=== PATIENT | female | born 1970 | race Caucasian/White ===

== ENCOUNTER → 2016-07-14 | Outpatient (CLI) | payer OTHER ==
--- NOTE | 2016-07-14 17:45 | REP ---
Lumbar spine three views: Comparison is the lumbar spine CT dated 01/28. Vertebral body heights and alignment are normal. There is moderate disc space narrowing and L4-5 and L5 S1 compatible with degenerative disc disease at these levels. The remainder of the disc spaces are unremarkable. The pedicles, facets and sacroiliac articulations are unremarkable. There is no spondylolysis or spondylolisthesis. Impression: Degenerative disc disease as described. Signed by Dominic Cagle MD 07/14/2016 05:37 P
== END ==
LOC: M ADAMS 08:59
PROVIDERS: ATTEND Physician Assistant
DX: M51.36 Other intervertebral disc degeneration, lumbar region (principal); M51.37 Other intervertebral disc degeneration, lumbosacral region

== ENCOUNTER 2017-07-14 16:55 | Emergency (ER) | payer OTHER ==
[2017-07-14] MEDS: ONDANSETRON 4 MG ORAL DISINTEGRATING TAB (S0181) PO ×2 (17:37→18:15)
[2017-07-14] MEDS: NORCO, ANEXSIA 5/325MG TABLET (HYDROcodone/ACETAMINOPHEN) PO (17:38)
[2017-07-14] MEDS: NORCO 5/325MG TABLET (BULK FOR ED) PO (18:15)
== END 2017-07-14 18:59 | disposition home or self-care (01) ==
LOC: M ED 16:55
DX: S06.0X0A Concussion without loss of consciousness, initial encounter (principal); S16.1XXA Strain of muscle, fascia and tendon at neck level, initial encounter; S00.93XA Contusion of unspecified part of head, initial encounter; W00.0XXA Fall on same level due to ice and snow, initial encounter; Y92.89 Other specified places as the place of occurrence of the external cause; Y93.01 Activity, walking, marching and hiking
CPT/HCPCS: 70450

== ENCOUNTER 2017-07-18 09:55 | Emergency (ER) | payer OTHER ==
[2017-07-18] MEDS: NORCO, ANEXSIA 5/325MG TABLET (HYDROcodone/ACETAMINOPHEN) PO (11:25)
== END 2017-07-18 11:30 | disposition home or self-care (01) ==
LOC: M ED 09:55
DX: F07.81 Postconcussional syndrome (principal); S20.229A Contusion of unspecified back wall of thorax, initial encounter; S70.01XA Contusion of right hip, initial encounter; W19.XXXA Unspecified fall, initial encounter; Y92.59 Other trade areas as the place of occurrence of the external cause; Y99.0 Civilian activity done for income or pay; F33.9 Major depressive disorder, recurrent, unspecified; Z79.899 Other long term (current) drug therapy; Z98.890 Other specified postprocedural states
CPT/HCPCS: 72110

== ENCOUNTER → 2017-09-10 | Outpatient (REF) | payer OTHER ==
[2017-09-10 12:48] LABS: PTH INTACT 48.9 PG/ML (18.5-88.0)
[2017-09-10 12:59] LABS: HEPATITIS B SURFACE ANTIGEN NEGATIVE (NEGATIVE)
[2017-09-10 13:26] LABS: HEPATITIS B CORE ANTIBODY IGM NEGATIVE (NEGATIVE)
[2017-09-10 13:26] LABS: HEPATITIS C VIRUS ABY INDEX 0.1 INDEX (<0.8)
[2017-09-10 13:29] LABS: HEPATITIS A ANTIBODY IGM NEGATIVE (NEGATIVE)
== END ==
LOC: M LAB REF 11:55
DX: E83.52 Hypercalcemia (principal); R94.5 Abnormal results of liver function studies

== ENCOUNTER → 2017-10-02 | Outpatient (REF) | payer OTHER ==
[2017-10-02 18:35] LABS: RHEUMATOID FACTOR QUANT < 10.0 IU/ML (<15.0)
[2017-10-03 09:29] LABS: HEPATITIS B SURFACE ANTIGEN NEGATIVE (NEGATIVE)
[2017-10-03 09:55] LABS: HEPATITIS C VIRUS ABY INDEX 0.1 INDEX (<0.8)
[2017-10-03 09:56] LABS: HEPATITIS B CORE ANTIBODY IGM NEGATIVE (NEGATIVE)
[2017-10-03 09:58] LABS: HEPATITIS A ANTIBODY IGM NEGATIVE (NEGATIVE)
[2017-10-07 00:07] LABS: ANTINUCLEAR ANTIBODIES DIRECT Negative (Negative); Lyme Disease IgG/IgM Antibodie <0.91 ISR (0.00-0.90); Lyme Disease IgM Ab Quantitati <0.80 index (0.00-0.79)
[2017-10-07 00:07] LABS: CYCLIC CITRULLINATED PEPTIDE 3 units (0-19)
== END ==
LOC: M LAB REF 17:23
DX: M25.50 Pain in unspecified joint (principal)

== ENCOUNTER → 2018-02-01 | Outpatient (REF) | payer OTHER | LOC: M LAB REF 16:51 | DX: M54.5 Low back pain (principal) ==

== ENCOUNTER → 2018-02-22 | Outpatient (CLI) | payer OTHER | LOC: M ADAMS 08:33 | DX: M54.5 Low back pain (principal) | CPT/HCPCS: 72110 ==

== ENCOUNTER 2018-06-09 20:28 | Emergency (ER) | payer OTHER ==
[2018-06-09] MEDS: PERCOCET 5MG/325MG TAB PO (22:17)
[2018-06-09] MEDS: NORCO 5/325MG TABLET (BULK FOR ED) PO (22:40)
== END 2018-06-09 22:48 | disposition home or self-care (01) ==
LOC: M ED 20:28
DX: S43.102A Unspecified dislocation of left acromioclavicular joint, initial encounter (principal); W19.XXXA Unspecified fall, initial encounter; Y92.093 Driveway of other non-institutional residence as the place of occurrence of the external cause; Y93.9 Activity, unspecified; Y99.9 Unspecified external cause status; R51 Headache; F32.9 Major depressive disorder, single episode, unspecified; Z79.899 Other long term (current) drug therapy
CPT/HCPCS: 73030

== ENCOUNTER → 2018-08-19 | Outpatient (CLI) | payer OTHER ==
[~2018-08-19] MED LIST: ARIP1TAB6; BUPR300T34; FLUOXETINE; NORCOTAB PO; OZEM2INJ; ROSU20TA4; ZOFR4TAB14 PO
[2018-08-19 09:26] LABS: CALCIUM LEVEL 8.8 MG/DL (8.5-10.1); CREATININE FOR GFR 1.17 MG/DL (0.55-1.30); GLOMERULAR FILTRATION RATE 52.6 (>58); POTASSIUM SERUM 4.6 MEQ/L (3.5-5.1)
--- NOTE | 2018-08-19 21:53 | ECGEPIP ---
Stationary ECG Study [facility] Test Date: 2018-08-19 Pat Name: FERNANDO BLACK Department: Room: - Gender: F Management Tech: : 1970 Requested By: Jalil Horn @ [facility] Order Number: [id number] Reading MD: Igor Love Measurements Intervals [place] Rate: 68 P: 58 VA: 147 QRS: 43 QRSD: 93 T: 27 QT: 439 QTc: 469 Interpretive Statements SINUS RHYTHM Prominent R waves V1 through V4; Lead placement. R/O Right ventricular hypertrophy versus prior PWMI No prior tracing for comparison Electronically Signed On 08-19-2018 21:53:07 EST by Igor Love
== END ==
LOC: M LAB 08:05
PROVIDERS: ATTEND Orthopaedic Surgery
DX: Z01.812 Encounter for preprocedural laboratory examination (principal)

== ENCOUNTER 2018-09-02 16:13 | Emergency (ER) | payer OTHER ==
[~2018-09-02] VITALS: Ht 177.8 cm; Wt 92.8 kg
[2018-09-02] MEDS ORDERED: MORP-38 (16:37)
[2018-09-02] MEDS ORDERED: OXYC-517 (16:37)
[2018-09-02] MEDS ORDERED: IBUP-1022 (16:37)
[2018-09-02] MEDS ORDERED: FLUO10TA2 (16:37)
[2018-09-02] MEDS ORDERED: MORPHINE 10 MG/ML 1ML VIAL (J2270) IM ONE (18:15)
[2018-09-02] MEDS ORDERED: ANEXSIA, NORCO 7.5MG/325MG TABLET(HYDROCODONE/APAP) PO ONE (19:15)
[2018-09-02 20:08] VITALS: BP 130/72
== END 2018-09-02 20:15 | disposition home or self-care (01) ==
LOC: M ED 16:13
DX: G89.18 Other acute postprocedural pain (principal); E10.9 Type 1 diabetes mellitus without complications; Z87.891 Personal history of nicotine dependence; Z79.899 Other long term (current) drug therapy
CPT/HCPCS: 94760; 96372; 99284; J2270

== ENCOUNTER → 2018-09-28 | Outpatient (REF) | payer OTHER ==
[~2018-09-28] MED LIST changes: +FLUO10TA2; +HYDR-3715 PO; +IBUP-1022; +MORP-38; -NORCOTAB PO; +OXYC-517
[2018-09-28 20:07] LABS: BASO % 0.5 % (0.0-1.0); EOS # 0.3 10^3/uL (0.0-0.50); EOS % 3.5 % (0.0-3.0); HEMATOCRIT 38.7 % (36.0-47.0); HEMOGLOBIN 12.6 g/dl (12.0-15.5); LYMPH # 2.4 10^3/uL (1.5-4.5); LYMPH % 32.1 % (24.0-44.0); MEAN CORPUSCULAR HEMOGLOBIN 29.5 pg (27.0-33.0); MEAN CORPUSCULAR HGB CONC 32.6 g/dl (32.0-36.5); MEAN CORPUSCULAR VOLUME 90.6 fl (80.0-96.0); MONO # 0.4 10^3/uL (0.0-0.8); MONO % 5.8 % (0.0-5.0); NEUTROPHILS # 4.3 10^3/uL (1.8-7.7); NEUTROPHILS % 57.8 % (36.0-66.0); PLATELET COUNT, AUTOMATED 295 10^3/uL (150-450); RED BLOOD COUNT 4.27 10^6/uL (4.00-5.40); WHITE BLOOD COUNT 7.5 10^3/uL (4.0-10.0)
[2018-09-28 20:45] LABS: ERYTHROCYTE SEDIMENTATION RATE 14 mm/hr (0-20)
== END ==
LOC: M LAB REF 09:18
PROVIDERS: ATTEND Orthopaedic Surgery
DX: S46.011D Strain of muscle(s) and tendon(s) of the rotator cuff of right shoulder, subsequent encounter (principal); W18.30XD Fall on same level, unspecified, subsequent encounter; Y92.009 Unspecified place in unspecified non-institutional (private) residence as the place of occurrence of the external cause

== ENCOUNTER 2018-12-01 10:52 | Day surgery (SDC) | payer OTHER ==
[~2018-12-01] VITALS: Ht 172.7 cm; Wt 85.7 kg
[~2018-12-01 10:52] MED LIST changes: -ARIP1TAB6; +ARIP1TAB6 PO; -BUPR300T34; +BUPR300T34 PO; -FLUO10TA2; +FLUO10TA2 PO; +GABA-843 PO; -IBUP-1022; +IBUP-1022 PO; +LIDOCAINE 1% MDV 20ML VIAL SQ PRN; +LIDOCAINE 2% INJ 100 MG/5 ML SDV (FOR ANES.) As Ordered ONE; +LR 1,000 ML IV ONE; +MIDAZOLAM INJ 2 MG/2 ML VIAL (J2250) As Ordered ONE; -OXYC-517; +OXYC-517 PO; -OZEM2INJ; +OZEM2INJ SC; +PROPOFOL 200 MG/20 ML VIAL As Ordered ONE; +ROCURONIUM BROMIDE 50 MG/5 ML VIAL As Ordered ONE; -ROSU20TA4; +ROSU20TA4 PO; +TIZA4TAB4 PO; +fentaNYL 100 MCG/2 ML INJECTION (J3010) As Ordered ONE
[2018-12-01] MEDS ORDERED: ROPIvacaine 0.5% 30 ML INJECTION (J2795 PER 1MG) ONE (10:53)
[2018-12-01] MEDS ORDERED: EPINEPHrine INJ 1 MG/ML 1ML AMP ONE (10:53)
[2018-12-01] MEDS ORDERED: dexameTHASONE 10 MG/1 ML VIAL PRES.FREE (J1100) ONE (10:53)
[2018-12-01] MEDS ORDERED: LIDOCAINE 1% MDV 20ML VIAL As Ordered ONE (11:46)
[2018-12-01] MEDS ORDERED: EPINEPHrine INJ 1 MG/ML 1ML AMP As Ordered ONE (11:47)
[2018-12-01] MEDS ORDERED: MIDAZOLAM INJ 2 MG/2 ML VIAL (J2250) As Ordered ONE (11:52)
[2018-12-01] MEDS ORDERED: fentaNYL 100 MCG/2 ML INJECTION (J3010) As Ordered ONE (11:52)
[2018-12-01] MEDS ORDERED: dexameTHASONE 4 MG/ML 1ML VIAL (J1100) As Ordered ONE (12:45)
[2018-12-01] MEDS ORDERED: MIDAZOLAM INJ 2 MG/2 ML VIAL (J2250) IV ONE (12:45)
[2018-12-01] MEDS ORDERED: fentaNYL 100 MCG/2 ML INJECTION (J3010) IV ONE (12:45)
[2018-12-01] MEDS ORDERED: NEOSTIGMINE 10 MG/10 ML VIAL (J2710) As Ordered ONE (14:02)
[2018-12-01] MEDS ORDERED: METOCLOPRAMIDE INJ 10MG/2ML VIAL (J2765) As Ordered ONE (14:02)
[2018-12-01] MEDS ORDERED: GLYCOPYRROLATE INJ 0.2 MG/ML 2 ML VIAL As Ordered ONE (14:02)
[2018-12-01] MEDS ORDERED: ONDANSETRON 4MG/2ML VIAL (J2405) As Ordered ONE (14:02)
[2018-12-01] MEDS ORDERED: NORCO, ANEXSIA 5/325MG TABLET (HYDROcodone/ACETAMINOPHEN) PO PRN (16:00)
[2018-12-01] MEDS ORDERED: ONDANSETRON 4MG/2ML VIAL (J2405) IV PRN (16:00)
[2018-12-01] MEDS ORDERED: fentaNYL 100 MCG/2 ML INJECTION (J3010) IV PRN (16:00)
[2018-12-01] MEDS ORDERED: LR 1,000 ML IV SCH (16:00)
[2018-12-01 16:16] VITALS: BP 143/72
--- NOTE | 2018-12-01 18:16 | RO ---
DATE OF PROCEDURE: 12/01/2018 PREOPERATIVE DIAGNOSIS: 1. Right shoulder traumatic re-tear of rotator cuff. POSTOPERATIVE DIAGNOSIS: 1. Right shoulder traumatic re-tear of rotator cuff. 2. Right shoulder arthrofibrosis. PROCEDURE: 1. Right shoulder arthroscopic revision rotator cuff repair. 2. Right shoulder arthroscopic lysis of adhesions. SURGEON: Dr. Papito Aparicio CASH REGISTER OPERATOR: ORAL Matos ANESTHESIA: General with preoperative nerve block. IV FLUIDS: Lactated Ringer's. ESTIMATED BLOOD LOSS: 5 mL. IMPLANTS: Arthrex 4.75 mm PEEK SwiveLock anchor times two and Arthrex 5.5 mm PEEK SwiveLock anchor times two. CLOSURE: Nylon. DESCRIPTION OF PROCEDURE: Patient identified in preoperative holding area. The right shoulder was marked by myself. She had an interscalene nerve block by anesthesia. She was brought to the operating room, placed supine on a well-padded operating room (OR) table. General anesthesia was induced. She received appropriate intravenous (IV) antibiotics within 1 hour of incision. Exam under anesthesia revealed 160 degrees of forward flexion, 60 of external rotation with the arm at her side. She had no increased anterior-posterior translation. She was then placed in the left side down lateral decubitus position with an axillary roll. She had bilateral Venodyne boots for deep vein thrombosis (DVT) prophylaxis. All bony prominences were well padded. The beanbag was deflated, and she was secured to the OR table. The right arm was then placed into the Arthrex STaR Sleeve lateral decubitus traction [place], 10 pounds of traction. The right shoulder was then prepped and draped in the normal sterile fashion with ChloraPrep. Prior to incision, a time-out was performed per hospital protocol. Enrique was present for the entire procedure and participated in all essential portions of the procedure. It was essential to have a skilled diver assistant given this was a revision rotator cuff repair. He assisted with patient positioning and draping, holding the arthroscope, retrieving suture, using a mallet and awl to create sockets for anchors, arthroscopic scissors and suture removal. He also performed the wound closure and applied the sling. The right shoulder was insufflated with lactated Ringer's. A standard posterior viewing portal made with an 11-blade. 30-degree arthroscope introduced into the joint. Diagnostic arthroscopy revealed grade 1 chondromalacia of the glenoid. The rotator interval and subscapularis were obscured with thick scar tissue. There was an area of the supraspinatus where there was an obvious high-grade partial thickness re-tear. One of the FiberTape sutures was under poor tension. An anterior working portal was established through the rotator interval. The radiofrequency cautery was used to perform an arthroscopic lysis of adhesions and a rotator interval release. After the release, the subscapularis was then visible, the shaver was also used to clear out scar tissue, and the subscapularis was noted to be intact. Shaver was used to debride some residual frayed superior labrum. Arthroscopic scissors were used to release the FiberTape suture. The arthroscope was placed into the subacromial space and a lateral working portal established. There was an area with obvious full-thickness re-tear basically in the central aspect of the prior tear with exposed greater tuberosity. Several strands of previous suture were under poor tension. The cautery was used to clear out some scar tissue, clear out any residual bursal formation, also perform releases between the acromion and rotator cuff further medial. The arthroscopic scissors were used to release additional suture material. Once the anterior medial anchor was visualized, I cleared off some of the healed portion of the prior repair just anterior to that and used the ring curette to clear out all soft tissue to create a bleeding surface. An awl was used to create a socket in the tuberosity, basically just anterior to the original anterior medial anchor. That was a 4.75 mm PEEK SwiveLock anchor, had a great fixation. I attempted to then use that SwiveLock food service driver to remove that adjacent anchor, and it was quite secure so it was left alone. All suture coming from that anchor was removed, though. Further posterior adjacent to articular surface, the prior repair site was cleared out of scar tissue, and the food service driver was used to remove the posterior medial anchor. Then I removed the two lateral anchors and all of the suture. Ring curette was used again. I placed a second 4.75 mm PEEK SwiveLock anchor, this one just anterior to the original posteromedial anchor. The tape sutures were then passed in a horizontal mattress fashion with the Scorpion. FiberWire was passed in a horizontal mattress fashion through the far posterior portion of the tear to avoid a dog ear. The corresponding anterior sutures from each medial anchor were brought out through the lateral portal, and I placed an additional TigerWire through the far anterior portion of the tear as a dog ear reduction stitch. Those sutures were loaded through a 5.5 mm PEEK SwiveLock anchor, the anchor was docked and then malleted and inserted by hand. It actually had a great fixation. I used the original anterolateral socket. Sutures were trimmed and discarded. These steps were repeated with the posterior sutures, again through the original posterolateral anchor and again that 5.5 SwiveLock had great fixation. This completed the double row revision rotator cuff repair with no dog ears. The shoulder was rotated. There was no lift off or buckling. Portals were then closed with nylon suture. Bulky sterile dressing applied. She was placed into the ARC 2 sling. She was extubated, transferred to the post-anesthesia care unit (PACU) in stable condition. Complications: None.
== END 2018-12-01 16:43 | disposition home or self-care (01) ==
LOC: M SDC 10:52
PROVIDERS: ATTEND Orthopaedic Surgery
DX: S46.011A Strain of muscle(s) and tendon(s) of the rotator cuff of right shoulder, initial encounter (principal); S46.111A Strain of muscle, fascia and tendon of long head of biceps, right arm, initial encounter; E78.5 Hyperlipidemia, unspecified; E11.9 Type 2 diabetes mellitus without complications; F41.9 Anxiety disorder, unspecified; F32.9 Major depressive disorder, single episode, unspecified; Z91.040 Latex allergy status; Z79.899 Other long term (current) drug therapy; Y92.008 Other place in unspecified non-institutional (private) residence as the place of occurrence of the external cause; Y93.89 Activity, other specified
CPT/HCPCS: 29825; 29827; 64415; C1713; J0690; J1100; J2250; J2405; J2710; J2765; J2795; J3010

== ENCOUNTER → 2019-02-11 | Outpatient (REF) | payer OTHER ==
[~2019-02-11] MED LIST changes: +AUGM875T28 PO; -BUPR300T34 PO; +BUPR300T92 PO; +KEFL500C17 PO; -LIDOCAINE 1% MDV 20ML VIAL SQ PRN; -LIDOCAINE 2% INJ 100 MG/5 ML SDV (FOR ANES.) As Ordered ONE; -LR 1,000 ML IV ONE; -MIDAZOLAM INJ 2 MG/2 ML VIAL (J2250) As Ordered ONE; -MORP-38; +MORP-69; +PERC5TAB12 PO; +PRED20TA PO; -PROPOFOL 200 MG/20 ML VIAL As Ordered ONE; +RIZA10TA2; -ROCURONIUM BROMIDE 50 MG/5 ML VIAL As Ordered ONE; -ROSU20TA4 PO; +ROSU20TA5 PO; -fentaNYL 100 MCG/2 ML INJECTION (J3010) As Ordered ONE
== END ==
LOC: M LAB REF 12:13
PROVIDERS: ATTEND Physician Assistant
DX: N39.0 Urinary tract infection, site not specified (principal)

== ENCOUNTER 2019-06-07 17:08 | Emergency (ER) | payer OTHER ==
[~2019-06-07] VITALS: Ht 177.8 cm; Wt 75.6 kg
[~2019-06-07 17:08] MED LIST changes: -AUGM875T28 PO; -PERC5TAB12 PO
[2019-06-07 18:00] LABS: BASO # 0.1 10^3/uL (0.0-0.2); BASO % 0.9 % (0.0-1.0); EOS # 0.2 10^3/uL (0.0-0.5); EOS % 4.5 % (0.0-3.0); HEMATOCRIT 39.2 % (36.0-47.0); HEMOGLOBIN 12.8 g/dl (12.0-15.5); LYMPH % 37.6 % (24.0-44.0); MEAN CORPUSCULAR HEMOGLOBIN 30.2 pg (27.0-33.0); MEAN CORPUSCULAR HGB CONC 32.7 g/dl (32.0-36.5); MEAN CORPUSCULAR VOLUME 92.5 fl (80.0-96.0); MONO # 0.4 10^3/uL (0.0-0.8); MONO % 6.9 % (0.0-5.0); NEUTROPHILS # 2.7 10^3/uL (1.5-8.5); NEUTROPHILS % 49.9 % (36.0-66.0); PLATELET COUNT, AUTOMATED 259 10^3/uL (150-450); RED BLOOD COUNT 4.24 10^6/uL (4.00-5.40); WHITE BLOOD COUNT 5.4 10^3/uL (4.0-10.0)
[2019-06-07] MEDS ORDERED: PERCOCET 5MG/325MG TAB PO ONE (18:15)
[2019-06-07] MEDS ORDERED: ONDANSETRON 4 MG ORAL DISINTEGRATING TAB (Q0162 PER 1MG) PO ONE (18:15)
[2019-06-07 18:25] LABS: ALBUMIN 4.5 GM/DL (3.2-5.2); BILIRUBIN,DIRECT 0.2 MG/DL (0.0-0.2); BILIRUBIN,TOTAL 0.5 MG/DL (0.2-1.0); CALCIUM LEVEL 9.4 MG/DL (8.5-10.1); CREATININE FOR GFR 1.13 MG/DL (0.55-1.30); GLOMERULAR FILTRATION RATE 54.5 (>58); POTASSIUM SERUM 3.9 MEQ/L (3.5-5.1); TOTAL PROTEIN 7.7 GM/DL (6.4-8.2)
--- NOTE | 2019-06-07 19:27 | REPVR ---
PROCEDURE INFORMATION: Exam: CT Abdomen And Pelvis Without Contrast Exam date and time: 06/07/2019 6:11 PM Age: 48 years old Clinical history: Pain; Other: Left flank; Additional info: Left flank pain suspect stone TECHNIQUE: Imaging protocol: Computed tomography of the abdomen and pelvis without contrast. Radiation optimization: All CT scans at this facility use at least one of these dose optimization techniques: automated exposure control; mA and/or kV adjustment per patient size (includes targeted exams where dose is matched to clinical indication); or iterative reconstruction. COMPARISON: CR Hip,AP,LAT to include Pelvis 07/18/2017 10:29 AM FINDINGS: Liver: There are no focal liver lesions present. Gallbladder and bile ducts: The gallbladder is normal. Pancreas: The pancreas is normal. Spleen: The spleen is normal. Adrenals: The adrenal glands are normal. Kidneys and ureters: The kidneys are grossly normal without calculi or hydronephrosis apparent. Stomach and bowel: There is no evidence of intestinal obstruction although the duodenum appears dilated to 2.7 cm in width, air and stool are seen throughout the remainder of the bowel. Diverticulosis without evidence of diverticulitis. Appendix: No evidence of appendicitis. Intraperitoneal space: Unremarkable. No free air. No significant fluid collection. Vasculature: The aorta is normal. Lymph nodes: Unremarkable. No enlarged lymph nodes. Bladder: The bladder is decompressed and therefore not well assessed. Reproductive: Unremarkable as visualized. Bones/joints: Skeletal degeneration. Soft tissues: There is a fat-containing umbilical hernia. IMPRESSION: 1. No renal calculi or hydronephrosis. 2. There is dilatation of the duodenum which may be due to duodenitis among other etiologies. The wall of the duodenum is not well assessed on this noncontrast study but does not appear to be thickened. Electronically signed by: Love Mahajan On 06/07/2019 19:27:39 PM
[2019-06-07] MEDS ORDERED: AUGM875T28 PO ×2 (19:57→20:03)
[2019-06-07] MEDS ORDERED: PERC5TAB12 PO ×2 (19:57→20:03)
[2019-06-07 20:07] VITALS: BP 123/60
--- NOTE | 2019-06-08 10:39 | ED PDOC ---
Post-Departure Follow-Up delmy nathan faxed formal report of ct abd/p for fu Gaetano Rolle MD Jun 08, 2019 10:39
== END 2019-06-07 20:13 | disposition home or self-care (01) ==
LOC: M ED 17:08
DX: K29.80 Duodenitis without bleeding (principal); E11.9 Type 2 diabetes mellitus without complications; F33.9 Major depressive disorder, recurrent, unspecified; F41.9 Anxiety disorder, unspecified; Z79.899 Other long term (current) drug therapy; Z91.040 Latex allergy status
CPT/HCPCS: 36415; 74176; 80048; 80076; 81001; 82150; 83690; 85025; 99283; Q0162

== ENCOUNTER → 2019-06-07 | Outpatient (REF) | payer OTHER ==
[~2019-06-07] MED LIST changes: +BUPR300T34 PO; -BUPR300T92 PO; -KEFL500C17 PO; -PRED20TA PO; -RIZA10TA2
== END ==
LOC: M LAB REF 19:09
PROVIDERS: ATTEND Physician Assistant
DX: R10.814 Left lower quadrant abdominal tenderness (principal)

== ENCOUNTER 2019-06-12 11:22 | Emergency (ER) | payer OTHER ==
[~2019-06-12] VITALS: Ht 177.8 cm; Wt 73.2 kg
[~2019-06-12 11:22] MED LIST changes: +AUGM875T28 PO; +PERC5TAB12 PO
[2019-06-12] MEDS ORDERED: RIZA10TA2 (11:32)
[2019-06-12] MEDS ORDERED: KETOROLAC 60 MG/2 ML VIAL (J1885) IM ONE (12:15)
[2019-06-12] MEDS ORDERED: KETOROLAC TROMETHAMINE 10 MG TAB PO ONE (12:45)
[2019-06-12] MEDS ORDERED: KEFL500C17 PO (13:17)
[2019-06-12] MEDS ORDERED: PRED20TA PO (13:17)
[2019-06-12 13:26] VITALS: BP 134/66
[2019-06-12] MEDS ORDERED: CEPHALEXIN 500 MG CAP PO ONE (13:30)
--- NOTE | 2019-06-12 13:46 | REP ---
REASON: Shoulder pain. No priors. No history of trauma. 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 There is evidence of chronic humeral head changes. The glenohumeral relationship is within normal limits. There is no acute fracture, dislocation, or subluxation. IMPRESSION:Chronic changes. Electronically Signed by Adria Welsh DO 06/12/2019 01:56 P
== END 2019-06-12 13:32 | disposition home or self-care (01) ==
LOC: M ED 11:22
DX: M19.011 Primary osteoarthritis, right shoulder (principal); E11.9 Type 2 diabetes mellitus without complications; F33.9 Major depressive disorder, recurrent, unspecified; F41.9 Anxiety disorder, unspecified; Z79.899 Other long term (current) drug therapy; Z91.040 Latex allergy status; Z87.891 Personal history of nicotine dependence
CPT/HCPCS: 73030; 96372; 99284; J1885

== ENCOUNTER → 2019-06-24 | Outpatient (REF) | payer OTHER ==
[~2019-06-24] MED LIST changes: +KEFL500C17 PO; +PRED20TA PO; +RIZA10TA2
[2019-06-24 14:24] LABS: AMYLASE 42 U/L (25-115); C REACTIVE PROTEIN QUANTITATIV < 0.30 MG/DL (0.00-0.30); LIPASE 160 U/L (73-393)
== END ==
LOC: M LAB REF 13:31
PROVIDERS: ATTEND Registered Nurse
DX: R10.32 Left lower quadrant pain (principal)

== ENCOUNTER → 2019-08-27 | Outpatient (CLI) | payer OTHER ==
[~2019-08-27] MED LIST changes: -BUPR300T34 PO; +BUPR300T92 PO; -RIZA10TA2; +RIZA10TA2 PO
[2019-08-27 07:52] LABS: BLOOD UREA NITROGEN 19 MG/DL (7-18); CALCIUM LEVEL 9.1 MG/DL (8.5-10.1); CARBON DIOXIDE LEVEL 24 MEQ/L (21-32); CHLORIDE LEVEL 110 MEQ/L (98-107); CREATININE FOR GFR 0.98 MG/DL (0.55-1.30); GLOMERULAR FILTRATION RATE > 60.0 (>58); GLUCOSE, FASTING 88 MG/DL (70-100); SODIUM LEVEL 142 MEQ/L (136-145)
--- NOTE | 2019-08-27 15:07 | ECGEPIP ---
[facility] Test Date: 2019-08-27 Pat Name: FERNANDO BLACK Department: Room: - Gender: Female Wre[employer]land Maker: KAREN : 1970 Requested By: Miguel Boogie Order Number: [id number] Reading MD: Wang Eaton Measurements Intervals [place] Rate: 61 P: 72 UT: 129 QRS: 67 QRSD: 95 T: 66 QT: 445 QTc: 448 Interpretive Statements SINUS RHYTHM Prominent anterior R waves previously noted on tracing done 08-19-18 Electronically Signed on 08-27-2019 15:07:36 EST by Wang Eaton
== END ==
LOC: M LAB 06:37
PROVIDERS: ATTEND Anesthesiology
DX: Z01.818 Encounter for other preprocedural examination (principal); E11.9 Type 2 diabetes mellitus without complications

== ENCOUNTER 2019-09-03 05:35 | Day surgery (SDC) | payer OTHER ==
[~2019-09-03] VITALS: Ht 177.8 cm; Wt 68.0 kg
[2019-09-03] MEDS ORDERED: LR 1,000 ML IV ONE (06:00)
[2019-09-03] MEDS ORDERED: MIDAZOLAM INJ 2 MG/2 ML VIAL (J2250) As Ordered ONE (06:46)
[2019-09-03] MEDS ORDERED: fentaNYL 100 MCG/2 ML INJECTION (J3010) As Ordered ONE ×2 (06:46→07:05)
[2019-09-03] MEDS ORDERED: ceFAZolin SOD 2 GM in IV 1 EA IV ONE (07:00)
[2019-09-03] MEDS ORDERED: dexameTHASONE 4 MG/ML 1ML VIAL (J1100) As Ordered ONE (07:01)
[2019-09-03] MEDS ORDERED: ROCURONIUM BROMIDE 50 MG/5 ML VIAL As Ordered ONE (07:01)
[2019-09-03] MEDS ORDERED: LIDOCAINE 2% INJ 100 MG/5 ML SDV (FOR ANES.) As Ordered ONE (07:01)
[2019-09-03] MEDS ORDERED: ONDANSETRON 4MG/2ML VIAL (J2405) As Ordered ONE (07:01)
[2019-09-03] MEDS ORDERED: propofoL 200 MG/20 ML VIAL As Ordered ONE (07:01)
[2019-09-03] MEDS ORDERED: ceFAZolin 2 GM/D5W 50 ML IV BAG (J0690 PER 500MG) As Ordered ONE (07:09)
[2019-09-03] MEDS ORDERED: EPINEPHrine 1MG/ML INJ 30ML MD-VIAL As Ordered ONE (07:13)
[2019-09-03] MEDS ORDERED: LIDOCAINE 1% MDV 20ML VIAL As Ordered ONE (07:13)
[2019-09-03] MEDS ORDERED: MIDAZOLAM INJ 2 MG/2 ML VIAL (J2250) IV ONE (07:30)
[2019-09-03] MEDS ORDERED: fentaNYL 100 MCG/2 ML INJECTION (J3010) IV ONE (07:45)
[2019-09-03] MEDS ORDERED: ACETAMINOPHEN 1000MG 100ML IV BTL (OFIRMEV) (J0131 PER 10MG) As Ordered ONE (07:52)
[2019-09-03] MEDS ORDERED: ePHEDrine SULFATE 25 MG/5 ML(5MG/ML) SYRINGE As Ordered ONE (08:06)
[2019-09-03] MEDS ORDERED: oxyCODONE 5MG TAB PO PRN (10:45)
[2019-09-03] MEDS ORDERED: ONDANSETRON 4MG/2ML VIAL (J2405) IV PRN (10:45)
[2019-09-03] MEDS ORDERED: fentaNYL 100 MCG/2 ML INJECTION (J3010) IV PRN (10:45)
[2019-09-03] MEDS ORDERED: HYDROMORPHONE HCL 0.5 MG/ 0.5 ML SYRINGE (J1170 PER 1) IV PRN (10:45)
[2019-09-03] MEDS ORDERED: LR 1,000 ML IV SCH ×2 (10:45→11:45)
[2019-09-03 12:10] VITALS: BP 114/60
--- NOTE | 2019-09-05 10:43 | RO ---
DATE OF PROCEDURE: 09/03/2019 PREOPERATIVE DIAGNOSIS: Traumatic re-tear of a revision rotator cuff repair. POSTOPERATIVE DIAGNOSES: 1. Traumatic re-tear of a revision rotator cuff repair. 2. Chondromalacia of the glenoid. 3. Loose hardware. PROCEDURE: 1. Right shoulder arthroscopic revision rotator cuff repair. 2. Right shoulder arthroscopic extensive debridement including anterior labral debridement, chondroplasty, synovectomy, hardware removal and subacromial decompression. SURGEON: Dr. Papito Aparicio K 9 POLICE OFFICER: ORAL Haynes ANESTHESIA: General with preoperative nerve block. IV FLUIDS: Lactated Ringers. ESTIMATED BLOOD LOSS: 10 mL. IMPLANTS: Arthrex 5.5 mm Peak SwiveLock anchor times three and an Arthrex 5.5 mm corkscrew times one. CLOSURE: Nylon. INDICATIONS: The patient underwent initial rotator cuff repair and then traumatically retore it in the early postoperative period. She underwent a revision rotator cuff repair and had been counseled about the importance of avoiding reinjury. Unfortunately, she slipped in some mud, fell on her shoulder and suffered a re-tear. We have attempted to treat this conservatively with cortisone shots and physical therapy (PT), yet she continued to have significant pain and limitations with a postoperative MRI showing a retear. So we had another discussion of the risks, benefits of a revision rotator cuff repair, the importance of following all postoperative restrictions mostly the points of avoiding falls and other reinjuries. Written informed consent was obtained. She expressed explicit understanding that this was probably the last rotator cuff repair surgery I can perform. DESCRIPTION OF PROCEDURE: Patient identified in the preoperative holding area. The right shoulder marked by myself. She had interscalene nerve block. She was brought to the operating room and placed supine on a well-padded operating room (OR) table with the beanbag. General anesthesia induced. Exam under anesthesia revealed 180 forward flexion, 90 of external rotation, no increased anterior-posterior translation. She was placed in the left side down lateral decubitus position with an axillary roll and all bony prominences well padded. Bilateral Venodyne boots for deep vein thrombosis (DVT) prophylaxis. The right arm was placed into the Arthrex STaR Sleeve lateral decubitus traction [place] at 10 pounds of traction. The right shoulder was then prepped and draped in the normal sterile fashion with Chloraprep. She received appropriate IV antibiotics within 1 hour of incision. A time out was then performed per hospital protocol. Young Hutchison was present for the entire procedure and participated in all essential portions of the procedure. This included patient positioning and draping, holding the arthroscope, retrieving sutures, passing instruments, rotating the arm, and providing traction to assist with removal of prior screws. He also was crucial for suture retrieval and placing anchors during the revision rotator cuff repair. The right shoulder was insufflated with lactated Ringers. Posterior viewing portal was opened with the 11-blade and 30 degrees arthroscope was introduced into the joint. Subscapularis was intact. There was grade 1-2 chondromalacia in the glenoid and grade 1 the humeral head. There was a full thickness re-tear of the entire supraspinatus extending into the infraspinatus. An anterior working portal was established through the rotator interval and a chondroplasty to the glenoid was performed and a debridement of some leading edge tearing of the anterior labrum. The arthroscope was then placed in the subacromial space, lateral working portal established and the open gem stone cutter was then used to cut prior sutures. This was a full thickness re-tear. The ring curette was used to clear soft tissue off the posterior greater tuberosity and percutaneously placed the 5.5 mm SwiveLock anchor. I was then able to use a regional refrigerated cdl truck driver screwdriver to remove the majority of the prior anchors so I was able to successfully remove all prior sutures. A bur was used to remove a small spur. Ring curette was used to scrape soft tissue off of the tuberosity to create a bleeding surface. This was a challenging case due to two prior rotator cuff repairs with multiple previous anchors. With the greater tuberosity now prepared, I then worked on mobilizing the tendon. Tissue quality was moderate. A traction stitch placed in the supraspinatus with the scorpion. I then used the radiofrequency cautery to release adhesions between the cuff and the acromion. The cuff grasper was used to manipulate the tendon. I was able to get good lateral excursion. This was a V-shaped tear. I used the Scorpion to place #2 FiberWire at the apex of the tear and then tied knots by hand in a margin convergence fashion. Two of those were placed to close down the apex of the tear. Next, I percutaneously placed a 5.5 corkscrew in the anterior greater tuberosity. All four limbs of suture were passed in a horizontal mattress fashion with the Scorpion. Knots were tied by hand using alternating half hitch technique. Those sutures were saved for later incorporation into the lateral row. Next, the fiber tape sutures from the posterior anchor were passed just posterior to the apex of the tear. The eyelet stitches were passed through the far posterior portion of the tear into the infraspinatus and then tied down using alternating half hitch technique. Next, due to this V-shaped configuration, I brought all of the posterior sutures to the anterolateral anchor and all of the anterior sutures to a posterolateral anchor. This completely closed down the tear. The entire tuberosity was covered. So, I placed those sutures into 5.5 mm Peak SwiveLock anchors, avoiding prior anchors. This completed the double row repair. The shoulder was gently internally and externally rotated and the cuff moved nicely as a unit. Due to the number of anchors used and the worst quality of tissue at this case compared to the last one, I do not think it would be worth trying a revision rotator cuff repair in the future if she falls again. The incision was closed with nylon suture. Bulky sterile dressing was applied. She was placed into the ARC 2.0 sling, extubated and transferred to the postanesthesia care unit (PACU) in stable condition.
== END 2019-09-03 12:25 | disposition home or self-care (01) ==
LOC: M SDC 05:35
PROVIDERS: ATTEND Orthopaedic Surgery
DX: S46.011A Strain of muscle(s) and tendon(s) of the rotator cuff of right shoulder, initial encounter (principal); M75.111 Incomplete rotator cuff tear or rupture of right shoulder, not specified as traumatic; M94.211 Chondromalacia, right shoulder; E11.9 Type 2 diabetes mellitus without complications; E78.5 Hyperlipidemia, unspecified; F41.9 Anxiety disorder, unspecified; F32.9 Major depressive disorder, single episode, unspecified; Z79.899 Other long term (current) drug therapy; Z87.891 Personal history of nicotine dependence; W01.0XXA Fall on same level from slipping, tripping and stumbling without subsequent striking against object, initial encounter; Y92.89 Other specified places as the place of occurrence of the external cause; Y93.9 Activity, unspecified; Y99.9 Unspecified external cause status
CPT/HCPCS: 20670; 29823; 29826; 29827; 64415; C1713; J0131; J0690; J1100; J2250; J2405; J3010

== ENCOUNTER → 2019-10-21 | Outpatient (REF) | payer OTHER ==
[2019-10-21 19:20] LABS: C REACTIVE PROTEIN QUANTITATIV < 0.30 MG/DL (0.00-0.30); LIPASE 100 U/L (73-393)
== END ==
LOC: M LAB REF 17:29
PROVIDERS: ATTEND Nurse Practitioner Adult Health
DX: R11.0 Nausea (principal); R63.4 Abnormal weight loss; S46.011D Strain of muscle(s) and tendon(s) of the rotator cuff of right shoulder, subsequent encounter

== ENCOUNTER → 2019-12-14 | Outpatient (REF) | payer OTHER ==
[2019-12-14 15:10] LABS: BASO % 0.5 % (0.0-1.0); EOS # 0.1 10^3/uL (0.0-0.5); EOS % 3.3 % (0.0-3.0); HEMATOCRIT 36.1 % (36.0-47.0); HEMOGLOBIN 12.1 g/dl (12.0-15.5); LYMPH # 1.9 10^3/uL (1.5-5.0); LYMPH % 43.7 % (24.0-44.0); MEAN CORPUSCULAR HEMOGLOBIN 29.5 pg (27.0-33.0); MEAN CORPUSCULAR HGB CONC 33.5 g/dl (32.0-36.5); MONO # 0.4 10^3/uL (0.0-0.8); MONO % 9.2 % (0.0-5.0); NEUTROPHILS # 1.9 10^3/uL (1.5-8.5); NEUTROPHILS % 43.3 % (36.0-66.0); PLATELET COUNT, AUTOMATED 257 10^3/uL (150-450); WHITE BLOOD COUNT 4.3 10^3/uL (4.0-10.0)
[2019-12-14 15:36] LABS: ERYTHROCYTE SEDIMENTATION RATE 6 mm/hr (0-20)
== END ==
LOC: M LABDRWAD 12:54
PROVIDERS: ATTEND Orthopaedic Surgery
DX: S46.011D Strain of muscle(s) and tendon(s) of the rotator cuff of right shoulder, subsequent encounter (principal); W18.30XD Fall on same level, unspecified, subsequent encounter; Y92.9 Unspecified place or not applicable

== ENCOUNTER → 2020-03-02 | Outpatient (CLI) | payer OTHER ==
[~2020-03-02] MED LIST changes: +ISOVUE-300 61% 50ML VIAL As Ordered ONE; +LIDOCAINE 1% MDV 20ML VIAL As Ordered ONE; +TRIAMCINOLONE ACETONIDE SUSP 40 MG/ML VIAL (J3301) As Ordered ONE
--- NOTE | 2020-03-24 11:25 | REP ---
RIGHT SHOULDER INJECTION The procedure was performed under the direct supervision of Dr. Lovell. The benefits and risks including, but not limited to pain, infection, bleeding, and anaphylaxis were explained to the patient and informed consent was obtained. The right glenohumeral joint space was localized using fluoroscopic guidance. The skin was prepped and draped in a sterile fashion. 1% Lidocaine was used as a local anesthetic. Using fluoroscopic guidance, a 22-gauge needle was inserted and advanced into the joint. 0.5 mL of Isovue-300 was injected to verify placement. 6 mL of a solution containing 5 mL of 1% Lidocaine and 1 mL of Kenalog 40 mg was injected. The needle was then removed. The patient tolerated the procedure well and there were no immediate complications. After the appropriate amount of monitored convalescence, the patient was discharged from the department. Less than 6 seconds of fluoroscopy time was utilized for this procedure. CHITO
== END ==
LOC: M RADPRO 13:40
PROVIDERS: ATTEND Orthopaedic Surgery Sports Medicine
DX: S46.011D Strain of muscle(s) and tendon(s) of the rotator cuff of right shoulder, subsequent encounter (principal)
CPT/HCPCS: 20610; 77002; J3301; Q9967

== ENCOUNTER → 2020-03-02 | Outpatient (REF) | payer OTHER ==
[~2020-03-02] MED LIST changes: -ISOVUE-300 61% 50ML VIAL As Ordered ONE; -LIDOCAINE 1% MDV 20ML VIAL As Ordered ONE; -TRIAMCINOLONE ACETONIDE SUSP 40 MG/ML VIAL (J3301) As Ordered ONE
[2020-03-02 19:21] LABS: AMYLASE 50 U/L (25-115); LIPASE 163 U/L (73-393)
[2020-03-02 19:39] LABS: HEPATITIS B SURFACE ANTIGEN NEGATIVE (NEGATIVE)
[2020-03-02 20:06] LABS: HEPATITIS C VIRUS ABY INDEX 0.1 INDEX (<0.8)
[2020-03-02 20:07] LABS: HEPATITIS B CORE ANTIBODY IGM NEGATIVE (NEGATIVE)
[2020-03-02 20:08] LABS: HEPATITIS A ANTIBODY IGM NEGATIVE (NEGATIVE)
[2020-03-03 11:59] LABS: HIV 1&2 SCREEN CENTAUR NEGATIVE (NEGATIVE)
== END ==
LOC: M LAB REF 17:40
PROVIDERS: ATTEND Nurse Practitioner Adult Health
DX: R63.4 Abnormal weight loss (principal); R11.0 Nausea; R68.81 Early satiety

== ENCOUNTER → 2020-07-07 | Outpatient (CLI) | payer OTHER ==
[~2020-07-07] MED LIST changes: +GABA-282 PO; -GABA-843 PO
--- NOTE | 2020-07-07 09:11 | REP ---
INDICATION: PAIN IN LEFT SHOULDER COMPARISON: None. TECHNIQUE: Internal rotation, external rotation, and Y view. FINDINGS: Minimal age-related changes include subtle cortical irregularity at the acromioclavicular joint. The glenohumeral joint appears intact and normal. Subacromial space is normal. No periarticular calcifications or loose bodies are identified. Surrounding soft tissues are unremarkable. IMPRESSION: Essentially age-appropriate examination. <Electronically signed by Artemio Oro > 07/07/20 0913
== END ==
LOC: M ADAMS 08:47
PROVIDERS: ATTEND Physician Assistant
DX: M25.512 Pain in left shoulder (principal)

== ENCOUNTER → 2020-10-23 | Outpatient (CLI) | payer OTHER ==
--- NOTE | 2020-10-25 01:01 | ECWPNPC ---
PATIENT NAME: FERNANDO BLACK : 1970 GENDER: FEMALE VISIT DATE: 10/23/2020 DISCHARGE DATE: 10/23/20924 VISIT LOCKED DATE TIME: PHYSICIAN: NETO MIKE RESOURCE: NETO MIKE REASON FOR APPOINTMENT 1. SHOULDER HISTORY OF PRESENT ILLNESS DEPRESSION SCREENIN-YEAR-OLD FEMALE IN FOR INITIAL PAIN CONSULT REGARDING RIGHT SHOULDER PAIN. PATIENT HAS HAD A HISTORY OF MULTIPLE SHOULDER REPAIRS TO INCLUDE 2 IN 2019 ONE IN 2019 AND THEN A TOTAL REPLACEMENT IN JULY 2020. SINCE THAT TIME PATIENT HAS EXPERIENCED SIGNIFICANT SHOULDER PAIN WITH NO RELIEF. PHQ-2 (2015 EDITION) LITTLE INTEREST OR PLEASURE IN DOING THINGS?NOT AT ALL FEELING DOWN, DEPRESSED, OR HOPELESS?NOT AT ALL TOTAL SCORE0 GENERAL: -. FALL RISK SCREENING: SCREENING : NO FALLS REPORTED IN THE LAST YEAR. PAIN SCREENING: PATIENT HAS A COMPLAINT OF ACUTE OR CHRONIC PAIN :YES LOCATION OF PAIN:RIGHT SHOULDER RIGHT SHOULDER INTENSITY OF PAIN (SCALE OF 1 TO 10):4 DAY: 4. NIGHT: 7-01/30 WHAT DOES YOUR PAIN FEEL LIKE:ACHING, SHOOTING "OVER PULLING A MUSCLE, LIKE ELECTRICITY GOING THROUGH IT," DURATION:CONTINOUS PROGRESSIVELY WORSE DURING DAY PAIN IS INCREASED BY:ACTIVITIES PAIN IS DECREASED BY:USE OF PAIN MEDICATIONS, OTHERS ICE PLAN/GOALS/TREATMENT/INTERVENTION/FOLLOW UP:SEE PLAN NURSING NOTE: -. PAIN CENTER INTAKE QUESTIONS: DO YOU HAVE A HISTORY OF MRSA? :NO DO YOU TAKE A BLOOD THINNERS? :NO DO YOU HAVE ANY BLEEDING DISORDERS? :NO ANY NEW NUMBNESS OR WEAKNESS IN YOUR LEGS OR ARMS? :NO ANY PACEMAKER,DEFIBRILLATOR, OR DORSAL COLUMN STIMULATOR? :NO DO YOU HAVE ANY RASHES OR OPEN SORES? :NO ARE YOU ALLERGIC TO IV DYE? :NO ARE YOU DIABETIC? :NO ANY NEW PROBLEMS WITH YOUR MEDICATIONS? :NO HAVE YOU RECEIVED A VACCINE IN THE PAST 30 DAYS? :NO DO YOU PLAN TO RECEIVE A VACCINE IN THE NEXT 21 DAYS? :NO DO YOU NEED ANY PRESCRIPTION? :NO DO YOU TAKE ANY IMMUNOSUPPRESSIVE MEDICATIONS? :NO DO YOU HAVE ANY KIDNEY OR LIVER DISEASE? :NO IS THERE A CHANCE YOU COULD BE ? :NO ARE YOU BREAST FEEDING? :NO CURRENT MEDICATIONS TAKING OZEMPIC (0.25 OR 0.5 MG/DOSE) 2 MG/1.5ML SOLUTION PEN-INJECTOR INJECT 0.25MG UNDER THE SKIN ONCE WEEKLY SUBCUTANEOUS TAKING ONETOUCH ULTRA - STRIP TEST TWO TIMES A DAY IN VITRO TAKING ONETOUCH DELICA PLUS [id number] - MISCELLANEOUS TEST TWO TIMES A DAY TAKING PROPRANOLOL HCL ER 60 MG CAPSULE EXTENDED RELEASE 24 HOUR TAKE ONE CAPSULE BY MOUTH EVERY DAY ORAL TAKING RIZATRIPTAN BENZOATE 10 MG TABLET TAKE ONE TABLET BY MOUTH IMMEDIATELY MAY REPEAT AFTER 2 HOURS ORAL TAKING ROSUVASTATIN CALCIUM 20 MG TABLET TAKE ONE TABLET BY MOUTH EVERY DAY ORAL TAKING IBUPROFEN 800 MG TABLET TAKE ONE TABLET BY MOUTH THREE TIMES A DAY FOR 5 DAYS ORAL TAKING BUPROPION HCL ER (XL) 300 MG TABLET EXTENDED RELEASE 24 HOUR TAKE ONE TABLET BY MOUTH EVERY DAY ORAL TAKING CYCLOBENZAPRINE HCL 10 MG TABLET TAKE 1 TABLET BY MOUTH AT BEDTIME ORAL TAKING GABAPENTIN 100 MG CAPSULE 2 CAPSULES ORAL TID TAKING PROZAC 20 MG CAPSULE 1 CAPSULE ORALLY ONCE A DAY TAKING BUSPIRONE HCL 10 MG TABLET 1 TABLET ORALLY THREE A DAY UNKNOWN VALACYCLOVIR HCL 1 GM TABLET TAKE ONE TABLET BY MOUTH TWICE A DAY FOR 7 DAYS ORAL UNKNOWN TRAMADOL HCL 50 MG TABLET (SCHEDULE IV DRUG) TAKE ONE TABLET BY MOUTH THREE TIMES A DAY NEEDED MAXIMUM DAILY DOSE 3 ORAL MEDICATION LIST REVIEWED AND RECONCILED WITH THE PATIENT PAST MEDICAL HISTORY DIABETES TYPE II MIGRAINE HEADACHES HYPERLIPIDEMIA MISCARRIAGES ALLERGIES PROPRANOLOL HCL: CONFUSION LATEX: RASH - ALLERGY SURGICAL HISTORY RIGHT ROTATOR CUFF SURGERY 09/09/2018 RIGHT ROTATOR CUFF SURGERY 11/2018 RIGHT ROTATOR CUFF SURGERY 08/2019 RIGHT ROTATOR CUFF SURGERY (DR. ORTIZ) 08/11/2020 1990 TUBAL LIGATION 2006 TOTAL HYSTERECTOMY 2007 FAMILY HISTORY FATHER: , DIAGNOSED WITH UNSPECIFIED CEREBRAL ARTERY OCCLUSION WITH CEREBRAL INFARCTION 2 SON(S) , 2 DAUGHTER(S) - HEALTHY. GM (MATERNAL): STOMACH CANCERMOTHER: LYMPHOMA FATHER: BRAIN ANEURYSM (1982). SOCIAL HISTORY GENERAL: TOBACCO USE ARE YOU A:NONSMOKER FORMER SMOKER STOPPED IN 2000. VAPORNO E-CIGARETTENO LATEX QUESTIONNAIRE LATEX ALLERGY : HAVE YOU EVER DEVELOPED ANY TYPE OF REACTION AFTER HANDLING LATEX PRODUCTS SUCH RUBBER GLOVES, CONDOMS, DIAPHRAGMS, BALLOONS, SOCKS, OR UNDERWEAR?YES - PLEASE INDICATE :RUBBER GLOVES, CONDOMS KNOWN ALLERGY LATEX ALLERGY : HAVE YOU EVER DEVELOPED ANY TYPE OF REACTION DURING OR AFTER DENTAL APPOINTMENT, VAGINAL/RECTAL EXAMINATION, SURGICAL PROCEDURE, OR ANY OTHER EXPOSURE?NO LATEX RISK : HAVE YOU EVER HAD ANY DIFFICULTY BREATHING OR HIVES AFTER EATING OR HANDLING ANY FRUITS, OR VEGETABLES; SUCH KIWI, BANANAS, STONE FRUITS, OR CHESTNUTSNO LATEX RISK : DO YOU HAVE A PREVIOUS PERSONAL HISTORY OF MORE THAN NINE SURGERIES, SPINA BIFIDA, OR REPEATED CATHERIZATIONS? NO LATEX RISK : ARE YOU FREQUENTLY EXPOSED TO LATEX PRODUCTS IN YOUR OCCUPATION?NO DATE ASKED : 10/23/2020 ALCOHOL USE: ANGELINA BOWMAN 10/19/2020 3:18:18 PM > ,YES, OCCASIONALLY. RECREATIONAL DRUG USE DRUG USE?NO PENTECOSTALISM PENTECOSTALISM NO JEHOVAH'S WITNESS BELIEFS THAT WOULD IMPACT HEALTH CARE. LANGUAGE LANGUAGES SPOKEN:OTHER TOGOLESE, GABONESE LEARNING BARRIERS / SPECIAL NEEDS BARRIERS TO LEARNING?NO HEARING IMPAIRED?NO VISION IMPAIRED?YES :CORRECTIVE LENSES CONTACTS COGNITIVELY IMPAIRED?NO READINESS TO LEARN?YES LEARNING PREFERENCES?NO LEARNING CAPABILITIES PRESENT?YES EMOTIONAL BARRIERS?NO SPECIAL DEVICES?NO MEAT BLENDER NEEDED?NO MARITAL STATUS: . HOSPITALIZATION/MAJOR DIAGNOSTIC PROCEDURE SURGERIES ABOVE CHILDBIRTH REVIEW OF SYSTEMS CONSTITUTIONAL: ANY RECENT FEVER NO . CHILLS NO . WEIGHT CHANGE OF UNKNOWN REASONS NO . MUSCULOSKELETAL: ANY UNUSUAL JOINT PAIN OR SWELLING NOT MENTIONED NO . SYSTEMIC LUPUS NO . ANY NEUROMUSCULAR DISORDER NOT MENTIONED NO . LYME DISEASE NO . GASTROENTEROLOGY: ANY NEW CHANGE IN BOWEL CONTROL? NO . HISTORY OF LIVER DISORDER NOT MENTIONED NO . HISTORY OF UNUSUAL ABDOMINAL PAIN OR CRAMPING NOT MENTIONED NO . NO CONSTIPATION. GENITOURINARY: ANY NEW CHANGE IN BLADDER CONTROL? NO . ANY RENAL/KIDNEY CONDITON NOT MENTIONED NO . NEUROLOGY: HISTORY OF TBI NOT MENTIONED NO . OTHER NEW NUMBNESS OR PAIN PATTERNS NOT MENTIONED NO . NEW ONSET DIZZINESS OR NEUROLOGICAL CHANGES NOT MENTIONED NO . HISTORY OF SEVERE HEADACHES NOT MENTIONED NO . HISTORY OF STROKE OR NEUROLOGICAL DISORDER NOT MENTIONED NO . CARDIOLOGY: HEART SURGERY NO . CONGESTIVE HEART FAILURE/FLUID OVERLOAD NOT MENTIONED NO . HISTORY OF CHEST PAIN,IRREGULAR HEART BEAT NOT MENTIONED NO . RESPIRATORY: SHORTNESS OF BREATH ON EXERTION, WHEEZES, UNUSUAL COUGH NOT MENTIONED NO . ENDOCRINOLOGY: ADRENAL GLAND OR THYROID DISORDERS NOT MENTIONED NO . UNUSUAL URINATION, DIZZINESS OR LETHARGY NOT MENTIONED NO . VITAL SIGNS WT 155.6 LBS, HT 68 IN, BMI 23.66 INDEX, BP 131/67 MM HG, HR 69 /MIN, RR 18 /MIN, TEMP 97.4 F, OXYGEN SAT % 100%, SAFE IN ENV? (Y/N) YES, NA INITIALS AW 0827, REVIEWED BY: FERDINAND TSAI MA. EXAMINATION GENERAL EXAMINATION: GENERALNO ACUTE DISTRESS, WELL NOURISHED AND HYDRATED. PSYCHAPPROPRIATE MOOD AND AFFECT . LUNGS:CLEAR TO AUSCULTATION BILATERALLY, NO WHEEZES, RHONCHI, RALES. HEART:NO MURMURS, REGULAR RATE AND RHYTHM. ASSESSMENTS RIGHT SHOULDER PAIN - M25.511 (PRIMARY) USE OF OPIATES FOR THERAPEUTIC PURPOSES - Z79.891 TREATMENT RIGHT SHOULDER PAIN START LYRICA CAPSULE, 75 MG, 1 CAPSULE, ORALLY, TWICE DAILY, 30 DAYS, 60 START HYDROCODONE-ACETAMINOPHEN TABLET, 5-325 MG, 1 TABLET NEEDED, ORALLY, EVERY 12 HRS PRN PAIN, 30 DAYS, 60 NOTES: 49-YEAR-OLD FEMALE IN FOR INITIAL PAIN CONSULT REGARDING RIGHT SHOULDER PAIN. GIVEN PRESENTING SYMPTOMS RECOMMEND TAPERING OFF GABAPENTIN TAPERING DOSE FOLLOWS 200 MG TWICE A DAY X1 WEEK THEN 200 MG DAILY X1 WEEK THEN 200 MG EVERY OTHER DAY THEN STOP. FURTHER RECOMMENDED STARTING LYRICA 75 MG TWICE A DAY AND HYDROCODONE 5/325 MG TWICE A DAY WITH FOLLOW-UP IN ONE MONTH TO DETERMINE EFFICACY OF TREATMENT. PATIENT HAS EXPRESSED UNDERSTANDING OF AND WAS IN AGREEMENT WITH TREATMENT PLAN. GIVEN TIME TO ASK QUESTIONS AND EXPRESS CONCERNS. ISTOP REGISTRY REVIEWED AND DEMONSTRATES COMPLLIANCE. (REF # [id number] ) BRINGS IN MEDICATIONS WHICH IS APPROPRIATE FOR WHAT WAS DISPENSED. RECENT URINE TOXICOLOGY REVIEWED. NO UNAUTHORIZED MEDICATIONS. NO ILLICIT SUBSTANCES AND PRESCRIBED MEDICATIONS WERE PRESENT. CLINICAL NOTES: MEDICATION INFORMATION PRINTED AND PROVIDED TO PATIENT. NOVA TSAI MA. USE OF OPIATES FOR THERAPEUTIC PURPOSES LAB: URINE TEST GROUP NOVA TSAI 10/23/2020 9:19:36 AM > LAST DOSE: GABAPENTIN 10/23/2020 AT 0600; OXYCODONE 08/21/2020 PROCEDURE CODES FA211 ESTABILISHED PATIENT [facility] CHARGE DISPOSITION & COMMUNICATION FOLLOW UP 4 WEEKS (REASON: NEW MED ) ELECTRONICALLY SIGNED BY CHRIS ROBLERO ON 10/24/2020 AT 08:40 AM EDT DISCLAIMER : THIS IS A VISIT SUMMARY EXTRACTED FROM THE [employer] CHART. IT IS NOT A COPY OF THE [employer] PROGRESS NOTE. MTDD
== END ==
LOC: M PAIN 08:30
PROVIDERS: ATTEND Family Medicine
DX: M25.511 Pain in right shoulder (principal); Z79.891 Long term (current) use of opiate analgesic; E11.9 Type 2 diabetes mellitus without complications; G43.909 Migraine, unspecified, not intractable, without status migrainosus; E78.5 Hyperlipidemia, unspecified; Z79.899 Other long term (current) drug therapy; Z87.891 Personal history of nicotine dependence; Z88.8 Allergy status to other drugs, medicaments and biological substances; Z91.040 Latex allergy status

== ENCOUNTER → 2020-11-21 | Outpatient (CLI) | payer OTHER ==
--- NOTE | 2020-11-23 01:58 | ECWPNPC ---
PATIENT NAME: FERNANDO BLACK : 1970 GENDER: FEMALE VISIT DATE: 11/21/2020 DISCHARGE DATE: 11/21/20 0938 VISIT LOCKED DATE TIME: PHYSICIAN: NETO MIKE RESOURCE: NETO MIKE REASON FOR APPOINTMENT 1. NEW MED HISTORY OF PRESENT ILLNESS GENERAL: HPI 49-YEAR-OLD FEMALE IN FOR CHRONIC PAIN FOLLOW-UP. AT LAST CLINIC VISIT PATIENT WAS STARTED ON HYDROCODONE AND LYRICA. PATIENT ADMITS THAT THIS HAS BEEN BENEFICIAL HOWEVER SHE STATES THE MEDICATION SEEMS TO WEAR OFF THROUGHOUT THE DAY. SHE RATES HER PAIN CURRENTLY AT A 6 OUT OF 10 AND DESCRIBES IT ACHING, AND THROBBING.. -. FALL RISK SCREENING: SCREENING : NO FALLS REPORTED IN THE LAST YEAR. PAIN SCREENING: PATIENT HAS A COMPLAINT OF ACUTE OR CHRONIC PAIN :YES LOCATION OF PAIN:RIGHT SHOULDER INTENSITY OF PAIN (SCALE OF 1 TO 10):6 WHAT DOES YOUR PAIN FEEL LIKE:ACHING, THROBBING DULL DURATION:CONTINOUS, CONSTANT, AWAKENS FROM SLEEP PAIN IS INCREASED BY:ACTIVITIES PAIN IS DECREASED BY:USE OF PAIN MEDICATIONS PAIN MEDS DULL THE PAIN NURSING NOTE: -. PAIN CENTER INTAKE QUESTIONS: DO YOU HAVE A HISTORY OF MRSA? :NO DO YOU TAKE A BLOOD THINNERS? :NO DO YOU HAVE ANY BLEEDING DISORDERS? :NO ANY NEW NUMBNESS OR WEAKNESS IN YOUR LEGS OR ARMS? :NO ANY PACEMAKER,DEFIBRILLATOR, OR DORSAL COLUMN STIMULATOR? :NO DO YOU HAVE ANY RASHES OR OPEN SORES? :NO ARE YOU ALLERGIC TO IV DYE? :NO ARE YOU DIABETIC? :NO ANY NEW PROBLEMS WITH YOUR MEDICATIONS? :YES DRY MOUTH HAVE YOU RECEIVED A VACCINE IN THE PAST 30 DAYS? :NO SECOND COVID VACCINATION 07/14/2020 DO YOU PLAN TO RECEIVE A VACCINE IN THE NEXT 21 DAYS? :NO DO YOU NEED ANY PRESCRIPTION? :YES LYRICA DO YOU TAKE ANY IMMUNOSUPPRESSIVE MEDICATIONS? :NO DO YOU HAVE ANY KIDNEY OR LIVER DISEASE? :NO IS THERE A CHANCE YOU COULD BE ? :NO ARE YOU BREAST FEEDING? :NO CURRENT MEDICATIONS TAKING OZEMPIC (0.25 OR 0.5 MG/DOSE) 2 MG/1.5ML SOLUTION PEN-INJECTOR INJECT 0.25MG UNDER THE SKIN ONCE WEEKLY SUBCUTANEOUS TAKING ONETOUCH ULTRA - STRIP TEST TWO TIMES A DAY IN VITRO TAKING ONETOUCH DELICA PLUS [id number] - MISCELLANEOUS TEST TWO TIMES A DAY TAKING RIZATRIPTAN BENZOATE 10 MG TABLET TAKE ONE TABLET BY MOUTH IMMEDIATELY MAY REPEAT AFTER 2 HOURS ORAL TAKING ROSUVASTATIN CALCIUM 20 MG TABLET TAKE ONE TABLET BY MOUTH EVERY DAY ORAL TAKING IBUPROFEN 800 MG TABLET TAKE ONE TABLET BY MOUTH THREE TIMES A DAY FOR 5 DAYS ORAL TAKING BUPROPION HCL ER (XL) 300 MG TABLET EXTENDED RELEASE 24 HOUR TAKE ONE TABLET BY MOUTH EVERY DAY ORAL TAKING PROZAC 20 MG CAPSULE 1 CAPSULE ORALLY ONCE A DAY TAKING LYRICA 75 MG CAPSULE 1 CAPSULE ORALLY TWICE DAILY TAKING HYDROCODONE-ACETAMINOPHEN 5-325 MG TABLET 1 TABLET NEEDED ORALLY EVERY 8 HRS PRN PAIN NOT-TAKING PROPRANOLOL HCL ER 60 MG CAPSULE EXTENDED RELEASE 24 HOUR TAKE ONE CAPSULE BY MOUTH EVERY DAY ORAL NOT-TAKING CYCLOBENZAPRINE HCL 10 MG TABLET TAKE 1 TABLET BY MOUTH AT BEDTIME ORAL NOT-TAKING GABAPENTIN 100 MG CAPSULE 2 CAPSULES ORAL TID NOT-TAKING BUSPIRONE HCL 10 MG TABLET 1 TABLET ORALLY THREE A DAY UNKNOWN VALACYCLOVIR HCL 1 GM TABLET TAKE ONE TABLET BY MOUTH TWICE A DAY FOR 7 DAYS ORAL UNKNOWN TRAMADOL HCL 50 MG TABLET (SCHEDULE IV DRUG) TAKE ONE TABLET BY MOUTH THREE TIMES A DAY NEEDED MAXIMUM DAILY DOSE 3 ORAL MEDICATION LIST REVIEWED AND RECONCILED WITH THE PATIENT PAST MEDICAL HISTORY DIABETES TYPE II MIGRAINE HEADACHES HYPERLIPIDEMIA MISCARRIAGES ALLERGIES PROPRANOLOL HCL: CONFUSION LATEX: RASH - ALLERGY SOCIAL HISTORY GENERAL: TOBACCO USE ARE YOU A:NONSMOKER FORMER SMOKER STOPPED IN 2000. VAPORNO E-CIGARETTENO LATEX QUESTIONNAIRE LATEX ALLERGY : HAVE YOU EVER DEVELOPED ANY TYPE OF REACTION AFTER HANDLING LATEX PRODUCTS SUCH RUBBER GLOVES, CONDOMS, DIAPHRAGMS, BALLOONS, SOCKS, OR UNDERWEAR?YES - PLEASE INDICATE :RUBBER GLOVES, CONDOMS KNOWN ALLERGY LATEX ALLERGY : HAVE YOU EVER DEVELOPED ANY TYPE OF REACTION DURING OR AFTER DENTAL APPOINTMENT, VAGINAL/RECTAL EXAMINATION, SURGICAL PROCEDURE, OR ANY OTHER EXPOSURE?NO LATEX RISK : HAVE YOU EVER HAD ANY DIFFICULTY BREATHING OR HIVES AFTER EATING OR HANDLING ANY FRUITS, OR VEGETABLES; SUCH KIWI, BANANAS, STONE FRUITS, OR CHESTNUTSNO LATEX RISK : DO YOU HAVE A PREVIOUS PERSONAL HISTORY OF MORE THAN NINE SURGERIES, SPINA BIFIDA, OR REPEATED CATHERIZATIONS? NO LATEX RISK : ARE YOU FREQUENTLY EXPOSED TO LATEX PRODUCTS IN YOUR OCCUPATION?NO DATE ASKED : 11/21/2020 ALCOHOL USE: YES, OCCASIONALLY. RECREATIONAL DRUG USE DRUG USE?NO ZOROASTRIAN ZOROASTRIAN NO JEHOVAH'S WITNESS BELIEFS THAT WOULD IMPACT HEALTH CARE. 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 MARITAL STATUS: . REVIEW OF SYSTEMS CONSTITUTIONAL: ANY RECENT FEVER NO . CHILLS NO . WEIGHT CHANGE OF UNKNOWN REASONS NO . GASTROENTEROLOGY: NEW UNEXPLAINABLE CHANGES IN BOWEL CONTROL NO . CONSTIPATION NO . GENITOURINARY: ANY NEW CHANGE IN BLADDER CONTROL? NO . NEUROLOGY: NEW ONSET DIZZINESS OR NEUROLOGICAL CHANGES NOT MENTIONED NO . NEW NUMBNESS OR PAIN PATTERNS NOT MENTIONED AND PERTINENT TO TODAY'S VISIT NO . CARDIOLOGY: NEW CHEST PRESSURE NO . PATIENT DENIES NO . RESPIRATORY: UNEXPLAINABLE COUGH NO . NEW SHORTNESS OF BREATH NO . VITAL SIGNS WT 158.6 LBS, HT 68 IN, BMI 24.11 INDEX, BP 111/61 MM HG, HR 67 /MIN, RR 18 /MIN, TEMP 97.6 F, OXYGEN SAT % 100%, SAFE IN ENV? (Y/N) YES, NA INITIALS RI 09:14, REVIEWED BY: FERDINAND TSAI MA. EXAMINATION GENERAL EXAMINATION: GENERALNO ACUTE DISTRESS, WELL NOURISHED AND HYDRATED. PSYCHAPPROPRIATE MOOD AND AFFECT . LUNGS:CLEAR TO AUSCULTATION BILATERALLY, NO WHEEZES, RHONCHI, RALES. HEART:NO MURMURS, REGULAR RATE AND RHYTHM. ASSESSMENTS RIGHT SHOULDER PAIN - M25.511 (PRIMARY) TREATMENT RIGHT SHOULDER PAIN REFILL LYRICA CAPSULE, 75 MG, 1 CAPSULE, ORALLY, THREE TIMES DAILY, 30 DAYS, 90 NOTES: 49-YEAR-OLD FEMALE IN FOR CHRONIC PAIN FOLLOW-UP. GIVEN PRESENTING SYMPTOMS RECOMMENDED INCREASING LYRICA TO 3 TIMES A DAY DOSING WITH FOLLOW-UP IN ONE MONTH TO DETERMINE EFFICACY OF TREATMENT. PATIENT HAS EXPRESSED UNDERSTANDING OF AND WAS IN AGREEMENT WITH TREATMENT PLAN. GIVEN TIME TO ASK QUESTIONS AND EXPRESS CONCERNS. ISTOP REGISTRY REVIEWED AND DEMONSTRATES COMPLLIANCE. (REF # [id number] ) BRINGS IN MEDICATIONS WHICH IS APPROPRIATE FOR WHAT WAS DISPENSED. RECENT URINE TOXICOLOGY REVIEWED. NO UNAUTHORIZED MEDICATIONS. NO ILLICIT SUBSTANCES AND PRESCRIBED MEDICATIONS WERE PRESENT. PROCEDURE CODES FA211 ESTABILISHED [facility]IENT [facility] CHAR[facility] DISPOSITION & COMMUNICATION FOLLOW UP 4 WEEKS (REASON: MED INCREASE ) ELECTRONICALLY SIGNED BY CHRIS ROBLERO ON 11/22/2020 AT 09:01 AM EDT DISCLAIMER : THIS IS A VISIT SUMMARY EXTRACTED FROM THE [employer] CHART. IT IS NOT A COPY OF THE [employer] PROGRESS NOTE. CHITO
== END ==
LOC: M PAIN 09:15
PROVIDERS: ATTEND Family Medicine
DX: M25.511 Pain in right shoulder (principal); E11.9 Type 2 diabetes mellitus without complications; G43.909 Migraine, unspecified, not intractable, without status migrainosus; E78.5 Hyperlipidemia, unspecified; Z79.891 Long term (current) use of opiate analgesic; Z79.899 Other long term (current) drug therapy; Z79.1 Long term (current) use of non-steroidal anti-inflammatories (NSAID); Z87.891 Personal history of nicotine dependence; Z88.8 Allergy status to other drugs, medicaments and biological substances; Z91.040 Latex allergy status

== ENCOUNTER → 2021-01-01 | Outpatient (CLI) | payer OTHER ==
[~2021-01-01] MED LIST changes: +LIDO5DIS41 TOP; +METH-1164 PO; +TIZA10TA PO; -TIZA4TAB4 PO; +TRAM50TA2 PO
== END ==
LOC: M PAIN 13:45
PROVIDERS: ATTEND Family Medicine
DX: M25.511 Pain in right shoulder (principal); G89.29 Other chronic pain; G43.909 Migraine, unspecified, not intractable, without status migrainosus; Z87.891 Personal history of nicotine dependence; Z88.8 Allergy status to other drugs, medicaments and biological substances; Z91.040 Latex allergy status; Z79.899 Other long term (current) drug therapy

== ENCOUNTER → 2021-02-14 | Outpatient (CLI) | payer OTHER ==
[~2021-02-14] MED LIST changes: -LIDO5DIS41 TOP; -METH-1164 PO; -TIZA10TA PO; +TIZA4TAB4 PO; -TRAM50TA2 PO
== END ==
LOC: M PAIN 15:00
PROVIDERS: ATTEND Anesthesiology
DX: M25.511 Pain in right shoulder (principal); E11.9 Type 2 diabetes mellitus without complications; G43.909 Migraine, unspecified, not intractable, without status migrainosus; E78.5 Hyperlipidemia, unspecified; Z87.891 Personal history of nicotine dependence; Z79.891 Long term (current) use of opiate analgesic; Z79.899 Other long term (current) drug therapy; Z91.040 Latex allergy status; Z88.8 Allergy status to other drugs, medicaments and biological substances

== ENCOUNTER 2021-05-27 09:32 | Emergency (ER) | payer OTHER ==
[~2021-05-27] VITALS: Ht 180.3 cm; Wt 68.1 kg
--- OUTSIDE RECORDS SUMMARY | 2021-05-27 09:38 | CCD | Continuity of Care Document ---
Author Author [facility] Organization Unknown Address [address] [place] [address] Phone [phone] Care Team Providers Care Hospitality Host Name Role Phone Nikolay Marylin J ANP AUTM [phone] Problems Description No Information Available Social History Type Date Description Comments Sex Unknown ETOH Use Social Drinker Tobacco Use Start: Unknown Patient has never smoked Allergies and adverse reactions Active Allergies Criticality Reaction | Severity Comments Date Latex Unable to assess criticality 03/22/2021 Medications Active Medications SIG Qnty Indications Ordering Provide r Date Ozempic (1 MG/Dose) Unknown Fluoxetine HCL Unknown Prozac Unknown Cholesterol Med Unknown 0 Immunizations Description No Information Available Vital Signs Description No Information Available Results Description No Information Available Procedures Description No Information Available Medical Devices Description No Information Available Encounters Description No Information Available Assessments Date Code Description Provider 03/05/2021 L98.8 Other specified disorders of the skin and subcutaneous tissue Anamaria Bashir 03/05/2021 L98.8 Other specified disorders of the skin and subcutaneous tissue Cosmetic Consultation Plan of Treatment No Information Available Functional Status Description No Information Available Mental Status Description No Information Available Referrals Description No Information Available"
--- OUTSIDE RECORDS SUMMARY | 2021-05-27 09:38 | CCD ---
Continuity of Care Document (CCD) Created on: 04/03/2021 Virgie Velazquez External Reference #: [id number] : [id number] Sex: Female Author Author Virgie APARICIO MD Organization Unknown Address [address] [place] [id number] Phone [phone] Care Team Providers Care Student Development Advisor Name Role Phone Marylin Link RN Canp AUTM [phone] Problems Description No Information Available Social History Type Date Description Comments Sex Unknown ETOH Use Occasionally consumes alcohol Tobacco Use Start: Unknown End: Unknown Patient is a former smoker Allergies and adverse reactions Active Allergies Criticality Reaction | Severity Comments Date Latex Unable to assess criticality 08/02/2019 Medications Active Medications SIG Qnty Indications Ordering Provide r Date Tramadol HCL 50mg Tablets take 1 tablet by mouth every 8 hours as needed for pain, mdd 3 21tabs M25.511 Papito Aparicio MD 01/13/2020 Gabapentin 100mg Capsules Take One Capsule By Mouth Three Times A Day 90caps Jalil Sullivan MD Zofran 4mg Tablets one by mouth every 12 hours as needed for nausea 6tabs M25.511 Melvin Dey MD 09/13/2019 MS Contin 15mg Tablets ER 1 tab by mouth every 12 hours as needed / post surgical pain 6tabs An stephanie Aparicio MD 08/11/2019 Celebrex 100mg Capsules 1 by mouth twice a day with food 60caps M25.511 Papito Aparicio MD 0 Tylenol Extra Strength 500mg Table ts take 2 tablets every 8 hours for pain 20tabs Papito kelly MD 09/21/2018 Rosuvastatin Calcium 20mg Tablets Marylin Link RN Canp Immunizations Description No Information Available Vital Signs Date Vital Result Comment 11/08/2019 9:30am Body Temperature 98.0 F Height 68 inches 5'8" Weight 131.00 lb BMI (Body Mass Index) 19.9 kg/m2 01/11/2019 9:00am Height 68.25 inches 5'8.25" Weight 206.00 lb BMI (Body Mass Index) 31.1 kg/m2 Results Description No Information Available Procedures Description No Information Available Medical Devices Description No Information Available Encounters Description No Information Available Assessments Description No Information Available Plan of Treatment 03/09/2020 - Papito Aparicio MD* S46.011D Strain of muscle(s) and tendon(s) of the rotator cuff of right shoulder, subsequent encounter* Follow up:* prn- patient will call with decision about surgery Functional Status Description No Information Available Mental Status Description No Information Available Referrals Description No Information Available
--- OUTSIDE RECORDS SUMMARY | 2021-05-27 09:39 | CCD | Summary of Care ---
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 Reason for Referral * Physical Therapy (Routine) Referred By Contact Referred To Contact Status Reason Specialty Diagnoses / Procedures Hai Acevedo MD [address] [place] [address] Email: [email or web address] Open Diagnoses Chronic right shoulder pain P rocedures Physical Therapy Evaluate and Treat Electronically signed by Chelle Gray MD at * Pain Medicine (Routine) Referred By Contact Referred To Contact Status Reason Specialty Diagnoses / Procedures Hai Acevedo MD [address] [place] [address] Email: [email or web address] Pending Specialty Services Pain Medicine Diagnoses Insurance Required Chronic right Authorization shoulder pain Scheduling Instructions Get Authorization for orders: Yes No Make Appointment for procedure: Yes No Electronically signed by Chelle Gray MD at Reason for Visit * Reason Comments Shoulder Pain right shoulder Elbow Pain right elbow * Consultation (Routine) Referred By Contact Referred To Contact Status Reason Specialty Diagnoses / Procedures Orthopedics Private Practice [facility] [address] [place] [address] Pain Management Private Practice [facility] [address] [place] [address] Authorized Specialty Services Pain Medicine Diagnoses Required S/P reverse total shoulder arthroplasty, right Encounter Details Care Team Description Date Type Department Chelle Gray MD [address] [place] [address] [phone] Chronic right shoulder pain (Primary Dx) 03/06/2021 Office Visit [facility] [address] [place] [address] Allergies Comments Active Allergy Reactions Severity Noted Date Latex Itching, Low 11/05/1985 Rash, Swelling Joint pain Simvastatin Other (See 03/09/2020 Comments) documented as of this encounter (statuses as of 03/07/2021) Medications End Date Status Medication Sig Dispensed Refills Start Date Active buPROPion HCl ER (XL) 300 Take 300 mg 0 01/22 MG Oral Tablet Extended by mouth 0 Release 24 Hour every morning (WELLBUTRIN XL) Active Rosuvastatin Calcium 20 Take 20 mg by 0 MG Oral Tablet (CRESTOR) mouth daily 1 Active Ozempic (0.25 or 0.5 Inject 0.25 0 MG/DOSE) 2 MG/1.5ML mg into the 1 Subcutaneous Solution skin Every Pen-injector Friday Active Rizatriptan Benzoate 10 Take 10 mg by 0 MG Oral Tablet (MAXALT) mouth as 1 needed Active busPIRone HCl 10 MG Oral Take 10 mg by 0 10/06 Tablet (BUSPAR) mouth Three 1 times daily Active Gabapentin 100 MG Oral TAKE ONE 0 02 Capsule (NEURONTIN) CAPSULE BY 1 MOUTH THREE TIMES A DAY Active Ibuprofen 800 MG Oral TAKE ONE 0 07/08/19 2 Tablet (MOTRIN) TABLET BY 1 MOUTH THREE TIMES A DAY FOR 5 DAYS Active Propranolol HCl ER 60 MG Take 60 mg by 0 09/21 Oral Capsule Extended mouth daily 1 Release 24 Hour (INDERAL LA) 10/11/2021 Active Gabapentin 100 MG Oral Take 2 180 capsule 11 Capsule (Neurontin) capsules by 1 mouth Three times daily Active Pregabalin 100 MG Oral TAKE ONE 0 02 Capsule (LYRICA) CAPSULE BY 1 MOUTH THREE TIMES A DAY MAXIMUM DAILY DOSE 3 Active HYDROcodone-Acetaminophen TAKE ONE 0 01/22 5-325 MG Oral Tablet TABLET BY 1 (LORTAB) MOUTH EVERY 8 HOURS NEEDED FOR PAIN MAXIMUM DAILY DOSE 3 05/05/2021 Active tiZANidine HCl 4 MG Oral Take 1 tablet 90 tablet 1 Tablet by mouth 1 (Zanaflex)Indications: every 8 Chronic right shoulder (eight) hours pain as needed documented as of this encounter (statuses as of 03/07/2021) Active Problems Problem Noted Date Osteoarthritis of right shoulder 08/11/2020 Hypercholesterolemia 08/11/2020 Type 2 diabetes mellitus 08/11/2020 Migraines 08/11/2020 Anxiety 08/11/2020 S/P right rotator cuff repair 08/11/2020 Post-traumatic osteoarthritis, right shoulder 2020 documented as of this encounter (statuses as of 03/07/2021) Immunizations Name Administration Dates Next Due documented as of this encounter Social History Date Tobacco Use Types Packs/Day Years Used Quit: 08/01/1999 Former Smoker Smokeless Tobacco: Never Used Tobacco Cessation: Counseling Given: No Comments Alcohol Use Standard Drinks/Week occasionally Yes 0 (1 standard drink = 0.6 o z pure alcohol) Sex Assigned at Date Recorded Not on file Date Recorded COVID-19 Exposure Response 03/06/2021 8:41 AM EDT In the last month, have you been in contact with No / Unsure someone who was confirmed or suspected to have Coronavirus / COVID-19? documented as of this encounter Last Filed Vital Signs Reading Time Taken Comments Vital Sign 117/66 03/06/2021 12:55 PM EDT Blood Pressure 81 03/06/2021 12:55 PM EDT Pulse 36.7 C (98 F) 03/06/2021 12:55 PM EDT Temperature - - Respiratory Rate - - Oxygen Saturation - - Inhaled Oxygen Concentration 68.9 kg (152 lb) 03/06/2021 12:55 PM EDT Weight 179.1 cm (5' 10.5") 03/06/2021 12:55 PM EDT Height 21.5 03/06/2021 12:55 PM EDT Body Mass Index documented in this encounter Progress Notes * Hai Acevedo MD - 03/06/2021 12:45 PM EDT Images from the original note were not included. Reason for visit: Right shoulder pain New Patient Evaluation Referred by: Ta Hamlin Md [address] [place] [address] Subjective HPI HPI: I had the pleasure of seeing Virgie Velazquez at the [facility] o n 03/06/21 . The patient is a 50 y.o. year old female with PMHx significant for diabetes (managed with insulin) and chronic right shoulder pain. She states that in 05/2018, she had an initial injury of her right shoulder, wit h a rotator cuff tear after falling on [place]. Since then, she had 4 shou lder surgeries (most recently a right reverse total shoulder arthroplasty in 07/[address] Hamlin). She states that after her 3rd surgery, pain exacerbated, and upon work up, she w as found to have another rotator cuff tear, which was fixed during her 4th surge ry. The pain has since improved somewhat, but has been returning. 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 Patient has been previously follow up with a pain specialist in [place], who h as suggested a peripheral nerve stimulator but she was not inclined to have the procedure done. So, her pain has been managed with medications (lyrica and hydro codone-acetaminophen) Pain Assessment Site: Right shoulder (anterior and lateral aspect) Severity: Onset: worsened over time Character: Sharp shooting pain Radiation: radiates down to the elbow (on the radial aspect of the elbow) Associated symptoms: Subjective weakness in the right hand/right arm. But has n to found herself dropping objects. Exacerbating Factors: reaching above, Driving a car, laying on the right should er. 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 Treatments tried: Therapy: tried physical therapy/ stretching exercise . Modalities: Heat - no it does not help Ice - Helps TENS - does not help Massage / Acupuncture - No has not helped Injections: No injection previously Medications : NSAIDs - Meloxicam was tried in the past but it made the patient fee l unsteady Neuromodulators - Lyrica 100mg TID Muscle relaxants - Oral Narcotics - Hydrocodone-aceteminophen (5-325) 1 tablet TID Other - Imaging: XR right shoulder (10/12/20): Right shoulder 2 views INDICATION: Total shoulder arthroplasty COMPARISON: 08/24/2020 FINDINGS: Status post reverse total left shoulder arthroplasty. Interval removal of overly ing surgical skin kamar. No perihardware lucency is seen to indicate hardware failure or loosening. Normal alignment. No acute fracture or dislocation. The visualized portion of the right lung is unremarkable. IMPRESSION: Status post reverse total right shoulder arthroplasty without evidence of hardwa re failure. MRI right shoulder (12/28/2019) Virgie has a past medical history of Blood transfusion without reported diagnosi s (2003), Depression, Diabetes mellitus, Headache, and High cholesterol. Virgie has Osteoarthritis of right shoulder; Hypercholesterolemia; Type 2 diabete s mellitus; Migraines; Anxiety; S/P right rotator cuff repair; and Post-traumati c osteoarthritis, right shoulder on their problem list. Virgie has a past surgical history that includes Hysterectomy; Appendectomy; Dil ation and curettage of uterus (2007); Fracture surgery; Shoulder surgery; and Sh oulder surgery (Right, 08/11/2020). Her family history includes No Known Problems in her father and mother. Virgie reports that she quit smoking about 21 years ago. She has never used smok eless tobacco. She reports current alcohol use. She reports that she does not us e drugs. Virgie has a current medication list which includes the following prescription(s) : bupropion, buspirone, gabapentin, gabapentin, ibuprofen, ozempic (0.25 or 0.5 mg/dose), propranolol, rizatriptan, and rosuvastatin. Current Outpatient Medications on File Prior to Visit Medication Sig Dispense Refill buPROPion HCl ER (XL) 300 MG Oral Tablet Extended Release 24 Hour (WELLBU CY XL) Take 300 mg by mouth every morning busPIRone HCl 10 MG Oral Tablet (BUSPAR) Take 10 mg by mouth Three times daily Gabapentin 100 MG Oral Capsule (NEURONTIN) TAKE ONE CAPSULE BY MOUTH THRE E TIMES A DAY Gabapentin 100 MG Oral Capsule (Neurontin) Take 2 capsules by mouth Three times daily 180 capsule 11 Ibuprofen 800 MG Oral Tablet (MOTRIN) TAKE ONE TABLET BY MOUTH THREE TIME S A DAY FOR 5 DAYS Ozempic (0.25 or 0.5 MG/DOSE) 2 MG/1.5ML Subcutaneous Solution Pen-inject or Inject 0.25 mg into the skin Every Friday Propranolol HCl ER 60 MG Oral Capsule Extended Release 24 Hour (INDERAL L A) Take 60 mg by mouth daily Rizatriptan Benzoate 10 MG Oral Tablet (MAXALT) Take 10 mg by mouth as ne eded Rosuvastatin Calcium 20 MG Oral Tablet (CRESTOR) Take 20 mg by mouth andreina y No current facility-administered medications on file prior to visit. Virgie is allergic to simvastatin and latex. istop checked: Review of Systems Constitutional: Negative for chills, fever and unexpected weight change. HENT: Negative for rhinorrhea and sore throat. Eyes: Negative for visual disturbance. Respiratory: Negative for cough and shortness of breath. Cardiovascular: Negative for chest pain and palpitations. Gastrointestinal: Negative for abdominal pain, blood in stool and constipation. Genitourinary: Negative for difficulty urinating and dysuria. Musculoskeletal: Right shoulder pain Skin: Negative for rash. Neurological: Positive for headaches. Negative for dizziness, syncope and light- headedness. Objective Physical Exam HENT: Head: Normocephalic. Nose: Nose normal. Cardiovascular: Comments: Warm and well perfused Pulmonary: Effort: Pulmonary effort is normal. Musculoskeletal: Right shoulder: Tenderness (tenderness on anterior and lateral aspect of the right shoulder) present. No swelling, deformity or effusion. Decreased range of motion. Left shoulder: No swelling, deformity, effusion or tenderness. Normal range o f motion. Comments: Limited shoulder range of motion: Abduction up to about 110 degrees Adduction up to about 30 degrees Flexion up to about 90 degrees Extension up to about 20 degrees Skin: General: Skin is warm and dry. Neurological: General: No focal deficit present. Mental Status: She is alert. Assessment/Plan 50 y.o. year old female with history of 4 shoulder surgeries (most recently a ri ght reverse total shoulder arthroplasty in 07/2020) with chronic right shoulder p ain. Plan: - X ray shoulder (10/12/20) was reviewed with the patient. - Due to the presence of hardware and multiple surgeries, we do not recommend sh oulder/bursa injections, however we discussed suprascapular block for pain relie f and if successful we could plan cryoanalgesia /peripheral nerve stimulator - Plan for ultrasound guided diagnostic right suprascapular nerve block - Patient to continue physical therapy - Continue lyrica 100mg TID - Patient was counseled on the need to wean off Hydrocodone-aceteminophen (5-325 ). Risk of mcc opioid use including but not limited to opioid induced hype ralgesia, tolerance and dependence. - Start Tizanidine 4mg TID PRN Hai Acevedo M.D. Interventional Pain Fellow Patient was seen and discussed with Dr. Gray I saw and evaluated the patient. Discussed with the resident and agree with the residents findings and plans as written, along with any supplemental dictated a nd/or attending documentation in the patient record by myself. documented in this encounter Plan of Treatment Order Schedule Name Type Priority Associated Diag noses Ordered: 03/06/2021 Orders Outpatient Routine Chronic right s [facility] Referral pain Health Maintenance Due Date Last Done Comments MMR Vaccines (1 of - 1970 Standard series) Varicella Vaccines (1 of 1970 2 - 2-dose childhood series) Pneumococcal Vaccine: 65+ 12/20/1975 Years (1 of 2 - PPSV23) Pneumococcal Vaccine: 12/20/1975 Pediatrics (0 to 5 Years) and At-Risk Patients (6 to 64 Years) (1 of 2 - PPSV23) HIV Screening 1982 Diabetic Foot Exam 12/20/1987 Dilated Retinal Exam 12/20/1987 Urine Microalbumin 12/20/1987 Hepatitis B Vaccines (1 1988 of 3 - Risk 3-dose series) Cervical Cancer Screening 1990 5 years DTaP,Tdap,and Td Vaccines 06/21/2011 05/24/2011 (2 - Td or Tdap) Hemoglobin A1c 12/20/2014 06/21/2014 Lipid Disorder Screening 06/21/2015 06/21/2014 Breast Cancer Screening 2 12/20/2019 years Colon Cancer Screening 10 12/20/2019 yrs Influenza Vaccine 03/23/2021 03/23/2020, 04/21/2019, 03/22/2018, Additional history exists COVID-19 Vaccine Completed 07/20/2020, 06/22/2020 HIB Vaccines Aged Out No longer eligible based on patient's age to complete this topic Hepatitis A Vaccines Aged Out No longer eligibl e based on patient's age to complete this topic IPV Vaccines Aged Out No longer eligible based on patient's age to complete this topic documented as of this encounter Implants Device Identifier Shelf Expiration Date Model / Serial / L ot Implanted Type Area Manufactur er 07/23/2025 1352.15.010 / / [id number] Body Humeral Finned Reverse - Right: Shoulder [employer] US A [id number] INC Implanted: Qty: 1 on 08/11/2020 by Ta Hamlin MD at [facility] 04/22/2025 1304.15.160 / / [id number] Smr Shoulder Finned Stem 16mm. - Right: Shoulder [employer] [place] [id number] INC Implanted: Qty: 1 on 08/11/2020 by Ta Hamlin MD at [facility] 04/22/2025 1375.14.652 / / Glenoid Smr Shoulder Sm-R Med. - Right: Shoulder [employer] [place] [id number] INC Implanted: Qty: 1 on 08/11/2020 by Ta Hamlin MD at [facility] 06/22/2025 1374.09.121 / / [id number] Glenosphere Smr Shldr 40mm. - Right: Shoulder MCRAE U SA [id number] INC Implanted: Qty: 1 on 08/11/2020 by Ta Hamlin MD at [facility] 07/23/2025 8420.15.030 / / [id number] Screw Bone Slf-Tap [id number] - Right: Shoulder [employer] [place] [id number] INC Implanted: Qty: 1 on 08/11/2020 by Ta Hamlin MD at [facility] 07/23/2025 8420.15.020 / / [id number] Screw Bone Slf-Tap 6.4dwt30up - Right: Shoulder [employer]AE [place] [id number] INC Implanted: Qty: 1 on 08/11/2020 by Ta Hamlin MD at [facility] 07/23/2023 1374.15.305 / / [id number] Connector And Screw Small-R - Right: Shoulder [employer] US A [id number] INC Implanted: Qty: 1 on 08/11/2020 by Ta Hamlin MD at [facility] 03/22/2025 1375.15.605 / / [id number] Glenoid Smr Shoulder Small-R. - Right: Shoulder MCRAE [facility] [id number] INC Implanted: Qty: 1 on 08/11/2020 by Ta Hamlin MD at [facility] 05/22/2025 1365.50.815 / / [id number] Liner Rev Smr Shoulder +3/40mm - Right: Shoulder MCRAE [facility] [id number] INC Implanted: Qty: 1 on 08/11/2020 by Ta Hamlin MD at [facility] documented as of this encounter Results Not on filedocumented in this encounter Visit Diagnoses Diagnosis Chronic right shoulder pain - Primary Pain in joint, shoulder region documented in this encounter
--- OUTSIDE RECORDS SUMMARY | 2021-05-27 09:39 | CCD | Continuity of Care Document ---
Author Author Virgie APARICIO MD Organization Unknown Address [address] [place] [address] Phone [phone] Care Team Providers Care Technical Supervisor Name Role Phone Marylin Link RN Canp AUTM [phone] Problems Description No Information Available Social History [...]
--- OUTSIDE RECORDS SUMMARY | 2021-05-27 09:39 | CCD ---
Author Author [facility] Organization [facility] Address Unknown Phone Unavailable Care Team Providers Care Hide Curer Name Role Phone Kemp, Simón Unavailable PROBLEMS No Information ALLERGIES Allergen (clinical drug ingredient) Drug/Non Drug Allergy do cumented on EMR Reaction Allergy Type Onset Date Status propranolol Propranolol HCl([facility] Code:[address]-46) Confusion Drug A llergy Active Latex Latex Rash Non Drug Allergy Active ENCOUNTERS from 1970 to 2021-03-07 Encounter Location Date Provider Diagnosis [facility] [address] [phone] [place] [address] Feb, Simón K[facility] IMMUNIZATIONS No Information SOCIAL HISTORY Tobacco Use: Social History Observation Description Date Details (start date - stop date) Never Smoker Sex Assigned At : Social History Observation Description Sex Assigned At Unknown Language: Question Answer Notes Languages spoken: Other Wallisian, Swedish Pentecostal: Question Answer Notes Pentecostal No islam beliefs that would impact health care. Tobacco Use: Question Answer Notes Are you a: never smoker former smoker stoppe d in 2000. REASON FOR REFERRAL No Information VITAL SIGNS No information MEDICATIONS Medication SIG (Take, Route, Frequency, Duration) Notes Start Da te End Date Status traMADol HCl 50 MG (Schedule IV Drug) TAKE ONE TABLET BY MOUTH THREE TIMES A DAY NEEDED MAXIMUM DAILY DOSE 3 Oral for 30 Not-Taking Lyrica 100 MG 1 capsule Orally three times daily for 30 days Jan, Active buPROPion HCl ER (XL) 300 MG TAKE ONE TABLET BY MOUTH EVERY DAY Ora l for 30 Not-Taking Ozempic (0.25 or 0.5 MG/DOSE) 2 MG/1.5ML INJECT 0.25MG UNDER THE SKIN ONCE WEEKLY Subcutaneous for 30 Activ e OneTouch Ultra - TEST TWO TIMES A DAY In Vitro for 25 Active busPIRone HCl 10 MG 1 tablet Orally THREE a day Not-Taking valACYclovir HCl 1 GM TAKE ONE TABLET BY MOUTH TWI CE A DAY FOR 7 DAYS Oral for 7 Not-Taking Ibuprofen 800 MG TAKE ONE TABLET BY MOUTH THR EE TIMES A DAY FOR 5 DAYS Oral for 5 Active PROzac 20 MG 1 capsule Orally Once a day for 30 day(s) Active Gabapentin 100 MG 2 CAPSULES Oral TID Not-Taking Rizatriptan Benzoate 10 MG TAKE ONE TABLET BY MOUTH IM MEDIATELY MAY REPEAT AFTER 2 HOURS Oral for 15 Active Propranolol HCl ER 60 MG TAKE ONE CAPSULE BY MOUTH EVERY DAY Oral for 30 Not-Taking Rosuvastatin Calcium 20 MG TAKE ONE TABLET BY MOUTH EVERY DAY Oral fo r 30 Active OneTouch Delica Plus [id number] - TEST TWO TIMES A DAY for 30 Active Cyclobenzaprine HCl 10 MG TAKE 1 TABLET BY MOUTH AT BEDTIME Oral for 10 Not-Taking HYDROcodone-Acetaminophen 7.5-325 MG 1 tablet as neede d Orally for pain every 8 hrs PRN pain MDD 3 for 30 days Jan, A ctive PROCEDURES No Information RESULTS No Results REASON FOR VISIT NOT RETURNING MEDICAL (GENERAL) HISTORY Type Description Date Medical History DIABETES TYPE II Medical History migraine headaches Medical History hyperlipidemia Medical History Miscarriages Surgical History right rotator cuff surgery 09/09/2018 Surgical History right rotator cuff surgery 11/2018 Surgical History right rotator cuff surgery 08/2019 Surgical History right rotator cuff surgery (Dr. Hamlin) 08/11/2020 Surgical History 1990 Surgical History tubal ligation 2006 Surgical History total hysterectomy 2007 Hospitalization History surgeries above Hospitalization History childbirth Goals Section No Information Health Concerns No Information MEDICAL EQUIPMENT No Information MENTAL STATUS No Information FUNCTIONAL STATUS No Information ASSESSMENTS No Information PLAN OF TREATMENT Medication Medication Name Sig Start Date Stop Date Lyrica 100 MG 1 capsule Orally three times daily for 30 days 2 5 Jan, 2021 HYDROcodone-Acetaminophen 7.5-325 MG 1 tablet as neede d Orally for pain every 8 hrs PRN pain MDD 3 for 30 days Jan, Insurance Providers Payer Name Payer Address Payer Phone Insured Name Patient Relati onship to Insured Coverage Start Date Coverage End Date [facility] [address] [facility] [id number] Talisha BLACK self
--- OUTSIDE RECORDS SUMMARY | 2021-05-27 09:39 | CCD | Continuity of Care Document ---
Author Author Virgie APARICIO MD Organization Unknown Address [address] [place] [address] Phone [phone] Care Team Providers Care Web Site Developer Name Role Phone Marylin Link RN Canp AUTM [phone] Problems Description No Information Available Social History [...]
--- OUTSIDE RECORDS SUMMARY | 2021-05-27 09:39 | CCD ---
Continuity of Care Document (CCD) Created on: 03/29/2021 Virgie Velazquez External Reference #: [id number] : [id number] Sex: Female Author Author Virgie APARICIO MD Organization Unknown Address [address] [place] [address] Phone [phone] Care Team Providers Care Relief Operator Name Role Phone Marylin Link RN Canp AUTM [phone] Problems Description No Information Available Social History [...]
--- OUTSIDE RECORDS SUMMARY | 2021-05-27 09:39 | CCD | Continuity of Care Document ---
Author Author Virgie APARICIO MD Organization Unknown Address [address] [place] [address] Phone [phone] Care Team Providers Care Telecom Engineer Name Role Phone Marylin Link RN Canp AUTM [phone] Problems Description No Information Available Social History [...]
--- OUTSIDE RECORDS SUMMARY | 2021-05-27 09:39 | CCD | Summary of Care ---
Author Author [facility] Organization [facility] Address Unknown Phone Unavailable Care Team Providers Care Pool Attendant Name Role Phone NikolayCiarapepe Lorenzo NP PCP Reason for Referral * Diagnostic Radiology ([facility]) Referred By Contact Referred To Contact Status Reason Specialty Diagnoses / Procedures Kourtney Zapata NP [address] [place] [phone] Email: [email or web address] Open Radiology Diagnoses S/P reverse total shoulder arthroplasty, right Right shoulder pain, unspecified chronicity P rocedures CT Upper Extremity without Contrast Right Joint, Shoulder Electronically signed by Kourtney Zapata NP at Reason for Visit * Reason Comments Follow-up right shoulder Encounter Details Care Team Description Date Type Department Kourtney Zapata NP [address] [address] [phone] S/P reverse total shoulder arthroplasty, right (Primary Dx); Right shoulder pain, unspecified chronicity 03/13/2021 Office Visit [facility] , [facility] [address] [place] [phone] Allergies Comments Active Allergy Reactions Severity Noted Date Latex Itching, Low 11/05/1985 Rash, Swelling Joint pain Simvastatin Other (See 03/09/2020 Comments) documented as of this encounter (statuses as of 03/13/2021) Medications End Date Status Medication Sig Dispensed Refills Start Date Active buPROPion HCl ER (XL) 300 Take 300 mg 0 01/22202 MG Oral Tablet Extended by mouth 0 [...] Tablet (BUSPAR) mouth Three 1 times daily 03/19/2021 Active Methocarbamol 500 MG Oral Take 1 tablet 40 tablet 0 TabletIndications: by mouth Four 1 Chronic right shoulder times daily pain for 10 days 04/08/2021 Active Pregabalin 100 MG Oral Take 1 90 capsule 0 Capsule capsule by 1 (LYRICA)Indications: mouth Three Chronic right shoulder times daily , pain Max Daily Dose: 300 mg Active FLUoxetine HCl 20 MG Oral 0 Capsule (PROZAC) 1 03/13/2021 Discontinued (Formulary [facility]) Gabapentin 100 MG Oral TAKE ONE 0 02 Capsule (NEURONTIN) CAPSULE BY 1 MOUTH THREE TIMES A DAY 03/13/2021 Discontinued (Formulary [facility]) Ibuprofen 800 MG Oral TAKE ONE 0 07/08/19 2 Tablet (MOTRIN) TABLET BY 1 MOUTH THREE TIMES A DAY FOR 5 DAYS 03/13/2021 Discontinued (Formulary [facility]) Propranolol HCl ER 60 MG Take 60 mg by 0 09/21 Oral Capsule Extended mouth daily 1 Release 24 Hour (INDERAL LA) 03/13/2021 Discontinued (Formulary [facility]) Gabapentin 100 MG Oral Take 2 180 capsule 11 Capsule (Neurontin) capsules by 1 mouth Three times daily 03/13/2021 Discontinued (Formulary [facility]) HYDROcodone-Acetaminophen TAKE ONE 0 01/22 5-325 MG Oral Tablet TABLET BY 1 (LORTAB) MOUTH EVERY 8 HOURS NEEDED FOR PAIN MAXIMUM DAILY DOSE 3 03/13/2021 Discontinued (Formulary [facility]) tiZANidine HCl 4 MG Oral Take 1 tablet 90 tablet 1 Tablet by mouth 1 (Zanaflex)Indications: every 8 Chronic right shoulder (eight) hours pain as needed documented as of this encounter (statuses as of 03/13/2021) Active Problems Problem Noted Date Osteoarthritis of right shoulder 08/11/2020 Hypercholesterolemia 08/11/2020 Type 2 diabetes mellitus 08/11/2020 Migraines 08/11/2020 Anxiety 08/11/2020 S/P right rotator cuff repair 08/11/2020 Post-traumatic osteoarthritis, right shoulder 2020 documented as of this encounter (statuses as of 03/13/2021) Immunizations Name Administration Dates Next Due documented as of this encounter Social History Date Tobacco Use Types Packs/Day Years Used Quit: 08/01/1999 Former Smoker Smokeless Tobacco: Never Used Comments Alcohol Use Standard Drinks/Week occasionally Yes 0 (1 standard drink = 0.6 o z pure alcohol) Sex Assigned at Date Recorded Not on file Date Recorded COVID-19 Exposure Response 03/13/2021 5:58 AM EDT In the last month, have you been in contact with No / Unsure someone who was confirmed or suspected to have Coronavirus / COVID-19? documented as of this encounter Last Filed Vital Signs Not on filedocumented in this encounter Progress Notes * Kourtney Zapata NP - 03/13/2021 8:30 AM EDT 50-year-old female complaining of right shoulder pain that started after she fel l on her right hand causing impact to the right shoulder when stepping over a ga te at home early February, about 3 weeks ago. Before that she was doing pretty well with the right shoulder there is some discomfort in it but on and off and only occasional. S/p right reverse arthroplasty August 13. No fever chills s weats. 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 Motion is l imited in comparison to what it was since the fall. Physical exam; well-developed well-nourished 50-year-old female alert and orient ed x3 pleasant and 2. Right shoulder skin is intact. Scars mature. No swellin g or discoloration. There are some global tenderness about the right shoulder b ut she is point tender over the acromion and some tenderness in the proximal hum erus area. Limited motion, forward elevation and abduction 90 degrees which is worse than it was. She can hold it gently against resistance. Good motion righ t elbow and hand. Radial pulse +2. Sensation intact right hand good cap refill . X-rays of the right shoulder reveals reverse arthroplasty in place to may be a s ubtle lucency about the acromion. We will await radiology report Assessment; right shoulder pain status post fall possible acromial nondisplaced fracture, status post right reverse arthroplasty Plan; diagnosis discussed. Rest the shoulder. Tylenol and ice as needed for pa in relief. CT of the right shoulder to assess for possible fracture and follow- up with me when attendings in the office or with the attending for the results. She is in agreement the plan. Case reviewed with attending and they are in agr eement with plan. Attending Dr. Hamlin documented in this encounter Plan of Treatment Care Team Description Date Type Specialty Chelle Gray MD [address] [place] [address] [phone] 03/26/2021 Procedure visit Pain Medicine Order Schedule Name Type Priority Associated Diag noses Expected: 03/13/2021, Expires: 2 CT Upper Extremity Imaging [facility] S/P reverse total without Contrast Right shoulder arthroplasty, Joint, Shoulder right Right shoulder pain, unspecified chronicity Health Maintenance Due Date Last Done Comments [...] Area Manufactur er 07/23/2025 1352.15.010 / / Body Humeral Finned Reverse - Right: Shoulder [employer] A [id number] [employer] Implanted: Qty: 1 on 08/11/2020 by Ta Hamlin MD at [facility] 04/22/2025 1304.15.160 / / [id number] Smr Shoulder Finned Stem 16mm. - Right: Shoulder [employer] [id number] [employer] Implanted: Qty: 1 on 08/11/2020 by Ta Hamlin MD at [facility] 04/22/2025 1375.14.652 / / Glenoid Smr Shoulder Sm-R Med. - Right: Shoulder [employer] [id number] [employer] Implanted: Qty: 1 on 08/11/2020 by Ta Hamlin MD at [facility] 06/22/2025 1374.09.121 / / Glenosphere Smr Shldr 40mm. - Right: Shoulder [employer] U SA [id number] [employer] Implanted: Qty: 1 on 08/11/2020 by Ta Hamlin MD at [facility] 07/23/2025 8420.15.030 / 40 Screw Bone Slf-Tap [id number] - Right: Shoulder [employer] [id number] Implanted: Qty: 1 on 08/11/2020 by Ta Hamlin MD at [facility] 07/23/2025 8420.15.020 / / [id number] Screw Bone Slf-Tap [id number] - Right: Shoulder [employer] [id number] [employer] Implanted: Qty: 1 on 08/11/2020 by Ta Hamlin MD at [facility] 07/23/2023 1374.15.305 / / [id number] Connector And Screw Small-R - Right: Shoulder [employer] [id number] [employer] Implanted: Qty: 1 on 08/11/2020 by Ta Hamlin MD at [facility] 03/22/2025 1375.15.605 / / [id number] Glenoid Smr Shoulder Small-R. - Right: Shoulder [employer] [id number] [employer] Implanted: Qty: 1 on 08/11/2020 by aT Hamlin MD at [facility] 05/22/2025 1365.50.815 / / [id number] Liner Rev Smr Shoulder +3/40mm - Right: Shoulder [employer] [id number] [employer] Implanted: Qty: 1 on 08/11/2020 by Ta Hamlin MD at [facility] documented as of this encounter Results Not on filedocumented in this encounter Visit Diagnoses Diagnosis S/P reverse total shoulder arthroplasty , right - Primary Right shoulder pain, unspecified chroni city documented in this encounter
[2021-05-27] MEDS ORDERED: TRAM50TA2 PO (09:40)
--- OUTSIDE RECORDS SUMMARY | 2021-05-27 09:40 | CCD ---
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 Name Role Phone KAPLAN, R BORIS ULTRASOUND SONOGRAPHER Unavailable Unavailable KAPLAN, R BORIS ULTRASOUND SONOGRAPHER Unavailable Unavailable KAPLAN, R BORIS ULTRASOUND SONOGRAPHER Unavailable Unavailable KAPLAN, R BORIS ULTRASOUND SONOGRAPHER Unavailable Unavailable KAPLAN, R BORIS ULTRASOUND SONOGRAPHER Unavailable Unavailable KAPLAN, R BORIS ULTRASOUND SONOGRAPHER Unavailable Unavailable KAPLAN, R BORIS ULTRASOUND SONOGRAPHER Unavailable Unavailable KAPLAN, R BORIS ULTRASOUND SONOGRAPHER Unavailable Unavailable KAPLAN, R BORIS ULTRASOUND SONOGRAPHER Unavailable Unavailable KAPLAN, R BORIS ULTRASOUND SONOGRAPHER Unavailable Unavailable KAPLAN, R BORIS ULTRASOUND SONOGRAPHER Unavailable Unavailable KAPLAN, R BORIS ULTRASOUND SONOGRAPHER Unavailable Unavailable KAPLAN, R BORIS ULTRASOUND SONOGRAPHER Unavailable Unavailable KAPLAN, R BORIS ULTRASOUND SONOGRAPHER Unavailable Unavailable KAPLAN, R BORIS ULTRASOUND SONOGRAPHER Unavailable Unavailable KAPLAN, R BORIS ULTRASOUND SONOGRAPHER Unavailable Unavailable KAPLAN, R BORIS ULTRASOUND SONOGRAPHER Unavailable Unavailable KAPLAN, R BORIS ULTRASOUND SONOGRAPHER Unavailable Unavailable KAPLAN, R BORIS ULTRASOUND SONOGRAPHER Unavailable Unavailable KAPLAN, R BORIS ULTRASOUND SONOGRAPHER Unavailable Unavailable KAPLAN, R BORIS ULTRASOUND SONOGRAPHER Unavailable Unavailable KAPLAN, R BORIS ULTRASOUND SONOGRAPHER Unavailable Unavailable KAPLAN, R BORIS ULTRASOUND SONOGRAPHER Unavailable Unavailable KAPLAN, R BORIS ULTRASOUND SONOGRAPHER Unavailable Unavailable KAPLAN, R BORIS ULTRASOUND SONOGRAPHER Unavailable Unavailable KAPLAN, R BORIS ULTRASOUND SONOGRAPHER Unavailable Unavailable KAPLAN, R BORIS ULTRASOUND SONOGRAPHER Unavailable Unavailable KAPLAN, R BORIS ULTRASOUND SONOGRAPHER Unavailable Unavailable KAPLAN, R BORIS ULTRASOUND SONOGRAPHER Unavailable Unavailable KAPLAN, R BORIS ULTRASOUND SONOGRAPHER Unavailable Unavailable KAPLAN, R BORIS ULTRASOUND SONOGRAPHER Unavailable Unavailable KAPLAN, R BORIS ULTRASOUND SONOGRAPHER Unavailable Unavailable KAPLAN, R BORIS ULTRASOUND SONOGRAPHER Unavailable Unavailable KAPLAN, R BORIS ULTRASOUND SONOGRAPHER Unavailable Unavailable KAPLAN, R BORIS ULTRASOUND SONOGRAPHER Unavailable Unavailable KAPLAN, R BORIS ULTRASOUND SONOGRAPHER Unavailable Unavailable KAPLAN, R BORIS ULTRASOUND SONOGRAPHER Unavailable Unavailable KAPLAN, R BORIS ULTRASOUND SONOGRAPHER Unavailable Unavailable KAPLAN, R BORIS ULTRASOUND SONOGRAPHER Unavailable Unavailable KAPLAN, R BORIS ULTRASOUND SONOGRAPHER Unavailable Unavailable KAPLAN, R BORIS ULTRASOUND SONOGRAPHER Unavailable Unavailable KAPLAN, R BORIS ULTRASOUND SONOGRAPHER Unavailable Unavailable KAPLAN, R BORIS ULTRASOUND SONOGRAPHER Unavailable Unavailable KAPLAN, R BORIS ULTRASOUND SONOGRAPHER Unavailable Unavailable Tamra Daley MD Unavailable Unavailable Tamra Daley MD Unavailable Unavailable Tamra Daley MD Unavailable Unavailable Tamra Daley MD Unavailable Unavailable Tamra Daley MD Unavailable Unavailable Tamra Daley MD Unavailable Unavailable Tamra Daley MD Unavailable Unavailable Tamra Daley MD Unavailable Unavailable Tamra Daley MD Unavailable Unavailable Tamra Daley MD Unavailable Unavailable Tamra Daley MD Unavailable Unavailable Tamra Daley MD Unavailable Unavailable Tamra Daley MD Unavailable Unavailable Tamra Daley MD Unavailable Unavailable Tamra Daley MD Unavailable Unavailable Tamra Daley MD Unavailable Unavailable Tamra aDley MD Unavailable Unavailable Tamra Daley MD Unavailable Unavailable Tamra Daley MD Unavailable Unavailable Tamra Daley MD Unavailable Unavailable Tamra Daley MD Unavailable Unavailable Tamra Daley MD Unavailable Unavailable EdiTamra MD Unavailable Unavailable EdiTamra MD Unavailable Unavailable EdiTamra MD Unavailable Unavailable EdiTamra MD Unavailable Unavailable CumberlandTamra MD Unavailable Unavailable CumberlandTamra MD Unavailable Unavailable EdiTamra MD Unavailable Unavailable EdiTamra MD Unavailable Unavailable EdiTamra MD Unavailable Unavailable CumberlandTamra MD Unavailable Unavailable CumberlandTamra MD Unavailable Unavailable EdiTamra MD Unavailable Unavailable EdiTamra MD Unavailable Unavailable EdiTamra MD Unavailable Unavailable EdiTamra MD Unavailable Unavailable EdiTamra MD Unavailable Unavailable EdiTamra MD Unavailable Unavailable CumberlandTamra MD Unavailable Unavailable CumberlandTamra MD Unavailable Unavailable EdiTamra MD Unavailable Unavailable CumberlandTamra MD Unavailable Unavailable EdiTamra MD Unavailable Unavailable EdiTamra MD Unavailable Unavailable CumberlandTamra MD Unavailable Unavailable CumberlandTamra MD Unavailable Unavailable EdiTamra MD Unavailable Unavailable CumberlandTamra MD Unavailable Unavailable C[place]Tamra MD Unavailable Unavailable C[place]Tamra MD Unavailable Unavailable CumberlandTamra MD Unavailable Unavailable EdiTamra MD Unavailable Unavailable EdiTamra MD Unavailable Unavailable EdiTamra MD Unavailable Unavailable EdiTamra MD Unavailable Unavailable EdiTamra MD Unavailable Unavailable EdiTamra allen MD Unavailable Unavailable CumberlandTamra MD Unavailable Unavailable EdiTamra MD Unavailable Unavailable CumberlandTamra allen MD Unavailable Unavailable EdiTamra MD Unavailable Unavailable CumberlandTamra MD Unavailable Unavailable CumberlandTamra allen MD Unavailable Unavailable CumberlandTamra allen MD Unavailable Unavailable EdiTamra MD Unavailable Unavailable EdiTamra MD Unavailable Unavailable CumberlandTamra MD Unavailable Unavailable C[place]Tamra MD Unavailable Unavailable EdiTamra MD Unavailable Unavailable CumberlandTamra MD Unavailable Unavailable EdiTamra MD Unavailable Unavailable EdiTamra MD Unavailable Unavailable CumberlandTamra MD Unavailable Unavailable C[place]Tamra MD Unavailable Unavailable C[place]Tamra MD Unavailable Unavailable C[place]Tamra MD Unavailable Unavailable C[place]Tamra MD Unavailable Unavailable Tamra Daley MD Unavailable Unavailable Tamra Daley MD Unavailable Unavailable Tamra Daley MD Unavailable Unavailable Tamra Daley MD Unavailable Unavailable Tamra Daley MD Unavailable Unavailable Tamra Daley MD Unavailable Unavailable Tamra Daley MD Unavailable Unavailable Tamra Daley MD Unavailable Unavailable Tamra Daley MD Unavailable Unavailable MIREILLE, EMRE PA Unavailable Unavailable MIREILLE, EMRE PA Unavailable Unavailable MIREILLE, EMRE PA Unavailable Unavailable MIREILLE, EMRE PA Unavailable Unavailable MIREILLE, EMRE PA Unavailable Unavailable MIREILLE, EMRE PA Unavailable Unavailable MIREILLE, EMRE PA Unavailable Unavailable MIREILLE, EMRE PA Unavailable Unavailable MIREILLE, EMRE PA Unavailable Unavailable MIREILLE, EMRE PA Unavailable Unavailable MIREILLE, EMRE PA Unavailable Unavailable MIREILLE, EMRE PA Unavailable Unavailable MIREILLE, EMRE PA Unavailable Unavailable MIREILLE, EMRE PA Unavailable Unavailable MIREILLE, EMRE PA Unavailable Unavailable MIREILLE, EMRE PA Unavailable Unavailable MIREILLE, EMRE PA Unavailable Unavailable MIREILLE, EMRE PA Unavailable Unavailable MIREILLE, EMRE PA Unavailable Unavailable MIREILLE, EMRE PA Unavailable Unavailable MIREILLE, EMRE PA Unavailable Unavailable MIREILLE, EMRE PA Unavailable Unavailable MIREILLE, EMRE PA Unavailable Unavailable MIREILLE, EMRE PA Unavailable Unavailable MIREILLE, EMRE PA Unavailable Unavailable MIREILLE, EMRE PA Unavailable Unavailable MIREILLE, EMRE PA Unavailable Unavailable MIREILLE, EMRE PA Unavailable Unavailable MIREILLE, EMRE PA Unavailable Unavailable MIREILLE, EMRE PA Unavailable Unavailable MIREILLE, EMRE PA Unavailable Unavailable MIREILLE, EMRE PA Unavailable Unavailable MIREILLE, EMRE PA Unavailable Unavailable MIREILLE, EMRE PA Unavailable Unavailable MIREILLE, EMRE PA Unavailable Unavailable MIREILLE, EMRE PA Unavailable Unavailable Chelle Gray MD Unavailable Unavailable Chelle Gray MD Unavailable Unavailable Chelle Gray MD Unavailable Unavailable Chelle Gray MD Unavailable Unavailable Chelle Gray MD Unavailable Unavailable Chelle Gray MD Unavailable Unavailable Chelle Gray MD Unavailable Unavailable Chelle Gray MD Unavailable Unavailable Chelle Gray MD Unavailable Unavailable Chelle Gray MD Unavailable Unavailable Chelle Gray MD Unavailable Unavailable Chelle Gray MD Unavailable Unavailable Chelle Gray MD Unavailable Unavailable Chelle Gray MD Unavailable Unavailable Chelle Gray MD Unavailable Unavailable Chelle Gray MD Unavailable Unavailable Chelle Gray MD Unavailable Unavailable Chelle Gray MD Unavailable Unavailable Chelle Gray MD Unavailable Unavailable Chelle Gray MD Unavailable Unavailable Chelle Gray MD Unavailable Unavailable Chelle Gray MD Unavailable Unavailable Chelle Gray MD Unavailable Unavailable Chelle Gray MD Unavailable Unavailable Chelle Gray MD Unavailable Unavailable Chelle Gray MD Unavailable Unavailable Chelle Gray MD Unavailable Unavailable Chelle Gray MD Unavailable Unavailable Chelle Gray MD Unavailable Unavailable Chelle Gray MD Unavailable Unavailable Chelle Gray MD Unavailable Unavailable ROC, J Marylin ANP Unavailable Unavailable ROC, J Marylin ANP Unavailable Unavailable ROC, J Marylin ANP Unavailable Unavailable ROC, J Marylin ANP Unavailable Unavailable ROC, J Marylin ANP Unavailable Unavailable ROC, J Marylin ANP Unavailable Unavailable ROC, J Marylin ANP Unavailable Unavailable ROC, J Marylin ANP Unavailable Unavailable ROC, J Marylin ANP Unavailable Unavailable ROC, J Marylin ANP Unavailable Unavailable ROC, J Marylin ANP Unavailable Unavailable ROC, J Marylin ANP Unavailable Unavailable ROC, J Marylin ANP Unavailable Unavailable ROC, J Marylin ANP Unavailable Unavailable ROC, J Marylin ANP Unavailable Unavailable ROC, J Marylin ANP Unavailable Unavailable ROC, J Marylin ANP Unavailable Unavailable ROC, J Marylin ANP Unavailable Unavailable ROC, J Marylin ANP Unavailable Unavailable ROC, J Marylin ANP Unavailable Unavailable ROC, J Marylin ANP Unavailable Unavailable ROC, J Marylin ANP Unavailable Unavailable ROC, J Marylin ANP Unavailable Unavailable ROC, J Marylin ANP Unavailable Unavailable ROC, J Marylin ANP Unavailable Unavailable ROC, J Marylin ANP Unavailable Unavailable ROC, J Marylin ANP Unavailable Unavailable ROC, J Marylin ANP Unavailable Unavailable ROC, J Marylin ANP Unavailable Unavailable ROC, J Marylin ANP Unavailable Unavailable ROC, J Marlyin ANP Unavailable Unavailable ROC, J Marylin ANP Unavailable Unavailable ROC, J Marylin ANP Unavailable Unavailable ROC, J Marylin ANP Unavailable Unavailable ROC, J Marylin ANP Unavailable Unavailable ROC, J Marylin ANP Unavailable Unavailable ROC, J Marylin ANP Unavailable Unavailable ROC, J Marylin ANP Unavailable Unavailable ROC, J Marylin ANP Unavailable Unavailable ROC, J Marylin ANP Unavailable Unavailable ROC, J Marylin ANP Unavailable Unavailable ROC, J Marylin ANP Unavailable Unavailable ROC, J Marylin ANP Unavailable Unavailable ROC, J Marylin ANP Unavailable Unavailable ROC, J Marylin ANP Unavailable Unavailable ROC, J Marylin ANP Unavailable Unavailable ROC, J Marylin ANP Unavailable Unavailable ROC, J Marylin ANP Unavailable Unavailable ROC, J Marylin ANP Unavailable Unavailable ROC, J Marylin ANP Unavailable Unavailable ROC, J Marylin ANP Unavailable Unavailable ROC, J Marylin ANP Unavailable Unavailable ROC, J Marylin ANP Unavailable Unavailable ROC, J Marylin ANP Unavailable Unavailable ROC, J Marylin ANP Unavailable Unavailable ROC, J Marylin ANP Unavailable Unavailable ROC, J Marylin ANP Unavailable Unavailable ROC, J Marylin ANP Unavailable Unavailable ROC, J Marylin ANP Unavailable Unavailable ROC, J Marylin ANP Unavailable Unavailable ROC, J Marylin ANP Unavailable Unavailable ROC, J Marylin ANP Unavailable Unavailable ROC, J Marylin ANP Unavailable Unavailable ROC, J Marylin ANP Unavailable Unavailable Maring, Ronald PA Unavailable Unavailable Maring, Ronald PA Unavailable Unavailable Maring, Ronald PA Unavailable Unavailable Maring, Ronald PA Unavailable Unavailable Maring, Ronald PA Unavailable Unavailable Maring, Ronald PA Unavailable Unavailable Maring, Ronald PA Unavailable Unavailable Maring, Ronald PA Unavailable Unavailable Maring, Ronald PA Unavailable Unavailable Maring, Ronald PA Unavailable Unavailable Maring, Rnoald PA Unavailable Unavailable Maring, Ronald PA Unavailable Unavailable Maring, Ronald PA Unavailable Unavailable Maring, Ronald PA Unavailable Unavailable Maring, Ronald PA Unavailable Unavailable Maring, Ronald PA Unavailable Unavailable PEDRO KERN MD Unavailable Unavailable PEDRO KERN MD Unavailable Unavailable PEDRO KERN MD Unavailable Unavailable PEDRO KERN MD Unavailable Unavailable PEDRO KERN MD Unavailable Unavailable PEDRO KERN MD Unavailable Unavailable PEDRO KERN MD Unavailable Unavailable PEDRO KERN MD Unavailable Unavailable PEDRO KERN MD Unavailable Unavailable PEDRO KERN MD Unavailable Unavailable PEDRO KERN MD Unavailable Unavailable PEDRO KERN MD Unavailable Unavailable PEDRO KERN MD Unavailable Unavailable PEDRO KERN MD Unavailable Unavailable PEDRO KERN MD Unavailable Unavailable PEDRO KERN MD Unavailable Unavailable PEDRO KERN MD Unavailable Unavailable PEDRO KERN MD Unavailable Unavailable PEDRO KERN MD Unavailable Unavailable PEDRO KERN MD Unavailable Unavailable PEDRO KERN MD Unavailable Unavailable PEDRO KERN MD Unavailable Unavailable PEDRO KERN MD Unavailable Unavailable PEDRO EKRN MD Unavailable Unavailable PEDRO KERN MD Unavailable Unavailable PEDRO KERN MD Unavailable Unavailable PEDRO KERN MD Unavailable Unavailable PEDRO KERN MD Unavailable Unavailable PEDRO KERN MD Unavailable Unavailable PEDRO KERN MD Unavailable Unavailable PEDRO KERN MD Unavailable Unavailable PEDRO KERN MD Unavailable Unavailable PEDRO KERN MD Unavailable Unavailable YVETTE BOWMANASTIAN P Unavailable Unavailable COLBY JORGE P Unavailable Unavailable COLBY JORGE P Unavailable Unavailable COLBY JORGE P Unavailable Unavailable COLBY JORGE P Unavailable Unavailable COLBY JORGE P Unavailable Unavailable COLBY JORGE P Unavailable Unavailable COLBY JORGE P Unavailable Unavailable COLBY JORGE P Unavailable Unavailable COLBY JORGE P Unavailable Unavailable COLBY JORGE P Unavailable Unavailable YVETTE BOWMANASTIAN P Unavailable Unavailable YVETTE BOWMANASTIAN P Unavailable Unavailable COLBY JORGE P Unavailable Unavailable COLBY JORGE P Unavailable Unavailable COLBY JORGE P Unavailable Unavailable COLBY JORGE P Unavailable Unavailable COLBY JORGE P Unavailable Unavailable YVETTE BOWMANASTIAN P Unavailable Unavailable YVETTE BOWMANASTIAN P Unavailable Unavailable YVETTE BOWMANASTIAN P Unavailable Unavailable COLBY JORGE P Unavailable Unavailable COLBY JORGE P Unavailable Unavailable YVETTE BOWMANASTIAN P Unavailable Unavailable YVETTE BOWMANASTIAN P Unavailable Unavailable YVETTE BOWMANASTIAN P Unavailable Unavailable YVETTE BOWMANASTIAN P Unavailable Unavailable COLBY JORGE P Unavailable Unavailable COLBY JORGE P Unavailable Unavailable COLBY JORGE P Unavailable Unavailable COLBY JORGE P Unavailable Unavailable COLBY JORGE P Unavailable Unavailable COLBY JORGE P Unavailable Unavailable YVETTE BOWMANASTIAN P Unavailable Unavailable YVETTE BOWMANASTIAN P Unavailable Unavailable COLBY JORGE P Unavailable Unavailable COLBY JORGE P Unavailable Unavailable YVETTE BOWMANASTIAN P Unavailable Unavailable YVETTE BOWMANASTIAN P Unavailable Unavailable YVETTE BOWMANASTIAN P Unavailable Unavailable YVETTE BOWMANASTIAN P Unavailable Unavailable YVETTE BOWMANASTIAN P Unavailable Unavailable COLBY JORGE P Unavailable Unavailable JORGE BOWMAN MD Unavailable Unavailable JORGE BOWMAN MD Unavailable Unavailable JORGE BOWMAN MD Unavailable Unavailable JORGE BOWMAN MD Unavailable Unavailable JORGE BOWMAN MD Unavailable Unavailable JORGE BOWMAN MD Unavailable Unavailable JORGE BOWMAN MD Unavailable Unavailable JORGE BOWMAN MD Unavailable Unavailable JORGE BOWMAN MD Unavailable Unavailable JORGE BOWMAN MD Unavailable Unavailable ROC, J Marylin ANP Unavailable Unavailable ROC, J Marylin ANP Unavailable Unavailable ROC, J Marylin ANP Unavailable Unavailable ROC, J Marylin ANP Unavailable Unavailable ROC, J Marylin ANP Unavailable Unavailable ORC, J Marylin ANP Unavailable Unavailable ROC, J Marylin ANP Unavailable Unavailable ROC, J Marylin ANP Unavailable Unavailable ROC, J Marylin ANP Unavailable Unavailable ROC, J Marylin ANP Unavailable Unavailable ROC, J Marylin ANP Unavailable Unavailable ROC, J Marylin ANP Unavailable Unavailable ROC, J Marylin ANP Unavailable Unavailable ROC, J Marylin ANP Unavailable Unavailable ROC, J Marylin ANP Unavailable Unavailable ROC, J Marylin ANP Unavailable Unavailable ROC, J Marylin ANP Unavailable Unavailable ROC, J Marylin ANP Unavailable Unavailable ROC, J Marylin ANP Unavailable Unavailable ROC, J Marylin ANP Unavailable Unavailable ROC, J Marylin ANP Unavailable Unavailable ROC, J Marylin ANP Unavailable Unavailable ROC, J Marylin ANP Unavailable Unavailable ROC, J Marylin ANP Unavailable Unavailable ROC, J Marylin ANP Unavailable Unavailable ROC, J Marylin ANP Unavailable Unavailable ROC, J Marylin ANP Unavailable Unavailable ROC, J Marylin ANP Unavailable Unavailable ROC, J Marylin ANP Unavailable Unavailable ROC, J Marylin ANP Unavailable Unavailable ROC, J Marylin ANP Unavailable Unavailable ROC, J Marylin ANP Unavailable Unavailable ROC, J Mraylin ANP Unavailable Unavailable ROC, J Marylin ANP Unavailable Unavailable ROC, J Marylin ANP Unavailable Unavailable ROC, J Marylin ANP Unavailable Unavailable ROC, J Marylin ANP Unavailable Unavailable ROC, J Marylin ANP Unavailable Unavailable ROC, J Marylin ANP Unavailable Unavailable ROC, J Marylin ANP Unavailable Unavailable ROC, J Marylin ANP Unavailable Unavailable ROC, J Marylin ANP Unavailable Unavailable ROC, J Marylin ANP Unavailable Unavailable ROC, J Marylin ANP Unavailable Unavailable ROC, J Marylin ANP Unavailable Unavailable ROC, J Marylin ANP Unavailable Unavailable ROC, J Marylin ANP Unavailable Unavailable ROC, J Marylin ANP Unavailable Unavailable ROC, J Marylin ANP Unavailable Unavailable ROC, J Marylin ANP Unavailable Unavailable ROC, J Marylin ANP Unavailable Unavailable ROC, J Marylin ANP Unavailable Unavailable ROC, J Marylin ANP Unavailable Unavailable ROC, J Marylin ANP Unavailable Unavailable ROC, J Marylin ANP Unavailable Unavailable ROC, J Marylin ANP Unavailable Unavailable ROC, J Marylin ANP Unavailable Unavailable ROC, J Marylin ANP Unavailable Unavailable ROC, J Marylin ANP Unavailable Unavailable ROC, J Marylin ANP Unavailable Unavailable ROC, J Marylin ANP Unavailable Unavailable ROC, J Marylin ANP Unavailable Unavailable ROC, J Marylin ANP Unavailable Unavailable ROC, J Marylin ANP Unavailable Unavailable Leon, Mamie Tricia PA Unavailable Unavailable Leon, Mamie Tricia PA Unavailable Unavailable Leon, Mamie Tricia PA Unavailable Unavailable Leon, Mamie Tricia PA Unavailable Unavailable Leon, Mamie Tricia PA Unavailable Unavailable Leon, Mamie Tricia PA Unavailable Unavailable Leon, Mamie Tricia PA Unavailable Unavailable Leon, Mamie Tricia PA Unavailable Unavailable Leon, Mamie Tricia PA Unavailable Unavailable Leon, Mamie Tricia PA Unavailable Unavailable Xuan Acevedo MD Unavailable Unavailable Xuan Acevedo MD Unavailable Unavailable Xuan Acevedo MD Unavailable Unavailable Xuan Acevedo MD Unavailable Unavailable Bj LOWE MARRY Unavailable Unavailable MOCK, G EDWARD RPA Unavailable Unavailable MOCK, G EDWARD RPA Unavailable Unavailable MOCK, G EDWARD RPA Unavailable Unavailable MOCK, G EDWARD RPA Unavailable Unavailable MOCK, G EDWARD RPA Unavailable Unavailable MOCK, G EDWARD RPA Unavailable Unavailable MOCK, G EDWARD RPA Unavailable Unavailable MOCK, G EDWARD RPA Unavailable Unavailable MOCK, G EDWARD RPA Unavailable Unavailable MOCK, G EDWARD RPA Unavailable Unavailable MOCK, G EDWARD RPA Unavailable Unavailable MOCK, G EDWARD RPA Unavailable Unavailable MOCK, G EDWARD RPA Unavailable Unavailable MOCK, G EDWARD RPA Unavailable Unavailable MOCK, G EDWARD RPA Unavailable Unavailable MOCK, G EDWARD RPA Unavailable Unavailable MOCK, G EDWARD RPA Unavailable Unavailable MOCK, G EDWARD RPA Unavailable Unavailable MOCK, G EDWARD RPA Unavailable Unavailable MOCK, G EDWARD RPA Unavailable Unavailable MOCK, G EDWARD RPA Unavailable Unavailable MOCK, G EDWARD RPA Unavailable Unavailable MOCK, G EDWARD RPA Unavailable Unavailable MOCK, G EDWARD RPA Unavailable Unavailable MOCK, G EDWARD RPA Unavailable Unavailable MOCK, G EDWARD RPA Unavailable Unavailable MOCK, G EDWARD RPA Unavailable Unavailable MOCK, G EDWARD RPA Unavailable Unavailable MOCK, G EDWARD RPA Unavailable Unavailable MOCK, G EDWARD RPA Unavailable Unavailable MOCK, G EDWARD RPA Unavailable Unavailable MOCK, G EDWARD RPA Unavailable Unavailable MOCK, G EDWARD RPA Unavailable Unavailable MOCK, G EDWARD RPA Unavailable Unavailable MOCK, G EDWARD RPA Unavailable Unavailable MOCK, G EDWARD RPA Unavailable Unavailable MOCK, G EDWARD RPA Unavailable Unavailable Bj ORTIZ MD Unavailable Unavailable Bj ORTIZ MD Unavailable Unavailable Bj ORTIZ MD Unavailable Unavailable Bj ORTIZ MD Unavailable Unavailable Bj ORTIZ MD Unavailable Unavailable Bj ORTIZ MD Unavailable Unavailable Bj ORTIZ MD Unavailable Unavailable Bj ORTIZ MD Unavailable Unavailable Bj ORTIZ MD Unavailable Unavailable Bj ORTIZ MD Unavailable Unavailable Bj ORTIZ MD Unavailable Unavailable Bj ORTIZ MD Unavailable Unavailable Bj ORTIZ MD Unavailable Unavailable Bj ORTIZ MD Unavailable Unavailable Bj ORTIZ MD Unavailable Unavailable Bj ORTIZ MD Unavailable Unavailable Bj ORTIZ MD Unavailable Unavailable Bj ORTIZ MD Unavailable Unavailable Bj ORTIZ MD Unavailable Unavailable Bj ORTIZ MD Unavailable Unavailable Bj ORTIZ MD Unavailable Unavailable Bj ORTIZ MD Unavailable Unavailable Bj ORTIZ MD Unavailable Unavailable Bj ORTIZ MD Unavailable Unavailable Bj ORTIZ MD Unavailable Unavailable Bj ORTIZ MD Unavailable Unavailable Bj ORTIZ MD Unavailable Unavailable Bj ORTIZ MD Unavailable Unavailable Bj ORTIZ MD Unavailable Unavailable Bj ORTIZ MD Unavailable Unavailable Bj ORTIZ MD Unavailable Unavailable Bj ORTIZ MD Unavailable Unavailable Bj ORTIZ MD Unavailable Unavailable Bj ORTIZ MD Unavailable Unavailable Bj ORTIZ MD Unavailable Unavailable Bj ORTIZ MD Unavailable Unavailable Bj ORTIZ MD Unavailable Unavailable Bj ORTIZ MD Unavailable Unavailable SETTERBj MD Unavailable Unavailable SETTERBj MD Unavailable Unavailable SETTER, Bj BELCHER MD Unavailable Unavailable SETTER, Bj BELCHER MD Unavailable Unavailable SETTER, Bj BELCHER MD Unavailable Unavailable SETTER, Bj BELCHER MD Unavailable Unavailable SETTER, Bj BELCHER MD Unavailable Unavailable SETTER, Bj BELCHER MD Unavailable Unavailable SETTER, Bj BELCHER MD Unavailable Unavailable SETTER, Bj BELCHER MD Unavailable Unavailable SETTER, Bj BELCHER MD Unavailable Unavailable SETTER, Bj BELCHER MD Unavailable Unavailable SETTER, Bj BELCHER MD Unavailable Unavailable SETTER, Bj BELCHER MD Unavailable Unavailable SETTER, Bj BELCHER MD Unavailable Unavailable SETTER, Bj BELCHER MD Unavailable Unavailable SETTER, Bj BELCHER MD Unavailable Unavailable SETTER, Bj BELCHER MD Unavailable Unavailable SETTER, Bj BELCHER MD Unavailable Unavailable SETTER, Bj BELCHER MD Unavailable Unavailable SETTER, Bj BELCHER MD Unavailable Unavailable SETTER, Bj BELCHER MD Unavailable Unavailable SETTER, Bj BELCHER MD Unavailable Unavailable SETTER, Bj BELCHER MD Unavailable Unavailable SETTER, Bj BELCHER MD Unavailable Unavailable SETTER, Bj BELCHER MD Unavailable Unavailable SETTER, Bj BELCHER MD Unavailable Unavailable SETTER, Bj BELCHER MD Unavailable Unavailable SETTER, Bj BELCHER MD Unavailable Unavailable SETTERBj MD Unavailable Unavailable SETTERBj MD Unavailable Unavailable SETTER, Bj BELCHER MD Unavailable Unavailable SETTER, Bj BELCHER MD Unavailable Unavailable SETTER, Bj BELCHER MD Unavailable Unavailable SETTER, Bj BELCHER MD Unavailable Unavailable SETTERBj MD Unavailable Unavailable SETTERBj MD Unavailable Unavailable SETTERBj MD Unavailable Unavailable SETTER, Bj BELCHER MD Unavailable Unavailable SETTER, Bj BELCHER MD Unavailable Unavailable SETTERBj MD Unavailable Unavailable SETTERBj MD Unavailable Unavailable SETTERBj MD Unavailable Unavailable SETTERBj MD Unavailable Unavailable SETTERBj MD Unavailable Unavailable SETTERBj MD Unavailable Unavailable SETTERBj MD Unavailable Unavailable SETTERBj MD Unavailable Unavailable SETTERBj MD Unavailable Unavailable SETTERBj MD Unavailable Unavailable SETTERBj MD Unavailable Unavailable SETTERBj MD Unavailable Unavailable SETTERBj MD Unavailable Unavailable SETTERBj MD Unavailable Unavailable SETTERBj MD Unavailable Unavailable SETTERBj MD Unavailable Unavailable Bj ORTIZ MD Unavailable Unavailable SETTERBj MD Unavailable Unavailable SETTERBj MD Unavailable Unavailable SETTER, Bj BELCHER MD Unavailable Unavailable SETTER, Bj BELCHER MD Unavailable Unavailable SETTBj CUENCA MD Unavailable Unavailable SETTBj CUENCA MD Unavailable Unavailable Bj ORTIZ MD Unavailable Unavailable SETTER, Bj BELCHER MD Unavailable Unavailable SETTER, Bj BELCHER MD Unavailable Unavailable SETTER, Bj BELCHER MD Unavailable Unavailable SETTJOELLEN, Bj BELCHER MD Unavailable Unavailable SETTJOELLEN, Bj BELCHER MD Unavailable Unavailable SETTER, Bj BELCHER MD Unavailable Unavailable DIANA, Bj BELCHER MD Unavailable Unavailable SETTER, Bj BELCHER MD Unavailable Unavailable SETTBj CUENCA MD Unavailable Unavailable SETTJOELLEN, Bj BELCHER MD Unavailable Unavailable Bj ORTIZ MD Unavailable Unavailable Eric Amin MD Unavailable Unavailable Eric Amin MD Unavailable Unavailable Eric Amin MD Unavailable Unavailable Eric Amin MD Unavailable Unavailable Eric Amin MD Unavailable Unavailable Eric Amin MD Unavailable Unavailable Eric Amin MD Unavailable Unavailable Eric Amin MD Unavailable Unavailable Eric Amin MD Unavailable Unavailable Eric Amin MD Unavailable Unavailable Eric Amin MD Unavailable Unavailable Eric Amin MD Unavailable Unavailable Eric Amin MD Unavailable Unavailable Eric Amin MD Unavailable Unavailable Eric Amin MD Unavailable Unavailable Eric Amin MD Unavailable Unavailable Eric Amin MD Unavailable Unavailable Eric Amin MD Unavailable Unavailable Eric Amin MD Unavailable Unavailable Eric Amin MD Unavailable Unavailable Eric mAin MD Unavailable Unavailable Eric Amin MD Unavailable Unavailable Eric Amin MD Unavailable Unavailable Eric Amin MD Unavailable Unavailable Eric Amin MD Unavailable Unavailable Re-disclosure Warning The records that you are about to access may contain information from federally-assisted alcohol or drug abuse programs. If such information is present, then the following federally mandated warning applies: This information has been disclosed to you from records protected by federal confidentiality rules (42 CFR part 2). The federal rules prohibit you from making any further disclosure of this information unless further disclosure is expressly permitted by the written consent of the person to whom it pertains or as otherwise permitted by 42 CFR part 2. A general authorization for the release of medical or other information is NOT sufficient for this purpose. The Federal rules restrict any use of the information to criminally investigate or prosecute any alcohol or drug abuse patient.The records that you are about to access may contain highly sensitive health information, the redisclosure of which is protected by Article 27-F of the [facility] Public Health law. If you continue you may have access to information: Regarding HIV / AIDS; Provided by facilities licensed or operated by the [facility] Office of Mental Health; or Provided by the [facility] Office for People With Developmental Disabilities. If such information is present, then the following [facility] mandated warning applies: This information has been disclosed to you from confidential records which are protected by state law. State law prohibits you from making any further disclosure of this information without the specific written consent of the person to whom it pertains, or as otherwise permitted by law. Any unauthorized further disclosure in violation of state law may result in a fine or mcc sentence or both. A general authorization for the release of medical or other information is NOT sufficient authorization for further disc losure. Allergies and Adverse Reactions Type Description Substance Reaction Status Data Source(s ) Drug Allergy NKDA NKDA [facility] ([facility]) Family History Family Member Name Family Member Gender Family Member Status Date o f Status Description Data Source(s) Unknown Unknown Problem [facility] ([facility], [facility]) Encounters Encounter Providers Location Date Indications Data Source(s ) Outpatient Attender: Jon BOWMAN MDReferrer: Marylin ALBERTS [id number] 04/24/2021 12:00:00 AM [facility] 04/24/2021 03:24:04 PM [facility] Outpatient Attender: SIMI ORTIZ MDReferrer: SIMI ORTIZ MD [id number] 04/12/2021 12:00:00 AM [facility] Outpatient Referrer: BORIS KAPLAN NP 03/26/2021 12:00:0 0 AM [facility] Outpatient Referrer: Hai Acevedo MD 03/26/2021 12:00:00 AM [facility] Outpatient Attender: SIMI ORTIZ MD [id number] 03/22/2021 12:00:00 AM EDT [facility] Outpatient Referrer: BORIS KAPLAN NP 03/22/2021 1 2:00:00 AM EDT Presence of right artificial shoulder joint [facility] Presence of right artificial shoulder [facility] Outpatient Referrer: SIMI ORTIZ MD 03/13/2021 12:0 0:00 AM EDT Presence of right artificial shoulder joint [facility] Presence of right artificial shoulder [facility] Outpatient Attender: BORIS KAPLAN NPReferrer: SIMI CUENCA MD [id number] 03/13/2021 12:00:00 AM EDT [facility] Outpatient Attender: SIMI ORTIZ MDReferrer: SIMI ORTIZ MD 03/08/2021 12:00:00 AM EDT [facility] Outpatient 03/06/2021 05:19:44 PM EDT - 021 05:22:27 PM EDT [facility] ([facility]) Outpatient Attender: Chelle Gray MDReferrer: SIMI Bailey MD [id number] 03/06/2021 12:00:00 AM EDT - 03/06/2021 01:51:57 PM EDT [facility] Unknown [address] [facility] [address] 03/06/2021 12:00:00 AM EDT eCW1 ([facility]) [place] [address] [facility] [place] [address] 02/14/2021 12:00:00 AM EDT eCW1 ([facility]) Unknown [address] [facility] [address] 02/07/2021 12:00:00 AM EDT eCW1 ([facility]) Unknown [address] [facility] [place] [address] 02/07/2021 12:00:00 AM EDT eCW1 ([facility]) Outpatient Attender: Marylin Saucedo 03/2021 08:40:00 AM EDT [facility] ([facility] ) Unknown [address] [facility] [address] 01/29/2021 12:00:00 AM EDT eCW1 ([facility]) Outpatient Attender: JYOTHI MOCK RPA 01/27 07:07:54 AM EDT - 01/27/2021 07:46:27 AM EDT [facility] ([facility] ) Unknown [address] [facility] [address] 01/19/2021 12:00:00 AM EDT eCW1 ([facility]) Outpatient Attender: SIMI ORTIZ MD 01/18/2021 12:0 0:00 AM EDT Presence of right artificial shoulder joint [facility] Presence of right artificial shoulder [facility] [place] [address] [facility] [address] 01/02/2021 12:00:00 AM EDT eCW1 ([facility]) Outpatient [address] [facility] [address] 01/01/2021 12:00:00 AM EDT eCW1 ([facility]) Unknown [address] [facility] [address] 12/25/2020 12:00:00 AM EDT eCW1 ([facility]) Unknown [address] [facility] [address] 12/25/2020 12:00:00 AM EDT eCW1 ([facility]) Unknown [address] [facility] [address] 12/21/2020 12:00:00 AM EDT eCW1 ([facility]) Outpatient Attender: SIMI ORTIZ MD 12/07/2020 12:00:00 A M [facility] Outpatient [address] [facility] [address] 11/21/2020 12:00:00 AM EDT eCW1 ([facility]) Unknown [address] [facility] [address] 11/14/2020 12:00:00 AM EDT eCW1 ([facility]) Unknown [address] [facility] [address] 11/14/2020 12:00:00 AM EDT eCW1 ([facility]) Unknown [address] [facility] [address] 11/11/2020 12:00:00 AM EDT eCW1 ([facility]) Unknown [address] [facility] [address] 11/10/2020 12:00:00 AM EDT eCW1 ([facility]) Outpatient Attender: SIMI ORTIZ MD 11/09/2020 12:00:00 A M [facility] Outpatient Attender: Marylin Saucedo 04/2021 08:00:00 AM EDT MEDENT ([facility] ) Unknown [address] [facility] [address] 10/26/2020 12:00:00 AM EDT eCW1 ([facility]) Outpatient Attender: SIMI ORTIZ MD 10/25/2020 12:00:00 A M [facility] Outpatient Referrer: SIMI ORTIZ MD 10/19/2020 12:00:00 A M [facility] Outpatient Attender: SIMI ORTIZ MD 10/18/2020 12:00:00 A M [facility] Outpatient Attender: SIMI ORTIZ MD [id number] 10/12/2020 12:0 0:00 AM EDT Presence of right artificial shoulder [facility] Presence of right artificial shoulder [facility] Outpatient Referrer: SIMI ORTIZ MD 10/12/2020 12:0 0:00 AM EDT Presence of right artificial shoulder [facility] Presence of right artificial shoulder [facility] Outpatient Referrer: SIMI ORTIZ MD 10/12/2020 12:0 0:00 AM EDT PT rt [facility] PT rt shoulder Outpatient 10/09/2020 03:41:33 PM EDT - 021 03:42:08 PM EDT [facility] ([facility]) Outpatient Referrer: SIMI ORTIZ MD 10/05/2020 12:00:00 A M [facility] Outpatient Referrer: SIMI ORTIZ MD 10/04/2020 12:00:00 A M [facility] Outpatient Referrer: SIMI ORTIZ MD 09/28/2020 12:0 0:00 AM EDT PT rt [facility] PT rt shoulder Outpatient Referrer: SIMI ORTIZ MD 09/21/2020 12:0 0:00 AM EDT PT rt [facility] PT rt shoulder Outpatient Referrer: SIMI ORTIZ MD 09/12/2020 12:0 0:00 AM EDT PT rt [facility] PT rt shoulder Outpatient 09/08/2020 12:00:00 AM [facility] Outpatient Referrer: SIMI ORTIZ MD 09/07/2020 12:0 0:00 AM EDT PT R Shoulder Post Op [facility] PT R Shoulder Post Op Outpatient Attender: SIMI ORTIZ MD [id number] 08/24/2020 12:0 0:00 AM EST Pain in right [facility] Pain in right shoulder Outpatient Referrer: SIMI ORTIZ MD 08/24/2020 12:0 0:00 AM EST Pain in right [facility] Pain in right shoulder Outpatient Referrer: BORIS KAPLAN NP 08/18/2020 12:00:0 0 AM [facility] Outpatient Attender: SIMI ORTIZ MDAdmitter: SIMI ORTIZ MD [id number] 08/11/2020 12:00:00 AM EST - 08/11/2020 12:00:00 AM EST Post-traumatic osteoarthritis, right [facility] Post-traumatic osteoarthritis, right selene ulder Patient discharged. Outpatient Referrer: MARRY LOWE 08/11/2020 12:00:00 A M [facility] Outpatient Attender: Isamar Amin MD 0 08/08/2020 04:44:04 PM EST - 08/08/2020 05:05:24 PM EST [facility] ([facility]) Outpatient Attender: Ronald MIXON 08/06/19 08:02:23 AM EST - 08/06/2020 08:16:17 AM EST [facility] ([facility] ) Outpatient Referrer: SIMI ORTIZ MD 08/03/2020 12:00:00 A M [facility] Outpatient 08/02/2020 12:00:00 AM [facility] Outpatient Attender: SIMI ORTIZ MD 08/02/2020 12:00:00 A M [facility] Outpatient Referrer: Marylin ALBERTS [id number] 08/01/2020 12:00:00 AM [facility] Outpatient 08/01/2020 12:00:00 AM [facility] Outpatient Attender: Mike Saucedo 0 07/31/2020 12:30:00 PM EST MEDENT ([facility] ) Outpatient Attender: Marylin Saucedo 07/2020 07:40:00 AM EST MEDENT ([facility] ) Outpatient Attender: EMRE jim 07/07/2020 07:00:00 AM EST [facility] ([facility] Outpatient 07/05/2020 12:00:00 AM [facility] Outpatient Attender: Marylin Saucedo 05/2021 10:00:00 AM EST MEDENT ([facility] ) Outpatient 07/04/2020 12:00:00 AM [facility] Outpatient Attender: SIMI ORTIZ MD 06/21/2020 12:00:00 A M [facility] Outpatient 05/31/2020 12:00:00 AM [facility] Outpatient 05/30/2020 12:00:00 AM [facility] Outpatient Attender: Marylin Saucedo 08/2019 10:15:00 AM EST MEDENT ([facility] ) Outpatient Attender: Marylin Saucedo 02/2020 09:15:00 AM EST [facility] ([facility] ) Outpatient Attender: Tricia bairesy 04/23/2020 08:50:00 AM EST [facility] ([facility]) Outpatient Attender: SIMI ORTIZ MDReferrer: PEDRO RUDD MD [id number] 03/09/2020 12:00:00 AM EDT - 03/09/2020 11:48:30 AM EDT Pain in right shoulder [facility] Pain in right shoulder Immunizations Vaccine Date Status Description Data Source(s) COVID-19 VACCINE Moderna 07/20/2020 12:00:00 AM EST completed [facility] Vaccine Series Complete: YESThis Data wa s Submitted to [facility] Via [employer]. COVID-19 VACCINE Moderna 06/22/2020 12:00:00 AM EST completed [facility] Vaccine Series Complete: NOThis Data was Submitted to [facility] Via [employer]. Medications Medication Brand Name Start Date Product Form Dose Route Admi nistrative Instructions Pharmacy Instructions Status Indications Reaction Description Data Source(s) 50 mg 05/10/2021 12:00:00 AM EST tablet 90 TAKE ONE TABLET BY MOUTH THREE TIMES A DAY NEEDED FOR PAIN MAXIMUM DAILY DOSE = 3 TABLETS TAKE ONE TABLET BY MOUTH THREE TIMES A DAY NEEDED FOR PAIN MAXIMUM DAILY DOSE = 3 TABLETS SOLD: 05/10/2021 [facility] 0.25 mg or 0.5 mg(2 mg/1.5 mL) 05/01/2021 12:00:00 AM EST pe n injector 1 INJECT 0.5 MG SUBCUTANEOUSLY ONCE A WEEK INJECT 0.5 MG SUBCUTANEOUSLY ONCE A WEEK SOLD: 05/05/2021 [facility] 50 mg 04/24/2021 12:00:00 AM EDT tablet 30 TAKE 1 TABLET BY MOUTH EVERY 8 HOURS NEEDED FOR PAIN MAXIMUM DAILY DOSE = 3 TABLETS TAKE 1 TABLET BY MOUTH EVERY 8 HOURS NEEDED FOR PAIN MAXIMUM DAILY DOSE = 3 TABLETS SOLD: 04/24/2021 [facility] 100 mg 04/24/2021 12:00:00 AM EDT capsule 90 TAKE ONE CAPSULE BY MOUTH THREE TIMES A DAY MAXIMUM DAILY DOSE = 3 CAPSULE TAKE ONE CAPSULE BY MOUTH THREE TIMES A DAY MAXIMUM DAILY DOSE = 3 CAPSULE SOLD: 04/24/2021 [facility] 20 mg 04/16/2021 12:00:00 AM EDT capsule 30 TAKE ONE CAPSULE BY MOUTH EVERY DAY TAKE ONE CAPSULE BY MOUTH EVERY DAY SOLD: 04/21/2021 [facility] 10 mg 04/13/2021 12:00:00 AM EDT tablet 6 TAKE ONE TABLET BY MOUTH IMMEDIATELY, MAY REPEAT ONCE AFTER 2 HOURS, MAXIMUM DAILY DOSE = 2 TABLETS TAKE ONE TABLET BY MOUTH IMMEDIATELY, MAY REPEAT ONCE AFTER 2 HOURS, MAXIMUM DAILY DOSE = 2 TABLETS SOLD: 05/05/2021 [facility] 10 mg 04/13/2021 12:00:00 AM EDT tablet 6 TAKE ONE TABLET BY MOUTH IMMEDIATELY, MAY REPEAT ONCE AFTER 2 HOURS, MAXIMUM DAILY DOSE = 2 TABLETS TAKE ONE TABLET BY MOUTH IMMEDIATELY, MAY REPEAT ONCE AFTER 2 HOURS, MAXIMUM DAILY DOSE = 2 TABLETS SOLD: 04/21/2021 [facility] 5 mg 04/13/2021 12:00:00 AM EDT tablet 20 TAKE ONE TABLET BY MOUTH EVERY 6 HOURS NEEDED FOR PAIN MAXIMUM DAILY DOSE = 4 TAKE ONE TABLET BY MOUTH EVERY 6 HOURS NEEDED FOR PAIN MAXIMUM DAILY DOSE = 4 SOLD: 04/13/2021 [facility] 5 mg 04/09/2021 12:00:00 AM EDT tablet 20 TAKE 1 TABLET BY MOUTH EVERY 6 HOURS NEEDED FOR PAIN MAXIMUM DAILY DOSE = 4 TABLETS TAKE 1 TABLET BY MOUTH EVERY 6 HOURS NEEDED FOR PAIN MAXIMUM DAILY DOSE = 4 TABLETS SOLD: 04/09/2021 [facility] 5 mg 03/30/2021 12:00:00 AM EDT tablet 40 TAKE ONE TO TWO TABLETS BY MOUTH EVERY 4 HOURS NEEDED FOR PAIN MAXIMUM DAILY DOSE = 8 TAKE ONE TO TWO TABLETS BY MOUTH EVERY 4 HOURS NEEDED FOR PAIN MAXIMUM DAILY DOSE = 8 SOLD: 03/31/2021 [facility] 4 mg 03/22/2021 12:00:00 AM EDT tablets,dose pack 21 FOLLOW PACKAGE DIRECTIONS FOLLOW PACKAGE DIRECTIONS SOLD: 03/22/2021 [facility] 100 mg 03/17/2021 12:00:00 AM EDT capsule 90 TAKE ONE CAPSULE BY MOUTH THREE TIMES A DAY MAXIMUM DAILY DOSE = 3 CAPSULES TAKE ONE CAPSULE BY MOUTH THREE TIMES A DAY MAXIMUM DAILY DOSE = 3 CAPSULES SOLD: 03/17/2021 [facility] 10 mg 03/15/2021 12:00:00 AM EDT tablet 6 TAKE ONE TABLET BY MOUTH IMMEDIATELY, MAY REPEAT ONCE AFTER 2 HOURS, MAXIMUM DAILY DOSE = 2 TABLETS TAKE ONE TABLET BY MOUTH IMMEDIATELY, MAY REPEAT ONCE AFTER 2 HOURS, MAXIMUM DAILY DOSE = 2 TABLETS SOLD: 03/17/2021 [facility] 10 mg 03/15/2021 12:00:00 AM EDT tablet 6 TAKE ONE TABLET BY MOUTH IMMEDIATELY, MAY REPEAT ONCE AFTER 2 HOURS, MAXIMUM DAILY DOSE = 2 TABLETS TAKE ONE TABLET BY MOUTH IMMEDIATELY, MAY REPEAT ONCE AFTER 2 HOURS, MAXIMUM DAILY DOSE = 2 TABLETS SOLD: 03/31/2021 [facility] Rosuvastatin calcium 20 MG Oral Tablet ROSUVASTATIN CALCIUM 03/12/2021 12:00:00 AM EDT tablet 30 TAKE ONE TABLET BY MOUTH OJ TAKE ONE TABLET BY MOUTH EVERY DAY SOLD: 04/21/2021 [facility] Rosuvastatin calcium 20 MG Oral Tablet ROSUVASTATIN CALCIUM 03/12/2021 12:00:00 AM EDT tablet 30 TAKE ONE TABLET BY MOUTH OJ TAKE ONE TABLET BY MOUTH EVERY DAY SOLD: 03/17/2021 [facility] 500 mg 03/10/2021 12:00:00 AM EDT tablet 40 TAKE ONE TABLET BY MOUTH FOUR TIMES A DAY FOR 10 DAYS TAKE ONE TABLET BY MOUTH FOUR TIMES A DAY FOR 10 DAYS SOLD: 03/10/2021 [facility] Fluoxetine 20 MG Oral Capsule FLUoxetine HCl 20 MG Ora l Capsule (PROZAC) FLUoxetine HCl 20 MG Oral Capsule (PROZAC) 03/10/2021 12:00:[address] [facility] Methocarbamol 500 MG Oral Tablet Methocarbamol 500 MG Oral T ablet 03/09/2021 12:00:00 AM EDT 500 mg Oral active Chronic right sh oulder pain Take 1 tablet by mouth Four times daily for 10 days [facility] Chronic right shoulder pain pregabalin 100 MG Oral Capsule Pregabalin 100 MG Oral Capsule (LYRICA) Pregabalin 100 MG Oral Capsule (LYRICA) 03/09/2021 12:00:00 AM EDT 100 mg Oral active Chronic right shoulder pain Take 1 capsule by mouth Three times daily , Max Daily Dose: 300 mg [facility] Chronic right shoulder pain 0.25 mg or 0.5 mg(2 mg/1.5 mL) 03/07/2021 12:00:00 AM EDT pe n injector 1 INJECT 0.25MG UNDER THE SKIN WEEKLY INJECT 0.25MG UNDER THE SKIN WEEKLY SOLD: 04/08/2021 [facility] 0.25 mg or 0.5 mg(2 mg/1.5 mL) 03/07/2021 12:00:00 AM EDT pe n injector 1 INJECT 0.25MG UNDER THE SKIN WEEKLY INJECT 0.25MG UNDER THE SKIN WEEKLY SOLD: 03/07/2021 [facility] tizanidine 4 MG Oral Tablet TIZANIDINE HCL 03/06/2021 12:00:00 AM EDT tablet 90 TAKE ONE TABLET BY MOUTH EVERY 8 HOURS NEEDED TAKE ONE TABLET BY MOUTH EVERY 8 HOURS NEEDED SOLD: 03/07/2021 [facility] tizanidine 4 MG Oral Tablet tiZANidine HCl 4 MG Oral T ablet (Zanaflex) tiZANidine HCl 4 MG Oral Tablet (Zanaflex) 03/06/2021 12:00:00 AM EDT 4 mg Oral aborted Chronic right shoulder pain Take 1 tablet by mouth every 8 (eight) hours as needed [facility] Chronic right shoulder pain NITROFURANTOIN, MACROCRYSTALS 25 MG / Ni trofurantoin, Monohydrate 75 MG Oral Capsule 100 mg NITROFURANTOIN MONOHYD/M-CRYST 02/25/2021 12:00:00 AM EDT ca psule 14 TAKE ONE CAPSULE BY MOUTH TWO TI MES A DAY TAKE ONE CAPSULE BY MOUTH TWO TIMES A DAY SOLD: 02/25/2021 [facility] 200 mg 02/25/2021 12:00:00 AM EDT tablet 6 TAKE ONE TABLET BY MOUTH THREE TIMES A DAY FOR 2 DAYS TAKE ONE TABLET BY MOUTH THREE TIMES A DAY FOR 2 DAYS SOLD: 02/25/2021 [facility] pregabalin 100 MG Oral Capsule Pregabalin 100 MG Oral Capsule (LYRICA) Pregabalin 100 MG Oral Capsule (LYRICA) 02/15/2021 12:00:00 AM EDT active TAKE ONE CAPSULE BY MOUTH THREE TIMES A DAY MAXIMUM DAILY DOSE 3 [facility] 100 mg 02/15/2021 12:00:00 AM EDT capsule 90 TAKE ONE CAPSULE BY MOUTH THREE TIMES A DAY * MAXIMUM DAILY DOSE = 3 TAKE ONE CAPSULE BY MOUTH THREE TIMES A DAY * MAXIMUM DAILY DOSE = 3 SOLD: 02/16/2021 [facility] Acetaminophen 325 MG / Hydrocodone Mirza trate 5 MG Oral Tablet HYDROcodone- Acetaminophen 5-325 MG Oral Tablet (LORTAB) HYDROcodone-Acetaminophen 5-325 MG Oral Tablet (LORTAB) 02/14/2021 12:00:00 AM EDT aborted TAKE ONE TABLET BY MOUTH EVERY 8 HOURS NEEDED FOR PAIN MAXIMUM DAILY DOSE 3 [facility] pregabalin 100 MG Oral Capsule [Lyrica] Lyrica 100 MG Lyrica 100 MG 02/14/2021 12:00:00 AM EDT 1.0 {capsule} active L yrica 100 MG eCW1 ([facility]) Acetaminophen 325 MG / Hydrocodone Mirza trate 7.5 MG Oral Tablet HYDROcodone- Acetaminophen 7.5-325 MG HYDROcodone-Acetaminophen 7.5-325 MG 02/14/2021 12:00:00 AM EDT 1.0 {tablet_as_needed} active HYDROcodone- Acetaminophen 7.5-325 MG eCW1 ([facility]) pregabalin 100 MG Oral Capsule [Lyrica] Lyrica 100 MG Lyrica 100 MG 02/14/2021 12:00:00 AM EDT 1.0 {capsule} active L yrica 100 MG eCW1 ([facility]) Acetaminophen 325 MG / Hydrocodone Mirza trate 7.5 MG Oral Tablet HYDROcodone- Acetaminophen 7.5-325 MG HYDROcodone-Acetaminophen 7.5-325 MG 02/14/2021 12:00:00 AM EDT 1.0 {tablet_as_needed} active HYDROcodone- Acetaminophen 7.5-325 MG eCW1 ([facility]) Acetaminophen 325 MG / Hydrocodone Bitartrate 5 MG Ora l Tablet 5-325 mg HYDROCODONE/ACETAMINOPHEN 02/14/2021 12:00:00 AM EDT tablet 85 TAKE ONE TABLET BY MOUTH EVERY 8 HOURS NEEDED FOR PAIN * MAXIMUM DAILY DOSE = 3 TAKE ONE TABLET BY MOUTH EVERY 8 HOURS NEEDED FOR PAIN * MAXIMUM DAILY DOSE = 3 SOLD: 02/15/2021 [facility] 10 mg 02/02/2021 12:00:00 AM EDT tablet 6 TAKE ONE TABLET BY MOUTH IMMEDIATELY, MAY REPEAT ONCE AFTER 2 HOURS, MAXIMUM DAILY DOSE = 2 TABLETS TAKE ONE TABLET BY MOUTH IMMEDIATELY, MAY REPEAT ONCE AFTER 2 HOURS, MAXIMUM DAILY DOSE = 2 TABLETS SOLD: 02/12/2021 [facility] Acetaminophen 325 MG / Hydrocodone Bitartrate 7.5 MG O ral Tablet 7.5-325 mg HYDROCODONE/ACETAMINOPHEN 02/02/2021 12:00:00 AM EDT tablet 45 TAKE ONE TABLET BY MOUTH EVERY 8 HOURS NEEDED FOR PAIN, MAXIMUM DAILY DOSE = 3 TABLETS TAKE ONE TABLET BY MOUTH EVERY 8 HOURS NEEDED FOR PAIN, MAXIMUM DAILY DOSE = 3 TABLETS SOLD: 02/02/2021 [facility] 10 mg 02/02/2021 12:00:00 AM EDT tablet 6 TAKE ONE TABLET BY MOUTH IMMEDIATELY, MAY REPEAT ONCE AFTER 2 HOURS, MAXIMUM DAILY DOSE = 2 TABLETS TAKE ONE TABLET BY MOUTH IMMEDIATELY, MAY REPEAT ONCE AFTER 2 HOURS, MAXIMUM DAILY DOSE = 2 TABLETS SOLD: 03/02/2021 [facility] Acetaminophen 325 MG / Hydrocodone Mirza trate 7.5 MG Oral Tablet HYDROcodone- Acetaminophen 7.5-325 MG HYDROcodone-Acetaminophen 7.5-325 MG 02/01/2021 12:00:00 AM EDT 1.0 {tablet_as_needed} active HYDROcodone- Acetaminophen 7.5-325 MG eCW1 ([facility]) Acetaminophen 325 MG / Hydrocodone Mirza trate 7.5 MG Oral Tablet HYDROcodone- Acetaminophen 7.5-325 MG HYDROcodone-Acetaminophen 7.5-325 MG 02/01/2021 12:00:00 AM EDT 1.0 {tablet_as_needed} active HYDROcodone- Acetaminophen 7.5-325 MG eCW1 ([facility]) Acetaminophen 325 MG / Hydrocodone Mirza trate 7.5 MG Oral Tablet HYDROcodone- Acetaminophen 7.5-325 MG HYDROcodone-Acetaminophen 7.5-325 MG 02/01/2021 12:00:00 AM EDT 1.0 {tablet_as_needed} active HYDROcodone- Acetaminophen 7.5-325 MG eCW1 ([facility]) Acetaminophen 325 MG / Hydrocodone Mirza trate 7.5 MG Oral Tablet HYDROcodone- Acetaminophen 7.5-325 MG HYDROcodone-Acetaminophen 7.5-325 MG 02/01/2021 12:00:00 AM EDT 1.0 {tablet_as_needed} active HYDROcodone- Acetaminophen 7.5-325 MG eCW1 ([facility]) Acetaminophen 325 MG / Hydrocodone Bitartrate 5 MG Ora l Tablet 5-325 mg HYDROCODONE/ACETAMINOPHEN 01/12/2021 12:00:00 AM EDT tablet 90 TAKE ONE TABLET BY MOUTH EVERY 8 HOURS NEEDED FOR PAIN * MAXIMUM DAILY DOSE = 3 TAKE ONE TABLET BY MOUTH EVERY 8 HOURS NEEDED FOR PAIN * MAXIMUM DAILY DOSE = 3 SOLD: 01/12/2021 [facility] Acetaminophen 325 MG / Hydrocodone Mirza trate 5 MG Oral Tablet HYDROcodone- Acetaminophen 5-325 MG HYDROcodone-Acetaminophen 5-325 MG 01/03/2021 12:00:00 AM EDT 1.0 {tablet_as_needed} active HYDROcodone-Acetaminophen 5-325 MG eCW1 ([facility]) 100 mg 01/02/2021 12:00:00 AM EDT capsule 90 TAKE ONE CAPSULE BY MOUTH THREE TIMES A DAY TAKE ONE CAPSULE BY MOUTH THREE TIMES A DAY SOLD: 01/02/2021 [facility] 10 mg 12/27/2020 12:00:00 AM EDT tablet 6 TAKE ONE TABLET BY MOUTH IMMEDIATELY, MAY REPEAT ONCE AFTER 2 HOURS, MAXIMUM DAILY DOSE = 2 TABLETS TAKE ONE TABLET BY MOUTH IMMEDIATELY, MAY REPEAT ONCE AFTER 2 HOURS, MAXIMUM DAILY DOSE = 2 TABLETS SOLD: 01/20/2021 [facility] 10 mg 12/27/2020 12:00:00 AM EDT tablet 6 TAKE ONE TABLET BY MOUTH IMMEDIATELY, MAY REPEAT ONCE AFTER 2 HOURS, MAXIMUM DAILY DOSE = 2 TABLETS TAKE ONE TABLET BY MOUTH IMMEDIATELY, MAY REPEAT ONCE AFTER 2 HOURS, MAXIMUM DAILY DOSE = 2 TABLETS SOLD: 01/02/2021 [facility] 0.25 mg or 0.5 mg(2 mg/1.5 mL) 12/22/2020 12:00:00 AM EDT pe n injector 1 INJECT 0.25 MG INTRAMUSCULARLY WEEKLY (SHOULD LAST 8 WEEKS) INJECT 0.25 MG INTRAMUSCULARLY WEEKLY (SHOULD LAST 8 WEEKS) SOLD: 01/02/2021 [facility] 0.25 mg or 0.5 mg(2 mg/1.5 mL) 12/22/2020 12:00:00 AM EDT pe n injector 1 INJECT 0.25 MG INTRAMUSCULARLY WEEKLY (SHOULD LAST 8 WEEKS) INJECT 0.25 MG INTRAMUSCULARLY WEEKLY (SHOULD LAST 8 WEEKS) SOLD: 02/20/2021 [facility] Acetaminophen 325 MG / Hydrocodone Bitartrate 5 MG Ora l Tablet 5-325 mg HYDROCODONE/ACETAMINOPHEN 12/14/2020 12:00:00 AM EDT tablet 90 TAKE ONE TABLET BY MOUTH EVERY 8 HOURS NEEDED FOR PAIN, MAXIMUM DAILY DOSE = 3 TABLETS TAKE ONE TABLET BY MOUTH EVERY 8 HOURS NEEDED FOR PAIN, MAXIMUM DAILY DOSE = 3 TABLETS SOLD: 12/14/2020 [facility] 24 HR Bupropion Hydrochloride 300 MG Extended Release Oral T ablet BUPROPION HCL 12/13/2020 12:00:00 AM EDT tablet extended release 24 hr 30 TAKE ONE TABLET BY MOUTH EVERY DAY TAKE ONE TABLET BY MOUTH EVERY DAY SOLD: 01/12/2021 [facility] 24 HR Bupropion Hydrochloride 300 MG Extended Release Oral T ablet BUPROPION HCL 12/13/2020 12:00:00 AM EDT tablet extended release 24 hr 30 TAKE ONE TABLET BY MOUTH EVERY DAY TAKE ONE TABLET BY MOUTH EVERY DAY SOLD: 02/12/2021 [facility] 24 HR Bupropion Hydrochloride 300 MG Extended Release Oral T ablet BUPROPION HCL 12/13/2020 12:00:00 AM EDT tablet extended release 24 hr 30 TAKE ONE TABLET BY MOUTH EVERY DAY TAKE ONE TABLET BY MOUTH EVERY DAY SOLD: 03/17/2021 [facility] 24 HR Bupropion Hydrochloride 300 MG Extended Release Oral T ablet BUPROPION HCL 12/13/2020 12:00:00 AM EDT tablet extended release 24 hr 30 TAKE ONE TABLET BY MOUTH EVERY DAY TAKE ONE TABLET BY MOUTH EVERY DAY SOLD: 12/14/2020 [facility] 24 HR Bupropion Hydrochloride 300 MG Extended Release Oral T ablet BUPROPION HCL 12/13/2020 12:00:00 AM EDT tablet extended release 24 hr 30 TAKE ONE TABLET BY MOUTH EVERY DAY TAKE ONE TABLET BY MOUTH EVERY DAY SOLD: 04/21/2021 [facility] Acetaminophen 325 MG / Hydrocodone Mirza trate 5 MG Oral Tablet HYDROcodone- Acetaminophen 5-325 MG HYDROcodone-Acetaminophen 5-325 MG 12/07/2020 12:00:00 AM EDT 1.0 {tablet_as_needed} active HYDROcodone-Acetaminophen 5-325 MG eCW1 ([facility]) Acetaminophen 325 MG / Hydrocodone Mirza trate 5 MG Oral Tablet HYDROcodone- Acetaminophen 5-325 MG HYDROcodone-Acetaminophen 5-325 MG 12/07/2020 12:00:00 AM EDT 1.0 {tablet_as_needed} active HYDROcodone-Acetaminophen 5-325 MG eCW1 ([facility]) Acetaminophen 325 MG / Hydrocodone Mirza trate 5 MG Oral Tablet HYDROcodone- Acetaminophen 5-325 MG HYDROcodone-Acetaminophen 5-325 MG 12/07/2020 12:00:00 AM EDT 1.0 {tablet_as_needed} active HYDROcodone-Acetaminophen 5-325 MG eCW1 ([facility]) Acetaminophen 325 MG / Hydrocodone Mirza trate 5 MG Oral Tablet HYDROcodone- Acetaminophen 5-325 MG HYDROcodone-Acetaminophen 5-325 MG 12/07/2020 12:00:00 AM EDT 1.0 {tablet_as_needed} active HYDROcodone-Acetaminophen 5-325 MG eCW1 ([facility]) 75 mg 11/22/2020 12:00:00 AM EDT capsule 90 TAKE ONE CAPSULE BY MOUTH THREE TIMES A DAY * MAXIMUM DAILY DOSE = 3 TAKE ONE CAPSULE BY MOUTH THREE TIMES A DAY * MAXIMUM DAILY DOSE = 3 SOLD: 11/25/2020 [facility] 10 mg 11/20/2020 12:00:00 AM EDT tablet 6 TAKE ONE TABLET BY MOUTH IMMEDIATELY, MAY REPEAT ONCE AFTER 2 HOURS, MAXIMUM DAILY DOSE = 2 TABLETS TAKE ONE TABLET BY MOUTH IMMEDIATELY, MAY REPEAT ONCE AFTER 2 HOURS, MAXIMUM DAILY DOSE = 2 TABLETS SOLD: 11/21/2020 [facility] 10 mg 11/20/2020 12:00:00 AM EDT tablet 6 TAKE ONE TABLET BY MOUTH IMMEDIATELY, MAY REPEAT ONCE AFTER 2 HOURS, MAXIMUM DAILY DOSE = 2 TABLETS TAKE ONE TABLET BY MOUTH IMMEDIATELY, MAY REPEAT ONCE AFTER 2 HOURS, MAXIMUM DAILY DOSE = 2 TABLETS SOLD: 12/14/2020 [facility] Acetaminophen 325 MG / Hydrocodone Bitartrate 5 MG Ora l Tablet 5-325 mg HYDROCODONE/ACETAMINOPHEN 11/15/2020 12:00:00 AM EDT tablet 90 TAKE ONE TABLET BY MOUTH EVERY 8 HOURS NEEDED FOR PAIN, MAXIMUM DAILY DOSE = 3 TABLETS TAKE ONE TABLET BY MOUTH EVERY 8 HOURS NEEDED FOR PAIN, MAXIMUM DAILY DOSE = 3 TABLETS SOLD: 11/15/2020 [facility] Acetaminophen 325 MG / Hydrocodone Mirza trate 5 MG Oral Tablet Hydrocodone- Acetaminophen 5-325 MG Hydrocodone-Acetaminophen 5-325 MG 11/15/2020 12:00:00 AM EDT 1.0 {tablet_as_needed} active Hydrocodone-Acetaminophen 5-325 MG eCW1 ([facility]) Acetaminophen 325 MG / Hydrocodone Mirza trate 5 MG Oral Tablet Hydrocodone- Acetaminophen 5-325 MG Hydrocodone-Acetaminophen 5-325 MG 11/15/2020 12:00:00 AM EDT 1.0 {tablet_as_needed} active Hydrocodone-Acetaminophen 5-325 MG eCW1 ([facility]) Acetaminophen 325 MG / Hydrocodone Mirza trate 5 MG Oral Tablet Hydrocodone- Acetaminophen 5-325 MG Hydrocodone-Acetaminophen 5-325 MG 11/15/2020 12:00:00 AM EDT 1.0 {tablet_as_needed} active Hydrocodone-Acetaminophen 5-325 MG eCW1 ([facility]) 75 mg 10/24/2020 12:00:00 AM EDT capsule 60 TAKE ONE CAPSULE BY MOUTH TWICE A DAY MAXIMUM DAILY DOSE = 2 CAPSULES TAKE ONE CAPSULE BY MOUTH TWICE A DAY MAXIMUM DAILY DOSE = 2 CAPSULES SOLD: 10/24/2020 [facility] pregabalin 75 MG Oral Capsule [Lyrica] Lyrica 75 MG Lyrica 7 5 MG 10/23/2020 12:00:00 AM EDT 1.0 {capsule} active L yrica 75 MG eCW1 ([facility]) pregabalin 75 MG Oral Capsule [Lyrica] Lyrica 75 MG Lyrica 7 5 MG 10/23/2020 12:00:00 AM EDT 1.0 {capsule} active L yrica 75 MG eCW1 ([facility]) Acetaminophen 325 MG / Hydrocodone Mirza trate 5 MG Oral Tablet Hydrocodone- Acetaminophen 5-325 MG Hydrocodone-Acetaminophen 5-325 MG 10/23/2020 12:00:00 AM EDT 1.0 {tablet_as_needed} active Hydrocodone-Acetaminophen 5-325 MG eCW1 ([facility]) pregabalin 75 MG Oral Capsule [Lyrica] Lyrica 75 MG Lyrica 7 5 MG 10/23/2020 12:00:00 AM EDT 1.0 {capsule} active L yrica 75 MG eCW1 ([facility]) pregabalin 75 MG Oral Capsule [Lyrica] Lyrica 75 MG Lyrica 7 5 MG 10/23/2020 12:00:00 AM EDT 1.0 {capsule} active L yrica 75 MG eCW1 ([facility]) pregabalin 75 MG Oral Capsule [Lyrica] Lyrica 75 MG Lyrica 7 5 MG 10/23/2020 12:00:00 AM EDT 1.0 {capsule} active L yrica 75 MG eCW1 ([facility]) pregabalin 75 MG Oral Capsule [Lyrica] Lyrica 75 MG Lyrica 7 5 MG 10/23/2020 12:00:00 AM EDT 1.0 {capsule} active L yrica 75 MG eCW1 ([facility]) Acetaminophen 325 MG / Hydrocodone Mirza trate 5 MG Oral Tablet Hydrocodone- Acetaminophen 5-325 MG Hydrocodone-Acetaminophen 5-325 MG 10/23/2020 12:00:00 AM EDT 1.0 {tablet_as_needed} active eCW1 ([facility]) pregabalin 75 MG Oral Capsule [Lyrica] Lyrica 75 MG Lyrica 7 5 MG 10/23/2020 12:00:00 AM EDT 1.0 {capsule} active L yrica 75 MG eCW1 ([facility]) pregabalin 75 MG Oral Capsule [Lyrica] Lyrica 75 MG Lyrica 7 5 MG 10/23/2020 12:00:00 AM EDT 1.0 {capsule} active eCW1 ([facility]) pregabalin 75 MG Oral Capsule [Lyrica] Lyrica 75 MG Lyrica 7 5 MG 10/23/2020 12:00:00 AM EDT 1.0 {capsule} active L yrica 75 MG eCW1 ([facility]) Acetaminophen 325 MG / Hydrocodone Bitartrate 5 MG Ora l Tablet 5-325 mg HYDROCODONE/ACETAMINOPHEN 10/23/2020 12:00:00 AM EDT tablet 60 TAKE 1 TABLET BY MOUTH EVERY 12 HOURS NEEDED FOR PAIN MAXIMUM DAILY DOSE = 2 TABLETS TAKE 1 TABLET BY MOUTH EVERY 12 HOURS NEEDED FOR PAIN MAXIMUM DAILY DOSE = 2 TABLETS SOLD: 10/23/2020 [facility] Acetaminophen 325 MG / Hydrocodone Mirza trate 5 MG Oral Tablet Hydrocodone- Acetaminophen 5-325 MG Hydrocodone-Acetaminophen 5-325 MG 10/23/2020 12:00:00 AM EDT 1.0 {tablet_as_needed} active Hydrocodone-Acetaminophen 5-325 MG eCW1 ([facility]) 20 mg 10/18/2020 12:00:00 AM EDT capsule 30 TAKE ONE CAPSULE BY MOUTH EVERY DAY TAKE ONE CAPSULE BY MOUTH EVERY DAY SOLD: 01/12/2021 [facility] 20 mg 10/18/2020 12:00:00 AM EDT capsule 30 TAKE ONE CAPSULE BY MOUTH EVERY DAY TAKE ONE CAPSULE BY MOUTH EVERY DAY SOLD: 11/15/2020 [facility] 20 mg 10/18/2020 12:00:00 AM EDT capsule 30 TAKE ONE CAPSULE BY MOUTH EVERY DAY TAKE ONE CAPSULE BY MOUTH EVERY DAY SOLD: 03/17/2021 [facility] 20 mg 10/18/2020 12:00:00 AM EDT capsule 30 TAKE ONE CAPSULE BY MOUTH EVERY DAY TAKE ONE CAPSULE BY MOUTH EVERY DAY SOLD: 10/18/2020 [facility] 20 mg 10/18/2020 12:00:00 AM EDT capsule 30 TAKE ONE CAPSULE BY MOUTH EVERY DAY TAKE ONE CAPSULE BY MOUTH EVERY DAY SOLD: 12/14/2020 [facility] 20 mg 10/18/2020 12:00:00 AM EDT capsule 30 TAKE ONE CAPSULE BY MOUTH EVERY DAY TAKE ONE CAPSULE BY MOUTH EVERY DAY SOLD: 02/12/2021 [facility] Fluoxetine 20 MG Oral Capsule [Prozac] Prozac 10/17/2020 12:00:00 AM EDT ORAL active MEDENT ([facility]) BLOOD-GLUCOSE METER 10/13/2020 12:00:00 AM EDT misc 1 USE DIRECTED USE DIRECTED SOLD: 10/14/2020 [facility] gabapentin 100 MG Oral Capsule Gabapentin 100 MG Oral Capsule (Neurontin) Gabapentin 100 MG Oral Capsule (Neurontin) 10/12/2020 12:00:00 AM EDT 200 mg Oral aborted Take 2 capsules by m outh Three times daily [facility] 100 mg 10/12/2020 12:00:00 AM EDT capsule 180 TAKE 2 CAPSULES BY MOUTH THREE TIMES A DAY TAKE 2 CAPSULES BY MOUTH THREE TIMES A DAY SOLD: 02/12/2021 [facility] 100 mg 10/12/2020 12:00:00 AM EDT capsule 180 TAKE 2 CAPSULES BY MOUTH THREE TIMES A DAY TAKE 2 CAPSULES BY MOUTH THREE TIMES A DAY SOLD: 01/12/2021 [facility] 100 mg 10/12/2020 12:00:00 AM EDT capsule 180 TAKE 2 CAPSULES BY MOUTH THREE TIMES A DAY TAKE 2 CAPSULES BY MOUTH THREE TIMES A DAY SOLD: 12/14/2020 [facility] 100 mg 10/12/2020 12:00:00 AM EDT capsule 180 TAKE 2 CAPSULES BY MOUTH THREE TIMES A DAY TAKE 2 CAPSULES BY MOUTH THREE TIMES A DAY SOLD: 11/15/2020 [facility] 100 mg 10/12/2020 12:00:00 AM EDT capsule 180 TAKE 2 CAPSULES BY MOUTH THREE TIMES A DAY TAKE 2 CAPSULES BY MOUTH THREE TIMES A DAY SOLD: 10/14/2020 [facility] 0.25 mg or 0.5 mg(2 mg/1.5 mL) 10/11/2020 12:00:00 AM EDT pe n injector 1 INJECT 0.25MG UNDER THE SKIN WEEKLY (LASTS 56 DAYS) INJECT 0.25MG UNDER THE SKIN WEEKLY (LASTS 56 DAYS) SOLD: 10/11/2020 [facility] 0.25 mg or 0.5 mg(2 mg/1.5 mL) 10/11/2020 12:00:00 AM EDT pe n injector 1 INJECT 0.25MG UNDER THE SKIN WEEKLY (LASTS 56 DAYS) INJECT 0.25MG UNDER THE SKIN WEEKLY (LASTS 56 DAYS) SOLD: 11/21/2020 [facility] 10 mg 10/10/2020 12:00:00 AM EDT tablet 6 TAKE ONE TABLET BY MOUTH IMMEDIATELY, MAY REPEAT ONCE AFTER 2 HOURS, MAXIMUM DAILY DOSE = 2 TABLETS TAKE ONE TABLET BY MOUTH IMMEDIATELY, MAY REPEAT ONCE AFTER 2 HOURS, MAXIMUM DAILY DOSE = 2 TABLETS SOLD: 10/11/2020 [facility] 10 mg 10/10/2020 12:00:00 AM EDT tablet 6 TAKE ONE TABLET BY MOUTH IMMEDIATELY, MAY REPEAT ONCE AFTER 2 HOURS, MAXIMUM DAILY DOSE = 2 TABLETS TAKE ONE TABLET BY MOUTH IMMEDIATELY, MAY REPEAT ONCE AFTER 2 HOURS, MAXIMUM DAILY DOSE = 2 TABLETS SOLD: 11/06/2020 [facility] buspirone hydrochloride 10 MG Oral Tablet BUSPIRONE HCL 10/06/2020 12:00:00 AM EDT tablet 90 TAKE ONE TABLET BY MOUTH THR EE TIMES A DAY TAKE ONE TABLET BY MOUTH THREE TIMES A DAY SOLD: 11/06/2020 [facility] buspirone hydrochloride 10 MG Oral Tablet BUSPIRONE HCL 10/06/2020 12:00:00 AM EDT tablet 90 TAKE ONE TABLET BY MOUTH THR EE TIMES A DAY TAKE ONE TABLET BY MOUTH THREE TIMES A DAY SOLD: 10/07/2020 [facility] buspirone hydrochloride 10 MG Oral Table t busPIRone HCl 10 MG Oral Tablet (BUSPAR) busPIRone HCl 10 MG Oral Tablet (BUSPAR) 10/06/2020 12:00:00 AM EDT 10 mg Oral active Take 10 mg by mouth Thre e times daily [facility] buspirone hydrochloride 10 MG Oral Tablet BUSPIRONE HCL 10/06/2020 12:00:00 AM EDT tablet 90 TAKE ONE TABLET BY MOUTH THR EE TIMES A DAY TAKE ONE TABLET BY MOUTH THREE TIMES A DAY SOLD: 03/17/2021 [facility] buspirone hydrochloride 10 MG Oral Tablet BUSPIRONE HCL 10/06/2020 12:00:00 AM EDT tablet 90 TAKE ONE TABLET BY MOUTH THR EE TIMES A DAY TAKE ONE TABLET BY MOUTH THREE TIMES A DAY SOLD: 02/12/2021 [facility] buspirone hydrochloride 10 MG Oral Tablet BUSPIRONE HCL 10/06/2020 12:00:00 AM EDT tablet 90 TAKE ONE TABLET BY MOUTH THR EE TIMES A DAY TAKE ONE TABLET BY MOUTH THREE TIMES A DAY SOLD: 04/21/2021 [facility] buspirone hydrochloride 10 MG Oral Tablet BUSPIRONE HCL 10/06/2020 12:00:00 AM EDT tablet 90 TAKE ONE TABLET BY MOUTH THR EE TIMES A DAY TAKE ONE TABLET BY MOUTH THREE TIMES A DAY SOLD: 12/14/2020 [facility] buspirone hydrochloride 10 MG Oral Tablet BUSPIRONE HCL 10/06/2020 12:00:00 AM EDT tablet 90 TAKE ONE TABLET BY MOUTH THR EE TIMES A DAY TAKE ONE TABLET BY MOUTH THREE TIMES A DAY SOLD: 01/12/2021 [facility] buspirone hydrochloride 10 MG Oral Tablet Buspirone HCL 10/05/2020 12:00:00 AM EDT ORAL active MEDENT ([facility]) gabapentin 100 MG Oral Capsule Gabapentin 100 MG Oral Capsule (NEURONTIN) Gabapentin 100 MG Oral Capsule (NEURONTIN) 10/03/2020 12:00:00 AM EDT aborted TAKE ONE CAPSULE BY MOUTH THREE TIMES A DAY [facility] 5 mg 10/03/2020 12:00:00 AM EDT tablet 14 TAKE ONE TABLET BY MOUTH EVERY 12 HOURS NEEDED FOR PAIN, MAXIMUM DAILY DOSE = 2 TABLETS TAKE ONE TABLET BY MOUTH EVERY 12 HOURS NEEDED FOR PAIN, MAXIMUM DAILY DOSE = 2 TABLETS SOLD: 10/03/2020 [facility] Oxycodone Hydrochloride 5 MG Oral Tablet oxyCODONE HCl 5 MG Oral Tablet (Roxicodone) oxyCODONE HCl 5 MG Oral Tablet (Roxicodone) 10/03/2020 12:00:00 AM EDT aborted One tab PO Q 12 hours PRN pain, MDD 2 [facility] 100 mg 09/29/2020 12:00:00 AM EDT capsule 90 TAKE ONE CAPSULE BY MOUTH THREE TIMES A DAY TAKE ONE CAPSULE BY MOUTH THREE TIMES A DAY SOLD: 09/29/2020 [facility] 100 mg 09/29/2020 12:00:00 AM EDT capsule 57 TAKE ONE CAPSULE BY MOUTH THREE TIMES A DAY TAKE ONE CAPSULE BY MOUTH THREE TIMES A DAY SOLD: 10/03/2020 [facility] gabapentin 100 MG Oral Capsule Gabapentin 09/27/2020 12:00:00 AM EDT ORAL completed MEDENT ([facility]) 5 mg 09/26/2020 12:00:00 AM EDT tablet 21 TAKE ONE TABLET BY MOUTH EVERY 8 HOURS NEEDED FOR PAIN MAXIMUM DAILY DOSE = 3 TAKE ONE TABLET BY MOUTH EVERY 8 HOURS NEEDED FOR PAIN MAXIMUM DAILY DOSE = 3 SOLD: 09/27/2020 [facility] Oxycodone Hydrochloride 5 MG Oral Tablet oxyCODONE HCl 5 MG Oral Tablet (Roxicodone) oxyCODONE HCl 5 MG Oral Tablet (Roxicodone) 09/26/2020 12:00:00 AM EDT active One tab PO Q 8 ho urs PRN pain, MDD 3 [facility] 24 HR Propranolol Hydrochloride 60 MG Ex tended Release Oral Capsule Propranolol HCl ER 60 MG Oral Capsule Extended Release 24 Hour ([facility]) Propranolol HCl ER 60 MG Oral Capsule Extended Release 24 Hour ([facility]) 09/21/2020 12:00:00 AM EDT 60 mg Oral aborted Take 60 mg by mo uth daily [facility] 5-325 mg 09/20/2020 12:00:00 AM EDT tablet 28 TAKE ONE TABLET BY MOUTH EVERY 6 HOURS NEEDED FOR PAIN * MAXIMUM DAILY DOSE = 4 TAKE ONE TABLET BY MOUTH EVERY 6 HOURS NEEDED FOR PAIN * MAXIMUM DAILY DOSE = 4 SOLD: 09/21/2020 [facility] Acetaminophen 325 MG / Oxycodone Hydroch loride 5 MG Oral Tablet oxyCODONE- Acetaminophen 5-325 MG Oral Tablet (Percocet) oxyCODONE-Acetaminophen 5-325 MG Oral Tablet (Percocet) 09/20/2020 12:00:00 AM EDT aborted 1 tabs PO q 6 hrs prn pain MDD: 4 [facility] 5-325 mg 09/14/2020 12:00:00 AM EDT tablet 40 TAKE 1-2 TABLETS BY MOUTH EVERY 8 HOURS NEEDED FOR PAIN MAXIMUM DAILY DOSE = 6 TABLETS TAKE 1-2 TABLETS BY MOUTH EVERY 8 HOURS NEEDED FOR PAIN MAXIMUM DAILY DOSE = 6 TABLETS SOLD: 09/14/2020 [facility] Acetaminophen 325 MG / Oxycodone Hydroch loride 5 MG Oral Tablet oxyCODONE- Acetaminophen 5-325 MG Oral Tablet (Percocet) oxyCODONE-Acetaminophen 5-325 MG Oral Tablet (Percocet) 09/08/2020 12:00:00 AM EDT active 1-2 tabs PO q 8hrs prn pain MDD: 6 [facility] 5-325 mg 09/08/2020 12:00:00 AM EDT tablet 40 TAKE ONE TO TWO TABLETS BY MOUTH EVERY 8 HOURS NEEDED FOR PAIN MAXIMUM DAILY DOSE = 6 TAKE ONE TO TWO TABLETS BY MOUTH EVERY 8 HOURS NEEDED FOR PAIN MAXIMUM DAILY DOSE = 6 SOLD: 09/08/2020 [facility] 10 mg 09/06/2020 12:00:00 AM EDT tablet 6 TAKE ONE TABLET BY MOUTH IMMEDIATELY, MAY REPEAT ONCE AFTER 2 HOURS, MAXIMUM DAILY DOSE = 2 TABLETS TAKE ONE TABLET BY MOUTH IMMEDIATELY, MAY REPEAT ONCE AFTER 2 HOURS, MAXIMUM DAILY DOSE = 2 TABLETS SOLD: 09/27/2020 [facility] 10 mg 09/06/2020 12:00:00 AM EDT tablet 6 TAKE ONE TABLET BY MOUTH IMMEDIATELY, MAY REPEAT ONCE AFTER 2 HOURS, MAXIMUM DAILY DOSE = 2 TABLETS TAKE ONE TABLET BY MOUTH IMMEDIATELY, MAY REPEAT ONCE AFTER 2 HOURS, MAXIMUM DAILY DOSE = 2 TABLETS SOLD: 09/08/2020 [facility] Acetaminophen 325 MG / Oxycodone Hydroch loride 5 MG Oral Tablet oxyCODONE- Acetaminophen 5-325 MG Oral Tablet (Percocet) oxyCODONE-Acetaminophen 5-325 MG Oral Tablet (Percocet) 09/04/2020 12:00:00 AM EDT active 1-2 tabs PO q 6hrs prn pain MDD: 8 [facility] 5-325 mg 09/04/2020 12:00:00 AM EDT tablet 40 TAKE ONE TO TWO TABLETS BY MOUTH EVERY 6 HOURS NEEDED FOR PAIN MAXIMUM DAILY DOSE = 8 TAKE ONE TO TWO TABLETS BY MOUTH EVERY 6 HOURS NEEDED FOR PAIN MAXIMUM DAILY DOSE = 8 SOLD: 09/04/2020 [facility] 5-325 mg 08/30/2020 12:00:00 AM EST tablet 40 TAKE 1-2 TABLETS BY MOUTH EVERY 6 HOURS NEEDED FOR PAIN MAXIMUM DAILY DOSE = 8 TAKE 1-2 TABLETS BY MOUTH EVERY 6 HOURS NEEDED FOR PAIN MAXIMUM DAILY DOSE = 8 SOLD: 08/30/2020 [facility] 5-325 mg 08/24/2020 12:00:00 AM EST tablet 40 TAKE 1-2 TABLETS BY MOUTH EVERY 4 HOURS NEEDED FOR PAIN MAXIMUM DAILY DOSE = 8 TAKE 1-2 TABLETS BY MOUTH EVERY 4 HOURS NEEDED FOR PAIN MAXIMUM DAILY DOSE = 8 SOLD: 08/24/2020 [facility] 5 mg 08/24/2020 12:00:00 AM EST tablet 30 TAKE 1-2 TABLETS BY MOUTH EVERY 6 HOURS NEEDED FOR PAIN MAXIMUM DAILY DOSE = 8 TABLETS TAKE 1-2 TABLETS BY MOUTH EVERY 6 HOURS NEEDED FOR PAIN MAXIMUM DAILY DOSE = 8 TABLETS SOLD: 08/24/2020 [facility] Acetaminophen 325 MG / Oxycodone Hydroch loride 5 MG Oral Tablet oxyCODONE- Acetaminophen 5-325 MG Oral Tablet (Percocet) oxyCODONE-Acetaminophen 5-325 MG Oral Tablet (Percocet) 08/24/2020 12:00:00 AM EST active 1-2 tabs PO q 4hrs prn pain MDD: 8 [facility] Oxycodone Hydrochloride 5 MG Oral Tablet oxyCODONE HCl 5 MG Oral Tablet (ROXICODONE) oxyCODONE HCl 5 MG Oral Tablet (ROXICODONE) 08/18/2020 12:00:00 AM EST mg Oral aborted Take 1-2 tablets by mouth every 6 (six) hours as needed for Pain for up to 5 days, Max Daily Dose: 40 mg [facility] 5 mg 08/18/2020 12:00:00 AM EST tablet 30 TAKE ONE TO TWO TABLETS BY MOUTH EVERY 6 HOURS NEEDED FOR PAIN FOR UP TO 5 DAYS. MAXIMUM DAILY DOSE = 8 TABLETS TAKE ONE TO TWO TABLETS BY MOUTH EVERY 6 HOURS NEEDED FOR PAIN FOR UP TO 5 DAYS. MAXIMUM DAILY DOSE = 8 TABLETS SOLD: 08/18/2020 [facility] 5 mg 08/15/2020 12:00:00 AM EST tablet 30 TAKE 1-2 TABLETS BY MOUTH EVERY 6 HOURS NEEDED FOR PAIN FOR UP TO 5 DAYS MAXIMUM DAILY DOSE = 8 TAKE 1-2 TABLETS BY MOUTH EVERY 6 HOURS NEEDED FOR PAIN FOR UP TO 5 DAYS MAXIMUM DAILY DOSE = 8 SOLD: 08/15/2020 [facility] fentaNYL (SUBLIMAZE) (PF) injection 25 mcg [id number] 08/11/2020 10:14:56 AM EST 25 ug Intravenous active 25 m cg, Intravenous, Every 5 min PRN, Moderate Pain (Pain Scale Score 4-6), Starting Fri08/11/20 at 1014, For 4 doses, [facility] Medication administered onsite HYDROmorphone (DILAUDID) injection 0.5 mg [id number] 08/11/2020 10:14:56 AM EST 0.5 mg Intravenous active 0.5 mg, Intravenous, Every 5 min PRN, Severe Pain (Pain Scale Score 7-10), Starting Fri08/11/20 at 1014, For 4 doses, [facility] Medication administered onsite ondansetron (ZOFRAN) injection 4 mg [id number] 08/11/2020 10:14:5 6 AM EST 4 mg Intravenous active 4 mg, In travenous, Once PRN, Nausea, Vomiting, Starting Fri08/11/20 at 1014, For 1 dose, [facility] Medication administered onsite Acetaminophen 325 MG Oral Tablet acetaminophen (TYLENO L) tablet 975 mg acetaminophen (TYLENOL) tablet 975 mg 08/11/2020 07:00:00 AM EST 97 5 mg Oral completed 975 mg, Oral, O nce, Fri08/11/20 at 0700, For 1 dose
Maximum daily dose of acetaminophen is 3,000 mg from all sources in 24 hours.
Pre-op [facility] Medication administered onsite gabapentin 300 MG Oral Capsule gabapentin (NEURONTIN) capsule 300 mg gabapentin (NEURONTIN) capsule 300 mg 08/11/2020 07:00:00 AM EST 300 mg Oral completed 300 mg, Oral, Once, Fri08/11/20 at 0700, For 1 dose, Pre-op [facility] Medication administered onsite celecoxib 200 MG Oral Capsule celecoxib (CeleBREX) cap tressa 200 mg celecoxib (CeleBREX) capsule 200 mg 08/11/2020 07:00:00 AM EST 200 mg Oral completed 200 mg, Oral, Once, Fri08/11/20 at 0700, For 1 dose, Pre-op [facility] Medication administered onsite Calcium Chloride 0.0014 MEQ/ML / Potassi um Chloride 0.004 MEQ/ML / Sodium Chloride 0.103 MEQ/ML / Sodium Lactate 0.028 MEQ/ML Injectable Solution lactated ringers infusion lactated ringers infusion 08/11/2020 07:00:00 AM EST Intravenous active at 100 mL/hr, Intravenous, Continuous, Starting Fri08/11/20 at 0700, For 30 days
Keep Vein Open. Use Wide Tubing.
Pre-op [facility] Medication administered onsite 100 mg 08/11/2020 12:00:00 AM EST capsule 14 TAKE ONE CAPSULE BY MOUTH TWICE A DAY NEEDED FOR CONSTIPATION FOR UP TO 7 DAYS TAKE ONE CAPSULE BY MOUTH TWICE A DAY NEEDED FOR CONSTIPATION FOR UP TO 7 DAYS SOLD: 08/11/2020 [facility] 4 mg 08/11/2020 12:00:00 AM EST tablet,disintegrating 9 DISSOLVE ONE TABLET ON TONGUE EVERY 8 HOURS NEEDED FOR NAUSEA FOR UP TO 3 DAYS DISSOLVE ONE TABLET ON TONGUE EVERY 8 HOURS NEEDED FOR NAUSEA FOR UP TO 3 DAYS SOLD: 08/11/2020 [facility] 5 mg 08/11/2020 12:00:00 AM EST tablet 30 TAKE ONE TO TWO TABLETS BY MOUTH EVERY 4 HOURS NEEDED FOR PAIN FOR UP TO 5 DAYS MAXIMUM DAILY DOSE = 6 TAKE ONE TO TWO TABLETS BY MOUTH EVERY 4 HOURS NEEDED FOR PAIN FOR UP TO 5 DAYS MAXIMUM DAILY DOSE = 6 SOLD: 08/11/2020 [facility] Ondansetron 4 MG Disintegrating Oral Tab let Ondansetron 4 MG Oral Tablet Disintegrating Ondansetron 4 MG Oral Tablet Disintegrating 08/11/2020 12:00:00 AM EST 4 mg Oral active Take 1 t ablet by mouth every 8 (eight) hours as needed for Nausea for up to 3 days [facility] Aspirin 81 MG Delayed Release Oral Table t Aspirin 81 MG Oral Tablet Delayed Release Aspirin 81 MG Oral Tablet Delayed Release 08/11/2020 12:00:00 AM EST 81 mg Oral active Take 1 tablet by mouth d aily [facility] Oxycodone Hydrochloride 5 MG Oral Tablet oxyCODONE HCl 5 MG Oral Tablet (ROXICODONE) oxyCODONE HCl 5 MG Oral Tablet (ROXICODONE) 08/11/2020 12:00:00 AM EST mg Oral active Take 1-2 tablets by mouth every 4 (four) hours as needed for Pain for up to 5 days, Max Daily Dose: 6 tablets [facility] Docusate Sodium 100 MG Oral Capsule Docu sate Sodium 100 MG Oral Capsule (Colace) Docusate Sodium 100 MG Oral Capsule (Colace) 08/11/2020 12:00:00 AM EST 100 mg Oral active Take 1 cap tressa by mouth Two times daily as needed for Constipation for up to 7 days [facility] Cephalexin 500 MG Oral Capsule Cephalexin 500 MG Oral Capsul e 08/11/2020 12:00:00 AM EST 500 mg Oral active Take 1 capsule by mouth Four times daily for 5 days [facility] 81 mg 08/11/2020 12:00:00 AM EST tablet,delayed release (DR/EC) 30 TAKE ONE TABLET BY MOUTH EVERY DAY TAKE ONE TABLET BY MOUTH EVERY DAY SOLD: 08/11/2020 [facility] Cephalexin 500 MG Oral Capsule CEPHALEXIN 08/11/2020 12:00:00 AM EST capsule 20 TAKE ONE CAPSULE BY MOUTH FOUR TIMES A DAY FOR 5 DAYS TAKE ONE CAPSULE BY MOUTH FOUR TIMES A DAY FOR 5 DAYS SOLD: 08/11/2020 [facility] 100 mg 08/07/2020 12:00:00 AM EST capsule 90 TAKE ONE CAPSULE BY MOUTH THREE TIMES A DAY TAKE ONE CAPSULE BY MOUTH THREE TIMES A DAY SOLD: 08/11/2020 [facility] 100 mg 08/07/2020 12:00:00 AM EST capsule 90 TAKE ONE CAPSULE BY MOUTH THREE TIMES A DAY TAKE ONE CAPSULE BY MOUTH THREE TIMES A DAY SOLD: 09/11/2020 [facility] 10 mg 08/05/2020 12:00:00 AM EST tablet 6 TAKE ONE TABLET BY MOUTH IMMEDIATELY , MAY REPEAT AFTER 2 HOURS TAKE ONE TABLET BY MOUTH IMMEDIATELY , MAY REPEAT AFTER 2 HOURS SOLD: 08/11/2020 [facility] 10 mg 08/05/2020 12:00:00 AM EST tablet 6 TAKE ONE TABLET BY MOUTH IMMEDIATELY , MAY REPEAT AFTER 2 HOURS TAKE ONE TABLET BY MOUTH IMMEDIATELY , MAY REPEAT AFTER 2 HOURS SOLD: 08/24/2020 [facility] Ozempic (0.25 or 0.5 MG/DOSE) 2 MG/1.5ML Subcutaneous Solution Pen-injector [id number] 07/29/2020 12:00:00 AM EST 0.25 mg Subcutaneous active Inject 0.25 mg into the skin Every Friday [facility] 33 gauge 07/24/2020 12:00:00 AM EST misc 100 TEST TWO TIMES A DAY TEST TWO TIMES A DAY SOLD: 08/30/2020 [facility] 33 gauge 07/24/2020 12:00:00 AM EST misc 100 TEST TWO TIMES A DAY TEST TWO TIMES A DAY SOLD: 09/29/2020 [facility] 33 gauge 07/24/2020 12:00:00 AM EST misc 100 TEST TWO TIMES A DAY TEST TWO TIMES A DAY SOLD: 11/06/2020 [facility] 33 gauge 07/24/2020 12:00:00 AM EST misc 100 TEST TWO TIMES A DAY TEST TWO TIMES A DAY SOLD: 12/14/2020 [facility] 33 gauge 07/24/2020 12:00:00 AM EST misc 100 TEST TWO TIMES A DAY TEST TWO TIMES A DAY SOLD: 04/21/2021 [facility] 33 gauge 07/24/2020 12:00:00 AM EST misc 100 TEST TWO TIMES A DAY TEST TWO TIMES A DAY SOLD: 01/12/2021 [facility] 33 gauge 07/24/2020 12:00:00 AM EST misc 100 TEST TWO TIMES A DAY TEST TWO TIMES A DAY SOLD: 02/12/2021 [facility] 33 gauge 07/24/2020 12:00:00 AM EST misc 100 TEST TWO TIMES A DAY TEST TWO TIMES A DAY SOLD: 03/17/2021 [facility] 33 gauge 07/24/2020 12:00:00 AM EST misc 100 TEST TWO TIMES A DAY TEST TWO TIMES A DAY SOLD: 07/30/2020 [facility] Onetouch Delica Plus Lancets Extra Fine 33G 07/24/2020 12:00 :00 AM EST active MEDENT ([facility]) rizatriptan 10 MG Oral Tablet Rizatriptan Benzoate 10 MG Oral Tablet (MAXALT) Rizatriptan Benzoate 10 MG Oral Tablet (MAXALT) 07/22/2020 12:00:00 AM EST 10 mg Oral active Take 10 mg by mouth as n eeded [facility] Covid-19 vaccine, Unspecified 07/20/2020 12:00:00 AM EST completed [facility] ([facility]) Medication administered onsite tramadol hydrochloride 50 MG Oral Tablet Tramadol HCL 07/11/2020 12:00:00 AM EST completed MEDENT ([facility]) Rosuvastatin calcium 20 MG Oral Tablet R osuvastatin Calcium 20 MG Oral Tablet (CRESTOR) Rosuvastatin Calcium 20 MG Oral Tablet (CRESTOR) 07/08 12:00:00 AM EST 20 mg Oral active Take 20 mg by keyla th daily [facility] Ibuprofen 800 MG Oral Tablet Ibuprofen 800 MG Oral Tab let (MOTRIN) Ibuprofen 800 MG Oral Tablet (MOTRIN) 07/08/2020 12:00:00 AM EST aborted TAKE ONE TABLET BY MOUTH THREE TIMES A DAY FOR 5 DAYS [facility] Cyclobenzaprine hydrochloride 10 MG Oral Tablet CYCLOBENZAPR INE HCL 07/08/2020 12:00:00 AM EST tablet 10 TAKE 1 TABLET BY MOUTH AT BEDTIME TAKE 1 TABLET BY MOUTH AT BEDTIME SOLD: 07/09/2020 [facility] 10 mg 07/08/2020 12:00:00 AM EST tablet 6 TAKE ONE TABLET BY MOUTH IMMEDIATELY , MAY REPEAT AFTER 2 HOURS TAKE ONE TABLET BY MOUTH IMMEDIATELY , MAY REPEAT AFTER 2 HOURS SOLD: 07/23/2020 [facility] 10 mg 07/08/2020 12:00:00 AM EST tablet 6 TAKE ONE TABLET BY MOUTH IMMEDIATELY , MAY REPEAT AFTER 2 HOURS TAKE ONE TABLET BY MOUTH IMMEDIATELY , MAY REPEAT AFTER 2 HOURS SOLD: 07/09/2020 [facility] 800 mg 07/08/2020 12:00:00 AM EST tablet 15 TAKE ONE TABLET BY MOUTH THREE TIMES A DAY FOR 5 DAYS TAKE ONE TABLET BY MOUTH THREE TIMES A DAY FOR 5 DAYS SOLD: 07/09/2020 [facility] Toradol Injection Per 15 MG(30 MG) 07/07/2020 12:00:00 AM EST completed MEDENT ([facility]) Medication administered onsite Methylprednisolone 4 MG Oral Tablet Methylprednisolone 06/23 12:00:00 AM EST ORAL active MEDENT ([facility]) 4 mg 07/07/2020 12:00:00 AM EST tablet 21 TAKE 6 TABLETS BY MOUTH TODAY, 5 TABLETS ON DAY 2, 4 TABLETS ON DAY 3, 3 TABLETS ON DAY 4, 2 TABLETS ON DAY 5 THEN 1 TABLET ON DAY 6 TAKE 6 TABLETS BY MOUTH TODAY, 5 TABLETS ON DAY 2, 4 TABLETS ON DAY 3, 3 TABLETS ON DAY 4, 2 TABLETS ON DAY 5 THEN 1 TABLET ON DAY 6 SOLD: 07/07/2020 [facility] 0.25 mg or 0.5 mg(2 mg/1.5 mL) 07/05/2020 12:00:00 AM EST pe n injector 1 INJECT 0.25MG UNDER THE SKIN ONCE WEEKLY INJECT 0.25MG UNDER THE SKIN ONCE WEEKLY SOLD: 08/30/2020 [facility] 0.25 mg or 0.5 mg(2 mg/1.5 mL) 07/05/2020 12:00:00 AM EST pe n injector 1 INJECT 0.25MG UNDER THE SKIN ONCE WEEKLY INJECT 0.25MG UNDER THE SKIN ONCE WEEKLY SOLD: 07/05/2020 [facility] 0.25 mg or 0.5 mg(2 mg/1.5 mL) 07/05/2020 12:00:00 AM EST pe n injector 1 INJECT 0.25MG UNDER THE SKIN ONCE WEEKLY INJECT 0.25MG UNDER THE SKIN ONCE WEEKLY SOLD: 07/30/2020 [facility] Ozempic (0.25 Or 0.5 MG/Dose) Ozempic (0.25 Or 0.5 MG/Dose) 07/04/2020 12:00:00 AM EST active MEDENT ([facility]) Naproxen sodium 220 MG Oral Capsule [Aleve] Aleve 07/04/2020 12:00:00 AM EST ORAL completed [facility] ([facility]) BLOOD SUGAR DIAGNOSTIC 07/03/2020 12:00:00 AM EST strip 50 TEST TWO TIMES A DAY TEST TWO TIMES A DAY SOLD: 07/30/2020 [facility] BLOOD SUGAR DIAGNOSTIC 07/03/2020 12:00:00 AM EST strip 50 TEST TWO TIMES A DAY TEST TWO TIMES A DAY SOLD: 09/21/2020 [facility] BLOOD SUGAR DIAGNOSTIC 07/03/2020 12:00:00 AM EST strip 50 TEST TWO TIMES A DAY TEST TWO TIMES A DAY SOLD: 03/10/2021 [facility] BLOOD SUGAR DIAGNOSTIC 07/03/2020 12:00:00 AM EST strip 50 TEST TWO TIMES A DAY TEST TWO TIMES A DAY SOLD: 05/05/2021 [facility] BLOOD SUGAR DIAGNOSTIC 07/03/2020 12:00:00 AM EST strip 50 TEST TWO TIMES A DAY TEST TWO TIMES A DAY SOLD: 02/12/2021 [facility] BLOOD SUGAR DIAGNOSTIC 07/03/2020 12:00:00 AM EST strip 50 TEST TWO TIMES A DAY TEST TWO TIMES A DAY SOLD: 04/08/2021 [facility] BLOOD SUGAR DIAGNOSTIC 07/03/2020 12:00:00 AM EST strip 50 TEST TWO TIMES A DAY TEST TWO TIMES A DAY SOLD: 01/12/2021 [facility] BLOOD SUGAR DIAGNOSTIC 07/03/2020 12:00:00 AM EST strip 50 TEST TWO TIMES A DAY TEST TWO TIMES A DAY SOLD: 12/14/2020 [facility] BLOOD SUGAR DIAGNOSTIC 07/03/2020 12:00:00 AM EST strip 50 TEST TWO TIMES A DAY TEST TWO TIMES A DAY SOLD: 11/06/2020 [facility] BLOOD SUGAR DIAGNOSTIC 07/03/2020 12:00:00 AM EST strip 50 TEST TWO TIMES A DAY TEST TWO TIMES A DAY SOLD: 10/14/2020 [facility] BLOOD SUGAR DIAGNOSTIC 07/03/2020 12:00:00 AM EST strip 50 TEST TWO TIMES A DAY TEST TWO TIMES A DAY SOLD: 08/24/2020 [facility] BLOOD SUGAR DIAGNOSTIC 07/03/2020 12:00:00 AM EST strip 50 TEST TWO TIMES A DAY TEST TWO TIMES A DAY SOLD: 07/05/2020 [facility] Covid-19 vaccine, Unspecified 06/22/2020 12:00:00 AM EST completed [facility] ([facility]) Medication administered onsite 24 HR Bupropion Hydrochloride 300 MG Extended Release Oral T ablet BUPROPION HCL 06/09/2020 12:00:00 AM EST tablet extended release 24 hr 30 TAKE ONE TABLET BY MOUTH EVERY DAY TAKE ONE TABLET BY MOUTH EVERY DAY SOLD: 08/11/2020 [facility] 24 HR Bupropion Hydrochloride 300 MG Extended Release Oral T ablet BUPROPION HCL 06/09/2020 12:00:00 AM EST tablet extended release 24 hr 30 TAKE ONE TABLET BY MOUTH EVERY DAY TAKE ONE TABLET BY MOUTH EVERY DAY SOLD: 09/11/2020 [facility] 10 mg 06/09/2020 12:00:00 AM EST tablet 6 TAKE ONE TABLET BY MOUTH IMMEDIATELY , MAY REPEAT AFTER 2 HOURS TAKE ONE TABLET BY MOUTH IMMEDIATELY , MAY REPEAT AFTER 2 HOURS SOLD: 06/25/2020 [facility] 10 mg 06/09/2020 12:00:00 AM EST tablet 6 TAKE ONE TABLET BY MOUTH IMMEDIATELY , MAY REPEAT AFTER 2 HOURS TAKE ONE TABLET BY MOUTH IMMEDIATELY , MAY REPEAT AFTER 2 HOURS SOLD: 06/10/2020 [facility] 24 HR Bupropion Hydrochloride 300 MG Extended Release Oral T ablet BUPROPION HCL 06/09/2020 12:00:00 AM EST tablet extended release 24 hr 30 TAKE ONE TABLET BY MOUTH EVERY DAY TAKE ONE TABLET BY MOUTH EVERY DAY SOLD: 07/09/2020 [facility] 24 HR Bupropion Hydrochloride 300 MG Extended Release Oral T ablet BUPROPION HCL 06/09/2020 12:00:00 AM EST tablet extended release 24 hr 30 TAKE ONE TABLET BY MOUTH EVERY DAY TAKE ONE TABLET BY MOUTH EVERY DAY SOLD: 06/10/2020 [facility] 24 HR Bupropion Hydrochloride 300 MG Extended Release Oral T ablet BUPROPION HCL 06/09/2020 12:00:00 AM EST tablet extended release 24 hr 30 TAKE ONE TABLET BY MOUTH EVERY DAY TAKE ONE TABLET BY MOUTH EVERY DAY SOLD: 10/11/2020 [facility] 24 HR Bupropion Hydrochloride 300 MG Extended Release Oral T ablet BUPROPION HCL 06/09/2020 12:00:00 AM EST tablet extended release 24 hr 30 TAKE ONE TABLET BY MOUTH EVERY DAY TAKE ONE TABLET BY MOUTH EVERY DAY SOLD: 11/15/2020 [facility] 60 mg 05/26/2020 12:00:00 AM EST capsule,extended releas e 24 hr 30 TAKE ONE CAPSULE BY MOUTH EVERY DAY TAKE ONE CAPSULE BY MOUTH EVERY DAY SOLD: 09/27/2020 [facility] 60 mg 05/26/2020 12:00:00 AM EST capsule,extended releas e 24 hr 30 TAKE ONE CAPSULE BY MOUTH EVERY DAY TAKE ONE CAPSULE BY MOUTH EVERY DAY SOLD: 11/06/2020 [facility] 60 mg 05/26/2020 12:00:00 AM EST capsule,extended releas e 24 hr 30 TAKE ONE CAPSULE BY MOUTH EVERY DAY TAKE ONE CAPSULE BY MOUTH EVERY DAY SOLD: 06/25/2020 [facility] 60 mg 05/26/2020 12:00:00 AM EST capsule,extended releas e 24 hr 30 TAKE ONE CAPSULE BY MOUTH EVERY DAY TAKE ONE CAPSULE BY MOUTH EVERY DAY SOLD: 01/12/2021 [facility] 60 mg 05/26/2020 12:00:00 AM EST capsule,extended releas e 24 hr 30 TAKE ONE CAPSULE BY MOUTH EVERY DAY TAKE ONE CAPSULE BY MOUTH EVERY DAY SOLD: 12/14/2020 [facility] 60 mg 05/26/2020 12:00:00 AM EST capsule,extended releas e 24 hr 30 TAKE ONE CAPSULE BY MOUTH EVERY DAY TAKE ONE CAPSULE BY MOUTH EVERY DAY SOLD: 05/27/2020 [facility] 60 mg 05/26/2020 12:00:00 AM EST capsule,extended releas e 24 hr 30 TAKE ONE CAPSULE BY MOUTH EVERY DAY TAKE ONE CAPSULE BY MOUTH EVERY DAY SOLD: 07/23/2020 [facility] 60 mg 05/26/2020 12:00:00 AM EST capsule,extended releas e 24 hr 30 TAKE ONE CAPSULE BY MOUTH EVERY DAY TAKE ONE CAPSULE BY MOUTH EVERY DAY SOLD: 02/12/2021 [facility] 60 mg 05/26/2020 12:00:00 AM EST capsule,extended releas e 24 hr 30 TAKE ONE CAPSULE BY MOUTH EVERY DAY TAKE ONE CAPSULE BY MOUTH EVERY DAY SOLD: 08/24/2020 [facility] 24 HR Propranolol Hydrochloride 60 MG Extended Release Oral Capsule Propranolol HCL ER 05/25/2020 12:00:00 AM EST ORAL completed [facility] 100 mg 05/14/2020 12:00:00 AM EST capsule 90 TAKE ONE CAPSULE BY MOUTH THREE TIMES A DAY TAKE ONE CAPSULE BY MOUTH THREE TIMES A DAY SOLD: 07/09/2020 [facility] 100 mg 05/14/2020 12:00:00 AM EST capsule 90 TAKE ONE CAPSULE BY MOUTH THREE TIMES A DAY TAKE ONE CAPSULE BY MOUTH THREE TIMES A DAY SOLD: 06/10/2020 [facility] 100 mg 05/14/2020 12:00:00 AM EST capsule 90 TAKE ONE CAPSULE BY MOUTH THREE TIMES A DAY TAKE ONE CAPSULE BY MOUTH THREE TIMES A DAY SOLD: 05/14/2020 [facility] 10 mg 04/29/2020 12:00:00 AM EST tablet 6 TAKE ONE TABLET BY MOUTH IMMEDIATELY , MAY REPEAT AFTER 2 HOURS TAKE ONE TABLET BY MOUTH IMMEDIATELY , MAY REPEAT AFTER 2 HOURS SOLD: 05/27/2020 [facility] 10 mg 04/29/2020 12:00:00 AM EST tablet 6 TAKE ONE TABLET BY MOUTH IMMEDIATELY , MAY REPEAT AFTER 2 HOURS TAKE ONE TABLET BY MOUTH IMMEDIATELY , MAY REPEAT AFTER 2 HOURS SOLD: 05/13/2020 [facility] valacyclovir 1000 MG Oral Tablet VALACYCLOVIR HCL 04/23/2020 12: 00:00 AM EDT tablet 14 TAKE ONE TABLET BY MOUTH TWICE A DAY FOR 7 DAYS TAKE ONE TABLET BY MOUTH TWICE A DAY FOR 7 DAYS SOLD: 07/23/2020 [facility] valacyclovir 1000 MG Oral Tablet VALACYCLOVIR HCL 04/23/2020 12: 00:00 AM EDT tablet 14 TAKE ONE TABLET BY MOUTH TWICE A DAY FOR 7 DAYS TAKE ONE TABLET BY MOUTH TWICE A DAY FOR 7 DAYS SOLD: 01/02/2021 [facility] 1 gram 04/23/2020 12:00:00 AM EDT tablet 14 TAKE ONE TABLET BY MOUTH TWICE A DAY FOR 7 DAYS TAKE ONE TABLET BY MOUTH TWICE A DAY FOR 7 DAYS SOLD: 04/25/2020 [facility] valacyclovir 1000 MG Oral Tablet Valacyclovir HCL 04/23/2020 12:00: 00 AM EDT ORAL completed [facility] ([facility]) valacyclovir 1000 MG Oral Tablet VALACYCLOVIR HCL 04/23/2020 12: 00:00 AM EDT tablet 14 TAKE ONE TABLET BY MOUTH TWICE A DAY FOR 7 DAYS TAKE ONE TABLET BY MOUTH TWICE A DAY FOR 7 DAYS SOLD: 03/02/2021 [facility] 0.05 % 04/03/2020 12:00:00 AM EDT cream 50 APPLY TOPICALLY TO AFFECTED AREA(S) TWO TIMES A DAY NEEDED APPLY TOPICALLY TO AFFECTED AREA(S) TWO TIMES A DAY NEEDED SOLD: 04/16/2020 [facility] 10 mg 03/23/2020 12:00:00 AM EDT tablet 6 TAKE ONE TABLET BY MOUTH IMMEDIATELY , MAY REPEAT AFTER 2 HOURS TAKE ONE TABLET BY MOUTH IMMEDIATELY , MAY REPEAT AFTER 2 HOURS SOLD: 04/16/2020 [facility] Oxycodone Hydrochloride 5 MG Oral Capsule Oxycodone HCL 03/23/2020 12:00:00 AM EDT completed [facility] 50 mg 03/23/2020 12:00:00 AM EDT tablet 90 TAKE ONE TABLET BY MOUTH THREE TIMES A DAY NEEDED MAXIMUM DAILY DOSE = 3 TAKE ONE TABLET BY MOUTH THREE TIMES A DAY NEEDED MAXIMUM DAILY DOSE = 3 SOLD: 04/20/2020 [facility] 50 mg 03/23/2020 12:00:00 AM EDT tablet 90 TAKE ONE TABLET BY MOUTH THREE TIMES A DAY NEEDED MAXIMUM DAILY DOSE = 3 TAKE ONE TABLET BY MOUTH THREE TIMES A DAY NEEDED MAXIMUM DAILY DOSE = 3 SOLD: 06/17/2020 [facility] 50 mg 03/23/2020 12:00:00 AM EDT tablet 90 TAKE ONE TABLET BY MOUTH THREE TIMES A DAY NEEDED MAXIMUM DAILY DOSE = 3 TAKE ONE TABLET BY MOUTH THREE TIMES A DAY NEEDED MAXIMUM DAILY DOSE = 3 SOLD: 05/19/2020 [facility] Rosuvastatin calcium 20 MG Oral Tablet ROSUVASTATIN CALCIUM 03/20/2020 12:00:00 AM EDT tablet 30 TAKE ONE TABLET BY MOUTH OJ DAY TAKE ONE TABLET BY MOUTH EVERY DAY SOLD: 07/09/2020 [facility] Rosuvastatin calcium 20 MG Oral Tablet ROSUVASTATIN CALCIUM 03/20/2020 12:00:00 AM EDT tablet 30 TAKE ONE TABLET BY MOUTH OJ RY DAY TAKE ONE TABLET BY MOUTH EVERY DAY SOLD: 08/11/2020 [facility] Rosuvastatin calcium 20 MG Oral Tablet ROSUVASTATIN CALCIUM 03/20/2020 12:00:00 AM EDT tablet 30 TAKE ONE TABLET BY MOUTH OJ RY DAY TAKE ONE TABLET BY MOUTH EVERY DAY SOLD: 02/12/2021 [facility] Rosuvastatin calcium 20 MG Oral Tablet ROSUVASTATIN CALCIUM 03/20/2020 12:00:00 AM EDT tablet 30 TAKE ONE TABLET BY MOUTH OJ RY DAY TAKE ONE TABLET BY MOUTH EVERY DAY SOLD: 11/15/2020 [facility] Rosuvastatin calcium 20 MG Oral Tablet ROSUVASTATIN CALCIUM 03/20/2020 12:00:00 AM EDT tablet 30 TAKE ONE TABLET BY MOUTH OJ RY DAY TAKE ONE TABLET BY MOUTH EVERY DAY SOLD: 05/19/2020 [facility] Rosuvastatin calcium 20 MG Oral Tablet ROSUVASTATIN CALCIUM 03/20/2020 12:00:00 AM EDT tablet 30 TAKE ONE TABLET BY MOUTH OJ RY DAY TAKE ONE TABLET BY MOUTH EVERY DAY SOLD: 12/14/2020 [facility] Rosuvastatin calcium 20 MG Oral Tablet ROSUVASTATIN CALCIUM 03/20/2020 12:00:00 AM EDT tablet 30 TAKE ONE TABLET BY MOUTH OJ RY DAY TAKE ONE TABLET BY MOUTH EVERY DAY SOLD: 01/12/2021 [facility] Rosuvastatin calcium 20 MG Oral Tablet ROSUVASTATIN CALCIUM 03/20/2020 12:00:00 AM EDT tablet 30 TAKE ONE TABLET BY MOUTH OJ RY DAY TAKE ONE TABLET BY MOUTH EVERY DAY SOLD: 06/10/2020 [facility] Rosuvastatin calcium 20 MG Oral Tablet ROSUVASTATIN CALCIUM 03/20/2020 12:00:00 AM EDT tablet 30 TAKE ONE TABLET BY MOUTH OJ RY DAY TAKE ONE TABLET BY MOUTH EVERY DAY SOLD: 09/11/2020 [facility] Rosuvastatin calcium 20 MG Oral Tablet ROSUVASTATIN CALCIUM 03/20/2020 12:00:00 AM EDT tablet 30 TAKE ONE TABLET BY MOUTH OJ RY DAY TAKE ONE TABLET BY MOUTH EVERY DAY SOLD: 10/11/2020 [facility] Rosuvastatin calcium 20 MG Oral Tablet ROSUVASTATIN CALCIUM 03/20/2020 12:00:00 AM EDT tablet 30 TAKE ONE TABLET BY MOUTH OJ RY DAY TAKE ONE TABLET BY MOUTH EVERY DAY SOLD: 04/20/2020 [facility] 100 mg 02/05/2020 12:00:00 AM EDT capsule 90 TAKE ONE CAPSULE BY MOUTH THREE TIMES A DAY TAKE ONE CAPSULE BY MOUTH THREE TIMES A DAY SOLD: 04/16/2020 [facility] 24 HR Bupropion Hydrochloride 300 MG Extended Release Oral T ablet BUPROPION HCL 11/15/2019 12:00:00 AM EDT tablet extended release 24 hr 30 TAKE ONE TABLET BY MOUTH EVERY DAY TAKE ONE TABLET BY MOUTH EVERY DAY SOLD: 05/13/2020 [facility] 24 HR Bupropion Hydrochloride 300 MG Extended Release Oral T ablet BUPROPION HCL 11/15/2019 12:00:00 AM EDT tablet extended release 24 hr 30 TAKE ONE TABLET BY MOUTH EVERY DAY TAKE ONE TABLET BY MOUTH EVERY DAY SOLD: 04/16/2020 [facility] BLOOD SUGAR DIAGNOSTIC 07/04/2019 12:00:00 AM EST strip 50 TEST TWO TIMES A DAY TEST TWO TIMES A DAY SOLD: 06/10/2020 [facility] BLOOD SUGAR DIAGNOSTIC 07/04/2019 12:00:00 AM EST strip 50 TEST TWO TIMES A DAY TEST TWO TIMES A DAY SOLD: 04/16/2020 [facility] BLOOD SUGAR DIAGNOSTIC 07/04/2019 12:00:00 AM EST strip 50 TEST TWO TIMES A DAY TEST TWO TIMES A DAY SOLD: 05/13/2020 [facility] 33 gauge 07/02/2019 12:00:00 AM EST misc 100 TEST TWO TIMES A DAY TEST TWO TIMES A DAY SOLD: 04/16/2020 [facility] 33 gauge 07/02/2019 12:00:00 AM EST misc 100 TEST TWO TIMES A DAY TEST TWO TIMES A DAY SOLD: 05/13/2020 [facility] 33 gauge 07/02/2019 12:00:00 AM EST misc 100 TEST TWO TIMES A DAY TEST TWO TIMES A DAY SOLD: 06/25/2020 [facility] Ibuprofen 200 MG Oral Tablet Ibuprofen 200 MG Oral Tab let (MOTRIN) Ibuprofen 200 MG Oral Tablet (MOTRIN) 400 mg Oral aborted Take 400 mg by mouth every 8 (eight) hours as needed for Pain [facility] Insurance Providers Payer name Policy type / Coverage type Policy ID Covered libertarian ID Covered libertarian's relationship to [place] Policy [place] Plan Information BCBS OF [facility] [phone] [id number] [facility] Medigap Part B [id number] Self [id number] [facility] Health Medigap Part B Epo [id number] Self Epo ac Medigap Part B [id number] Family Dependent [id number] ac Medigap Part B [id number] Family Dependent [id number] [facility] Medigap Part B [id number] .[id number] Family Dependent [id number] [employer] Medigap Part B [id number] .[id number] Family Dependent [id number] [employer] Medigap Part B [id number] .[id number] Family Dependent 7742980 [employer] Medigap Part B [id number] .[id number] Family Dependent [id number] [employer] Medigap Part B [id number] .4595.41222.0 Family Dependent 7999375 [employer] Medigap Part B [id number] Family Dependent 7203875 [employer] Medigap Part B [id number] .[id number] Family Dependent 3250120 [employer] Medigap Part B [id number] .4595.67103.0 Family Dependent 5519623 [employer] Medigap Part B [id number] Family Dependent [employer] Medigap Part B [id number] .4595.24818.0 Family Dependent 6880779 [employer] Medigap Part B [id number] .4595.80985.0 Family Dependent [id number] [employer] High Deductible Epo [id number] Self High Deductible Epo [employer] [id number] Self [id number] [facility] SELFINSURE 1 [id number] 1 [id number] NO FAULT PENDING 2 [id number] 1 [id number] BC EXC PLANS 1 [id number] 1 [id number] BC EXC PLANS 1 [id number] OEC2 [id number] [facility] Trad/MX Commercial [id number] Family Dependent 802 [place] Trad/MX Medigap Part B [id number] Family Dependent [id number] Medicaid Medigap Part B [id number] 84.0 Self [id number] Medicaid Medigap Part B [id number] 84.0 Self [id number] Medicaid Medigap Part B [id number] 84.0 Self [id number] Medicaid Medigap Part B [id number] 84.0 Self [id number] Medicaid Medigap Part B [id number] 84.0 Self [id number] Medicaid Medigap Part B [id number] 84.0 Self [id number] Medicaid Medigap Part B [id number] 84.0 Self [id number] Medicaid Medigap Part B [id number] 84.0 Self [id number] Medicaid Medigap Part B [id number] Self [id number] Medicaid Medigap Part B [id number] 84.0 Self [id number] Medicaid Medigap Part B [id number] 84.0 Self [id number] Medicaid Medigap Part B [id number] Self 1 1 Medicaid Medigap Part B [id number] 84.0 Self [id number] MEDICAID [id number] Bety [id number] [employer] [id number] Self [id number] 00 [employer] MVPM [id number] Self MVPM [employer] [id number] 00 [id number] Self [id number] 00 MVP MCDHMO [id number] SP [id number] MVP MCDHMO [id number] SP [id number] MVP MCDHMO [id number] SP [id number] [employer] Commercial [id number] .4595.77737.0 Self [id number] 00 MVP MCDHMO [id number] SP [id number] [employer] [id number] 184.0 Self [employer] F [id number] SELF [id number] MVP (pr) Commercial [id number] Self [id number] MVP (pr) Commercial [id number] 0 Self [id number] MVP (pr) Commercial [id number] 0 Self [id number] [employer] F [id number] SELF [id number] [employer] Commercial [id number] 00 [id number] Self [id number] 00 MVP I [id number] Self [id number] MVP I [id number] Self [id number] [employer] Commercial [id number] 709.0 Self [id number] [employer] Commercial [id number] Self [id number] [employer] Commercial [id number] 709.0 Self [id number] [employer] Commercial [id number] Self [id number] MVP Medicaid Commercial [id number] Self [id number] MVP I [id number] Self [id number] MVP I [id number] Self [id number] [employer] Commercial Insurance Co. [id number] Self [id number] [employer] Commercial Insurance Co. [id number] Self [id number] MVP [id number] SP [id number] MVP MDCD HM [id number] MVP HEALTH CARE O [id number] S [id number] MVP Commercial [id number] Self MVP HEALTH CARE O UNAVAILABLE S UN AVAILABLE MVP HEALTH CARE [id number] SP [id number] MEDICAID [id number] SP [id number] [facility] NATIONAL INS [id number] GMAC [id number] SP [id number] [employer]URANCE [id number] SP [id number] GROUP HE[employer] INSURANCE [id number] SP [id number] [facility] MEDICAL CLAIMS [id number] [place] 306/806 [id number] SP [id number] [facility] [employer] HLTH PLUS [id number] SP [id number] [employer] [place] 306/806 [id number] SP [id number] [place] P[place] 302/307 [id number] VALUE OPTIONS (MVP) [id number] SP [id number] [facility] [id number] SP [id number] SELF PAY UNAVAILABLE UNAVAILA BLE SELF PAY 2 UNAVAILABLE [id number] UNAVAILA BLE SELF PAY 2 UNAVAILABLE 1 [facility] [id number] SP [id number] BC EXC PLANS 1 [id number] 2 [id number] [facility] SELFINSURE 1 [id number] 1 [id number] [facility] [id number] SP [id number] [facility] Commercial [id number] Self [id number] [facility] Commercial [id number] Self [id number] [facility] Commercial [id number] Self [id number] [facility] O [id number] S [id number] THE [place] O [id number] S [id number] [employer] O [id number] S [id number] [place] WORK COMP [id number] SP Y [id number] [facility] O [id number] S 82 [id number] [facility] Commercial [id number] Self [id number] [place] [id number] SP [id number] [facility] O [id number] S 80 [id number] [place] [id number] SP [id number] [facility] O [id number] S 80 [id number] [facility] Commercial [id number] Self [id number] [employer] Commercial [id number] Self [place] Tr[place] Medigap Part B [id number] Self [id number] Lifetime Benefit ([employer]) Commercial Family [id number] Family Depende nt Family BS [place] Medigap Part B [id number] Self Lifetime Benefit ([employer]) Commercial [id number] Family Dependent [id number] Problems, Conditions, and Diagnoses Code Display Name Description Problem Type Effective Dates Data Source(s) M25.511 Pain in right shoulder Pain in right shoulder Diagnosi s 03/22/2021 01:33:34 PM EDT [facility] Z96.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 felipe int Presence of right artificial shoulder joint Diagnosis 03/22/2021 01:33:34 PM EDT [facility] PT rt shoulder PT rt shoulder Diagnosis 10/12/2020 10:53: 53 AM [facility] PT R Shoulder Post Op PT R Shoulder Post Op Diagnosis 09/07/2020 03:05:03 PM T [facility] M19.111 Post-traumatic osteoarthritis, right selene ulder Post-traumatic osteoarthritis, right shoulder Diagnosis 08/11/2020 05:56:00 AM [facility] Chronic right shoulder pain [M25.511, G8 9.29] Chronic right shoulder pain [M25.511, G89.29] Diagnosis 08/11/2020 05:56:00 AM [facility] Surgeries/Procedures Procedure Description Date Indications Data Source(s) OFFICE OUTPATIENT VISIT 15 MINUTES 01/30/2021 12:00:00 AM EDT [facility] ([facility]) Diabetic Retinal Eye Exam 11/03/2020 12:00:00 AM EDT [facility] ([facility]) OFFICE OUTPATIENT VISIT 15 MINUTES 10/31/2020 12:00:00 AM EDT [facility] ([facility]) Diabetic Retinal Eye Exam 10/23/2020 12:00:00 AM EDT [facility] ([facility]) DUP-SCAN XTR VEINS UNILATERAL/LIMITED STUDY <td>US DOP PLER UPPER EXTREMITY UNILATERAL VENOUS LIMITED [id number]</td><td>STAT</td><td>08/18/2020 2:13 PM EST</td><td> Right shoulder pain, unspecified chronicity Swelling of joint of upper arm, right</td><td> </td> 08/18/2020 02:13:07 PM EST Swelling of joint of upper arm, rightRig ht shoulder pain, unspecified chronicity [facility] Swelling of joint of upper arm, right Right shoulder pain, unspecified chronic ity RADEX SHOULDER 1 VIEW <td>XR SHOULDER 1 VIEW 92218</td><td>STAT</td><td>08/11/2020 10:55 AM EST</td><td></td><td> </td> 08/11/2020 10:55:19 AM [facility] POCT GLUCOSE, DOCKED <td>POCT GLUCOSE, DOCKED</td ><td>Routine</td><td>08/11/2020 10:32 AM EST</td><td></td><td> </td> 08/11/2020 10:32:00 AM [facility] US GUIDED PERIPHERAL NERVE BLOCK (OR ONLY) <td>US GUID ED PERIPHERAL NERVE BLOCK (OR ONLY)</td><td>Routine</td><td>08/11/2020 8:25 AM EST</td><td></td><td></td> 08/11/2020 08:25:00 AM [facility] POCT GLUCOSE, DOCKED <td>POCT GLUCOSE, DOCKED</td ><td>Routine</td><td>08/11/2020 7:26 AM EST</td><td></td><td> </td> 08/11/2020 07:26:00 AM EST [facility] ECG ROUTINE ECG W/LEAST 12 LDS W/I&R 07/31/2020 12:00: 00 AM EST [facility] ([facility]) Therapeutic, Prophylactic Or Diagnostic Injection Subq/Im 07/07/2020 12:00:00 AM EST [facility] ([facility]) Therapeutic, Prophylactic Or Diagnostic Injection Subq/Im 04/23/2020 12:00:00 AM EDT [facility] ([facility]) Results ID Date Data Source [id number] 04/26/2021 07:51:56 AM EDT [facility] Name Value Range Interpretation Code Description Data Sheba rce(s) Supporting Document(s) Progress Note [facility] AJXTQj9pGzXPGbLg13/OMQdtFZXmn7QcZGaoSXj3PNmtWFMwD7DyUOX1cG0rKYV5DXuKNeDbPhJgJUV8 lbm [file] ID Date Data Source [id number] 04/14/2021 03:54:32 PM EDT [facility] Name Value Range Interpretation Code Description Data Sheba rce(s) Supporting Document(s) Progress Note [facility] NLPBBx0uMwKGZdTv33/HTCskSELge4ZaBLvgUIi4BSvfGQOfY2HcXGF1iG8xREU3UYwBYtSpNmHhVSOn lbm [file] ICAgICAgICAgICAgICAgICAgICAgICAgICAgICAgICAgICAgICAgICAgICAgICANCiAgICAgICAgICAg ICAgICAgICAgICAgICAgICAgICAgICAgICAgICAgIC AgICAgICAgICAgICAgICAgICAgICAgICAgICAgICAgICAgICAgICAgICAgICAgICAgICAgICAgICANCi AgICAgICAgICAgICAgICAgICAgICAgICAgICAgICAgICAgICAgICAgICAgICAgICAgICAgICAgICAgIC AgICAgICAgICAgICAgICAgICAgICAgICAgICAgICAg ICAgICAgICANCiAgICAgICAgICAgICAgICAgICAgICAgICAgICAgICAgICAgICAgICAgICAgICAgICAg ICAgICAgICAgICAgICAgICAgICAgICAgICAgICAgICAgICAgICAgICAgICAgICAgICANCiAgICAgICAg ICAgICAgICAgICAgICAgICAgICAgICAgICAgICAgIC AgICAgICAgICAgICAgICAgICAgICAgICAgICAgICAgICAgICAgICAgICAgICAgICAgICAgICAgICAgIC ANCiAgICAgICAgICAgICAgICAgICAgICAgICAgICAgICAgICAgICAgICAgICAgICAgICAgICAgICAgIC AgICAgICAgICAgICAgICAgICAgICAgICAgICAgICAg ICAgICAgICAgICANCiAgICAgICAgICAgICAgICAgICAgICAgICAgICAgICAgICAgICAgICAgICAgICAg ICAgICAgICAgICAgICAgICAgICAgICAgICAgICAgICAgICAgICAgICAgICAgICAgICAgICANCiAgICAg ICAgICAgICAgICAgICAgICAgICAgICAgICAgICAgIC AgICAgICAgICAgICAgICAgICAgICAgICAgICAgICAgICAgICAgICAgICAgICAgICAgICAgICAgICAgIC AgICANCiAgICAgICAgICAgICAgICAgICAgICAgICAgICAgICAgICAgICAgICAgICAgICAgICAgICAgIC AgICAgICAgICAgICAgICAgICAgICAgICAgICAgICAg ICAgICAgICAgICAgICANCiAgICAgICAgICAgICAgICAgICAgICAgICAgICAgICAgICAgICAgICAgICAg ICAgICAgICAgICAgICAgICAgICAgICAgICAgICAgICAgICAgICAgICAgICAgICAgICAgICAgICANCjw/ nTLuI3lcdBVtuoT4E9zdMk1BTi5MWI8tp1XaIBJlMY feypPkJvlIMzAxYQPpNkzODea6ITmwLX0AbBIiQ4SzR7SgWGfpNR9ADRVhABTicCYmRVQbNPPsBwN8XD HzWAtjWG2XmLLjUFjbHAGaZJQaQhHwOWTpGKKyJCEwRM1UIVCjF323viTjFf5WWr0TUjTcDS3iyp6FXm uoQOVyKijUSfe6BMxmJD1QnDSprZEdFVXuUMFIYcIr L8acv1XlZqYjTIAJPDpfUD5Zw8MraHDyILl+Xm3VCI3te6PeBFrnBGVmVZ3qbp7DTJqUQpVcH5EznUop VRIsk8gvBDUsHV8zcZEuQIM0LSCnp5JmYnJJm2qsPUKXBTUphVEvKO9zFI4bDWByQLW2OkQ7YPEQWF8O YWTsTHVwfCHjJSMhRZSQPQ6WOCzcFTH8AEFqveEunT UsBNzqQG7ZNCEpvrYuZrnxTEZZBHu+Yh3FSN5wo7PeTVfkZDLgHR9tdw0VFTyPVfXiI5C0uDCxW7M8YK xdQy6HNXGnNXTySuhlTYGCAMgsNQ3QKT4lzaO2MZ8PzULzUNLwVHCyoYMcLGi5Z09zaIZfZCgkXF7JEE A+Muriel+Jg5VFMHmLTCbMSNbEeHqICFYRiVtZ8HoA7MR x1IqQ6PfXM99qDhszrKpGFvpYO0PFN7qQYHtPZIRCA2MxBDsxD8wnxWqRVTnZYXVTdJmX97jqLXgQBMw ENO2HIEdXi3GKHGrU3AnbiJwhQegfeIvONYcTZBIFQ7MLVtdqeEoqYOgwSwqIC07zNnnJY9CZb0AMvCu UB9phz2DeJWvSr6QGOHfLl0FRJCaWOOeYRLuKNC6MC UvIwWyJHgbHCKuSIOsVNR0OOSnIIDaRE3MUaNbADFeOmC9YGQnHAJcRIXinu7XUTZtNIWiBMS0OvXeVI WaSUKnEPghQOKgNZOpKXW4JDDvBRMuCB2YTxMkLLPsGRE9YcYwWJWxZFGebe6HKHAoHVVtJbI6OcXdFX PnREXgNUhiKFCdUGL0PKP5ORKeMHHbRL2KIjBmWBPb LWGsLgTiRRKcLUViam1ACGIbCNOdIJr4TOSnGKJvDOTzPHwkYLWhXRO7ROj7OGFuZFKtNV9RMnPdQVLw VLPmRDltWQAlNCMdqi8RYPAbKTRpRSJ4KDYqEZJjJTMyPZywLOAoBJQzYQI9CQMrKNYtRZ8ATrDmDOPp QMG8QUzfOLAhGAXvdx0AQRQpKWQxKSW6HBMzQOLbND DhLUhwSYKeQDZsWMh7PYFuHQLsDG2WKvYvNREyWeVwXKxpVMBwJJTnpj5RJRXnQDHuNgU9YlIpOZXbYL PePAluQHTbTGUzDZHfGVHdEGJyFN1CKlZyXDNzUaVxXHLoHIEpGQGpxv9TPGOtYYCtBYR1JwTvGWAlUZ YpGSmoCFAaUHX3NYflSAJePCIuAV5JVqJaPBBoMkKu KTXsUNXqIQXpti0YUPTlAVYmDAW4FHRpYABsFLVsPHjpPYVqGET8HYMhJLKmKPNnNX1YDaWfONPuTcQ3 JRXkUAQqXGKmty1BVBElFVYkJml4WZKrYKKcOMNdONrtJKVqXWR5IaXtMXJuEAEhIS9XPxJkQDUbLry8 WQDfBWXjJSWkqi8VZWDjNTZxQDveSkTcDIHrZHFoFF fkBFZpFEB1MBryDWBtIBAuYW6HFhGcREiwAEFHNjl9DIboP9z5NELeIs6VL2Jif9YbLuLqDGROQTdxEB 8tsjJhJMKtRf4MI9bBFxnxTjWkOYJ7EDPmEtNoRmH9UAYxAHDfBXQyEYJfXaIdDa1uLJDoShO8GoH2EK JqVcOvIeTmQGMbISYtSRX5EXQkFKJ3KwPbPS8MQf2KUbW8SEZ2gWMqYg0HMkjtRWDCFaBjWB2NCMg= ID Date Data Source [id number] 03/31/2021 01:17:04 PM EDT [facility] Name Value Range Interpretation Code Description Data Sheba rce(s) Supporting Document(s) Progress Note [facility] HFHXPq4qAoVYDtBa02/XCIznRKOcg3VkAVitLTq3BSltKJTwX4MpISD3wI5hJDD6RSpNGqKbIuGtTMN3 lbm [file] ULTRASOUND SONOGRAPHER/3HJzppoODNhwRVHOWUi1xPMYsRcIY+vUbmzQL0Kei1tV8Q4nsTu3J4l10bFlDMLiXij1FZXKgJbkc [file] Sh7HYkH7XfIIOiQcEU6CPSr= ID Date Data Source [id number] 03/22/2021 02:35:05 PM EDT [facility] CT UPPER EXTREMITY WITHOUT CONTRAST 7320 0FINAL RESULTInterpreted by:Priscilla Wei, MDCT UPPER EXTREMITY WITHOUT CONTRAST.HISTORY: Shoulder placement, fracture suspected TECHNIQUE: Axial images were obtained through the right shoulder without intravenous contrast. Coronal and sagittal reformats are provided.One or more of the following dose reduction techniques were utilized in effectively lowering the patient's radiation dose for this examination: Automated Exposure Control, Adjustment of the mA and/or kV according to patient size, or Iterative Reconstruction. COMPARISON: Right shoulder x-ray dated 03/13/2021FINDINGS:Bones: There is a reverse right total shoulder arthroplasty. Streak artifact limits evaluation. Prosthetic components appear well seated and aligned. No fracture or periprosthetic lucency. Acromioclavicular joint is intact. There is a bony fragment along the undersurface of the acromion that is a old injury or small os acromiale. Type II acromial morphology.Soft tissues: There is at least moderate atrophy of supraspinatus and subscapularis.IMPRESSION:Reverse right total shoulder arthroplasty without CT evidence of hardware complication.No fracture identified. Remote injury or small os acromiale along the undersurface of the acromion.This document has been electronically signed by Priscilla Wei MD on 03/22/2021 2:32 PM Name Value Range Interpretation Code Description Data Sheba rce(s) Supporting Document(s) ID Date Data Source [id number] 03/13/2021 06:35:39 PM EDT [facility] XR SHOULDER COMPLETE [id number] RESULTIn terpreted by:Apolinar Rivas [facility] SHOULDERCLINICAL STATEMENT: Status post right shoulder arthroplasty.TECHNIQUE: 2 views of the right shoulder. COMPARISON: 10/12/2020.FINDINGS: The patient is status post total right shoulder arthroplasty. The hardware appears intact and properly aligned. No acute periprosthetic fracture or dislocation is identified. No abnormal lucency is demonstrated, to suggest loosening or infection. The soft tissues appear unremarkable.IMPRESSION: Since 10/12/2020, No significant interval change.Status post total right shoulder arthroplasty, with stable postoperative changes. This document has been electronically signed by Apolinar iRvas MD on 03/13/2021 6:33 PM Name Value Range Interpretation Code Description Data Sheba rce(s) Supporting Document(s) ID Date Data Source [id number] 03/13/2021 09:52:10 AM EDT [facility] Name Value Range Interpretation Code Description Data Sheba rce(s) Supporting Document(s) Progress Note [facility] UQYQTg0gCtSHEqOb29/JFCaySEXvb0HeFYzdJCk7OFafGKZvU6IlPBF5sQ9cLQB1OVpUAnQrOfKaNDJn lbm [file] ICAgICAgICAgICAgICAgICAgICAgICAgICAgICAgICAgICAgICAgICAgICAgICAgICAgICAgICAgICAg ICAgICAgICANCiAgICAgICAgICAgICAgICAgICAgIC AgICAgICAgICAgICAgICAgICAgICAgICAgICAgICAgICAgICAgICAgICAgICAgICAgICAgICAgICAgIC AgICAgICAgICAgICAgICAgICANCiAgICAgICAgICAgICAgICAgICAgICAgICAgICAgICAgICAgICAgIC AgICAgICAgICAgICAgICAgICAgICAgICAgICAgICAg ICAgICAgICAgICAgICAgICAgICAgICAgICAgICANCiAgICAgICAgICAgICAgICAgICAgICAgICAgICAg ICAgICAgICAgICAgICAgICAgICAgICAgICAgICAgICAgICAgICAgICAgICAgICAgICAgICAgICAgICAg ICAgICAgICAgICANCiAgICAgICAgICAgICAgICAgIC AgICAgICAgICAgICAgICAgICAgICAgICAgICAgICAgICAgICAgICAgICAgICAgICAgICAgICAgICAgIC AgICAgICAgICAgICAgICAgICAgICANCiAgICAgICAgICAgICAgICAgICAgICAgICAgICAgICAgICAgIC AgICAgICAgICAgICAgICAgICAgICAgICAgICAgICAg ICAgICAgICAgICAgICAgICAgICAgICAgICAgICAgICANCiAgICAgICAgICAgICAgICAgICAgICAgICAg ICAgICAgICAgICAgICAgICAgICAgICAgICAgICAgICAgICAgICAgICAgICAgICAgICAgICAgICAgICAg ICAgICAgICAgICAgICANCiAgICAgICAgICAgICAgIC AgICAgICAgICAgICAgICAgICAgICAgICAgICAgICAgICAgICAgICAgICAgICAgICAgICAgICAgICAgIC AgICAgICAgICAgICAgICAgICAgICAgICANCiAgICAgICAgICAgICAgICAgICAgICAgICAgICAgICAgIC AgICAgICAgICAgICAgICAgICAgICAgICAgICAgICAg ICAgICAgICAgICAgICAgICAgICAgICAgICAgICAgICAgICANCiAgICAgICAgICAgICAgICAgICAgICAg ICAgICAgICAgICAgICAgICAgICAgICAgICAgICAgICAgICAgICAgICAgICAgICAgICAgICAgICAgICAg ICAgICAgICAgICAgICAgICANCjw/qQUgV9iglTJnam S2W8twVr9OQx5DVE0op8FiPLWbEOkslqJzXhdXCrLbRQCxJxoALvr3MPogPV8OvMSrD8QwL0YjBLwvNB 8GRGHxVIGabNZeNDYlUYPpHuW2ZGTzYTtlQM3VcMDkJLzhLKZuPRCcNS9WJWXoH102qlEvMU6WRt5HUu ZjRC9ues6HYOxqFYDwArgIBoc7TQqfQN6UsSDopLOl WCQqFBXZVvQwS9ota0DgKpKqUGINITamGT2Hh0DvcKGiOJl+Wn7IPP5tt1LgYLueJAApPV4vpr4RHMgT ElFnP0MwoEyiJABmv0tgFFZgXN2ukLAsCKG3WHTshp6huXq6OHAIb03goewlMbAsMXEfIL7vFD6rGRTh XIM7JpTgRFZBZF7CYTCtKRYlhSJeNUZyOJAEZJ5MLI lrMWW8TXCclkCryLNrEIxpWJ3RWADyvyFeGNqkMZBXQXh+Rv9PBZ1pa6CfGOzhEPVtXD7yfm4SNJzUXb SfO9E2rZMuX0P9MAauYo6WKLQxYRLcHCtnOTXEKEwrIE7OLC3ixyH2JM3ScRJfZFTzGHTurAWrTIf0A5 8inLDnFYqcAG9FDNC+Muriel+Uf1SDNGqGOTxRRVqGmKl ZVKFOqHkW7EhV2PJp7CpE6PwWG20hNhexdFuSDmwBZ8OUB4rNWTuRYSJJY8HdRHxcO6kuvQmEAUoAVSN XbOjE37cyZVfPJJxDJC4NRIuJe0KCOBnH6LemxEotSkymuSrQRElTHNHAG8DFGfuluMeaYHttRdbPI09 yKswUT8OEq6RRhLcLC0cau7OmIDwGx7GFVJjJj1ISK MpDCMxQLYxQFD2NWNyLhEaOOvlYCYyTNAcIBY0XAHsRJWyUA7HRvZdXBHjLTi9ZeNdIORdYMMzys3UKN OiWZClVIU9MYFvJRFoSZNyVEqvPJChGRUrQXD8VHBoWPSoSG5LVqRoGHUyETFmZOdpZPPaFLNnve7BRO OlOGQuImI0HBCcPNAxQDCrPErkDUJrIIR3ZKDhGREd ASSuTO3PLjFsHDKyYYC0AVIrDJYzZYQovc1VYKFnWOTwEWrcZrBtXPKpOUHeHMkyOMKnCRE4Eao7YDSu ZLFjFM4IHiDcFFEtYZM5QJHaEKNrDMHohd0ECILyTUPiCqK1QyOuJNZlNRTpCBgyRTAqBJP5BQM5LIBm EPZyKI8UBoNpBAWmOHj3YGCjGAVpBHZbox3MIKWjRJ KoDOZ0FyJzCICsAFIwELmuENGqMCG0ZzudTOEfPAGgIW7KSyZvMDZqZMg2IndhBVZcNAEqps1KHRXrVR LaHVksRARfUBYrGBDaDThiOEAhQJRlIxm6MRKsGRSzVC0SHfWbCFEwQfGwCXurHWHeWHKxsk9IPCCxQK InIPU4DSOpBHMxIEYfBMh5omFjyWMdQAa1SF8BD7Sv roRnJkPDGv9De691VMGcDBPdRf2HD4tnVp9tXYVwGGZZZg4VXYy4X1S4WHZ0BPI9PhJiBVmfJCa1HWX1 VfErNHQqCMO2DMb+RPs3LPD4NAJ4AtqyCzReJ3ErNHV7TijdAEZ7URE2CThfHR3iIPBEOe4+DQpzdGFy kOlsRCFKMhSpGmKxRNrfINZIKa6R ID Date Data Source [id number] 03/07/2021 08:38:55 AM EDT [facility] Name Value Range Interpretation Code Description Data Sheba rce(s) Supporting Document(s) Progress Note [facility] DOHDSe4cWeNWXwCi83/EQDtfYXIpp4UnWYvcWAp9DGsdLJAfC4XkKUQ6gN5yRFY8PMhSOeJaGyKaIXB2 lbm [file] AgICAgICAgICAgICAgICAgICAgICAgICAgICAgICAgICAgICAgICAgICAgICAgICAgICAgICAgICAgIC AgICAgICAgICAgICAgICAgICAgICAgDQogICAgICAg ICAgICAgICAgICAgICAgICAgICAgICAgICAgICAgICAgICAgICAgICAgICAgICAgICAgICAgICAgICAg ICAgICAgICAgICAgICAgICAgICAgICAgICAgICAgICAgDQogICAgICAgICAgICAgICAgICAgICAgICAg ICAgICAgICAgICAgICAgICAgICAgICAgICAgICAgIC AgICAgICAgICAgICAgICAgICAgICAgICAgICAgICAgICAgICAgICAgICAgDQogICAgICAgICAgICAgIC AgICAgICAgICAgICAgICAgICAgICAgICAgICAgICAgICAgICAgICAgICAgICAgICAgICAgICAgICAgIC AgICAgICAgICAgICAgICAgICAgICAgICAgDQogICAg ICAgICAgICAgICAgICAgICAgICAgICAgICAgICAgICAgICAgICAgICAgICAgICAgICAgICAgICAgICAg ICAgICAgICAgICAgICAgICAgICAgICAgICAgICAgICAgICAgDQogICAgICAgICAgICAgICAgICAgICAg ICAgICAgICAgICAgICAgICAgICAgICAgICAgICAgIC AgICAgICAgICAgICAgICAgICAgICAgICAgICAgICAgICAgICAgICAgICAgICAgDQogICAgICAgICAgIC AgICAgICAgICAgICAgICAgICAgICAgICAgICAgICAgICAgICAgICAgICAgICAgICAgICAgICAgICAgIC AgICAgICAgICAgICAgICAgICAgICAgICAgICAgDQog ICAgICAgICAgICAgICAgICAgICAgICAgICAgICAgICAgICAgICAgICAgICAgICAgICAgICAgICAgICAg ICAgICAgICAgICAgICAgICAgICAgICAgICAgICAgICAgICAgICAgDQogICAgICAgICAgICAgICAgICAg ICAgICAgICAgICAgICAgICAgICAgICAgICAgICAgIC AgICAgICAgICAgICAgICAgICAgICAgICAgICAgICAgICAgICAgICAgICAgICAgICAgDQogICAgICAgIC AgICAgICAgICAgICAgICAgICAgICAgICAgICAgICAgICAgICAgICAgICAgICAgICAgICAgICAgICAgIC AgICAgICAgICAgICAgICAgICAgICAgICAgICAgICAg KLh5W2ehBRNzIVHiPN8dYVx2Xx8+KTdKJcUcWJS0riLsaY7DIR4tu5WjSZyiZWQly2LwZWf1LB1ODUPf ZBttQB4ZDXzhsc6ZWNOoLASidLRDb8nkLnTpUQW5GAPbZnupWH3SMEYzV9nlmxYzBBSrKAEMCBjpWFYX ONkfPGFYAMYqCXOjRrNpYaRjJYAuMT0LWWBpC824qa PvOX0EZd2ZXmKoPE2pub5KIvyqXAKvLvdLUmm3VIcsLI6ImNKqwKIeXSQnHICSDbZgO0idk9HiVmedBA ZHTPzjPZ9Wg4NegTLbFPd+Ox4DUE1dz0DyXXjtJXMqKX9nrj1QRLtQImXwX2WouQplXLSqr7xdRTFlTU 5hlPWxRYT6SSjeGDvcg19sMaXdafvfOMKbKQDyQP7u IN3lWBTzMYGeKkG3WBMQXS2DEZTvQIFbdTUfCOAgHYJPBL9WDAsqEVA9YXWwroEdgHEwXFuhXF7HZVNw bnQgMjcgMCBSDQo+Ki9BIW4da6DjYCfuOJKtDT2byf1DLEvBMsPbY3Z8fMSbH4Y4RGdjCi2KGYUxNRLj VaCzRJWKRDraRP8ZRL2wenQ7RJ9AyUPtYBZuERFkkK RhOZi5G99afMJmDEhlKA1RPDT+Muriel+Pg0IQFYgFCHwMOFxRiYuBXKPFrKaP1YmK0ZMl5UyO4FlCP84oT mkukMzKMdoHZ5ODL4dBTNfQQHLHI0TvOWxkQ9ltxQcEkEvRZMAUgNzY18bdMUuSEXgRTM5EBAqUh8XYU DbD3FmvxHfoTixhpPdFUEeWXIYFL2APSmofdWobGDa bHcbQA15cFhzNX9XMv2LOjGpNC4syn1MhRNmPi4WZRExEA7LSQUeZUDfHXCuMEB0ZJRpTkUnNYdnQEOq UFEpSNJ3YXLeAKTrBG3MJyAqJXYlXcp7XdovSNYcVXZukk9ZIFXnLSYoGUA8UlWmTTAkZTMdQIbjTZLg BKGzXQX3GSVfTOMtOV2WErMpZNTnUJS6RfNtNCIfSL Wwel8UOLJdHAYgStqhWIJlJZLcOOHyBCwnCECeNBQ9UKfwOQQrKANgXU5WHtOuZZJfLWdmLJryGBOeKH Lkwp6VXSQyTPQpAYJwRSPlRSOnEGXrROixCJUkFVOfFUZkQIEkTKBrAN1LKhDgOCDfKTS5UQZnTGYuWG Bnge4WFUReEIUrTumpQQNaLFFjWGEcWJeeKUNnXWA3 QXGoVNTlCMHzEW0LDiKtMNXeTKQ4TvHgMRHdKVZcqh3MXUJcNYAzKQeuIkDgNCDiZYNcDZuiCZJpDQX8 FQAnNSDxOXGiGM3KBgEhBDTzOOSbDWWuGCEhBMQgbj7VPCQtMACwKhH2ASXtQTMkTJWuYVrbCMGlATJ7 WqQ5MVOuVMIgQB7IZrYuNPAuJYa2KQWpTJYoJJQuah 0YIQUrDYByVHt2FHYwZSDaVSIeWHiwKYXoWTW6QuIwRGYjAYUlGX0HQeReTFNjWpe9PJwaUIZcAQCmop 7WKTEfNBQrGCZ7AJEbKIYdQMCtOVjgGQUgUPK1YNX1ZFFvBJXaNV2MUtEnJMUxGaBnSAHdCYAkNTWllw 0LKTRaCVTiMMV9HYMkXGAqGQXcWFwjJCEzKZCsQpFx CKSnCLXfPN6ZMzNjEICkFyB4USymIJUzPJMten3YnXXpcTdxqt7SYCfCEw4IiMjoGKSxJSqgBe2kkDFq KPClHXRVPw4BrdLhGPEePYFBEKddPCOjYAS7B7Z4B6CbUmR2JCrhBxAdRBLeJIVgSAOcIvuqNnF0GvT9 GDdmIfe6FNQyYaX1F1XzG3OlE2VuYpD0OjA6UCZsTF k+CA5gLGs+Yy3Yy4BzjlE8ftQtYJuvRdV5Wh3OCOWWI3XUEg== ID Date Data Source [id number] 01/30/2021 09:22:00 AM EDT [facility] Name Value Range Interpretation Code Description Data Sheba rce(s) Supporting Document(s) Hemoglobin A1c/Hemoglobin.total in Blood 5.6 % [facility] Lab Result Notes: Pre-Diabetes 5.7 - 6.4 % Diabetes = or > 6.5% Glucose mean value [Mass/volume] in Blood Estimated fr om glycated hemoglobin 114 mg/dL 60-110 [facility] ([facility] ID Date Data Source [id number] 01/27/2021 07:30:00 AM EDT [facility] Name Value Range Interpretation Code Description Data Sheba rce(s) Supporting Document(s) SARS-CoV-2 RNA Resp Ql DAVE+probe NOT DETECTED [facility] This lab was ordered by EDISON colby and reported by EDISON Villafana. ID Date Data Source [id number] 10/24/2020 08:34:00 AM EDT [facility] ([facility]) Name Value Range Interpretation Code Description Data Sheba rce(s) Supporting Document(s) Microalbumin Urine 30.0 mg/L 1.3-20.0 [facility] ([facility]) Microalb/Creat Ratio 9.6 ug/mg 0.0-30.0 [facility] ([facility]) Urine Creatinine 314.1 mg/dL 30.0-125.0 [facility] ([facility]) ID Date Data Source [id number] 10/24/2020 08:34:00 AM EDT [facility] ([facility]) Name Value Range Interpretation Code Description Data Sheba rce(s) Supporting Document(s) Cholesterol [Mass/volume] in Serum or Plasma 149 mg/dL 131-200 [facility] ([facility]) Triglyceride [Mass/volume] in Serum or Plasma 51 mg/dL 30-150 [facility] ([facility]) Cholesterol in HDL [Mass/volume] in Serum or Plasma 71 mg/dL 35-60 [facility] ([facility]) Cholesterol in LDL [Mass/volume] in Serum or Plasma by calcu lation 68 CALC 50-159 [facility] ([facility]) ID Date Data Source [id number] 10/24/2020 08:34:00 AM EDT [facility] ([facility]) Name Value Range Interpretation Code Description Data Sheba rce(s) Supporting Document(s) Glucose [Mass/volume] in Serum or Plasma 80 mg/dL 74-99 [facility] ([facility]) 100-125 mg/dL PRE-DIABETES/FASTING >126 mg/dL DIABETES/FASTING Creatinine 1.0 mg/dL 0.6-1.3 [facility] Urea nitrogen [Mass/volume] in Serum or Plasma 23 mg/dL 7-18 [facility] ([facility]) Sodium [Moles/volume] in Serum or Plasma 140 meq/L 136-145 [facility] ([facility]) Potassium [Moles/volume] in Serum or Plasma 4.6 meq/L 3.5-5.1 [facility] ([facility]) Chloride [Moles/volume] in Serum or Plasma 103 meq/L 98-107 [facility] ([facility]) Carbon dioxide, total [Moles/volume] in Serum or Plasma 29 meq/L 21 -32 [facility] Alkaline phosphatase isoenzyme [Units/volume] in Serum or Pl asma 55 mg/dL 46-116 [facility] ([facility]) Calcium [Mass/volume] in Serum or Plasma 9.3 mg/dL 8.5-10.1 [facility] ([facility]) Aspartate aminotransferase [Enzymatic activity/volume] in Serum or Plasma 23 U/L 15-37 [facility] ([facility] ) Total Bilirubin 0.5 mg/dL 0.2-1.0 [facility] ([facility]) Alanine aminotransferase [Enzymatic activity/volume] in Seru m or Plasma 27 U/L 12-78 [facility] ([facility]) Albumin [Mass/volume] in Serum or Plasma 4.6 g/dL 3.4-5.0 [facility] ([facility]) Proteinase 3 Ab [Units/volume] in Serum 7.9 g/dL 6.4-8.2 [facility] ([facility]) A/G Ratio 1.39 CALC 1.00-1.90 [facility] ([facility]) Glomerular filtration rate/1.73 sq M pre dicted among non-blacks [Volume Rate/Area] in Serum or Plasma by Creatinine-based formula (MDRD) 59 mL/min [facility] Glomerular filtration rate/1.73 sq M pre dicted among blacks [Volume Rate/Area] in Serum or Plasma by Creatinine-based formula (MDRD) Laboratory test result [facility] ([facility]) <content>CHRONIC KIDNEY DISEASE STAGING PER NKF</content>
<content></content>
<content>STAGE I & II GFR >= 60 NORMAL TO MILDLY DECREASED</content>
<content>STAGE III GFR 30-59 MODERATELY DECREASED</content>
<content>STAGE IV GFR 15-29 SEVERELY DECREASED</content>
<content>STAGE V GFR <15 VERY LITTLE GFR LEFT</content>
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
<content></content> ID Date Data Source [id number] 10/24/2020 08:34:00 AM EDT [facility]) Name Value Range Interpretation Code Description Data Hseba rce(s) Supporting Document(s) Hemoglobin A1c/Hemoglobin.total in Blood 5.2 % [facility] ([facility]) Lab Result Notes: Pre-Diabetes 5.7 - 6.4 % Diabetes = or > 6.5% Glucose mean value [Mass/volume] in Blood Estimated fr om glycated hemoglobin 103 mg/dL 60-110 [facility] ([facility] ID Date Data Source [id number] 10/24/2020 08:34:00 AM EDT [facility]) Name Value Range Interpretation Code Description Data Sheba rce(s) Supporting Document(s) Leukocytes [#/volume] in Blood by Automated count 5.3 x10*3/UL 4.1-10 .9 [facility] ([facility]) Hemoglobin [Mass/volume] in Blood 13.1 g/dL 12.0-18.0 [facility] ([facility] Erythrocytes [#/volume] in Blood by Automated count 4.31 x10*6/UL 4.2 0-6.30 [facility] ([facility]) Hematocrit [Volume Fraction] of Blood by Automated count 36.9 % 3 7.0-51.0 [facility] ([facility]) MCV 85.7 fL 80.0-97.0 [facility] MCHC 35.5 g/dL 31.0-38.0 [facility] ([facility]) MCH 30.5 pg 26.0-32.0 [facility] ([facility]) Platelets [#/volume] in Blood by Automated count 275 x10*3/UL 140-440 [facility] ([facility]) Erythrocyte distribution width [Ratio] by Automated count 12.5 % 11.6-13.7 [facility] ([facility]) MPV 6.6 FL 7.8-11.0 [facility]) Lymph % 36.1 % 10.0-58.5 [facility]) Mid % 7.5 % 1.7-9.3 [facility]) Neut % 56.4 % 37.0-92.0 [facility]) Lymph # 1.9 x10*3/UL 0.6-4.1 [facility] ([facility]) Neut # 3.0 x10*3/UL 2.0-7.8 [facility] ([facility]) Mid # 0.4 x10*3/UL 0.1-0.6 [facility] ([facility]) ID Date Data Source [id number] 10/15/2020 01:54:10 PM EDT [facility] Name Value Range Interpretation Code Description Data Sheba rce(s) Supporting Document(s) Progress Note [facility] FZDTTc3nQfELCcTq47/BICdiTQGue1ScIZxfARp1GYpsEPHfA3QjGWV0tE9wAYQ9MGfUDlEaMzKhHRU7 lbm ZxAheYTsOeENLtCipWVjEdJOrlChvnwSCqCT1IlBS8XBWoN32dEUOnEXBhP2LuUVQgUjD+Ly0DAPRvtR VzYG5MDilD1J3yF+TVAw2uNs0ZSMSsEeLddpxIHgJxSlpGqFHZfXPmTWemZUWir1mW9j+M0wcAn2R+3c 9+Af7R4vi45yl4ckjsAAuS8y+yRn7VZJwr35/vfkaJ ZmiQ0y0/QlOZIQo42odbn2y9TE4FcTtVnz+e++MHP+2bjTeOyWYz+iuHy8SKs75PM3aP8Q2Q3rsNw2PL qtk7v/iWmoOVnS+7szGAdVxrgoxSRz8/5vW++vordJaTmxtY9YIljIxOR41I3I1L4wlFjVATxyafVFFC YyAg9YNFn2kE/yqcWuxChdb0H4pD1njkCDr137gl8p kUzU6yZHKGkONh0o9phA427f0i3NyWseaa3aEGcCkLg1PW6hNN+uOXbxZ3wFRHTUMGe89HU9B/oykbhF SnDEAvKDniNrsUAApbt0P6KgH+3899gbura681BJ1LCjdERwgg8Clm+rseFsup/lYAUdd2dAQx+vwwjm fo2/85p39lpkrTCGUaZdrsL/UwU5lOKji7EnKdkace OOovpWdrP4gdC4q8XmE2+HgBu6b0r3bvD0/pkoDJlH7iwAvJ0kvFupl8gzeo3ToVuLtKJgXb48sqj+GV cojcYx6f3GiUVwJwu49S1z8NqI+Dm9jpw2YAD7QFZ1bxdf0eisnf/Hs4+lAOwJId92yV2Go1ba3yFmIY npMxTraCf+WwXM8z+yQ2OwObCNlnAiVA5r2Y1wLZTB LJfk1pw1uqJwbU9Ot3eRfcqfTbVJrgc+PhLWdr66EydDtw973w7fywi5k/Ywd136Beubl9sAJxr3h2n9 4f1mYPLpWmkKzCXeT8Hu18I2L446zYkqf3aEI6hv4MY6akiDjys1miChMw03HqO0JyTByi0C5abp9k/P 7Zncee1hTveffwensv6QEt39VjVxDMPF7eOm9nxsnv [file] ICAgICAgICAgICAgICAgICAgICAgICAgICAgICAgICAgICAgICAgICAgICAgICAgICAgICAgICAgICAg ICAgICAgICAgICAgICAgICAgICAgICAgICAgICAgDQ ogICAgICAgICAgICAgICAgICAgICAgICAgICAgICAgICAgICAgICAgICAgICAgICAgICAgICAgICAgIC AgICAgICAgICAgICAgICAgICAgICAgICAgICAgICAgICAgICAgICAgDQogICAgICAgICAgICAgICAgIC AgICAgICAgICAgICAgICAgICAgICAgICAgICAgICAg ICAgICAgICAgICAgICAgICAgICAgICAgICAgICAgICAgICAgICAgICAgICAgICAgICAgDQogICAgICAg ICAgICAgICAgICAgICAgICAgICAgICAgICAgICAgICAgICAgICAgICAgICAgICAgICAgICAgICAgICAg ICAgICAgICAgICAgICAgICAgICAgICAgICAgICAgIC AgDQogICAgICAgICAgICAgICAgICAgICAgICAgICAgICAgICAgICAgICAgICAgICAgICAgICAgICAgIC AgICAgICAgICAgICAgICAgICAgICAgICAgICAgICAgICAgICAgICAgICAgDQogICAgICAgICAgICAgIC AgICAgICAgICAgICAgICAgICAgICAgICAgICAgICAg ICAgICAgICAgICAgICAgICAgICAgICAgICAgICAgICAgICAgICAgICAgICAgICAgICAgICAgDQogICAg ICAgICAgICAgICAgICAgICAgICAgICAgICAgICAgICAgICAgICAgICAgICAgICAgICAgICAgICAgICAg ICAgICAgICAgICAgICAgICAgICAgICAgICAgICAgIC AgICAgDQogICAgICAgICAgICAgICAgICAgICAgICAgICAgICAgICAgICAgICAgICAgICAgICAgICAgIC AgICAgICAgICAgICAgICAgICAgICAgICAgICAgICAgICAgICAgICAgICAgICAgDQogICAgICAgICAgIC AgICAgICAgICAgICAgICAgICAgICAgICAgICAgICAg ICAgICAgICAgICAgICAgICAgICAgICAgICAgICAgICAgICAgICAgICAgICAgICAgICAgICAgICAgDQog ICAgICAgICAgICAgICAgICAgICAgICAgICAgICAgICAgICAgICAgICAgICAgICAgICAgICAgICAgICAg ICAgICAgICAgICAgICAgICAgICAgICAgICAgICAgIC BuTWHbINHrWZq6A9omXEFqTWCzGJ4kDRs9Jg3+VVgRXgIbNSK4rsTdfG9LOM3hp9KwZIriKECxq5DeNT z5GN2PGIWrJImvAF8HQGgmfs5EKLKkRNBmuHIFu7aaDvRwTUX9THSpNydnKH7HHIZdS0fbewPxLOPmFK NUGF0GYvHrC2YgzS68VOGKWm5+DQplbmRvYmoNCjE5 PTXfj2KtUCw3KL8UAJLuEjdyj5AhCnInMKSBOHisAN7BRKO6WBTeAXZwGy9OTVSkG340hoGvUU9DNz2H NyGhCP2qer3CTdCuIEBbZljSQpn7BKtiDO1UcDMcBWuPfl0chaGoyzICj3UvfzDbgIPYBV5yTGJkVC7d aoPlaWzzVHVgUQDcDR5iIv5aIKKgSZE6QiX9TBXYSQ 0LHPZhNJGlvKWxLPNpMVQBZP1ZEKbtGWH4RCPidjJseTNaEJvkHS8LIHBfekVlOAxrFYJCDRt+Pg0KZW 5de4FrNAtlPFWgAE1gcw2LETwUAbCkM5V3sPXqP8V0VRkdGz2TOYPoCLBcTGeiGIRPREnuXL5IQP3aup T1PI0IsNLbIMIkPLRzeOHxWGa1E42sgPLtXJetHN6E ICA+Muriel+Mm1XNQGuKSCcLHQfNwRkUZMNZnWeL7WoV0OOy2ZvY6IbCL12nTjaeePqJUqdMT8ZSW2jOEWt KDPFDB7BkDCtoU2fxtFeGXTpLOMWYyIdF73hrYEoRCZaBQV6HWJpKo1YOCGeE1EuyeHxoXmbpqUdWITl OCGGQV3KLHcxayJrnLLxrPoaRJ39gKqtXJ9NGc4DGy WeMR5eii0DxVSgHv7WKJXvLz6VJDVjXSLmFQZwUZS9MDUgFmGjCMxtJVVjYKGdLHC3VSApSIHzMK3XWc DyWEQxYIv2CEKzSBTaCPUjwq6RBNXrMCIfIKEwKGBgIONfIPArLAlkHWBcSVTjHMC8KUYsOMMpFD7UYx WyLMFhUQM2JXZxZONzMXNowa3KDHWbBWFfTyveBaQv VMCtWOTeBDnwUWCxXLK6Beu9JIFiWRPaJS8YVkBaPCQgWLZ9KqIfLZRbBBWipp1XDODdEERtUNL0NQJr MDJySGHqZPcuMWShHZX2ZVE8IAWvDBOfSU3KQdWzMVBmXTMjYYViZDQaHJPozu4FIQLlTAHfImK5WHNw KQDyZNTxZYbsKHDbMPC2NGSzXXWjUGEcYA6DOrKdOQ WrULosVohyQWHpBGLnrb6QZWKjYQGqRKJ6NYJaBDLsBTYjIEjgUKDyGHX9FjZ5LMCvGUWwNW6YEjPjRT JqHTz4CyPhBATsSVLgmr9XMLNkVRNhABC5VNHlDENyPPZtIGcgCGAdQJDgMcAeTBNaSIYjII1NGzFkFT BuEaK2UeDoIOYwRVEqyi3ZVBRbUKElMWfgYzYcAQPc LNIaLLb6stSczOVaJEo1CP4HD2ArgsJqEhWBEg5Pm472VQStAGUmEi0XK3sxIe7tHQMnNHANLc9PSQf0 NZT5BYE9ZiD8CLK5WMX0EvLbWSYuVYJaSgv9FoOjDkf+NVd9SaA9QVu1AGs3Tno0NrXmETU4LGS6QoGz KGjmRAX0DE9nEMAMJp8+OZlhnMAuuPpsUWHEDcLhSLZ6SKvaKJUPRk5D ID Date Data Source [id number] 10/12/2020 09:38:49 PM EDT [facility] XR SHOULDER COMPLETE [id number] RESULTIn terpreted by:[facility] shoulder 2 viewsINDICATION: Total shoulder arthroplastyCOMPARISON: 08/24/2020FINDINGS:Status post reverse total left shoulder arthroplasty. Interval removal of overlying surgical skin kamar. No perihardware lucency is seen to indicate hardware failure or loosening. Normal alignment. No acute fracture or dislocation. The visualized portion of the right lung is unremarkable.IMPRESSION:Status post reverse total right shoulder arthroplasty without evidence of hardware failure.This document has been electronically bal d by Misael Grace MD on 10/12/2020 9:36 PM Name Value Range Interpretation Code Description Data Sheba rce(s) Supporting Document(s) ID Date Data Source [id number] 08/24/2020 07:07:03 PM EST [facility] Name Value Range Interpretation Code Description Data Sheba rce(s) Supporting Document(s) Progress Note [facility] QUVDAv0cDkPBPpBz26/HEJvnJAYii6FjLRnvQTu3QBnrFEPfR3IwBRT3uM3kPLC1SBqLBfPmPsRpPaV2 lbm [file] Cg== ID Date Data Source [id number] 08/24/2020 05:53:23 PM [facility] XR SHOULDER COMPLETE [id number] RESULTIn terpreted by:ANNA Haddadlinical history: Status post right reverse shoulder arthroplastyViews: 2 views right shoulderIndication: Check right shoulder arthroplastyFindings: The patient is a stable humeral component of shoulder arthroplasty seen secured within the proximal humerus. No evidence of loosening or periprosthetic fracture is appreciated. Glenoid component appears stable within the scapula. The components are articulating normally. Overlying anterior skin kamar are visualized.Impression: Status postoperative, stable, normally articulating right reverse shoulder arthroplastyThis document has been electronically signed by Julio C Kelsey MD on 08/24/2020 5:51 PM Name Value Range Interpretation Code Description Data Sheba rce(s) Supporting Document(s) ID Date Data Source [id number] 08/18/2020 02:33:07 PM [facility] US DOPPLER UPPER EXTREMITY UNILATERAL VE NOUS LIMITED [id number] RESULTInterpreted by:DELMY Napolesrocedure: Right upper extremity real- time compression venous ultrasound with Duplex Color Doppler and spectral waveform imaging.History: Right arm pain and swelling with history of recent shoulder surgery.Technique: Utilizing real-time ultrasonic imaging multiple real time high-resolution ultrasonic images of the right neck and right upper extremity venous system were performed. Compression real time ultrasonic imaging was performed in addition to color Doppler imaging and duplex Doppler ultrasoun d with velocity spectral profile analysis.Findings: Right internal jugular, subclavian, axillary, brachial, basilic, cephalic, radial, and ulnar veins are patent. Currently there is normal compressibility of the venous system. No current evidence of acute thrombosis. Normal vascular flow is currently identified.Impression: Currently unremarkable right upper extremity venous ultrasound.This document has been electronically signed by Mitul Johnston MD on 08/18/2020 2:31 PM Name Value Range Interpretation Code Description Data Sheba rce(s) Supporting Document(s) ID Date Data Source [id number] 08/12/2020 07:17:47 PM [facility] Name Value Range Interpretation Code Description Data Sheba rce(s) Supporting Document(s) Operative Note [facility] WIDNAh3qJrPBUyLl90/YYTcySILjd6EmQGrrZZp7VAwbRFGqB8AvUYS1aI0tCNQ8QKqDUwXjGvTqEtPk [facility] [file] AgICAgICAgICAgICAgICAgICAgICAgICAgICAgICAgICAgICAgICAgICAgICAgICAgICAgICAgICAgIC AgICAgDQogICAgICAgICAgICAgICAgICAgICAgICAg ICAgICAgICAgICAgICAgICAgICAgICAgICAgICAgICAgICAgICAgICAgICAgICAgICAgICAgICAgICAg ICAgICAgICAgICAgICAgDQogICAgICAgICAgICAgICAgICAgICAgICAgICAgICAgICAgICAgICAgICAg ICAgICAgICAgICAgICAgICAgICAgICAgICAgICAgIC AgICAgICAgICAgICAgICAgICAgICAgICAgDQogICAgICAgICAgICAgICAgICAgICAgICAgICAgICAgIC AgICAgICAgICAgICAgICAgICAgICAgICAgICAgICAgICAgICAgICAgICAgICAgICAgICAgICAgICAgIC AgICAgICAgDQogICAgICAgICAgICAgICAgICAgICAg ICAgICAgICAgICAgICAgICAgICAgICAgICAgICAgICAgICAgICAgICAgICAgICAgICAgICAgICAgICAg ICAgICAgICAgICAgICAgICAgDQogICAgICAgICAgICAgICAgICAgICAgICAgICAgICAgICAgICAgICAg ICAgICAgICAgICAgICAgICAgICAgICAgICAgICAgIC AgICAgICAgICAgICAgICAgICAgICAgICAgICAgDQogICAgICAgICAgICAgICAgICAgICAgICAgICAgIC AgICAgICAgICAgICAgICAgICAgICAgICAgICAgICAgICAgICAgICAgICAgICAgICAgICAgICAgICAgIC AgICAgICAgICAgDQogICAgICAgICAgICAgICAgICAg ICAgICAgICAgICAgICAgICAgICAgICAgICAgICAgICAgICAgICAgICAgICAgICAgICAgICAgICAgICAg ICAgICAgICAgICAgICAgICAgICAgDQogICAgICAgICAgICAgICAgICAgICAgICAgICAgICAgICAgICAg ICAgICAgICAgICAgICAgICAgICAgICAgICAgICAgIC AgICAgICAgICAgICAgICAgICAgICAgICAgICAgICAgDQogICAgICAgICAgICAgICAgICAgICAgICAgIC AgICAgICAgICAgICAgICAgICAgICAgICAgICAgICAgICAgICAgICAgICAgICAgICAgICAgICAgICAgIC SoLKNgLUEzFHKnKAUdLYj6B5zgUGMtEAQiJB4sRIh0 Jz8+HPzWDaJeCZL8yzDqnH3YVH2aw4SqRFzrQWEpk0FbQOn7AR0ESTZtTJcyBP2MCIjnmq9OYXGySIHo fTOHz9nrVgIsDHX7GZXaNsfqTT9TBAFoQ4wvvtZnJOIzBRSGLRvvTVERTLmjQISHCW3FWrZcN5RmtJ04 IDMNCj4+TKwitmVeIzbFVcJgFNSoj7ZbMLq5QX0FLA FjNmque2FiKoSbAIYPHSxvOW9APKA2HKOuZIUiCf4EVSLpB941doKzQU7VKj1VPtUoSC4irn1OVgRzLM VtPhsSJdh9DXtuDU9MlQLwDQsBzJSyOUDcarAqWy61FJLklLPDBIEibhIZZLTszHYurpdpJZZiACJdPh 3hYW2aGADkOLVsJvRzFWOXXZ6MPHDxCPRqvJOuWAYl OAVLFG3DDDahBZY8KREgyyShbPVaKUegKA6KRVNuddLeMcVkWKCLDQn+Io0IGZ6xe0PdYTujUuUxJH7o ck9LLZmLZoTvZ1F1iUQsT0F3KYlmWc9SKPGrZOZuNBszPSEEGSpaYT5GYA2affB4ZG8MfDCoEZHkVHBc jZUcLRr8A56kyTTeAJzkEV8RKKW+Muriel+Na4NIBXuAC PfGCBtWpEbHDCZKkTyC2YlE0OQc0OtZ7LtIQ66rJfylmVyBWypMO3TPR5ySHXqWFUYGU0LiWLebQ1rqf KiKSTrMSZSVnHdB50czNAwJAIiNHPpRACiPe4ORCTrW6ZkquUoeQbzksEjNKBgLZTUUX2YZNngzjFrxX TnxTcdHC02pUooVF9TZw4ICtCiDT8exg4UxGWgZj3P RWUfXF4KWRAyKFXtRYFyROY5VVSeMrWnXNvrDUKtAJLkYYE3ZWSnNVKcBC6KGnBcXBXfRRV4RcMnWHWh AGPkce0AODPoAAYaFRN6DRJjEXYqTJSvBEwwWOAbEEGpGBV7MFBcKKPeUJ5ZGjBcOKPfEFUkVwzoCGTa JZIipr7EOHWlOHAcJhG0IjGrKMYpWSIjSBnpEWYzEC P9RUnyXCTfCEGyUM9ESyXpDGXeGQpsEQnoUJVpPORmcj5CACKhASMrAQL1QVRhSTYdUYFcNUlzVEEfUT G6Ryv8ZHIoEDQtQQ8LDnRgSIXuSYi9RjkhPRNuPJZzsj6DINBgBLZgDWjvSNRhAUXuFHFaMZveBQNgDG KiSTW9GCCaGFHiMW2MEwImOPEyXMDxCbklGTOmXOYo ik9TRJLfGTVqOAG9VBIbCLAiEAQvCFtfSUUzSHWmQFT5YNXlZKOsJB0XSgUsITYiUVG8GqypVTVqXAHl gm8QCCDjFOQqDoUoAZDzKKSiTFToONrpAIJoUIDhTKW1TFPeQFVwOX3BLaUaLOSnRUEgPvWsAATaARAk eq1YKZLmZKSfRZF5HVApWDRuBFWmLDwcNUFnKWP5Ls OiQIOxIYBtBW1QNwWtSNLeKTA4FVLpKCOhKQBnqv4LcSAqlDsyiq8AXNvKWk0NqRvbEVU3MImbKz1dyB JkOaHvAHOBFh0WbuHiGMHzIUKNBWmrJZIbHXBsZlyaUAmlFDelRcEuQMVaSNX4SmDsHLKhSZVzDDEcFy W2UUWkTKUbAMH7WQZsCGG1ZOR3FvfoCuWwIHZzP5Dn ZGE+QU3bYIp+Tx3Ic2BgtzZ5eqUgLQrmFPW5AA8MTTTZQ6JPRi== ID Date Data Source [id number] 08/12/2020 11:57:43 AM EST [facility] Name Value Range Interpretation Code Description Data Sheba rce(s) Supporting Document(s) Discharge Summary [facility] YXYXBv8qHgXSTsZu40/FDYwzXJWth6XiEYmnCFu5ACptTKMcT8AiRMX1oF5kQFA4PHuLVbUeRiUiIrVr lbm [file] GpV9a07R7EkdPLp4UXUE4IbQbVECFHHQrgcNngp7hdPh+Sm3/1ts8B5mG5aEyZgVzmNATYGg5Vln/pipe chipper [file] AgICAgICAgICAgICAgICAgICAgICAgICAgICAgICAg BGYlFDXdHVZzLINiFJAiBGEaHBVzJRQlPWClYUEdJJRnZFYdJQDjOZIkIHDiRNAdNYDcCIXrLEMaEU4V ICAgICAgICAgICAgICAgICAgICAgICAgICAgICAgICAgICAgICAgICAgICAgICAgICAgICAgICAgICAg ICAgICAgICAgICAgICAgICAgICAgICAgICAgICAgIC TkRWLpLVMcRW8LISGjYSLfAFHsLJIyPPYrOGKzELBvGZKiGLZiIEBnXTIbBQAcZYOdXGZbPHNgDDMeTW GoDVNfHIMpUHCqRGXkECKcALXrGJRnNOAdCUMrPUAzTTYkMWLiIHNbVFKyXCJpYHCdYV8XHXGbHCZyHB AgICAgICAgICAgICAgICAgICAgICAgICAgICAgICAg ICAgICAgICAgICAgICAgICAgICAgICAgICAgICAgICAgICAgICAgICAgICAgICAgICAgICAgICAgICAg OD9JGHYnWRNpFXCdGRQcZBKuWZFkHNXyMGYgCXNoWXGtKSGtRDBvMHTcOKLxNCBiFSTzBZSfJVIyQKWi ICAgICAgICAgICAgICAgICAgICAgICAgICAgICAgIC XzGXTtXYIgJALoZR9FNJPsFMFkCLHmNLSzFDAgXDKxGGNkUOQaWFSoPSJlSNPdPGMqKUVbUBQpMEOeRD KeHPPyNVCeGPCoRDBiTGXsQHXrFNIdICAaNUBlKOJsELVfLZAfHYHuRAFqFQDqCVDvQRUmUF5GVOPgYX AgICAgICAgICAgICAgICAgICAgICAgICAgICAgICAg ICAgICAgICAgICAgICAgICAgICAgICAgICAgICAgICAgICAgICAgICAgICAgICAgICAgICAgICAgICAg RQVyTQ0EHVVrPLMnQJCkOHDwVGJjLEZySQAkOSTmFRBlABCoHFQxJQSaZGEbMFUrTWMtTSCqNRZnJKYl ICAgICAgICAgICAgICAgICAgICAgICAgICAgICAgIC OfRQWrEZCyXWMvBGKwRC3TFAOxRFYlSAUuBHHeQRBjTLZtFEBhVSFjSKLnOATrRDGsLCWpFVIyGZXlTZ KsHJLkERVoEGAmZNWeULIsQTBdWYJfCEDnAVDsUCDhYZLmPDAeIRTrBPUqRZCjTYQgABOaUCQaTZ4CGX 53gSInu2K9CACsUK9ruaq/Bu2MCCododBisUOxNG2H LwYyPY3thz1RWcStNR0sfx0VMWrAWlMsY1G6bDMjVUNeSQBDRwIlG06mJLouYb17WQdqKBOgVhHqVBg7 Hu4DTtNiF9laZPSiNvD1SLLtVoF1ZFYePsN4FPNsQjAnBBYrQDMtTB3MFIYbF234lxJpPF3XRj6CZjUm IU4vot2IKgusCGRaHznAFas6SLvxRW1ZeQDneWHfNS DpCSZCWtAuP1lam6OhOyghYYOVYBzkRA0Kp5SokLYsVFg+Cd2ZQG4al2ZuCRkxDSXnQF7qcz3GCWdHNf HmB6KqpYbmJRKxi6JsCPJuRREJyJ9vUHJ2URB3RADsImSeX9GkIcXDuvZ6uPDrLXRRPUOyzTRgIcI6Yv KsKnZaRXJ0BCUcDT8tMHwnNR0AKKE9MAmuDRIxYKMt S6rQXoMdSGJnFaOclQmyCD7ZPbSaD4CzpwResHBeOYCvAKDCAb9+PMxcsiEjBxrCOsAwKCByc0ArELe4 AB2LLJUfUGxqSO2PVYAzvK8uRBnoOP7UHlLgJvJiMKVKTpAkY17fcGUwBDv6F6YaWqIcTHKzPfhgNKSh PDwvTmFtZXMgWyBdDQogID4+ID4+CPifJB3HVEgwpm AeLLEjNe5WKSUnOZVsAV3eMIZbKERoR0J7aZivQUJTJiEjL8rmshwfCN9fIEAzB755dNvglaSuTFT1JQ VpIs6IQVQaGGA9IOKicVRsWrzkQRJXTQxhZU2SsRUjTVB1aX8sHXlhMSFtQATfF9rFKoOmnRtgJI16jG wgbnVsbCBdDQo+Ni3ODV3ri5JbRJc3qqGtMEdbOJNc BRkuJUBrCORdJPYuDGQ2MDU3WASJKuXfPUNiUCPaTQxrONSdOBXzle2LKLYsENUnBRZ7RPSfPADeYXXp KFhjIRTzHLZwTwE3HNXqTZIwHS2RUtOdAYVlROVnVUfeFTIjLFBlld1ROGLgMYOiCtw0SbLaRPFzGGAn NJpvOCNjRTBeRLh2KAHwZUJlMS2ZHvNjBIIfAEPiDX flYGDwXDXbgw5DOEHiEDXcGcT2LfZxWHIsVKCqNCeqDSVpKPQ5YtDzYPQkHEFkPH6HQcBwHIUiXQh0Ft hdXCZkXJIpir5FFBBtUMDvFHV7DGXjKWAgPPWvBLzzSQCfSQW2UnUqVWPaRQHdDH6ARxHuIAVwXJV9Zu ErTKYwNFRnol9VHJUkRUByEOcpCJPiSSBuYSRjMGzh NMMcPEHlORMbMIHfJUDbDY8GOlMhTSGmFYR9ZwNdCSRePOUnyf4KIYEeLDPoHuJ6JvEbLJDqPCUpQBpx IADzEYBlRhFiHGYoLNFnOI1ZKqQvYTHjPCMnOEJnULVlZFGupf5FCQNaUZRyVuVgNnBtPCEnBVCeVKjw SCJfRNQkXhirAAUzUEInYW0TLiXsQZXyKHx4MFYvHB OaVMIhwm4ZVLKzQMGeWFm6RsHmVLGfRRJvGBqwRMEzZEO5WSc1XFNvXWZnAH4IUgCpOVJeHHmlACEeRT OuKKFsgh5JCXFkQZGkWMY1RzKjKUIeHOTuVEamMCFmRGM6EHe0CYAbVQOzFT6POvLdSIMrZfBbMdUdYM IaDQRxdb2OCBJvIMXkHKJqIwTvLQIfIPPaMXliQRIj EIZkFOUrUJRnHVAyNS8UXkLfRUqaGRYDAwl8UCtnL5i5BJCaVS9UW8Xvv7SeGoAfVJKBVImeBA2olzMb LXCxDi3TK0uDSmzwXxG9PQY2AVQxQZxgDrQfJMOcGxGdA6FmZ5CoGhc6XA8nGPG4QBSlUPe2FFDiL5Wz YWJaRDM4PPV7KRVyI5EuVIFiXqNbCD6IKh8XMxR6QBU0fQYfUq6VKdG6TYMJUnAlGS8CMYa= ID Date Data Source [id number] 08/11/2020 10:59:17 AM [facility] XR SHOULDER 1 VIEW [id number] RESULTInte rpreted by:Chace Faria, one view, portable dated the 08/11/2020.REASON FOR STUDY: Postop check.FINDINGS: A single AP study of the right shoulder was obtained with portable technique. Patient is status post reverse total shoulder arthroplasty. Prosthetic components appear to be well-seated and aligned on this limited single AP view. Expected perioperative soft tissue changes are seen along with a row skin kamar.IMPRESSION: Normal appearance of a reverse total shoulder arthroplasty postop.This document has been electronically signed by Chad Naranjo MD on 08/11/2020 10:57 AM Name Value Range Interpretation Code Description Data Sheba rce(s) Supporting Document(s) ID Date Data Source [id number] 08/11/2020 10:48:33 AM [facility] Name Value Range Interpretation Code Description Data Sheba rce(s) Supporting Document(s) Glucose [Mass/volume] in Capillary blood by Glucometer 95 mg/dL 70- 140 [facility] ID Date Data Source [id number] 08/14/2020 01:03:00 PM [facility] Surgical Pathology ReportName: Talisha VELAZQUEZ MICHELAEMRN: [id number] Number: [id number] Date: 08/11/2020 10:03Received Date: 08/11/2020 13:03Physician(s): SIMI ORTIZ KEVIN JCopy To:SIMI ORTIZ JSpecimen(s) ReceivedA: Right humeral headClinical HistoryChronic right shoulder pain.DiagnosisBONE, RIGHT HUMERUS, ARTHROPLASTY: DEGENERATIVE JOINT DISEASE (GROSSONLY)./Mansoor Randolph M.D.;Resident PathologistElectronically Signed By Lelia Arreaga M.D., Attending Pathologist08/14/2020 13:03:41Processed at [facility] at [facility], [address] [place] [address]. The attending pathologist named aboveattests that he/she has personally reviewed the relevant preparation(s)for the specimen, performed microscopic examination when indicated, andrendered the final diagnosis. Unless 'gross-only' is specified, the finaldiagnosis is based on a microscopic examination of transportation services representative sectionsof tissue.Gross DescriptionThe specimen is received in formalin labeled with the patient's name"Virgie Velazquez" and "right humeral head". It consists of a 4.5 x 4.5 x 1.5cm hemispherical portion of firm bone. The margin is linear. Thearticular surface is coy-white, smooth, and focally eburnated. The cutsurface is yellow trabecular bone which grossly devoid of lesions. Grossonly. No cassettes are submitted.CTC/pws This report may include one or more immunohistochemical stain results thatuse analyte specific reagents. All positive and negative controls havebeen reviewed by the attending pathologist and are satisfactory. The testswere developed and their performance characteristics determined by [facility] Pathology department. They have not been cleared or approved by the USFood and Drug Administration. The FDA has determined that such clearanceor approval is not necessary. Name Value Range Interpretation Code Description Data Sheba rce(s) Supporting Document(s) ID Date Data Source [id number] 08/11/2020 08:38:06 AM [facility] Name Value Range Interpretation Code Description Data [facility](s) Supporting Document(s) History and Physical [facility] LZGQUs1eUjFKZoSz68/LBAcbQNFmh7YpMSvrLFc3JOcgMVHeC7IyMYL1zB3nYVF1XJzNGeHtWvZmErG[facility] [file] lead level designer+6QpUvqAu469NdD5FYuD54XBicTecOUHZOFPrtsjU30uWCHzRuf3fz0Sfw2C9hoB5w/f8ruWFK2aY [file] ICAgICAgICAgICAgICAgICAgICAgICAgICAgICAgICAgICAgICAgICAgICAgICAgICAgICAgICAgICAg ICAgICAgICANCiAgICAgICAgICAgICAgICAgICAgIC AgICAgICAgICAgICAgICAgICAgICAgICAgICAgICAgICAgICAgICAgICAgICAgICAgICAgICAgICAgIC AgICAgICAgICAgICAgICAgICANCiAgICAgICAgICAgICAgICAgICAgICAgICAgICAgICAgICAgICAgIC AgICAgICAgICAgICAgICAgICAgICAgICAgICAgICAg ICAgICAgICAgICAgICAgICAgICAgICAgICAgICANCiAgICAgICAgICAgICAgICAgICAgICAgICAgICAg ICAgICAgICAgICAgICAgICAgICAgICAgICAgICAgICAgICAgICAgICAgICAgICAgICAgICAgICAgICAg ICAgICAgICAgICANCiAgICAgICAgICAgICAgICAgIC AgICAgICAgICAgICAgICAgICAgICAgICAgICAgICAgICAgICAgICAgICAgICAgICAgICAgICAgICAgIC AgICAgICAgICAgICAgICAgICAgICANCiAgICAgICAgICAgICAgICAgICAgICAgICAgICAgICAgICAgIC AgICAgICAgICAgICAgICAgICAgICAgICAgICAgICAg ICAgICAgICAgICAgICAgICAgICAgICAgICAgICAgICANCiAgICAgICAgICAgICAgICAgICAgICAgICAg ICAgICAgICAgICAgICAgICAgICAgICAgICAgICAgICAgICAgICAgICAgICAgICAgICAgICAgICAgICAg ICAgICAgICAgICAgICANCiAgICAgICAgICAgICAgIC AgICAgICAgICAgICAgICAgICAgICAgICAgICAgICAgICAgICAgICAgICAgICAgICAgICAgICAgICAgIC AgICAgICAgICAgICAgICAgICAgICAgICANCiAgICAgICAgICAgICAgICAgICAgICAgICAgICAgICAgIC AgICAgICAgICAgICAgICAgICAgICAgICAgICAgICAg ICAgICAgICAgICAgICAgICAgICAgICAgICAgICAgICAgICANCiAgICAgICAgICAgICAgICAgICAgICAg ICAgICAgICAgICAgICAgICAgICAgICAgICAgICAgICAgICAgICAgICAgICAgICAgICAgICAgICAgICAg ICAgICAgICAgICAgICAgICANCjw/oSAlN6zfiOWwfy P5I8jwPg9SHv9AHQ3vi8AcZHPpVXvxfbMjVrnMGjHxKQOiXsrJVuu6TQhfRU6ZiZHeI7QnZ7BmUWhoOY 5TMXHgMVEibRIsWDXlPNWbJxY3NSWhZThvAR9NeZDlWJsvKGVrOVHeLkEdJVUnGEWyMDTnYCYjHYQVFP CnMUWjKnSzISvlMR1Zl5XccEH8QZe+Mc7SGS0ki0Vp ZPzlYCIeQA8xxx0XLOsGWhZcW2ZaaoZ5VEPyVNBeAr0NMGZfFUCkaJGaTVOiARQPFdItQ0FnbL85OQNT Cj4+ZJoycmYhBleJOqOzWNGwe1JcBCp3OP6ZESAyJTc0oOZtIKTSFXD0ITgawyirSUlsS8V4sKYqMMND VOPdaBGfFnL8AcRpPyZqDCc5AlviWS2wIAiuCR6JQX F8CAmcWXZzYINoF7qNMtSjUXHkEeJquDsmGJ6BJnLpF2AnurRoaLXjJUShEHGOAi4+DQplbmRvYmoNCj KbPNUja6PcTJp0VK8QONSeNNqqJD7DUDPnnC5wZCcuUX4HIsYpMSCfRGNAYxRrP37lwFYeAAp6E9QvKw VkZGVkRmlsZXMgPDwvTmFtZXMgWyBdDQogID4+ID4+ AScxLX1BDExlogXjWVOnCj1EGDMxVJDbVY5lTEXlYRTcJ4O0aDhkMIURGxGdN3snnnhhSB5jLKCnD918 vNmxjmBuIKGvDJZjKf7QMBHpSFC4LJYekBRqPbiyADOZSQofED5YgCIgVUN6iA8pVHjzLGPtRUAjF6vR PlZwiTieNB73yDovwiOhlBRfQZf+Ey9JGG7zm0PhXZ s0vvAaPUeqPSDgKBhvVFTmRJDmPSIwXCC1CHM8QUHPTvJgJMEqQYAuSVttMFUlCYRaha8VGYBdERK3Wr L4HiEqDVHsTUHkSHnuWNNgZVO7OrC5RNFcYADhKS9TPgXoKGIpUUGaHZxvDVGjACCjwl1GHILcOPHgNd PaKnSpGQBiVVDhUSjgYOJkBVHvMZA9PHGbDETpBP5X WxLeMHXuIJP7DtnjQNXtKGExlp7NDQZvQOWnKZd7BiUeJWYiFLHdRJosLPHpPQH0GQT5ZXViGSMhBR0Y AqJjOCFfYFxeYVviHOOnKGLkwg5YDRVqUMSoXLW4TeIvIPKfZMYeTLtpCSGiMMZhMwt3ROHaZRNkMQ8L ItSoRPKfKFZ1CVJcEYNlJFIlkw6SIOIuRQMuBmj3Jd HzFHYvMHKdPKqaDLQkLVUwXMH0UFCfVBAdTL8UThWwBDEtAVLoRFQbHLBsGJVsng0DERAxSJKyUHV0Jm EyYKCjRZUbUElpIPAvKLR4OaA7BILmVZNmLZ9WTiFvIZQdUOT5ABlnHXLkODRpby7YTUUnNOJaMDKrEA UlQJTsTEDgFYwsELRpQTWbBtHzFEFuIZKlSG9HJpQn PFJcVJWaNrTwYSXoJPEbrp6NTSLoXPU6DCJ0DvBePEDxQXUrSNhfMTNzBVXeYDU4QJHbGAUxHN5LOfXu SHHyQHMjWqWmZIDzSJNmim6OPAUcZDS1BqInLJCuPVGwSAEtYNrgURWpZGPtRytcVKJxWQNsAI9UGrEb QQVmGMG2NjAqXNFgCQGysc5DDTGjFJM8Fhf2AAPgMI WmJFMaBDusXSHfEBK0KHLaBUCoVHYnDV7OSbNfFTNvVES0MhFoBNExHKHwlk3JBNIgMBO4XCU5QFNzTT BjPASdUBd5inYxxORuRRo2TW1KR8UpveRnToFOCy3Ii013ZNLgFJXfHa8LE6ezYh1gPYQbXHLQAc4AZL a3GSYpIDH9XRHuWoH9ZHOwXYQwYTBvTlFcCRJaHRT5 MTc+ELotEKN5MLfkHtUvMOe0UTA2LlV5RYJcBUJmYzC1UffuKc9gASXANw0+DQpzdGFydHhyZWYNCjQ1 WNP1YAutJLFRCp8A ID Date Data Source [id number] 08/11/2020 07:30:51 AM EST [facility] Name Value Range Interpretation Code Description Data Sheba rce(s) Supporting Document(s) Glucose [Mass/volume] in Capillary blood by Glucometer 74 mg/dL 70- 140 [facility] ID Date Data Source [id number] 08/08/2020 12:00:00 AM EST [facility] Name Value Range Interpretation Code Description Data Sheba rce(s) Supporting Document(s) SARS coronavirus 2 RNA [Presence] in Res piratory specimen by DAVE with probe detection NEGATIVE [place] This lab was ordered by Broderick Brooks and reported by [facility]. ID Date Data Source [id number] 08/01/2020 08:37:13 AM EST [facility] Name Value Range Interpretation Code Description Data Sheba rce(s) Supporting Document(s) Progress Note [facility] YNXGPl9dBqOJZfPp31/OXOwtCRJrs9EpSYrqQGx8PHtaYFZlW3HyOGG9yH6aEDP8NJtYYtLdCfFgHwD0 lbm [file] AgICAgICAgICAgICAgICAgICAgICAgICAgICAgICAgICAgICAgICAgICAgICAgICAgICAgICAgICAgIC AgICAgICAgICAgICAgICAgICAgICAgICAgICAgICAg MM7ERHBbWPGfNXDgQBZoWXDkLTXvHFXcFMUkZZAtVEIwTKNjTWNuGXQsQXZhBQXbKHJyMHUlMJGcNHZx KUFlBDBxKKQuZBIjPVLtRGEbIORkFVFrUKXaTUStLJMhGHIoWLKxTBFiPS8XUZUuUEXhGOAyHJGkVEWj ICAgICAgICAgICAgICAgICAgICAgICAgICAgICAgIC WvOORvZBGvNPDgEITiWSBkRFNlGAWzKCKoKISoFAMiQODlBFBvMCSdDENkPFLyXEYmRSFuIA1IIZWbBM AgICAgICAgICAgICAgICAgICAgICAgICAgICAgICAgICAgICAgICAgICAgICAgICAgICAgICAgICAgIC AgICAgICAgICAgICAgICAgICAgICAgICAgICAgICAg PPWgZW9DJOPiQMHxXJJcCYHtAMQgLXIkNDFlZIEgQMOnUDWeLVFiTQTgSYViGDHmPCTwFKBvUWUsSZEy KKCcSGWqIQSmMKEtDVUrNJUcCKNdIUVdHMRdSXSpBVOeQKIuDBEmERAnFYRpUU4PRFDpCCNlAOByXRCo ICAgICAgICAgICAgICAgICAgICAgICAgICAgICAgIC KeOOYgMZScKRWvZGRuGAYdIEFuVSCrGXYeSCDgDXNhSHCpHETwOFOnXONkDAWoNQTjKVBmLXEvDL4EQH AgICAgICAgICAgICAgICAgICAgICAgICAgICAgICAgICAgICAgICAgICAgICAgICAgICAgICAgICAgIC AgICAgICAgICAgICAgICAgICAgICAgICAgICAgICAg BTKyXPWiHG9HNWHrYZAySJWfHPZlXLRgJHPxMCJmOMRqHZCxCBNdXUOwBCWkSCDpFKFmYDLmDNWtKXVj KPCmXHFhURTxZRNcIDYhINNjBDDgQLMsEQUfLMXxCLHxMSOaIKFlVWIsUUTdXUZjPO9RZDNqGFDpHKYr ICAgICAgICAgICAgICAgICAgICAgICAgICAgICAgIC AgICAgICAgICAgICAgICAgICAgICAgICAgICAgICAgICAgICAgICAgICAgICAgICAgICAgICAgICAgIA 0KICAgICAgICAgICAgICAgICAgICAgICAgICAgICAgICAgICAgICAgICAgICAgICAgICAgICAgICAgIC AgICAgICAgICAgICAgICAgICAgICAgICAgICAgICAg YSXdHBTxXAGzGW5MHC77eFDsj8M1PHOgHY3oczl/Bz2YLJwdwjLqxXUgWC8HHzHlTB1yis3WQzUmTL1x qw6TJGkVVgZjB0G3uRZsWQUuDHLIOtPqE58lQXzxCp18QKsxQWLrOqZwXKz2Pv7EJpCfJ7qlGTOrOxA6 LVVnYuK9XNOwLdXoEWkhNO0Sb5SelGQpPSf+Pg0KZW 1ze8LxACoiPyIcOL9kcc1IZClKAiOsP7EoghI3DLE5TZBfSx8DIFGgCCQjaCJfQDMaQKYXNlWrT9BtjW 03NCBGEo6+XQulfgQeAogUTwF0HJQfx3IsPNj7SW9VKDEfGRl1nUHuHQIoQ1Uon1OkLy54ACTiImxkLJ eaxXIlzPSJJSPzvdkzZDqjss8DTWO6HRKkNZ8qSJMn ZBT1LiZhBZIMBL0SKBPlAMPxoSDeBONrFKQFOH8DJStrFQX3ZEYbfvZpwFDrNLxgNF5ZDISlwhEyTtNr MCBSDQo+Lc7GJE1jm6SxCSggHAMuBV1oob2XFZwXKcLsU8I5oJSvR3Z5YMytTb0OBERoICZkZcZdHSMI LWfoAF7VXF7pxwA4IV3JwFTnKWElYGNgdNYwBOb2D0 9asIMwOAhmWU6ICFP+Muriel+Jo2LTSXwVEAsDJIfMlJjZPOZQhUlZ0NuN2XIs3KzZ3DhVK70eTmqgrHgBI qzAE7GFD3rSXQvRIPZSS9DmCNeaO1mpfDtRlThIQOYCbFdW62hmACuSSAfEOWwSKFxYl0HKZFkE3Jplh FyjWtptaKqSRIvLUINMF3FJZmkjqXzuEVmtXvkHM61 yHzpZU6TOk8UDmUsWD0irn0NdVNnFj9WCKPxCf9NXLZzEBMnSCYaIVR0IZExBdUoWLdnSSIrBJApWWT2 PDBpWSNyZU4XAeDeGAGbMwJkUafjLSNvZPZobb6EHRVnZFEzQqNrUDVeRVYzPUYqUJgjRHEeXZSuILB8 AUZoJIPhPC5UDhQcPTJwANSaSjWhICBkYFKxhs4TZV RkEDRzJgNtNTYiLTLhOPBhDEwtXJHkPLV6FqV2ZWOkVVWzQL5MLsHxFOAhMGY6GXLiKWVlVALeuo7VGP BvFXYsYEdhHMSiLQHwZCFfZRupUQCsODR2YUi6OBPlXEYwQR4JUcRwKRWtYDTlJrktTKKiVPIkht6EFL OcBUKsCjTaNpErIPLjHWRwFWlpKQTgWDR3CSP2QPDu FWFiIG2JJcYlBCSxAKd8ErNbMTTvYIVyms2OEXOgEKHiXCD6YmRnWTNtUSIePPsmTJSfIDL9AbrgLVGh GDUfPI4RXpLsFYDeQHb9JUPtQBUuATHwas9NRHTnUHJyOAj2QOZtRUVdIIWkJKgaVPJtIQZ2MAn4ZDOg XPZzMF2HNcMzBOKiBeL2OadvWVDsTBIina5PENPmCQ IlZSLaCFQoCRZtKDOrJNbhDTNgHODdStipRHWyHVVhYU8REwLiTLLlQlTnAqHuYOTaKKInzl0NJZQrJR PkQnMyGhPvYUFaUKGfSOulFLQlJZMzWXj9MGJiDISjPR8ZJyEuMHJwYnG3JlYrXMNyPIKxpr5CGOTlTA YqQsbsSxLmBJYrPPNlKWafYZGbKSWyDXU8SJXlMTIx KM1HOoDnQVWhDrC7CMIxMEEnZDDsvh2INTPyJZWzRHCdXRVcDWGsUNPiBUxmVDRrUPE0XwX1NHZhRJEn ZR6VPsTwPZJmXpM6MTYmIKMjUJRbqa0ZKCCfGPDoNrInHKYqEBRlNMYpMYmiJSVbLVI5OGq6HISaXJAn RG9LVvOdWFUbZluwBHfcXFQqDHFulh9RvYJmaAamca 8POYwDDx1RlCtcQDV9ZRkdAx6vaNAdWPRlWOWHAu7NqjViDYOaPVFSXMaaWPIlHDycVBomM6BzZlI5YJ TnNFIuEKY7IkUkUpM2P0JvBEArGjY5IvH4LNS7Q8DkSnvoEfSmEIK2Tjg3MeN0JAujZhS0ScU+IF0gDQ o+Sg5Jl7DsbnO2rpUgKYxhLxK3VM5EKKUIF1SEAb== ID Date Data Source [id number] 07/31/2020 01:57:00 PM EST [facility] ([facility]) Name Value Range Interpretation Code Description Data Sheba rce(s) Supporting Document(s) Urea nitrogen [Mass/volume] in Serum or Plasma 15 mg/dL 7-18 [facility] ([facility]) Glucose [Mass/volume] in Serum or Plasma 89 mg/dL 74-99 [facility] ([facility]) 100-125 mg/dL PRE-DIABETES/FASTING >126 mg/dL DIABETES/FASTING Creatinine 1.0 mg/dL 0.6-1.3 [facility]) Potassium [Moles/volume] in Serum or Plasma 3.8 meq/L 3.5-5.1 [facility] ([facility]) Sodium [Moles/volume] in Serum or Plasma 143 meq/L 136-145 [facility] ([facility]) Carbon dioxide, total [Moles/volume] in Serum or Plasma 32 meq/L 21 -32 [facility] Chloride [Moles/volume] in Serum or Plasma 104 meq/L 98-107 [facility] Glomerular filtration rate/1.73 sq M pre dicted among blacks [Volume Rate/Area] in Serum or Plasma by Creatinine-based formula (MDRD) Laboratory test result [facility] ([facility]) <content>CHRONIC KIDNEY DISEASE STAGING PER NKF</content>
<content></content>
<content>STAGE I & II GFR >= 60 NORMAL TO MILDLY DECREASED</content>
<content>STAGE III GFR 30-59 MODERATELY DECREASED</content>
<content>STAGE IV GFR 15-29 SEVERELY DECREASED</content>
<content>STAGE V GFR <15 VERY LITTLE GFR LEFT</content>
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
<content></content> Glomerular filtration rate/1.73 sq M pre dicted among non-blacks [Volume Rate/Area] in Serum or Plasma by Creatinine-based formula (MDRD) 59 mL/min [facility] ([facility]) Calcium [Mass/volume] in Serum or Plasma 9.0 mg/dL 8.5-10.1 [facility] ([facility]) ID Date Data Source [id number] 07/04/2020 11:41:00 AM EST [facility] ([facility]) Name Value Range Interpretation Code Description Data Sheba rce(s) Supporting Document(s) Hemoglobin A1c/Hemoglobin.total in Blood 5.6 % [facility] ([facility]) Lab Result Notes: Pre-Diabetes 5.7 - 6.4 % Diabetes = or > 6.5% Glucose mean value [Mass/volume] in Blood Estimated fr om glycated hemoglobin 114 mg/dL 60-110 [facility] ([facility] ) ID Date Data Source [id number] 07/04/2020 11:41:00 AM EST [facility]) Name Value Range Interpretation Code Description Data Sheba rce(s) Supporting Document(s) Hemoglobin A1c/Hemoglobin.total in Blood Laboratory test result [facility] ([facility]) Procedure Social History Code Duration Value Status Description Data Source(s ) Alcohol intake 03/13/2021 12:00:00 AM EDT Current drinker of al cohol (finding) completed Current drinker of alcohol (finding) [facility] Tobacco use and exposure 03/13/2021 12:00:00 AM EDT Never used co mpleted Never used [facility] Smoking 03/13/2021 12:00:00 AM EDT Former smoker completed Former smoker [facility] Alcohol intake 03/06/2021 12:00:00 AM EDT Current drinker of al cohol (finding) completed Current drinker of alcohol (finding) [facility] Smoking 02/14/2021 12:00:00 AM EDT Never Smoker completed Never S moker eCW1 ([facility]) Smoking 02/14/2021 12:00:00 AM EDT Never Smoker completed Never S moker eCW1 ([facility]) Smoking 01/01/2021 12:00:00 AM EDT Never Smoker completed Never S moker eCW1 ([facility]) Smoking 01/01/2021 12:00:00 AM EDT Never Smoker completed Never S moker eCW1 ([facility]) Smoking 01/01/2021 12:00:00 AM EDT Never Smoker completed Never S moker eCW1 ([facility]) Smoking 01/01/2021 12:00:00 AM EDT Never Smoker completed Never S moker eCW1 ([facility]) Smoking 01/01/2021 12:00:00 AM EDT Never Smoker completed Never S moker eCW1 ([facility]) Smoking 01/01/2021 12:00:00 AM EDT Never Smoker completed Never S moker eCW1 ([facility]) Smoking 11/21/2020 12:00:00 AM EDT Never Smoker completed Never S moker eCW1 ([facility]) Smoking 11/21/2020 12:00:00 AM EDT Never Smoker completed Never S moker eCW1 ([facility]) Smoking 11/21/2020 12:00:00 AM EDT Never Smoker completed Never S moker eCW1 ([facility]) Smoking 11/21/2020 12:00:00 AM EDT Never Smoker completed Never S moker eCW1 ([facility]) Smoking 10/26/2020 12:00:00 AM EDT Never Smoker completed Never S moker eCW1 ([facility]) Smoking 10/26/2020 12:00:00 AM EDT Never Smoker completed Never S moker eCW1 ([facility]) Smoking 10/26/2020 12:00:00 AM EDT Never Smoker completed Never S moker eCW1 ([facility]) Smoking 10/26/2020 12:00:00 AM EDT Never Smoker completed Never S moker eCW1 ([facility]) Smoking 10/26/2020 12:00:00 AM EDT Never Smoker completed Never S moker eCW1 ([facility]) Alcohol intake 10/12/2020 12:00:00 AM EDT Current drinker of al cohol (finding) completed Current drinker of alcohol (finding) [facility] Alcohol intake 08/24/2020 12:00:00 AM EST Current drinker of al cohol (finding) completed Current drinker of alcohol (finding) [facility] Alcohol intake 08/16/2020 12:00:00 AM EST Current drinker of al cohol (finding) completed Current drinker of alcohol (finding) [facility] Alcohol intake 08/11/2020 12:00:00 AM EST Current drinker of al cohol (finding) completed Current drinker of alcohol (finding) [facility] Smoking 04/23/2020 12:00:00 AM EDT Patient is a former smoker completed Patient is a former smoker [facility] ([facility], [facility]) Vital Signs ID Date Data Source UNK Name Value Range Interpretation Code Description Data Source(s) Body temperature 97.9 [degF] 97.9 [degF] eCW1 ( [facility]) Systolic blood pressure 107 mm[Hg] 107 mm[Hg] e CW1 ([facility]) Diastolic blood pressure 52 mm[Hg] 52 mm[Hg] eCW1 ([facility]) Body weight 153.8 [lb_av] 153.8 [lb_av] eCW1 ([facility]) Body weight 69.76 kg 69.76 kg eCW1 ([facility]) Body height 68 [in_i] 68 [in_i] eCW1 ([facility]) Body mass index (BMI) [Ratio] 23.38 kg/m2 23.38 kg/m2 eCW1 ([facility]) Heart rate 70 /min 70 /min eCW1 ([facility]) Respiratory rate 18 /min 18 /min eCW1 ([facility] Systolic blood pressure 106 mm[Hg] 106 mm[Hg] M EDENT ([facility]) Diastolic blood pressure 72 mm[Hg] 72 mm[Hg] [facility] ([facility]) Heart rate 72 /min 72 /min [facility] ([facility]) Body height 68.75 [in_i] 68.75 [in_i] [facility] ([facility]) 5'8.75" Body weight 155.00 [lb_av] 155.00 [lb_av] MEDEN T ([facility]) Oxygen saturation in Arterial blood by Pulse oximetry 98 % 98 % [facility] ([facility]) Body mass index (BMI) [Ratio] 23.1 kg/m2 23.1 k g/m2 [facility] ([facility]) Body weight 158.6 [lb_av] 158.6 [lb_av] eCW1 ([facility]) Body height 68 [in_i] 68 [in_i] eCW1 ([facility]) Body mass index (BMI) [Ratio] 24.11 kg/m2 24.11 kg/m2 eCW1 ([facility]) Heart rate 73 /min 73 /min eCW1 ([facility]) Respiratory rate 18 /min 18 /min eCW1 ([facility]) Body temperature 99.3 [degF] 99.3 [degF] eCW1 ( [facility]) Systolic blood pressure 130 mm[Hg] 130 mm[Hg] e CW1 ([facility]) Diastolic blood pressure 74 mm[Hg] 74 mm[Hg] eCW1 ([facility]) Body weight 158.6 [lb_av] 158.6 [lb_av] eCW1 ([facility]) Body height 68 [in_i] 68 [in_i] eCW1 ([facility]) Body mass index (BMI) [Ratio] 24.11 kg/m2 24.11 kg/m2 eCW1 ([facility]) Heart rate 67 /min 67 /min eCW1 ([facility]) Respiratory rate 18 /min 18 /min eCW1 ([facility]) Body temperature 97.6 [degF] 97.6 [degF] eCW1 ( [facility]) Systolic blood pressure 111 mm[Hg] 111 mm[Hg] e CW1 ([facility]) Diastolic blood pressure 61 mm[Hg] 61 mm[Hg] eCW1 ([facility]) Oxygen saturation in Arterial blood by Pulse oximetry 97 % 97 % [facility] ([facility]) Body weight 153.00 [lb_av] 153.00 [lb_av] MEDEN T ([facility]) Body mass index (BMI) [Ratio] 22.8 kg/m2 22.8 k g/m2 [facility] ([facility]) Systolic blood pressure 110 mm[Hg] 110 mm[Hg] M EDENT ([facility]) Diastolic blood pressure 74 mm[Hg] 74 mm[Hg] [facility] ([facility]) Heart rate 75 /min 75 /min [facility] Body height 68.75 [in_i] 68.75 [in_i] [facility] ([facility]) 5'8.75" Diastolic blood pressure 72 mm[Hg] 72 mm[Hg] [facility] ([facility]) Heart rate 76 /min 76 /min [facility] Body weight 155.00 [lb_av] 155.00 [lb_av] MEDEN T ([facility]) Systolic blood pressure 122 mm[Hg] 122 mm[Hg] M EDENT ([facility]) Systolic blood pressure 120 mm[Hg] 120 mm[Hg] M EDENT ([facility]) Diastolic blood pressure 78 mm[Hg] 78 mm[Hg] [facility] ([facility]) Heart rate 72 /min 72 /min [facility] ([facility]) Body height 68.75 [in_i] 68.75 [in_i] [facility] ([facility]) 5'8.75" Body weight 155.00 [lb_av] 155.00 [lb_av] MEDEN T ([facility]) Oxygen saturation in Arterial blood by Pulse oximetry 96 % 96 % [facility] ([facility]) Body mass index (BMI) [Ratio] 23.1 kg/m2 23.1 k g/m2 [facility] ([facility]) Systolic blood pressure 126 mm[Hg] 126 mm[facility]Hg] [facility]) Diastolic blood pressure 80 mm[Hg] 80 mm[Hg] [facility] ([facility]) Heart rate 78 /min 78 /min [facility] ([facility], [facility]) Respiratory rate 16 /min 16 /min [facility] ( [facility]) Oxygen saturation in Arterial blood by Pulse oximetry 99 % 99 % [facility] ([facility], [facility]) Body temperature 98.7 [degF] 98.7 [degF] [facility] ([facility], [facility]) Body weight 150.00 [lb_av] 150.00 [lb_av] MED[facility] T ([facility], [facility]) Body height 70 [in_i] 70 [in_i] [facility] ([facility], [facility]) 5'10" Body mass index (BMI) [Ratio] 21.5 kg/m2 21.5 k g/m2 [facility] ([facility], [facility]) Systolic blood pressure 126 mm[Hg] 126 mm[Hg] M EDENT ([facility]) Heart rate 80 /min 80 /min [facility] ([facility]) Diastolic blood pressure 66 mm[Hg] 66 mm[Hg] [facility] ([facility]) Body height 68.75 [in_i] 68.75 [in_i] [facility] 5'8.75" Body weight 153.00 [lb_av] 153.00 [lb_av] MEDEN T ([facility]) Oxygen saturation in Arterial blood by Pulse oximetry 99 % 99 % [facility] ([facility]) Body mass index (BMI) [Ratio] 22.8 kg/m2 22.8 k g/m2 [facility] ([facility]) Systolic blood pressure 122 mm[Hg] 122 mm[Hg] [facility] Diastolic blood pressure 80 mm[Hg] 80 mm[Hg] [facility] ([facility]) Heart rate 84 /min 84 /min [facility] ([facility]) Body height 68.75 [in_i] 68.75 [in_i] [facility] ([facility]) 5'8.75" Body weight 146.00 [lb_av] 146.00 [lb_av] MEDEN T ([facility]) Oxygen saturation in Arterial blood by Pulse oximetry 98 % 98 % [facility] ([facility]) Body mass index (BMI) [Ratio] 21.7 kg/m2 21.7 k g/m2 [facility] ([facility]) Systolic blood pressure 110 mm[Hg] 110 mm[Hg] [facility] Body height 68.75 [in_i] 68.75 [in_i] [facility] ([facility]) 5'8.75" Diastolic blood pressure 80 mm[Hg] 80 mm[Hg] [facility] ([facility]) Heart rate 72 /min 72 /min [facility] ([facility] Body weight 136.00 [lb_av] 136.00 [lb_av] MEDEN T ([facility]) Oxygen saturation in Arterial blood by Pulse oximetry 98 % 98 % [facility] ([facility]) Body mass index (BMI) [Ratio] 20.2 kg/m2 20.2 k g/m2 [facility] ([facility]) Systolic blood pressure 116 mm[Hg] 116 mm[Hg] M EDENT ([facility], [facility]) Diastolic blood pressure 69 mm[Hg] 69 mm[Hg] [facility] ([facility]) Heart rate 72 /min 72 /min [facility] ([facility]) Respiratory rate 16 /min 16 /min [facility] ( [facility]) Oxygen saturation in Arterial blood by Pulse oximetry 98 % 98 % [facility] ([facility]) Body temperature 97.9 [degF] 97.9 [degF] [facility] ([facility]) Body weight 120.00 [lb_av] 120.00 [lb_av] MEDEN T ([facility]) ID Date Data Source [id number] 08/14/2020 01:04:16 PM [facility] Name Value Range Interpretation Code Description Data Source(s) WEIGHT RECORDED 147.9 lb 147.9 lb [facility] ID Date Data Source [id number] 07/13/2020 04:18:57 PM [facility] Name Value Range Interpretation Code Description Data Source(s) WEIGHT RECORDED 107 lb 107 lb [facility] Body height Measured 70 in 70 in [facility] Patient Treatment Plan of Care Planned Activity Planned Date Details Description Data Source (s) Fluoxetine 20 MG Oral Capsule 03/10/2021 12:00:00 AM [facility] pregabalin 100 MG Oral Capsule 03/09/2021 12:00:00 AM [facility] Methocarbamol 500 MG Oral Tablet 03/09/2021 12:00:00 AM [facility] tizanidine 4 MG Oral Tablet 03/06/2021 12:00:00 AM [facility] pregabalin 100 MG Oral Capsule 02/15/2021 12:00:00 AM [facility] Acetaminophen 325 MG / Hydrocodone Bitartrate 5 MG Ora l Tablet 02/14/2021 12:00:00 AM [facility] Acetaminophen 325 MG / Hydrocodone Bitartrate 7.5 MG O ral Tablet 02/14/2021 12:00:[address]) pregabalin 100 MG Oral Capsule [Lyrica] 02/14/2021 12:00:00 AM EDT eCW1 ([facility]) Acetaminophen 325 MG / Hydrocodone Bitartrate 7.5 MG O ral Tablet 02/14/2021 12:00:00 AM EDT eCW1 ([facility]) pregabalin 100 MG Oral Capsule [Lyrica] 02/14/2021 12:00:00 AM EDT eCW1 ([facility]) Acetaminophen 325 MG / Hydrocodone Bitartrate 7.5 MG O ral Tablet 02/01/2021 12:00:00 AM EDT eCW1 ([facility]) Acetaminophen 325 MG / Hydrocodone Bitartrate 7.5 MG O ral Tablet 02/01/2021 12:00:00 AM EDT eCW1 ([facility]) Acetaminophen 325 MG / Hydrocodone Bitartrate 7.5 MG O ral Tablet 02/01/2021 12:00:00 AM EDT eCW1 ([facility]) Acetaminophen 325 MG / Hydrocodone Bitartrate 7.5 MG O ral Tablet 02/01/2021 12:00:00 AM EDT eCW1 ([facility]) Acetaminophen 325 MG / Hydrocodone Bitartrate 5 MG Ora l Tablet 01/03/2021 12:00:00 AM EDT eCW1 ([facility]) Acetaminophen 325 MG / Hydrocodone Bitartrate 5 MG Ora l Tablet 12/07/2020 12:00:00 AM EDT eCW1 ([facility]) Acetaminophen 325 MG / Hydrocodone Bitartrate 5 MG Ora l Tablet 12/07/2020 12:00:00 AM EDT eCW1 ([facility]) Acetaminophen 325 MG / Hydrocodone Bitartrate 5 MG Ora l Tablet 12/07/2020 12:00:00 AM EDT eCW1 ([facility]) Acetaminophen 325 MG / Hydrocodone Bitartrate 5 MG Ora l Tablet 11/15/2020 12:00:00 AM EDT eCW1 ([facility]) Acetaminophen 325 MG / Hydrocodone Bitartrate 5 MG Ora l Tablet 11/15/2020 12:00:00 AM EDT eCW1 ([facility]) pregabalin 75 MG Oral Capsule [Lyrica] 10/23/2020 12:00:00 AM EDT eCW1 ([facility]) pregabalin 75 MG Oral Capsule [Lyrica] 10/23/2020 12:00:00 AM EDT eCW1 ([facility]) pregabalin 75 MG Oral Capsule [Lyrica] 10/23/2020 12:00:00 AM EDT eCW1 ([facility]) pregabalin 75 MG Oral Capsule [Lyrica] 10/23/2020 12:00:00 AM EDT eCW1 ([facility]) gabapentin 100 MG Oral Capsule 10/12/2020 12:00:00 AM [facility] buspirone hydrochloride 10 MG Oral Tablet 10/06/2020 12:00:00 AM [facility] gabapentin 100 MG Oral Capsule 10/03/2020 12:00:00 AM [facility] Oxycodone Hydrochloride 5 MG Oral Tablet 10/03/2020 12:00:00 AM [facility] Oxycodone Hydrochloride 5 MG Oral Tablet 09/26/2020 12:00:00 AM [facility] 24 HR Propranolol Hydrochloride 60 MG Extended Release Oral Capsule 09/21/2020 12:00:00 AM [facility] Acetaminophen 325 MG / Oxycodone Hydrochloride 5 MG Or al Tablet 09/20/2020 12:00:00 AM [facility] Acetaminophen 325 MG / Oxycodone Hydrochloride 5 MG Or al Tablet 09/08/2020 12:00:00 AM [facility] Acetaminophen 325 MG / Oxycodone Hydrochloride 5 MG Or al Tablet 09/04/2020 12:00:00 AM [facility] Acetaminophen 325 MG / Oxycodone Hydrochloride 5 MG Or al Tablet 08/24/2020 12:00:00 AM [facility] Oxycodone Hydrochloride 5 MG Oral Tablet 08/18/2020 12:00:00 AM [facility] fentaNYL (SUBLIMAZE) (PF) injection 25 mcg 08/11/2020 10:14:56 AM [facility] ondansetron (ZOFRAN) injection 4 mg 08/11/2020 10:14:56 AM [facility] Aspirin 81 MG Delayed Release Oral Tablet 08/11/2020 12:00:00 AM [facility] Cephalexin 500 MG Oral Capsule 08/11/2020 12:00:00 AM [facility] Docusate Sodium 100 MG Oral Capsule 08/11/2020 12:00:00 AM [facility] Oxycodone Hydrochloride 5 MG Oral Tablet 08/11/2020 12:00:00 AM [facility] Ondansetron 4 MG Disintegrating Oral Tablet 08/11/2020 12:00:00 AM [facility] Ozempic (0.25 or 0.5 MG/DOSE) 2 MG/1.5ML Subcutaneous Solution Pen-injector 07/29/2020 12:00:00 AM [facility] rizatriptan 10 MG Oral Tablet 07/22/2020 12:00:00 AM [facility] Ibuprofen 800 MG Oral Tablet 07/08/2020 12:00:00 AM [facility] Rosuvastatin calcium 20 MG Oral Tablet 07/08/2020 12:00:00 AM [facility] Ibuprofen 200 MG Oral Tablet [facility]
[2021-05-27] MEDS ORDERED: LIDOCAINE 5% (LIDODERM) PATCH TD ONE (09:50)
[2021-05-27] MEDS ORDERED: KETOROLAC 30 MG/ML 1ML VIAL IM ONE (09:50)
[2021-05-27] MEDS ORDERED: methocarbamoL 500 MG TAB PO ONE (09:50)
--- OUTSIDE RECORDS SUMMARY | 2021-05-27 10:16 | CCD ---
Author Author [facility] Organization [facility] Address Unknown Phone Unavailable Care Team Providers Care [employer] Member Name Role Phone KAPLAN, R BORIS 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 Unavailable Unavailable KAPLAN, R BORIS 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 Unavailable Unavailable KAPLAN, R BORIS 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 Unavailable Unavailable KAPLAN, R BORIS 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 Unavailable Unavailable KAPLAN, R BORIS 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 Unavailable Unavailable KAPLAN, R BORIS 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 Unavailable Unavailable KAPLAN, R BORIS 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 Unavailable Unavailable KAPLAN, R BORIS 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 Unavailable Unavailable KAPLAN, R BORIS 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 Unavailable Unavailable KAPLAN, R BORIS 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 Unavailable Unavailable KAPLAN, R BORIS 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 Unavailable Unavailable KAPLAN, R BORIS 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 Unavailable Unavailable KAPLAN, R BORIS 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 Unavailable Unavailable KAPLAN, R BORIS 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 Unavailable Unavailable KAPLAN, R BORIS 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 Unavailable Unavailable KAPLAN, R BORIS 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 Unavailable Unavailable KAPLAN, R BORIS 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 Unavailable Unavailable KAPLAN, R BORIS 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 Unavailable Unavailable KAPLAN, R BORIS 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 Unavailable Unavailable KAPLAN, R BORIS 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 Unavailable Unavailable KAPLAN, R BORIS 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 Unavailable Unavailable KAPLAN, R BORIS 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 Unavailable Unavailable KAPLAN, R BORIS 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 Unavailable Unavailable KAPLAN, R BORIS 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 Unavailable Unavailable KAPLAN, R BORIS 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 Unavailable Unavailable KAPLAN, R BORIS 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 Unavailable Unavailable KAPLAN, R BORIS 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 Unavailable Unavailable KAPLAN, R BORIS 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 Unavailable Unavailable KAPLAN, R BORIS 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 Unavailable Unavailable KAPLAN, R BORIS 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 Unavailable Unavailable KAPLAN, R BORIS 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 Unavailable Unavailable KAPLAN, R BORIS 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 Unavailable Unavailable KAPLAN, R BORIS 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 Unavailable Unavailable KAPLAN, R BORIS 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 Unavailable Unavailable KAPLAN, R BORIS 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 Unavailable Unavailable KAPLAN, R BORIS 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 Unavailable Unavailable KAPLAN, R BORIS 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 Unavailable Unavailable KAPLAN, R BORIS 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 Unavailable Unavailable KAPLAN, R BORIS 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 Unavailable Unavailable KAPLAN, R BORIS 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 Unavailable Unavailable KAPLAN, R BORIS 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 Unavailable Unavailable KAPLAN, R BORIS 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 Unavailable Unavailable KAPLAN, R BORIS 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 Unavailable Unavailable KAPLAN, R BORIS 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 Unavailable Unavailable Tamra Daley MD Unavailable Unavailable [...] MD Unavailable Unavailable EdiTamra MD Unavailable Unavailable EdiTmara MD Unavailable Unavailable EdiTamra MD Unavailable Unavailable JeffersonTamra MD Unavailable Unavailable JeffersonTamra MD Unavailable Unavailable EdiTamra MD Unavailable Unavailable EdiTamra MD Unavailable Unavailable EdiTamra MD Unavailable Unavailable JeffersonTamra MD Unavailable Unavailable JeffersonTamra MD Unavailable Unavailable EdiTamra MD Unavailable Unavailable EdiTamra MD Unavailable Unavailable EdiTamra MD Unavailable Unavailable EdiTamra MD Unavailable Unavailable EdiTamra MD Unavailable Unavailable EdiTamra MD Unavailable Unavailable JeffersonTamra MD Unavailable Unavailable JeffersonTamra MD Unavailable Unavailable EdiTamra MD Unavailable Unavailable JeffersonTamra MD Unavailable Unavailable EdiTamra MD Unavailable Unavailable EdiTamra MD Unavailable Unavailable JeffersonTamra MD Unavailable Unavailable JeffersonTamra MD Unavailable Unavailable EdiTamra MD Unavailable Unavailable JeffersonTamra MD Unavailable Unavailable JeffersonTamra MD Unavailable Unavailable JeffersonTamra MD Unavailable Unavailable JeffersonTamra MD Unavailable Unavailable EdiTamra MD Unavailable Unavailable EdiTamra MD Unavailable Unavailable EdiTamra MD Unavailable Unavailable EdiTamra MD Unavailable Unavailable EdiTamra MD Unavailable Unavailable EdiTamra allen MD Unavailable Unavailable JeffersonTamra MD Unavailable Unavailable EdiTamra MD Unavailable Unavailable JeffersonTamra allen MD Unavailable Unavailable EdiTamra MD Unavailable Unavailable JeffersonTamra MD Unavailable Unavailable JeffersonTamra allen MD Unavailable Unavailable JeffersonTamra allen MD Unavailable Unavailable EdiTamra MD Unavailable Unavailable EdiTamra MD Unavailable Unavailable JeffersonTamra MD Unavailable Unavailable JeffersonTamra MD Unavailable Unavailable EdiTamra MD Unavailable Unavailable JeffersonTamra MD Unavailable Unavailable EdiTamra MD Unavailable Unavailable EdiTamra MD Unavailable Unavailable JeffersonTamra MD Unavailable Unavailable JeffersonTamra MD Unavailable Unavailable JeffersonTamra MD Unavailable Unavailable JeffersonTamra MD Unavailable Unavailable JeffersonTamra MD Unavailable Unavailable Tamra Daley MD Unavailable [...] Unavailable PEDRO KERN MD Unavailable Unavailable PEDRO KENR MD Unavailable Unavailable YVETTE BOWMANASTIAN P Unavailable [...] Unavailable COLBY JORGE P Unavailable Unavailable COLBY JOREG P Unavailable Unavailable COLBY JORGE P Unavailable [...] Unavailable ROC, J Marylin ANP Unavailable Unavailable RCO, J Marylin ANP Unavailable Unavailable ROC, J [...] J Marylin ANP Unavailable Unavailable ROC, J Marylni ANP Unavailable Unavailable ROC, J Marylin ANP [...] Unavailable Unavailable Xuan Acevedo MD Unavailable Unavailable Xaun Acevedo MD Unavailable Unavailable Xuan Acevedo MD [...] Unavailable MOCK, G EDWARD RPA Unavailable Unavailable MOKC, G EDWARD RPA Unavailable Unavailable MOCK, G [...] is protected by Article 27-F of the [facility] Public Health law. If you continue you may have access to information: Regarding HIV / AIDS; Provided by facilities licensed or operated by the [facility] Office of Mental Health; or Provided by the [facility] Office for People With Developmental Disabilities. If such information is present, then the following [facility] mandated warning applies: This information [...] law may result in a fine or long-term sentence or both. A general authorization for the release of medical or other information is NOT sufficient authorization for further disc losure. Allergies and Adverse Reactions Type Description Substance Reaction Status Data Source(s ) Drug Allergy NKDA NKDA [facility] Family History Family Member Name Family Member Gender Family Member Status Date o f Status Description Data Source(s) Unknown Unknown Problem [facility] ([facility], [facility]) Encounters Encounter Providers Location Date Indications Data Source(s ) Outpatient Attender: Jon BOWMAN MDReferrer: Marylin ALBERTS [id number] 04/24/2021 12:00:00 AM [facility] 04/24/2021 03:24:[address] [facility] Outpatient Attender: SIMI ORTIZ MDReferrer: SIMI ORTIZ MD [id number] 04/12/2021 12:00:[address] [facility] Outpatient Referrer: BORIS KAPLAN NP 03/26/2021 12:00:[address] [facility] Outpatient Referrer: Hai Acevedo MD 03/26/2021 12:00:[address] [facility] Outpatient Attender: SIMI ORTIZ MD [id number] 03/22/2021 12:00:00 AM EDT [facility] Outpatient Referrer: BORIS KAPLAN NP 03/22/2021 1 2:00:00 AM EDT Presence of right artificial shoulder joint [facility] Presence of right artificial shoulder [facility] Outpatient Referrer: SIMI ORTIZ MD 03/13/2021 12:0 0:00 AM EDT Presence of right artificial shoulder joint [facility] Presence of right artificial shoulder [facility] Outpatient Attender: BORIS KAPLAN NPReferrer: SIMI CUENCA MD [id number] 03/13/2021 12:00:00 AM EDT [facility] Outpatient Attender: SIMI ORTIZ MDReferrer: SIMI ORTIZ MD 03/08/2021 12:00:00 AM EDT [facility] Outpatient 03/06/2021 05:19:44 PM EDT - 021 05:22:27 PM EDT [facility] ([facility]) Outpatient Attender: Chelle Gray MDReferrer: SIMI Bailey MD [id number] 03/06/2021 12:00:00 AM EDT - 03/06/2021 01:51:57 PM EDT [facility] [place] [address] [address] 03/06/2021 12:00:00 AM EDT eCW1 ([facility]) [place] [address] [facility] [place] [address] 02/14/2021 12:00:00 AM EDT eCW1 ([facility]) [place] [address] [address] 02/07/2021 12:00:00 AM EDT eCW1 ([facility]) Unknown [address] [place] [address] 02/07/2021 12:00:00 AM EDT eCW1 ([facility]) Outpatient Attender: Marylin Saucedo 03/2021 08:40:00 AM EDT [facility] ([facility] ) [place] [address] [address] 01/29/2021 12:00:00 AM EDT eCW1 ([facility]) Outpatient Attender: JYOTHI MOCK RPA 01/27 07:07:54 AM EDT - 01/27/2021 07:46:27 AM EDT [facility] ([facility] ) [place] [address] [address] 01/19/2021 12:00:00 AM EDT eCW1 ([facility]) Outpatient Attender: SIMI ORTIZ MD 01/18/2021 12:0 0:00 AM EDT Presence of right artificial shoulder joint [facility] Presence of right artificial shoulder [facility] [place] [address] [address] 01/02/2021 12:00:00 AM EDT eCW1 ([facility]) [place]patient [address] [address] 01/01/2021 12:00:00 AM EDT eCW1 ([facility]) [place] [address] [address] 12/25/2020 12:00:00 AM EDT eCW1 ([facility]) [place] [address] [address] 12/25/2020 12:00:00 AM EDT eCW1 ([facility]) [place] [address] [address] 12/21/2020 12:00:00 AM EDT eCW1 ([facility]) Outpatient Attender: SIMI ORTIZ MD 12/07/2020 12:00:[address] [facility] Outpatient [address] [facility] [address] 11/21/2020 12:00:00 AM EDT eCW1 ([facility]) [place] [address] [address] 11/14/2020 12:00:00 AM EDT [facility]CW[facility] [place] [address] [facility] [address] 11/14/2020 12:00:00 AM EDT eCW1 ([facility]) [place] [address] [address] 11/11/2020 12:00:00 AM EDT eCW1 ([facility]) [place] [address] [facility] [address] 11/10/2020 12:00:00 AM EDT eCW1 ([facility] hospital) Outpatient Attender: SIMI ORTIZ MD 11/09/2020 12:00:[address] [facility] Outpatient Attender: Marylin Saucedo 04/2021 08:00:00 AM EDT [facility] ([facility] ) [place] [address] [address] 10/26/2020 12:00:00 AM EDT eCW1 ([facility] hospital) Outpatient Attender: SIMI ORTIZ MD 10/25/2020 12:00:[address] [facility] Outpatient Referrer: SIMI ORTIZ MD 10/19/2020 12:00:[address] [facility] Outpatient Attender: SIMI ORTIZ MD 10/18/2020 12:00:[address] [facility] Outpatient Attender: SIMI ORTIZ MD [id number] 10/12/2020 12:0 0:00 AM EDT Presence of right artificial shoulder [facility] Presence of right artificial shoulder [facility] Outpatient Referrer: SIMI ORTIZ MD 10/12/2020 12:0 0:00 AM EDT Presence of right artificial shoulder [facility] Presence of right artificial shoulder [facility] Outpatient Referrer: SIMI ORTIZ MD 10/12/2020 12:0 0:00 AM EDT PT rt [facility] PT rt shoulder Outpatient 10/09/2020 03:41:33 PM EDT - 021 03:42:08 PM EDT [facility] ([facility]) Outpatient Referrer: SIMI ORTIZ MD 10/05/2020 12:00:[address] [facility] Outpatient Referrer: SIMI ORTIZ MD 10/04/2020 12:00:[address] [facility] Outpatient Referrer: SIMI ORTIZ MD 09/28/2020 12:0 0:00 AM EDT PT rt [facility] PT rt shoulder Outpatient Referrer: SIMI ORTIZ MD 09/21/2020 12:0 0:00 AM EDT PT rt [facility] PT rt shoulder Outpatient Referrer: SIMI ORTIZ MD 09/12/2020 12:0 0:00 AM EDT PT rt [facility] PT rt shoulder Outpatient 09/08/2020 12:00:[address] [facility] Outpatient Referrer: SIMI ORTIZ MD 09/07/2020 12:0 0:00 AM EDT PT R Shoulder Post Op [facility] PT R Shoulder Post Op Outpatient Attender: SIMI ORTIZ MD [id number] 08/24/2020 12:0 0:00 AM EST Pain in right [facility] Pain in right shoulder Outpatient Referrer: SIMI ORTIZ MD 08/24/2020 12:0 0:00 AM EST Pain in right [facility] Pain in right shoulder Outpatient Referrer: BORIS KAPLAN NP 08/18/2020 12:00:0 0 AM [facility] Outpatient Attender: SIMI ORTIZ MDAdmitter: SIMI ORTIZ MD [id number] 08/11/2020 12:00:00 AM EST - 08/11/2020 12:00:00 AM EST Post-traumatic osteoarthritis, right [facility] Post-traumatic osteoarthritis, right selene ulder Patient discharged. Outpatient Referrer: MARRY LOWE 08/11/2020 12:00:00 A M [facility] Outpatient Attender: Isamar Amin MD 0 08/08/2020 04:44:04 PM EST - 08/08/2020 05:05:24 PM EST [facility] ([facility]) Outpatient Attender: Ronald MIXON 08/06/19 08:02:23 AM EST - 08/06/2020 08:16:17 AM EST [facility] ([facility] ) Outpatient Referrer: SIMI ORTIZ MD 08/03/2020 12:00:00 A M [facility] Outpatient 08/02/2020 12:00:00 AM [facility] Outpatient Attender: SIMI ORTIZ MD 08/02/2020 12:00:00 A M [facility] Outpatient Referrer: Marylin ALBERTS [id number] 08/01/2020 12:00:00 AM [facility] Outpatient 08/01/2020 12:00:00 AM [facility] Outpatient Attender: Mike Saucedo 0 07/31/2020 12:30:00 PM EST [facility]ENT ([facility] ) Outpatient Attender: Marylin Saucedo 07/2020 07:40:00 AM EST [facility] ([facility] ) Outpatient Attender: EMRE jim 07/07/2020 07:00:00 AM EST [facility] ([facility] Outpatient 07/05/2020 12:00:00 AM [facility] Outpatient Attender: Marylin Saucedo 05/2021 10:00:00 AM EST [facility] ([facility] ) Outpatient 07/04/2020 12:00:00 AM [facility] Outpatient Attender: SIMI ORTIZ MD 06/21/2020 12:00:00 A M [facility] Outpatient 05/31/2020 12:00:00 AM [facility] Outpatient 05/30/2020 12:00:00 AM [facility] Outpatient Attender: Marylin Saucedo 08/2019 10:15:00 AM EST [facility] ([facility] ) Outpatient Attender: Marylin Saucedo 02/2020 09:15:00 AM EST [facility] ([facility] ) Outpatient Attender: Tricia bairesy 04/23/2020 08:50:00 AM EST [facility] ([facility] Outpatient Attender: SIMI ORTIZ MDReferrer: PEDRO RUDD MD [id number] 03/09/2020 12:00:00 AM EDT - 03/09/2020 11:48:30 AM EDT Pain in right shoulder [facility] Pain in right shoulder Immunizations Vaccine Date Status Description Data Source(s) COVID-19 VACCINE Moderna 07/20/2020 12:00:00 AM EST completed [facility] Vaccine Series Complete: YESThis Data wa s Submitted to [facility] Via [facility]. COVID-19 VACCINE Moderna 06/22/2020 12:00:00 AM EST completed [facility] Vaccine Series Complete: NOThis Data was Submitted to [facility] [employer]. Medications Medication Brand Name Start Date Product [...] Capsule (PROZAC) 03/10/2021 12:00:00 AM EDT active [facility] Methocarbamol 500 MG Oral Tablet Methocarbamol 500 MG Oral T ablet 03/09/2021 12:00:00 AM EDT 500 mg Oral active Chronic right sh oulder pain Take 1 tablet by mouth Four times daily for 10 days [facility] Chronic right shoulder pain pregabalin 100 MG Oral Capsule Pregabalin 100 MG Oral Capsule (LYRICA) Pregabalin 100 MG Oral Capsule (LYRICA) 03/09/2021 12:00:00 AM EDT 100 mg Oral active Chronic right shoulder pain Take 1 capsule by mouth Three times daily , Max Daily Dose: 300 mg [facility] Chronic right shoulder pain 0.25 [...] 0.25MG UNDER THE SKIN WEEKLY SOLD: 03/07/2021 [employer] tizanidine 4 MG Oral Tablet TIZANIDINE HCL 03/06/2021 12:00:00 AM EDT tablet 90 TAKE ONE TABLET BY MOUTH EVERY 8 HOURS NEEDED TAKE ONE TABLET BY MOUTH EVERY 8 HOURS NEEDED SOLD: 03/07/2021 [employer] tizanidine 4 MG Oral Tablet tiZANidine HCl 4 MG Oral T ablet (Zanaflex) tiZANidine HCl 4 MG Oral Tablet (Zanaflex) 03/06/2021 12:00:00 AM EDT 4 mg Oral aborted Chronic right shoulder pain Take 1 tablet by mouth every 8 (eight) hours as needed [facility] Chronic right shoulder pain NITROFURANTOIN, MACROCRYSTALS 25 MG / Ni trofurantoin, Monohydrate 75 MG Oral Capsule 100 mg NITROFURANTOIN MONOHYD/M-CRYST 02/25/2021 12:00:00 AM EDT ca psule 14 TAKE ONE CAPSULE BY MOUTH TWO TI MES A DAY TAKE ONE CAPSULE BY MOUTH TWO TIMES A DAY SOLD: 02/25/2021 [facility] 200 mg 02/25/2021 12:00:00 AM EDT tablet 6 TAKE ONE TABLET BY MOUTH THREE TIMES A DAY FOR 2 DAYS TAKE ONE TABLET BY MOUTH THREE TIMES A DAY FOR 2 DAYS SOLD: 02/25/2021 [employer] pregabalin 100 MG Oral Capsule Pregabalin 100 MG Oral Capsule (LYRICA) Pregabalin 100 MG Oral Capsule (LYRICA) 02/15/2021 12:00:00 AM EDT active TAKE ONE CAPSULE BY MOUTH THREE TIMES A DAY MAXIMUM DAILY DOSE 3 [facility] 100 mg 02/15/2021 12:00:00 AM [...] NEEDED FOR PAIN MAXIMUM DAILY DOSE 3 [facility] pregabalin 100 MG Oral Capsule [Lyrica] Lyrica 100 MG Lyrica 100 MG 02/14/2021 12:00:00 AM EDT 1.0 {capsule} active L yrica 100 MG eCW1 ([facility]) Acetaminophen 325 MG / Hydrocodone Mirza trate 7.5 MG Oral Tablet HYDROcodone- Acetaminophen 7.5-325 MG HYDROcodone-Acetaminophen 7.5-325 MG 02/14/2021 12:00:00 AM EDT 1.0 {tablet_as_needed} active HYDROcodone- Acetaminophen 7.5-325 MG eCW1 ([facility]) pregabalin 100 MG Oral Capsule [Lyrica] Lyrica 100 MG Lyrica 100 MG 02/14/2021 12:00:00 AM EDT 1.0 {capsule} active L yrica 100 MG eCW1 ([facility]) Acetaminophen 325 MG / Hydrocodone Mirza trate 7.5 MG Oral Tablet HYDROcodone- Acetaminophen 7.5-325 MG HYDROcodone-Acetaminophen 7.5-325 MG 02/14/2021 12:00:00 AM EDT 1.0 {tablet_as_needed} active HYDROcodone- Acetaminophen 7.5-325 MG eCW1 ([facility]) Acetaminophen 325 MG / Hydrocodone Bitartrate 5 [...] {tablet_as_needed} active HYDROcodone- Acetaminophen 7.5-325 MG eCW1 ([facility]) Acetaminophen 325 MG / Hydrocodone Mirza trate 7.5 MG Oral Tablet HYDROcodone- Acetaminophen 7.5-325 MG HYDROcodone-Acetaminophen 7.5-325 MG 02/01/2021 12:00:00 AM EDT 1.0 {tablet_as_needed} active HYDROcodone- Acetaminophen 7.5-325 MG eCW1 ([facility]) Acetaminophen 325 MG / Hydrocodone Mirza trate 7.5 MG Oral Tablet HYDROcodone- Acetaminophen 7.5-325 MG HYDROcodone-Acetaminophen 7.5-325 MG 02/01/2021 12:00:00 AM EDT 1.0 {tablet_as_needed} active HYDROcodone- Acetaminophen 7.5-325 MG eCW1 ([facility]) Acetaminophen 325 MG / Hydrocodone Mirza trate 7.5 MG Oral Tablet HYDROcodone- Acetaminophen 7.5-325 MG HYDROcodone-Acetaminophen 7.5-325 MG 02/01/2021 12:00:00 AM EDT 1.0 {tablet_as_needed} active HYDROcodone- Acetaminophen 7.5-325 MG eCW1 ([facility]) Acetaminophen 325 MG / Hydrocodone Bitartrate 5 [...] 1.0 {tablet_as_needed} active HYDROcodone-Acetaminophen 5-325 MG eCW1 ([facility]) 100 mg 01/02/2021 12:00:00 AM EDT capsule [...] 1.0 {tablet_as_needed} active HYDROcodone-Acetaminophen 5-325 MG eCW1 ([facility]) Acetaminophen 325 MG / Hydrocodone Mirza trate 5 MG Oral Tablet HYDROcodone- Acetaminophen 5-325 MG HYDROcodone-Acetaminophen 5-325 MG 12/07/2020 12:00:00 AM EDT 1.0 {tablet_as_needed} active HYDROcodone-Acetaminophen 5-325 MG eCW1 ([facility]) Acetaminophen 325 MG / Hydrocodone Mirza trate 5 MG Oral Tablet HYDROcodone- Acetaminophen 5-325 MG HYDROcodone-Acetaminophen 5-325 MG 12/07/2020 12:00:00 AM EDT 1.0 {tablet_as_needed} active HYDROcodone-Acetaminophen 5-325 MG eCW1 ([facility]) Acetaminophen 325 MG / Hydrocodone Mirza trate 5 MG Oral Tablet HYDROcodone- Acetaminophen 5-325 MG HYDROcodone-Acetaminophen 5-325 MG 12/07/2020 12:00:00 AM EDT 1.0 {tablet_as_needed} active HYDROcodone-Acetaminophen 5-325 MG eCW1 ([facility]) 75 mg 11/22/2020 12:00:00 AM EDT capsule [...] 1.0 {tablet_as_needed} active Hydrocodone-Acetaminophen 5-325 MG eCW1 ([facility]) Acetaminophen 325 MG / Hydrocodone Mirza trate 5 MG Oral Tablet Hydrocodone- Acetaminophen 5-325 MG Hydrocodone-Acetaminophen 5-325 MG 11/15/2020 12:00:00 AM EDT 1.0 {tablet_as_needed} active Hydrocodone-Acetaminophen 5-325 MG eCW1 ([facility]) Acetaminophen 325 MG / Hydrocodone Mirza trate 5 MG Oral Tablet Hydrocodone- Acetaminophen 5-325 MG Hydrocodone-Acetaminophen 5-325 MG 11/15/2020 12:00:00 AM EDT 1.0 {tablet_as_needed} active Hydrocodone-Acetaminophen 5-325 MG eCW1 ([facility]) 75 mg 10/24/2020 12:00:00 AM EDT capsule [...] {capsule} active L yrica 75 MG eCW1 ([facility]) pregabalin 75 MG Oral Capsule [Lyrica] Lyrica 75 MG Lyrica 7 5 MG 10/23/2020 12:00:00 AM EDT 1.0 {capsule} active L yrica 75 MG eCW1 ([facility]) Acetaminophen 325 MG / Hydrocodone Mirza trate 5 MG Oral Tablet Hydrocodone- Acetaminophen 5-325 MG Hydrocodone-Acetaminophen 5-325 MG 10/23/2020 12:00:00 AM EDT 1.0 {tablet_as_needed} active Hydrocodone-Acetaminophen 5-325 MG eCW1 ([facility]) pregabalin 75 MG Oral Capsule [Lyrica] Lyrica 75 MG Lyrica 7 5 MG 10/23/2020 12:00:00 AM EDT 1.0 {capsule} active L yrica 75 MG eCW1 ([facility]) pregabalin 75 MG Oral Capsule [Lyrica] Lyrica 75 MG Lyrica 7 5 MG 10/23/2020 12:00:00 AM EDT 1.0 {capsule} active L yrica 75 MG eCW1 ([facility]) pregabalin 75 MG Oral Capsule [Lyrica] Lyrica 75 MG Lyrica 7 5 MG 10/23/2020 12:00:00 AM EDT 1.0 {capsule} active L yrica 75 MG eCW1 ([facility]) pregabalin 75 MG Oral Capsule [Lyrica] Lyrica 75 MG Lyrica 7 5 MG 10/23/2020 12:00:00 AM EDT 1.0 {capsule} active L yrica 75 MG eCW1 ([facility]) Acetaminophen 325 MG / Hydrocodone Mirza trate 5 MG Oral Tablet Hydrocodone- Acetaminophen 5-325 MG Hydrocodone-Acetaminophen 5-325 MG 10/23/2020 12:00:00 AM EDT 1.0 {tablet_as_needed} active eCW1 ([facility]) pregabalin 75 MG Oral Capsule [Lyrica] Lyrica 75 MG Lyrica 7 5 MG 10/23/2020 12:00:00 AM EDT 1.0 {capsule} active L yrica 75 MG eCW1 ([facility]) pregabalin 75 MG Oral Capsule [Lyrica] Lyrica 75 MG Lyrica 7 5 MG 10/23/2020 12:00:00 AM EDT 1.0 {capsule} active eCW1 ([facility]) pregabalin 75 MG Oral Capsule [Lyrica] Lyrica 75 MG Lyrica 7 5 MG 10/23/2020 12:00:00 AM EDT 1.0 {capsule} active L yrica 75 MG eCW1 ([facility]) Acetaminophen 325 MG / Hydrocodone Bitartrate 5 [...] 1.0 {tablet_as_needed} active Hydrocodone-Acetaminophen 5-325 MG eCW1 ([facility]) 20 mg 10/18/2020 12:00:00 AM EDT capsule [...] 12:00:00 AM EDT ORAL active [facility]) BLOOD-GLUCOSE METER 10/13/2020 12:00:00 AM EDT misc 1 USE DIRECTED USE DIRECTED SOLD: 10/14/2020 [facility] gabapentin 100 MG Oral Capsule Gabapentin 100 MG Oral Capsule (Neurontin) Gabapentin 100 MG Oral Capsule (Neurontin) 10/12/2020 12:00:00 AM EDT 200 mg Oral aborted Take 2 capsules by m outh Three times daily [facility] 100 mg 10/12/2020 12:00:00 AM [...] DAILY DOSE = 2 TABLETS SOLD: 11/06/2020 [facility] buspirone hydrochloride 10 MG Oral Tablet BUSPIRONE [...] mg by mouth Thre e times daily [facility] buspirone hydrochloride 10 MG Oral Tablet BUSPIRONE HCL 10/06/2020 12:00:00 AM EDT tablet 90 TAKE ONE TABLET BY MOUTH THR EE TIMES A DAY TAKE ONE TABLET BY MOUTH THREE TIMES A DAY SOLD: 03/17/2021 [facility] buspirone hydrochloride 10 MG Oral Tablet BUSPIRONE HCL 10/06/2020 12:00:00 AM EDT tablet 90 TAKE ONE TABLET BY MOUTH THR EE TIMES A DAY TAKE ONE TABLET BY MOUTH THREE TIMES A DAY SOLD: 02/12/2021 [facility] buspirone hydrochloride 10 MG Oral Tablet BUSPIRONE HCL 10/06/2020 12:00:00 AM EDT tablet 90 TAKE ONE TABLET BY MOUTH THR EE TIMES A DAY TAKE ONE TABLET BY MOUTH THREE TIMES A DAY SOLD: 04/21/2021 [facility] buspirone hydrochloride 10 MG Oral Tablet BUSPIRONE HCL 10/06/2020 12:00:00 AM EDT tablet 90 TAKE ONE TABLET BY MOUTH THR EE TIMES A DAY TAKE ONE TABLET BY MOUTH THREE TIMES A DAY SOLD: 12/14/2020 [facility] buspirone hydrochloride 10 MG Oral Tablet [...] CAPSULE BY MOUTH THREE TIMES A DAY [facility] 5 mg 10/03/2020 12:00:00 AM EDT tablet 14 TAKE ONE TABLET BY MOUTH EVERY 12 HOURS NEEDED FOR PAIN, MAXIMUM DAILY DOSE = 2 TABLETS TAKE ONE TABLET BY MOUTH EVERY 12 HOURS NEEDED FOR PAIN, MAXIMUM DAILY DOSE = 2 TABLETS SOLD: 10/03/2020 [facility] Oxycodone Hydrochloride 5 MG Oral Tablet oxyCODONE HCl 5 MG Oral Tablet (Roxicodone) oxyCODONE HCl 5 MG Oral Tablet (Roxicodone) 10/03/2020 12:00:00 AM EDT aborted One tab PO Q 12 hours PRN pain, MDD 2 [facility] 100 mg 09/29/2020 12:00:00 AM EDT capsule 90 TAKE ONE CAPSULE BY MOUTH THREE TIMES A DAY TAKE ONE CAPSULE BY MOUTH THREE TIMES A DAY SOLD: 09/29/2020 [facility] 100 mg 09/29/2020 12:00:00 AM EDT capsule 57 TAKE ONE CAPSULE BY MOUTH THREE TIMES A DAY TAKE ONE CAPSULE BY MOUTH THREE TIMES A DAY SOLD: 10/03/2020 [facility] gabapentin 100 MG Oral Capsule Gabapentin 09/27/2020 12:00:00 AM EDT ORAL completed [facility] ([facility]) 5 mg 09/26/2020 12:00:00 AM EDT tablet 21 TAKE ONE TABLET BY MOUTH EVERY 8 HOURS NEEDED FOR PAIN MAXIMUM DAILY DOSE = 3 TAKE ONE TABLET BY MOUTH EVERY 8 HOURS NEEDED FOR PAIN MAXIMUM DAILY DOSE = 3 SOLD: 09/27/2020 [facility] Oxycodone Hydrochloride 5 MG Oral Tablet oxyCODONE HCl 5 MG Oral Tablet (Roxicodone) oxyCODONE HCl 5 MG Oral Tablet (Roxicodone) 09/26/2020 12:00:00 AM EDT active One tab PO Q 8 ho urs PRN pain, MDD 3 [facility] 24 HR Propranolol Hydrochloride 60 MG Ex tended Release Oral Capsule Propranolol HCl ER 60 MG Oral Capsule Extended Release 24 Hour (INDERAL [place]) Propranolol HCl ER 60 MG Oral Capsule Extended Release 24 Hour (INDERAL [place]) 09/21/2020 12:00:00 AM EDT 60 mg Oral aborted Take 60 mg by mo uth daily [facility] 5-325 mg 09/20/2020 12:00:00 AM [...] q 6 hrs prn pain MDD: 4 [facility] 5-325 mg 09/14/2020 12:00:00 AM [...] PO q 8hrs prn pain MDD: 6 [facility] 5-325 mg 09/08/2020 12:00:00 AM [...] PO q 6hrs prn pain MDD: 8 [facility] 5-325 mg 09/04/2020 12:00:00 AM [...] PO q 4hrs prn pain MDD: 8 [facility] Oxycodone Hydrochloride 5 MG Oral Tablet oxyCODONE HCl 5 MG Oral Tablet (ROXICODONE) oxyCODONE HCl 5 MG Oral Tablet (ROXICODONE) 08/18/2020 12:00:00 AM EST mg Oral aborted Take 1-2 tablets by mouth every 6 (six) hours as needed for Pain for up to 5 days, Max Daily Dose: 40 mg [facility] 5 mg 08/18/2020 12:00:00 AM [...] s fentaNYL (SUBLIMAZE) (PF) injection 25 mcg [id number] 08/11/2020 10:14:56 AM EST 25 ug Intravenous active 25 m cg, Intravenous, Every 5 min PRN, Moderate Pain (Pain Scale Score 4-6), Starting Fri08/11/20 at 1014, For 4 doses, [facility] Medication administered onsite HYDROmorphone (DILAUDID) injection 0.5 mg [id number] 08/11/2020 10:14:56 AM EST 0.5 mg Intravenous active 0.5 mg, Intravenous, Every 5 min PRN, Severe Pain (Pain Scale Score 7-10), Starting Fri08/11/20 at 1014, For 4 doses, [facility] Medication administered onsite ondansetron (ZOFRAN) injection 4 mg 96276-210-04 08/11/2020 10:14:5 6 AM EST 4 mg Intravenous active 4 mg, In travenous, Once PRN, Nausea, Vomiting, Starting Fri08/11/20 at 1014, For 1 dose, [facility] Medication administered onsite Acetaminophen 325 MG Oral Tablet acetaminophen (TYLENO L) tablet 975 mg acetaminophen (TYLENOL) tablet 975 mg 08/11/2020 07:00:00 AM EST 97 5 mg Oral completed 975 mg, Oral, O nce, Fri08/11/20 at 0700, For 1 dose
Maximum daily dose of acetaminophen is 3,000 mg from all sources in 24 hours.
Pre-op [facility] Medication administered onsite gabapentin 300 MG Oral Capsule gabapentin (NEURONTIN) capsule 300 mg gabapentin (NEURONTIN) capsule 300 mg 08/11/2020 07:00:00 AM EST 300 mg Oral completed 300 mg, Oral, Once, Fri08/11/20 at 0700, For 1 dose, Pre-op [facility] Medication administered onsite celecoxib 200 MG Oral Capsule celecoxib (CeleBREX) cap tressa 200 mg celecoxib (CeleBREX) capsule 200 mg 08/11/2020 07:00:00 AM EST 200 mg Oral completed 200 mg, Oral, Once, Fri08/11/20 at 0700, For 1 dose, Pre-op [facility] Medication administered onsite Calcium Chloride 0.0014 MEQ/ML / Potassi um Chloride 0.004 MEQ/ML / Sodium Chloride 0.103 MEQ/ML / Sodium Lactate 0.028 MEQ/ML Injectable Solution lactated ringers infusion lactated ringers infusion 08/11/2020 07:00:00 AM EST Intravenous active at 100 mL/hr, Intravenous, Continuous, Starting Fri08/11/20 at 0700, For 30 days
Keep Vein Open. Use Wide Tubing.
Pre-op [facility] Medication administered onsite 100 mg [...] for Nausea for up to 3 days [facility] Aspirin 81 MG Delayed Release Oral Table t Aspirin 81 MG Oral Tablet Delayed Release Aspirin 81 MG Oral Tablet Delayed Release 08/11/2020 12:00:00 AM EST 81 mg Oral active Take 1 tablet by mouth d aily [facility] Oxycodone Hydrochloride 5 MG Oral Tablet oxyCODONE HCl 5 MG Oral Tablet (ROXICODONE) oxyCODONE HCl 5 MG Oral Tablet (ROXICODONE) 08/11/2020 12:00:00 AM EST mg Oral active Take 1-2 tablets by mouth every 4 (four) hours as needed for Pain for up to 5 days, Max Daily Dose: 6 tablets [facility] Docusate Sodium 100 MG Oral Capsule Docu sate Sodium 100 MG Oral Capsule (Colace) Docusate Sodium 100 MG Oral Capsule (Colace) 08/11/2020 12:00:00 AM EST 100 mg Oral active Take 1 cap tressa by mouth Two times daily as needed for Constipation for up to 7 days [facility] Cephalexin 500 MG Oral Capsule Cephalexin 500 MG Oral Capsul e 08/11/2020 12:00:00 AM EST 500 mg Oral active Take 1 capsule by mouth Four times daily for 5 days [facility] 81 mg 08/11/2020 12:00:00 AM [...] 0.5 MG/DOSE) 2 MG/1.5ML Subcutaneous Solution Pen-injector [id number] 07/29/2020 12:00:00 AM EST 0.25 mg Subcutaneous active Inject 0.25 mg into the skin Every Friday [facility] 33 gauge 07/24/2020 12:00:00 AM [...] 07/24/2020 12:00 :00 AM EST active [facility] ([facility]) rizatriptan 10 MG Oral Tablet Rizatriptan Benzoate 10 MG Oral Tablet (MAXALT) Rizatriptan Benzoate 10 MG Oral Tablet (MAXALT) 07/22/2020 12:00:00 AM EST 10 mg Oral active Take 10 mg by mouth as n eeded [facility] Covid-19 vaccine, Unspecified 07/20/2020 12:00:00 AM EST completed [facility]) Medication administered onsite tramadol hydrochloride 50 MG Oral Tablet Tramadol HCL 07/11/2020 12:00:00 AM EST completed [facility] ([facility]) Rosuvastatin calcium 20 MG Oral Tablet R osuvastatin Calcium 20 MG Oral Tablet (CRESTOR) Rosuvastatin Calcium 20 MG Oral Tablet (CRESTOR) 07/08 12:00:00 AM EST 20 mg Oral active Take 20 mg by keyla th daily [facility] Ibuprofen 800 MG Oral Tablet Ibuprofen 800 MG Oral Tab let (MOTRIN) Ibuprofen 800 MG Oral Tablet (MOTRIN) 07/08/2020 12:00:00 AM EST aborted TAKE ONE TABLET BY MOUTH THREE TIMES A DAY FOR 5 DAYS [facility] Cyclobenzaprine hydrochloride 10 MG Oral [...] MAY REPEAT AFTER 2 HOURS SOLD: 07/23/2020 [facility] 10 mg 07/08/2020 12:00:00 AM [...] MG) 07/07/2020 12:00:00 AM EST completed [facility] ([facility]) Medication administered onsite Methylprednisolone 4 MG Oral Tablet Methylprednisolone 06/23 12:00:00 AM EST ORAL active [facility] ([facility]) 4 mg 07/07/2020 12:00:00 AM EST tablet [...] MG/Dose) 07/04/2020 12:00:00 AM EST active [facility] ([facility]) Naproxen sodium 220 MG Oral Capsule [...] Unspecified 06/22/2020 12:00:00 AM EST completed [facility]) Medication administered onsite 24 HR Bupropion Hydrochloride [...] 05/25/2020 12:00:00 AM EST ORAL completed [facility] 100 mg 05/14/2020 12:00:00 AM EST capsule [...] HCL 03/23/2020 12:00:00 AM EDT completed [facility] 50 mg 03/23/2020 12:00:00 AM EDT tablet [...] 8 (eight) hours as needed for Pain [facility] Insurance Providers Payer name Policy type / Coverage type Policy ID Covered alliance party ID Covered alliance party's relationship to [place] Policy [place] Plan Information BCBS OF [facility] 305/805 [id number] [facility] Medigap Part B [id number] Self [id number] [facility] Medigap Part B Epo [id number] Self Epo ac Medigap Part B [id number] .4595.35805.0 Family Dependent [id number] ac Medigap Part B [id number] .4595.48133.0 Family Dependent [id number] [facility] Medigap Part B [id number]9 .4595.92289.0 Family Dependent 2740999 [facility] Medigap Part B [id number] 2.16.840.1.434359.3.227.99 .4595.03906.0 Family Dependent 5086962 [facility] Medigap Part B [id number] 2.16.840.1.505671.3.227.99 .4595.90083.0 Family Dependent 9225175 [employer] Medigap Part B [id number] 2.16.840.1.770889.3.227.99 .4595.36197.0 Family Dependent 7128124 [facility] Medigap Part B [id number] 2.16.840.1.383779.3.227.99 .4595.74870.0 Family Dependent 8285833 [facility] Medigap Part B [id number] Family Dependent 6473266 [facility] Medigap Part B [id number] 2.16.840.1.781124.3.227.99 .4595.15015.0 Family Dependent 4662048 [facility] Medigap Part B [id number] 2.16.840.1.083718.3.227.99 .4595.63128.0 Family Dependent 9672071 [employer] Medigap Part B [id number] Family Dependent [facility] Medigap Part B [id number] 2.16.840.1.018169.3.227.99 .4595.64366.0 Family Dependent 7469087 [facility] Medigap Part B [id number] 2.16.840.1.147116.3.227.99 .4595.27423.0 Family Dependent [id number] [employer] Commercial High Deductible Epo [id number] Self High Deductible Epo [employer] Commercial [id number] Self [id number] [facility] SELFINSURE 1 [id number] 1 [id number] NO FAULT PENDING 2 [id number] 1 [id number] BC EXC PLANS 1 [id number] 1 [id number] BC EXC PLANS 1 [id number] OEC2 [id number] [facility] Trad/MX Commercial [id number] Family Dependent 802 [place] Trad/MX Medigap Part B [id number] Family Dependent [id number] Medicaid Medigap Part B [id number] 2.16.840.1.443781.3.227.99.4595.151 84.0 Self [id number] Medicaid Medigap Part B [id number] 2.16.840.1.310707.3.227.99.4595.151 84.0 Self [id number] Medicaid Medigap Part B [id number] 2.16.840.1.991505.3.227.99.4595.151 84.0 Self [id number] Medicaid Medigap Part B [id number] 2.16.840.1.653554.3.227.99.4595.151 84.0 Self [id number] Medicaid Medigap Part B [id number] 2.16.840.1.404492.3.227.99.4595.151 84.0 Self [id number] Medicaid Medigap Part B [id number] 2.16.840.1.858194.3.227.99.4595.151 84.0 Self [id number] Medicaid Medigap Part B [id number] 2.16.840.1.069349.3.227.99.4595.151 84.0 Self [id number] Medicaid Medigap Part B [id number] 2.16.840.1.377453.3.227.99.4595.151 84.0 Self [id number] Medicaid Medigap Part B [id number] Self [id number] Medicaid Medigap Part B [id number] 2.16.840.1.917221.3.227.99.4595.151 84.0 Self [id number] Medicaid Medigap Part B [id number] 2.16.840.1.081759.3.227.99.4595.151 84.0 Self [id number] Medicaid Medigap Part B 1 [id number] Self 1 1 Medicaid Medigap Part B [id number] 2.16.840.1.687609.3.227.99.4595.151 84.0 Self [id number] MEDICAID [id number] Bety [id number] [employer] Commercial [id number] Self [id number] [employer] Commercial MVPM [id number] Self MVPM [employer] Commercial [id number] Self [id number] MVP MCDHMO [id number] SP [id number] MVP MCDHMO [id number] SP [id number] MVP MCDHMO [id number] SP [id number] [employer] Commercial [id number] 2.840.1.890710.3.227.99 .4595.57955.0 Self [id number] MVP MCDHMO [id number] SP [id number] [employer] Commercial 2.16840.1.002339.3.227.99.4595.15 184.0 Self [employer] F [id number] SELF [id number] MVP (pr) Commercial [id number] Self [id number] MVP (pr) Commercial [id number] 2.840.1.260360.3.227.99.991.07789. 0 Self [id number] MVP (pr) Commercial [id number] 2.16840.1.259504.3.227.99.991.38107. 0 Self [id number] [employer] F [id number] SELF [id number] MVP Medicaid Commercial [id number] 00 [id number] Self [id number] MVP I [id number] Self [id number] MVP I [id number] Self [id number] MVP Medicaid Commercial [id number] 2.840.1.609818.3.227.99.991.81 709.0 Self [id number] MVP Medicaid Commercial [id number] Self [id number] MVP Medicaid Commercial [id number] 2.0.1.458029.3.227.99.991.81 709.0 Self [id number] MVP Medicaid Commercial [id number] 2.840.1.920157.3.227.99.991.81 709.0 Self [id number] MVP Medicaid Commercial [id number] Self [id number] MVP I [id number] Self [id number] MVP I [id number] Self [id number] [employer] Commercial Insurance Co. [id number] Self [id number] [employer] Commercial Insurance Co. [id number] Self [id number] MVP MCDHMO [id number] SP [id number] MVP MDCD HM [id number] 18 [id number] 100 MVP HEALTH CARE O [id number] S [id number] MVP Commercial [id number] Self MVP HEALTH CARE O UNAVAILABLE S UN AVAILABLE [facility] HE[facility] CARE [id number] SP [id number] MEDICAID [id number] SP [id number] [facility] NATIONAL INS [id number] GMAC [id number] SP [id number] GROUP HEALTH INSURANCE [id number] SP [id number] GROUP HEALTH INSURANCE [id number] SP [id number] [facility] MEDICAL CLAIMS [id number] HU2 [id number] [place] 306/806 [id number] SP [id number] [facility] FAM[facility] HLTH PLUS [id number] SP [id number] [place] 306/806 [id number] SP [id number] [place]BS [place] PPO 302/307 [id number] HU2 [id number] VALUE OPTIONS (MVP) [id number] SP [id number] [facility] [id number] SP [id number] SELF PAY UNAVAILABLE UNAVAILA BLE SELF PAY 2 UNAVAILABLE [id number] UNAVAILA BLE SELF PAY 2 UNAVAILABLE 1 UNAVAILA BLE [facility] [id number] SP [id number] BC EXC PLANS 1 [id number] [facility] SELFINSURE 1 [id number] 1 [id number] [facility]ARE [id number] SP [id number] [facility] Commercial [id number] Self [id number] [facility] Commercial [id number] Self [id number] [facility] Commercial [id number] .[id number] Self [id number] [facility] HEALTH CARE O [id number] S [id number] THE [place] O [id number] S [id number] [place] O [id number] S [id number] [place] WORK COMP [id number] SP [id number] [facility] O [id number] S [id number] [facility] Commercial [id number] .[id number] Self [id number] [employer] [id number] SP [id number] [facility] O [id number] S [id number] [place] [id number] SP [id number] [facility] HE[facility] CARE O [id number] S [id number] MVP Commercial [id number] .0 Self [id number] MVP Commercial [id number] Self [place] Trad/MX Medigap Part B [id number] Self [id number] Lifetime Benefit ([employer]) Commercial Family [id number] Family Depende nt Family [place] Trad/MX Medigap Part B [id number] Self Lifetime Benefit ([employer]) Commercial [id number] Family Dependent [id number] Problems, Conditions, and Diagnoses Code Display Name Description Problem Type Effective Dates Data Source(s) M25.511 Pain in right shoulder Pain in right shoulder Diagnosi s 03/22/2021 01:33:34 PM EDT [facility] Z96.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 felipe int Presence of right artificial shoulder joint Diagnosis 03/22/2021 01:33:34 PM EDT [facility] PT rt shoulder PT rt shoulder Diagnosis 10/12/2020 10:53: [address] [facility] PT R Shoulder Post Op PT R Shoulder Post Op Diagnosis 09/07/2020 03:05:03 PM T [facility] M19.111 Post-traumatic osteoarthritis, right selene ulder Post-traumatic osteoarthritis, right shoulder Diagnosis 08/11/2020 05:56:00 AM [facility] Chronic right shoulder pain [M25.511, G8 9.29] Chronic right shoulder pain [M25.511, G89.29] Diagnosis 08/11/2020 05:56:00 AM [facility] Surgeries/Procedures Procedure Description Date Indications Data Source(s) OFFICE OUTPATIENT VISIT 15 MINUTES 01/30/2021 12:00:00 AM EDT [facility] ([facility]) Diabetic Retinal Eye Exam 11/03/2020 12:00:00 AM EDT MED[facility]KE ([facility]) OFFICE OUTPATIENT VISIT 15 MINUTES 10/31/2020 12:00:00 AM EDT [facility] ([facility]) Diabetic Retinal Eye Exam 10/23/2020 12:00:00 AM EDT [facility] ([facility]) DUP-SCAN XTR VEINS UNILATERAL/LIMITED STUDY <td>US DOP PLER UPPER EXTREMITY UNILATERAL VENOUS LIMITED 59109</td><td>STAT</td><td>08/18/2020 2:13 PM EST</td><td> Right shoulder pain, unspecified chronicity Swelling of joint of upper arm, right</td><td> </td> 08/18/2020 02:13:07 PM EST Swelling of joint of upper arm, rightRig ht shoulder pain, unspecified chronicity [facility] Swelling of joint of upper arm, right Right shoulder pain, unspecified chronic ity RADEX SHOULDER 1 VIEW <td>XR SHOULDER 1 VIEW 05710</td><td>STAT</td><td>08/11/2020 10:55 AM EST</td><td></td><td> </td> 08/11/2020 10:55:19 AM [facility] POCT GLUCOSE, DOCKED <td>POCT GLUCOSE, DOCKED</td ><td>Routine</td><td>08/11/2020 10:32 AM EST</td><td></td><td> </td> 08/11/2020 10:32:00 AM [facility] US GUIDED PERIPHERAL NERVE BLOCK (OR ONLY) <td>US GUID ED PERIPHERAL NERVE BLOCK (OR ONLY)</td><td>Routine</td><td>08/11/2020 8:25 AM EST</td><td></td><td></td> 08/11/2020 08:25:00 AM [facility] POCT GLUCOSE, DOCKED <td>POCT GLUCOSE, DOCKED</td ><td>Routine</td><td>08/11/2020 7:26 AM EST</td><td></td><td> </td> 08/11/2020 07:26:00 AM EST [facility] ECG ROUTINE ECG W/LEAST 12 LDS W/I&R 07/31/2020 12:00: 00 AM EST [facility] ([facility]) Therapeutic, Prophylactic Or Diagnostic Injection Subq/Im 07/07/2020 12:00:00 AM EST [facility] ([facility]) Therapeutic, Prophylactic Or Diagnostic Injection Subq/Im 04/23/2020 12:00:00 AM EDT [facility] ([facility]) Results ID Date Data Source [id number] 04/26/2021 07:51:56 AM EDT [facility] Name Value Range Interpretation Code Description Data Sheba rce(s) Supporting Document(s) Progress Note [facility] KWUJPu7nKuLFFfIc74/KFCiiVMWpp5YiXMxkFEc6ROcvUGPyO0RkTBW1aE3nZBW4JVoRWyOoQiIeFRT4 lbm [file] ID Date Data Source [id number] 04/14/2021 03:54:32 PM EDT [facility] Name Value Range Interpretation Code Description Data Sheba rce(s) Supporting Document(s) Progress Note [facility] SJYOYq2yGuGCFgBs01/KINikPYGba2RaEZmfYJd8HAmwBUFhY0HbFGQ0xM4jNIL8HMzJIyOjZlKpYXTe lbm [file] ICAgICAgICAgICAgICAgICAgICAgICAgICAgICAgICAgICAgICAgICAgICAgICANCiAgICAgICAgICAg ICAgICAgICAgICAgICAgICAgICAgICAgICAgICAgIC AgICAgICAgICAgICAgICAgICAgICAgICAgICAgICAgICAgICAgICAgICAgICAgICAgICAgICAgICANCi AgICAgICAgICAgICAgICAgICAgICAgICAgICAgICAgICAgICAgICAgICAgICAgICAgICAgICAgICAgIC AgICAgICAgICAgICAgICAgICAgICAgICAgICAgICAg ICAgICAgICANCiAgICAgICAgICAgICAgICAgICAgICAgICAgICAgICAgICAgICAgICAgICAgICAgICAg ICAgICAgICAgICAgICAgICAgICAgICAgICAgICAgICAgICAgICAgICAgICAgICAgICANCiAgICAgICAg ICAgICAgICAgICAgICAgICAgICAgICAgICAgICAgIC AgICAgICAgICAgICAgICAgICAgICAgICAgICAgICAgICAgICAgICAgICAgICAgICAgICAgICAgICAgIC ANCiAgICAgICAgICAgICAgICAgICAgICAgICAgICAgICAgICAgICAgICAgICAgICAgICAgICAgICAgIC AgICAgICAgICAgICAgICAgICAgICAgICAgICAgICAg ICAgICAgICAgICANCiAgICAgICAgICAgICAgICAgICAgICAgICAgICAgICAgICAgICAgICAgICAgICAg ICAgICAgICAgICAgICAgICAgICAgICAgICAgICAgICAgICAgICAgICAgICAgICAgICAgICANCiAgICAg ICAgICAgICAgICAgICAgICAgICAgICAgICAgICAgIC AgICAgICAgICAgICAgICAgICAgICAgICAgICAgICAgICAgICAgICAgICAgICAgICAgICAgICAgICAgIC AgICANCiAgICAgICAgICAgICAgICAgICAgICAgICAgICAgICAgICAgICAgICAgICAgICAgICAgICAgIC AgICAgICAgICAgICAgICAgICAgICAgICAgICAgICAg ICAgICAgICAgICAgICANCiAgICAgICAgICAgICAgICAgICAgICAgICAgICAgICAgICAgICAgICAgICAg ICAgICAgICAgICAgICAgICAgICAgICAgICAgICAgICAgICAgICAgICAgICAgICAgICAgICAgICANCjw/ fZMaI6dkpSCwfqW7U9lyKj9NTo4XAJ5io6CxIWQmKB upxqUyMiaYNmXcRFCxWooJYjh8IEroZY2AkUOyK1QnD1TnLSjqNG5VHLFjJVXqsESsZOFtROUcBpG9JV ZgNDegOA9EwKRiEBycYJQkSRAhJmLvVDDzILUbMSNfCH7UMILrJ392odEzSh5NOx9ZUmKyTT3agl2PWy maTWDjBahMSkp8PShkMD2VfWGzaYWkKABhQHTKKmGl F8svl7VeDfQtLDXJMGrfIC7Zz9CbkAUqXDc+Ct9EZW9xw6AlXAqaULOpDR3ftm5HYMlWAxNnD1TddSkh LHKjp1elNHTwLK8bbYYmPMA9YHSzf6QnYxHLr0etAYBOJWFsfKCzXW7kDK9mRBGyYSB8HcD7HNRDFX8Q ZRXbZPNisGWpGLDbPVFWXC8FMEbyGXI4TBPnepUbuG OpVRweWH2LODZbgjMtBhfxVJINVCz+Xl1LIO2tn9GfOCxpHEZbTB4wua4EZMiETrHpT6Y4fYQsC6C0IM qiZf0JQGWkFLXkJopiELFEWVfqDQ4DVL9sstU6UZ6HnWOlZJDmTANhkGDoJRs6X78wiCLjBVmkLL7XEG A+Muriel+Cx7AVAPrXLIgFXMzQuAiEDEVXnFaC4WtY6AF e8GuB5JcLK54pLwtqxRdHOgcYG0PEP0dSQCeXVKAXR7FeUOnyW2ozvZhXXOpXALGRoIaY16wePMyVNEt JAS0GBQoGu5MNMAqG6NttqTogGjrxsViUOIeCZAEPJ8ZKErtjqBcgPZsxLyfOZ95oRxbIR5DUw3OJsAh NU1cqf3PrQOnUa1DNEEjAn2OSAKrYUSyGVRhNLV5WP VuFoOpMVkfQVJkOICqAOE5HBHkNECoQC5GTxTcPNKvMsA6LNSuCANzCNPsvr5VZMWbXUBnJAT5ScZwEX SgLMKlQDngKZRnTIUnGCF8STNwHNIuKF9MPnSaLAKiDGK3XvMmANAxNXThgf6CCVMaKCNvUxW2OeNhOT NbCEGsSFouEPFfBFV7MPA7HADbOBTqUD6DPxMdRMMx XVIqUtNqYBCpRHCfdy0ICZFvUJTzCJd0XXPsBAJeHUVvPGsmPTCkIXA1DJj6JVSmNSHgTT0CElXoTNYk WCMhLHtsFWWoXMEsrg1ZEDKjDDQxJCA0RTRiAHQgKMXcLJtpWTInUPNwTGL3OMUxMJFlJD8VFiFxMSMu ZEK4ZLgdEEGxWOFyvb2WCCFfOGVuJRO8MTRkWWJsNV VrMUkxTTNmTAXbPYj9PWDbCDPoGE6DUnEuOTHcAqLqYOgzBONeCFYlzd8HOHVwIOBwJiA6FoIkZHJnKI JcGRcyZTIiATAeQPGiSCHlKKSaRP0TTmMxIIKrVsIwWXHtESWtJZSiro9EYIGfGGNgTRS5CoTvTCDuIQ AkNWraECGnINR8YSeaMPNtPMBwDJ6FSfJiKBFsIgPn UINmIZSjDBFtqp8WOCOxMBJjVTP5ESXlFHOaTPCcMDmxBIZoUXD8HXNuGUYzQNBgZM3XSpFiYAOzPqO4 MBJdKYQnASLkzx5UWEOjTBRrVaj3KKBjTQGzAZCtVGjeJGHsTUY8UoThUVYuLIEiMW4CXkOyFCRmFvz4 WMNpWVCxSXTdcb9YUBNbMLJfCWqzRfRcCYYlPKVmYJ eyATOiMTQ4RKyeLOLfNKQwSB1QHuWoUKhfZFYZLhv3INgnZ7y1ZVNnSo5DM2Tjy1ZoXeLyWDWNOYidOF 7sctKiXIVrLm2VQ8uLWnhdVjVuYCV0WJDiLvXfFjB1XEFgXGTnUHLqIGGmDiDiCi8nADAtOdK3QbJ5WZ PmNlDoIfFyWEFzFGDrZES8YHNtVOI0UkWqVU7BCe5CYsQ7JMX8sSKdWq0HMnafTACIUeDnBL0WYIe= ID Date Data Source [id number] 03/31/2021 01:17:04 PM EDT [facility] Name Value Range Interpretation Code Description Data Sheba rce(s) Supporting Document(s) Progress Note [facility] ICMPUw8jNxULYdQs72/HBGecOIEvq5UzZNevBUq2DKebJDLfJ0BkVTJ9rQ2pDGK6NGqTZfGgDqBxDMK6 lbm [file] 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/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+mAthpLN1Ayw0eK3X9efXl3S1b42oVbCJYyBsw4XNSVlHvuz [file] Nm7TIwX0KiUIItMxHQ3PNOp= ID Date Data Source [id number] 03/22/2021 02:35:05 PM EDT [facility] CT UPPER EXTREMITY WITHOUT CONTRAST 7320 [...] rce(s) Supporting Document(s) ID Date Data Source [id number] 03/13/2021 06:35:39 PM EDT [facility] XR SHOULDER COMPLETE [id number] RESULTIn terpreted by:Apolinar Rivas [facility] SHOULDERCLINICAL STATEMENT: Status post right shoulder arthroplasty.TECHNIQUE: [...] document has been electronically signed by Apolinar Rivas MD on 03/13/2021 6:33 PM Name Value Range Interpretation Code Description Data Sheba rce(s) Supporting Document(s) ID Date Data Source [id number] 03/13/2021 09:52:10 AM EDT [facility] Name Value Range Interpretation Code Description Data Sheba rce(s) Supporting Document(s) Progress Note [facility] BGKABc4cHfPFLdFb40/EPZzcVCOmz5YpNHqiOTl8CWysGSYjL2RrCBP3nI9wKBP9EOoMIaNyJvQiTZPr lbm [file] ICAgICAgICAgICAgICAgICAgICAgICAgICAgICAgICAgICAgICAgICAgICAgICAgICAgICAgICAgICAg ICAgICAgICANCiAgICAgICAgICAgICAgICAgICAgIC AgICAgICAgICAgICAgICAgICAgICAgICAgICAgICAgICAgICAgICAgICAgICAgICAgICAgICAgICAgIC AgICAgICAgICAgICAgICAgICANCiAgICAgICAgICAgICAgICAgICAgICAgICAgICAgICAgICAgICAgIC AgICAgICAgICAgICAgICAgICAgICAgICAgICAgICAg ICAgICAgICAgICAgICAgICAgICAgICAgICAgICANCiAgICAgICAgICAgICAgICAgICAgICAgICAgICAg ICAgICAgICAgICAgICAgICAgICAgICAgICAgICAgICAgICAgICAgICAgICAgICAgICAgICAgICAgICAg ICAgICAgICAgICANCiAgICAgICAgICAgICAgICAgIC AgICAgICAgICAgICAgICAgICAgICAgICAgICAgICAgICAgICAgICAgICAgICAgICAgICAgICAgICAgIC AgICAgICAgICAgICAgICAgICAgICANCiAgICAgICAgICAgICAgICAgICAgICAgICAgICAgICAgICAgIC AgICAgICAgICAgICAgICAgICAgICAgICAgICAgICAg ICAgICAgICAgICAgICAgICAgICAgICAgICAgICAgICANCiAgICAgICAgICAgICAgICAgICAgICAgICAg ICAgICAgICAgICAgICAgICAgICAgICAgICAgICAgICAgICAgICAgICAgICAgICAgICAgICAgICAgICAg ICAgICAgICAgICAgICANCiAgICAgICAgICAgICAgIC AgICAgICAgICAgICAgICAgICAgICAgICAgICAgICAgICAgICAgICAgICAgICAgICAgICAgICAgICAgIC AgICAgICAgICAgICAgICAgICAgICAgICANCiAgICAgICAgICAgICAgICAgICAgICAgICAgICAgICAgIC AgICAgICAgICAgICAgICAgICAgICAgICAgICAgICAg ICAgICAgICAgICAgICAgICAgICAgICAgICAgICAgICAgICANCiAgICAgICAgICAgICAgICAgICAgICAg ICAgICAgICAgICAgICAgICAgICAgICAgICAgICAgICAgICAgICAgICAgICAgICAgICAgICAgICAgICAg ICAgICAgICAgICAgICAgICANCjw/yLPeW1ljuKPtnd M9G5zoYo5CSk8QXC0my9BrVMFnEThlepZrXbeXAkEkFNOdOpyAJmh9GBeqCQ8OgQScO3BaQ9WzRBecDD 6CKMNxMUTfyVPiIQMsFRXdFzE5KHUoAMhlTE5JrCAcVJnmUAAlOJVeZB8EGLUqQ025gwFyDC2HQk5JTd WoQV8ljw2GZEskXSPaGwvXPow4ATjyBV8AiVDypPXz RRAqDXMMUqKvK9wyf3BvGpYiCYVFFOnhAU2Ph7RucEZuHVf+Fe9SRK3xz8ZiKVldXQEmKM6kqz1FRNpA DvHnB0QlsSerDENyb1gnMTZhRM7hfSJfMAM8QDMkjy7lzIa4CASNy04eovxjAnCfFRUjZL9vBT8uUSQc OLJ7TzNkOZCXFY9VKQZzSWGtrMTgSEIgKSAPQU6VEI poBQR6EGOznhPxmSNdDNlrYK1CXPPqwsKeFCqjULWBXXp+Xi3EKW7eq8XgOIboMENeVT9oyr6FPNkGRx FfG2Z7pAIdS4R0AIlpIj7WXMPaXRKwWWatTYJBZPfeYV9JJF2hexH9DV5QkONkJCRgHITqyPZaJTt4V0 1cnJKaDMxsUR9YEAE+Muriel+Tr5LOLRqMISfFFHsQvJl THSQNqNcS2OxX1KLg9ViX2NjBE63pCqheoRvNPwbUF4MTD3rZUHdJVNPON0HaBKsvX6lzyBfOEGhMJXL KbLrM62eaQQiLGXdXEK0VUXaLj3OIYHfS3QkkhJwvYflnpOhVMCgGZUEZB0KNQnqbgWddUKxeGazPG79 fSlmEN0YFd8GQaPnLU2bgd6MqCCsHx5HQGCmBm8MHX SeDSInYKIlIJL6BFByTuJaSPdrYYXgKKNpPOM4GXAjKKVgYL3BYaUgONXbTYz7AuGmOVYuOXRvcq5KFZ SmLAGlWAG6MOSeDWUvZVWsFXdhRISrIXVzLFJ4QWXgUSHhHJ5OHiVwUUHwZAAjGOegLDQfZHNgsb4HWF SkSMEcFnG2DUAhUSElVHCrRQkcXAEfHPA8VEVaOLVs JKJeXY4NPjIuSAJmWSN2KIYxEUUmKKKhpg2RIGInDHVxQUizLqNcUALhWHPtGCkwMOHnODW8Ofb4ZVDl CRBuPU5VSbUfZYWbJES4NIUxXYUiTBJrtv8MEEQhSHNdUrE4XpEvPEVcYPNjVRanAYAmNAF8BMG8YIXn TNCgHC1MSoAdHNYpLDa6YHEeHTUkUXGvmj5LTYBiWL FtGMF4RxWrNVArRKXwLLfbNZCxNQX9MftkZMLfNIUlHH3LKdIfGVIuJMl2SekgZJKwCEZpkc4PXVXvCQ YhXKzdESFcECQhEGRdNJuxABYlLUTqKsf8XEBaDWOnAK2YWzBtESIhBjKuXMddCTFxYHIhsd5VKHVkKK YjCMN3HPVhQCKzHRXeWIq7svSiqISqPJq4AR1WR2Eq lfZtFuEIGx1Rl076XKKkDPXoRz6BU0tgDm2bEYPaTYPFKl3BCWs5S1G4YOF8EJK3PcQwXFhkFLc0YAG3 DoJwZJMrBDX8UWs+NGd9ONL6JQM2NjnjCdEaF8JnKTG4VmhfODI6WRF2ULgyAO9pMQTRCr2+DQpzdGFy sExvSCNTRnMjBjIuSYnkTFSDEu3J ID Date Data Source [id number] 03/07/2021 08:38:55 AM EDT [facility] Name Value Range Interpretation Code Description Data Sheba rce(s) Supporting Document(s) Progress Note [facility] EVXOSl5eBhENCqPw09/XXBqkPAAfq2NfMKmvCCz7MIqaECKmS7WxZRE0uT8uAWC6EZiFLyNiMnUnDSM9 lbm [file] AgICAgICAgICAgICAgICAgICAgICAgICAgICAgICAgICAgICAgICAgICAgICAgICAgICAgICAgICAgIC AgICAgICAgICAgICAgICAgICAgICAgDQogICAgICAg ICAgICAgICAgICAgICAgICAgICAgICAgICAgICAgICAgICAgICAgICAgICAgICAgICAgICAgICAgICAg ICAgICAgICAgICAgICAgICAgICAgICAgICAgICAgICAgDQogICAgICAgICAgICAgICAgICAgICAgICAg ICAgICAgICAgICAgICAgICAgICAgICAgICAgICAgIC AgICAgICAgICAgICAgICAgICAgICAgICAgICAgICAgICAgICAgICAgICAgDQogICAgICAgICAgICAgIC AgICAgICAgICAgICAgICAgICAgICAgICAgICAgICAgICAgICAgICAgICAgICAgICAgICAgICAgICAgIC AgICAgICAgICAgICAgICAgICAgICAgICAgDQogICAg ICAgICAgICAgICAgICAgICAgICAgICAgICAgICAgICAgICAgICAgICAgICAgICAgICAgICAgICAgICAg ICAgICAgICAgICAgICAgICAgICAgICAgICAgICAgICAgICAgDQogICAgICAgICAgICAgICAgICAgICAg ICAgICAgICAgICAgICAgICAgICAgICAgICAgICAgIC AgICAgICAgICAgICAgICAgICAgICAgICAgICAgICAgICAgICAgICAgICAgICAgDQogICAgICAgICAgIC AgICAgICAgICAgICAgICAgICAgICAgICAgICAgICAgICAgICAgICAgICAgICAgICAgICAgICAgICAgIC AgICAgICAgICAgICAgICAgICAgICAgICAgICAgDQog ICAgICAgICAgICAgICAgICAgICAgICAgICAgICAgICAgICAgICAgICAgICAgICAgICAgICAgICAgICAg ICAgICAgICAgICAgICAgICAgICAgICAgICAgICAgICAgICAgICAgDQogICAgICAgICAgICAgICAgICAg ICAgICAgICAgICAgICAgICAgICAgICAgICAgICAgIC AgICAgICAgICAgICAgICAgICAgICAgICAgICAgICAgICAgICAgICAgICAgICAgICAgDQogICAgICAgIC AgICAgICAgICAgICAgICAgICAgICAgICAgICAgICAgICAgICAgICAgICAgICAgICAgICAgICAgICAgIC AgICAgICAgICAgICAgICAgICAgICAgICAgICAgICAg QVc9F2viJEAqMPVwNO5jSZl9Ed7+DJiDBqPmXRA1hdPykK1XNQ9zy1SwYIfiBZYux1RdRKy9WW9FJVDi DWktZR7RKXelaa6ZOAHpFSSlxXDTb4dfDvBjGSK0MUEqLhmjVY7YQIGiE3prsjMbSSTfERWURIqlILXY IRhrHODVMBLzNXLuRcFgZmWdKIKlLV6TGRDfS866qq JdXW2ZVe7KQwBpYR5ewp1DHhkwKFOsSwgQCdq7YEqcSJ4ToDZywMJxIVGeWUXTWuJdL0gzg3QrZmsgYC FDLLlaGV6Nv2KgyGPzJEj+Hw6JRU4ox7CvDOkmYKOaSM6nan9YBTgDIgTiK5MsfVovMGJuh7hsUXUyBO 8oyETuGLD7UDciDQdqk60xHnDrxsuaJWDuOLZbCF9t TE0nLSIaQZTiXmY5BWWRXM7OPWCgVRZthLZvYJBqTFLRGP4PGBkbMXT8KFQocxKwcRYnBWvvQX2CQSIm bnQgMjcgMCBSDQo+Dm0XUS0iu2ZhLSpoQWGjHT4wkw9OOQnUKrDmU4C5tDSiO2R3TYldRg6KBRVaUCJk ViLrOPRVMRweFE5UKX7yoaZ8ZI9FtXNiJSDfCCXurN CtVOw3A04hiAGgIUpaIS1LQNH+Muriel+Sg4YCLImTMDnQKPpGmUnBFIFXdZsA1RsQ1WTe9JgM7NmQP66eX kjhwJsELusQK9ILI3zRMFoOOZKUT8UkOPrpW6ofaWqJqJhXYOFHgNzF86qiGCvYFExCZT4SRQqKh4VRF EcH9FzgiWumTgdfyMdCBTgYBQUAO8KTVqibcTtiZYj mFalGY33wXxqVG6ZFt0FQuMvUE3qzg6MgZMaAg0CPNCvFO3RVRNjXWMkBVPxXSD3VHMeTePrCQjnHPSf ORPeQIL9PLYlISCqEI6MBlIpHIEpPlf9ZipiRUQaDPAele1HNEEzYFPkYMS9YbIxGPErUDXfHCmaNXLp GGJtMUZ0JRQvIUYvZS0RFeQxQHDlBZE7DlFmTFHgQB Eshz3LEGHwGCPqRcauPTZxCPQvNTUhZRtzNNLiEJZ6FJmwKTTpWBVcCA2DXrFsGOUfWAunHRlmOKDlYG Mlhq7YRBQtZBViCCZnEIFuVOEgWUKaKWmrEGGwYVSvLXUqGOLiLQVeJR9DBbZfRULbPGZ2FDQaBFPoHT Fsve4KMAGdCAMhTjuwKNXkFXThCLShRPagIFDvBEP0 SRRsOBJlNGZmVZ3XSjHuAXEhDAK1FxPvUTAeCOEpli3SYIUwWWMlEDffQpPfFHVuJGFtJYimJZNnZQN4 MPOwEIZqFGCgMS2VVxQcXTDeISAgSXXvFABuUEFeqk5MBOYrJUInFcV4KCAqVJQjETMhLFndIQAsCTI8 WpB3YFKpXIGuJT3CMdNfNWOoYBj5GMKsVHBnUEMcnp 2URJPvGHAlIPo7CSOoDWQbZZGxWNaoNZYpJIJ8KbXqOSZuFAGcNY1ZFdExSUJuFpl9DMoqKUZxREBdcl 9RFOPiQJAiUAU1AGEeHSRdCVHlYEihZHYdMUQ9WKK2GFYpOHEjAK8EJjEkESOmRmXpGXFeJGTaTWPkxo 2PGFFnMSBnXRN1LVMcYTDaBGNmDCqpRPTkMHGzAePy ELLzYSKiSW5QOwMpQFPkIdV3KUldKFQlCOSnay6PuFAdiPzmdk5BJSkQDk3AhCppRGNsFCczOj6raAYl AUPfFHRRNk3OqmApTSNwXTRDENmmDUHhNQX4P4Q9J8BnBbA8XBtpVdFdQUXsFBWhAWJhPiuxQdM9BjC9 CPdsCmw4JDXkUuG7E2NdX4PsT4QcJmI7BhQ6ARVoFN k+FY2lZSs+Ts4Iu1DvcsY6woKlKUntFyX6Dx3ASJUKI0NWXj== ID Date Data Source [id number] 01/30/2021 09:22:00 AM EDT [facility] ([facility]) Name Value Range Interpretation Code Description Data Sheba rce(s) Supporting Document(s) Hemoglobin A1c/Hemoglobin.total in Blood 5.6 % [facility] Lab Result Notes: Pre-Diabetes 5.7 - 6.4 % Diabetes = or > 6.5% Glucose mean value [Mass/volume] in Blood Estimated fr om glycated hemoglobin 114 mg/dL 60-110 [facility] ID Date Data Source [id number] 01/27/2021 07:30:00 AM EDT [facility] Name Value Range Interpretation Code Description Data Sheba rce(s) Supporting Document(s) SARS-CoV-2 RNA Resp Ql DAVE+probe NOT DETECTED [facility] This lab was ordered by EDISON colby and reported by EDISON Villafana. ID Date Data Source [id number] 10/24/2020 08:34:00 AM EDT [facility] ([facility]) Name Value Range Interpretation Code Description Data Sheba rce(s) Supporting Document(s) Microalbumin Urine 30.0 mg/L 1.3-20.0 [facility] ([facility]) Microalb/Creat Ratio 9.6 ug/mg 0.0-30.0 [facility] Urine Creatinine 314.1 mg/dL 30.0-125.0 [facility] ([facility]) ID Date Data Source [id number] 10/24/2020 08:34:00 AM EDT [facility] ([facility]) Name Value Range Interpretation Code Description Data Sheba rce(s) Supporting Document(s) Cholesterol [Mass/volume] in Serum or Plasma 149 mg/dL 131-200 [facility] ([facility]) Triglyceride [Mass/volume] in Serum or Plasma 51 mg/dL 30-150 [facility] ([facility]) Cholesterol in HDL [Mass/volume] in Serum or Plasma 71 mg/dL 35-60 [facility] ([facility]) Cholesterol in LDL [Mass/volume] in Serum or Plasma by calcu lation 68 CALC 50-159 [facility] ([facility]) ID Date Data Source [id number] 10/24/2020 08:34:00 AM EDT [facility] ([facility]) Name Value Range Interpretation Code Description Data Sheba rce(s) Supporting Document(s) Glucose [Mass/volume] in Serum or Plasma 80 mg/dL 74-99 [facility] ([facility]) 100-125 mg/dL PRE-DIABETES/FASTING >126 mg/dL DIABETES/FASTING Creatinine 1.0 mg/dL 0.6-1.3 [facility] Urea nitrogen [Mass/volume] in Serum or Plasma 23 mg/dL 7-18 [facility] ([facility]) Sodium [Moles/volume] in Serum or Plasma 140 meq/L 136-145 [facility] ([facility]) Potassium [Moles/volume] in Serum or Plasma 4.6 meq/L 3.5-5.1 [facility] ([facility]) Chloride [Moles/volume] in Serum or Plasma 103 meq/L 98-107 [facility] ([facility]) Carbon dioxide, total [Moles/volume] in Serum or Plasma 29 meq/L 21 -32 [facility] ([facility] Alkaline phosphatase isoenzyme [Units/volume] in Serum or Pl asma 55 mg/dL 46-116 [facility] ([facility]) Calcium [Mass/volume] in Serum or Plasma 9.3 mg/dL 8.5-10.1 [facility] ([facility]) Aspartate aminotransferase [Enzymatic activity/volume] in Serum or Plasma 23 U/L 15-37 [facility] ([facility] ) Total Bilirubin 0.5 mg/dL 0.2-1.0 [facility] ([facility]) Alanine aminotransferase [Enzymatic activity/volume] in Seru m or Plasma 27 U/L 12-78 [facility] ([facility]) Albumin [Mass/volume] in Serum or Plasma 4.6 g/dL 3.4-5.0 [facility] ([facility]) Proteinase 3 Ab [Units/volume] in Serum 7.9 g/dL 6.4-8.2 [facility] ([facility]) A/G Ratio 1.39 CALC 1.00-1.90 [facility]) Glomerular filtration rate/1.73 sq M pre dicted among non-blacks [Volume Rate/Area] in Serum or Plasma by Creatinine-based formula (MDRD) 59 mL/min [facility] ([facility]) Glomerular filtration rate/1.73 sq M pre dicted among blacks [Volume Rate/Area] in Serum or Plasma by Creatinine-based formula (MDRD) Laboratory test result [facility] ([facility]) <content>CHRONIC KIDNEY DISEASE STAGING PER NKF</content>
<content></content>
<content>STAGE I & II GFR >= 60 NORMAL TO MILDLY DECREASED</content>
<content>STAGE III GFR 30-59 MODERATELY DECREASED</content>
<content>STAGE IV GFR 15-29 SEVERELY DECREASED</content>
<content>STAGE V GFR <15 VERY LITTLE GFR LEFT</content>
<content>ESRD GFR <15 ON ROTOR WINDER</content>
<content></content> ID Date Data Source [id number] 10/24/2020 08:34:00 AM EDT [facility]) Name Value Range Interpretation Code Description Data Sheba rce(s) Supporting Document(s) Hemoglobin A1c/Hemoglobin.total in Blood 5.2 % [facility] ([facility]) Lab Result Notes: Pre-Diabetes 5.7 - 6.4 % Diabetes = or > 6.5% Glucose mean value [Mass/volume] in Blood Estimated fr om glycated hemoglobin 103 mg/dL 60-110 [facility] ([facility] ) ID Date Data Source [id number] 10/24/2020 08:34:00 AM EDT [facility]) Name Value Range Interpretation Code Description Data Sheba rce(s) Supporting Document(s) Leukocytes [#/volume] in Blood by Automated count 5.3 x10*3/UL 4.1-10 .9 [facility] ([facility]) Hemoglobin [Mass/volume] in Blood 13.1 g/dL 12.0-18.0 [facility] Erythrocytes [#/volume] in Blood by Automated count 4.31 x10*6/UL 4.2 0-6.30 [facility] ([facility]) Hematocrit [Volume Fraction] of Blood by Automated count 36.9 % 3 7.0-51.0 [facility] ([facility]) MCV 85.7 fL 80.0-97.0 [facility] MCHC 35.5 g/dL 31.0-38.0 [facility] ([place] [facility]) MCH 30.5 pg 26.0-32.0 [facility] ([facility]) Platelets [#/volume] in Blood by Automated count 275 x10*3/UL 140-440 [facility] ([facility]) Erythrocyte distribution width [Ratio] by Automated count 12.5 % 11.6-13.7 [facility] ([facility]) MPV 6.6 FL 7.8-11.0 [facility] Lymph % 36.1 % 10.0-58.5 [facility]) Mid % 7.5 % 1.7-9.3 [facility] Neut % 56.4 % 37.0-92.0 [facility] Lymph # 1.9 x10*3/UL 0.6-4.1 [facility] ([facility]) Neut # 3.0 x10*3/UL 2.0-7.8 [facility] ([facility]) Mid # 0.4 x10*3/UL 0.1-0.6 [facility] ([facility]) ID Date Data Source [id number] 10/15/2020 01:54:10 PM EDT [facility] Name Value Range Interpretation Code Description Data Sheba rce(s) Supporting Document(s) Progress Note [facility] MOTHIt0eOqPKJtOl14/REJpmFXJct1LbSRwdOFl7UMssQRBnJ2CkQDB5zS8wLOA4NFwFLfZtOsBzCEY1 lbm GgBbqEYjApQENhIhhSWmPsNEraHoxfrXLhTS3WmVP1ARJzC24oFFYpIGAdY7BuGSHsZzK+We7POCVjgY CuZF4PGzqO9K6dD+CZZq8bKw1SWYQlNvHjtkmEVsEcZyzQqBBThBNqILbfGHZhu8zH5o+Q1ixOq9N+3c 9+Nj9J1gi00ts1esurWTvU0m+tCy5ZCWtw73/vfkaJ WasZ7p1/VyLDHUk71cdsw5g7XM4YrCsUji+e++MHP+2bjTeOyWYz+qlQd4UBr37PQ4iG2E3W0aoCi5OQ qtk7v/iWmoOVnS+9yeWVtXympbpBMv1/5vW++rvlyZoMxfoS0HOhlKgSU62T6Y5K2zbYaQOAcnvjFLRJ NrIj9CDKg8xA/kehCknNzwf9M3vJ2ygwHTk363pe3l oFjK2aWRCZgJTl4r8stC391e3k7ZjYejej8qCHoHhWz1JW4vKR+iYFonG1gPOVHAQWt92BC8U/oykbhF IdLRXgFOauRmsNZSzqz6H2TxU+8162btzfp962IJ9QXkoFBxit2Fxg+rseFsup/oDDRwj9pAXs+vwwjm fo2/31y77hmbeNTBJkWxvaE/LfU3qHCgb4IbCiboac QGeesBbcZ0oiP2o3WnA9+SdDl5b6g2ujY1/unzMErG9wdCgS6qdOseh3izkj6OhDcLvJByJa78szz+GV udslXs8o5XgJFoBgp11J9f8RnZ+Eb4tas4DCP9KID3ckll4tgevv/Hs4+zCHaVZr16oP1Fr5io1aSxWS npMxTraCf+WwXM8z+oL1DmXyLRoiIyJB9t6U2qAZPE MCzf0nz3yiZseX3Fy9iWxpkxGuRRoqn+VsQEih57AcqXcq255c5kspn4a/Xea311Zthbc0bMPcp9t9z0 3e1gFFWtFktSwQRrG3Gt07T0K159iDlkm4sFB8rc6ID2ptxKxsf6egOcEp85LnX7QiUJmf0Q7ulk9w/P 4Olnep3pWczamuasjs9UJg32HuReCWPV6kMz6bxrda [file] ICAgICAgICAgICAgICAgICAgICAgICAgICAgICAgICAgICAgICAgICAgICAgICAgICAgICAgICAgICAg ICAgICAgICAgICAgICAgICAgICAgICAgICAgICAgDQ ogICAgICAgICAgICAgICAgICAgICAgICAgICAgICAgICAgICAgICAgICAgICAgICAgICAgICAgICAgIC AgICAgICAgICAgICAgICAgICAgICAgICAgICAgICAgICAgICAgICAgDQogICAgICAgICAgICAgICAgIC AgICAgICAgICAgICAgICAgICAgICAgICAgICAgICAg ICAgICAgICAgICAgICAgICAgICAgICAgICAgICAgICAgICAgICAgICAgICAgICAgICAgDQogICAgICAg ICAgICAgICAgICAgICAgICAgICAgICAgICAgICAgICAgICAgICAgICAgICAgICAgICAgICAgICAgICAg ICAgICAgICAgICAgICAgICAgICAgICAgICAgICAgIC AgDQogICAgICAgICAgICAgICAgICAgICAgICAgICAgICAgICAgICAgICAgICAgICAgICAgICAgICAgIC AgICAgICAgICAgICAgICAgICAgICAgICAgICAgICAgICAgICAgICAgICAgDQogICAgICAgICAgICAgIC AgICAgICAgICAgICAgICAgICAgICAgICAgICAgICAg ICAgICAgICAgICAgICAgICAgICAgICAgICAgICAgICAgICAgICAgICAgICAgICAgICAgICAgDQogICAg ICAgICAgICAgICAgICAgICAgICAgICAgICAgICAgICAgICAgICAgICAgICAgICAgICAgICAgICAgICAg ICAgICAgICAgICAgICAgICAgICAgICAgICAgICAgIC AgICAgDQogICAgICAgICAgICAgICAgICAgICAgICAgICAgICAgICAgICAgICAgICAgICAgICAgICAgIC AgICAgICAgICAgICAgICAgICAgICAgICAgICAgICAgICAgICAgICAgICAgICAgDQogICAgICAgICAgIC AgICAgICAgICAgICAgICAgICAgICAgICAgICAgICAg ICAgICAgICAgICAgICAgICAgICAgICAgICAgICAgICAgICAgICAgICAgICAgICAgICAgICAgICAgDQog ICAgICAgICAgICAgICAgICAgICAgICAgICAgICAgICAgICAgICAgICAgICAgICAgICAgICAgICAgICAg ICAgICAgICAgICAgICAgICAgICAgICAgICAgICAgIC DwKUPbWABmDKe1K9wfNYYoVJBgVX3vYHh0Hf8+NNgRPlOyCEC2ufFyyC8ZGJ2oj3WlJVulHQByi9RoUT f9UD7JTTVfERcdBO4LLVzaeo4HSZMiFMYiiGFLc6yaXyVeGXR5GCSnYbqbJP8KEPJjU7fvxiJcSFThIY MORW8VAcFpY9SuiN00LZAOGi7+DQplbmRvYmoNCjE5 BNSdp9ZmMKp9JO9SDLZzUgfum5VyTfVqURNGHQtsCV1PBKT6XEYnTYKuVm0UWDBoW301pkUuUG8TOv7D OtSoAL1tbh8RPqCwHWKxWzfSRwa4TPdfWI0KtYOeGOmUro1hcpQputXAc8NqujSgtVMNZZ6nZICnLT4d roLmuFbvDQCnQIWsMW2uUt3wZWHcPYU2MyS8FIOGUR 2GCVZfTPDpbSKcRJZsGFJKAE3YJVmeVZR4XAIgkkJdfBQrUHbrQD1GELJwhbPdAPljWCFVNDc+Pg0KZW 2nk0QlPFdwEZZvRX6lla0THEfXJsYdR5J5rHYwM7X9NPfuOy7ZSTRpSVAlXBqvKTQCQHwxMA4UBJ3zsz V8PH2ZmQJsKEUdLGOpnIOpAZh7U78byPZnYXrwEY0O ICA+Muriel+Ei0GQADsRBQnNKTtNoXsNXRMHdZoK7GbG6BQd8TqT2NqLD17uJgseoQzJJurXI4ZGV7iRDIl RRNLQT6ZlNXxvC6pkzGeGKLuUYHLVjJnP45njCZlHWGbDBI9TAJqOs0CDYUpP8ZfguJbbIojquEhXGHb JZQINQ1UHVuifiBmyFZdtGiqVT35iAspMJ6WWj7QEn ScMO2ohu7JpBCaBv1LKRGgNd0LLXOdSXQiCEXfFVQ1GXEfHuVjIOgtPBGgXIUfOLT6RQXwEWNkFL1KXx XkHHAmUIk0CJSaQSCpCXBlko3ZIMSyZVKqKUMzTZQvOGJxNNTyESjiTVPkIWQnWTG8OPSwUJHhXT6VYv FpZVAbXUB5OFEvDBXgSVWlyo9WCYAsEHJpLvkjTvMd BKLsNEUtAOonDAGdYTE0Zoz2DCHaZOXdQD3AFoWnCCZoWAW2HuUoZVQsXEZlmx5PMFGkFFNpDIH7FURb XNZnESVwPBorXNPoAEF1MVS6FKUkKLUqLX0TCbZsHYYnEGWtTYBpTRFuYNCgyw3IVJWnXUAnLpW3EBRd GPDqOJYiXNaoHLJaGBU0JQQbYSYpFQDpKM0DGiYzPB NsKGomDvtbXRUoUVYwbu3MPRIqRFKyWMR4AXTaJUVdOCVjNHteYOKkAEB2XaA3AHOaVSHcUF9UGpTaWQ WdLYu7AoZlOGAbATTqct6SWIOuDAKgEWN6KDTfOGNsKIPaBYznFHYzFSUxVjPqGTRpWRYfVM3WLuDsKQ DaQiI6WyVkUBVvYCJhtg7PWPTeLFRqYZkoDhRjUMNk EYIzIUw3tlApqTEuHCf5XL0XG0LmzdQfIsJZNa4Uc088BHYxLKTbMw0WL4wqUk8iYXLqTWIUOp4BDVm8 ZMO7FNK5JaL7ZEE3UKL0ViNyUNNfYBLaZmr7UsJiKby+MSj6GhL6MOm4LUq2Okv1FgHaLVQ8TSK0OzLh OPqfOBY0CP7gPLKGLp0+DHobgFJnnEhtWZPFCvCbRIU0BHyrBEPPQa7B ID Date Data Source [id number] 10/12/2020 09:38:49 PM EDT [facility] XR SHOULDER COMPLETE [id number] RESULTIn terpreted by:[facility] shoulder 2 viewsINDICATION: Total shoulder arthroplastyCOMPARISON: 08/24/2020FINDINGS:Status post reverse total left shoulder arthroplasty. Interval removal of overlying surgical skin kamar. No perihardware lucency is seen to indicate hardware failure or loosening. Normal alignment. No acute fracture or dislocation. The visualized portion of the right lung is unremarkable.IMPRESSION:Status post reverse total right shoulder arthroplasty without evidence of hardware failure.This document has been electronically bla d by Miasel Grace MD on 10/12/2020 9:36 PM Name Value Range Interpretation Code Description Data Sheba rce(s) Supporting Document(s) ID Date Data Source [id number] 08/24/2020 07:07:03 PM EST [facility] Name Value Range Interpretation Code Description Data Sheba rce(s) Supporting Document(s) Progress Note [facility] WNTPVv7jPcLAQjVd91/YAIrpPPTrd6LaDZhuYFz0XIvnJIJzU1YbJHX4rS0aXYJ7YHsWUlMcTfCxQvR7 lbm [file] Cg== ID Date Data Source [id number] 08/24/2020 05:53:23 PM [facility] XR SHOULDER COMPLETE [id number] RESULTIn terpreted by:ANNA Haddadlinical history: Status post [...] rce(s) Supporting Document(s) ID Date Data Source [id number] 08/18/2020 02:33:07 PM [facility] US DOPPLER UPPER EXTREMITY UNILATERAL VE NOUS LIMITED [id number] RESULTInterpreted by:DELMY Napolesrocedure: Right upper extremity real- [...] rce(s) Supporting Document(s) ID Date Data Source [id number] 08/12/2020 07:17:47 PM [facility] Name Value Range Interpretation Code Description Data Sheba rce(s) Supporting Document(s) Operative Note [facility] DMVTLu9oCiFDMeOq83/BLHzjBTJef3SvVKoiMFi8ZUiuENKoJ6ItXSZ0hO0wBHA2OJpLMnOgPtUcMkEg [facility] [file] AgICAgICAgICAgICAgICAgICAgICAgICAgICAgICAgICAgICAgICAgICAgICAgICAgICAgICAgICAgIC AgICAgDQogICAgICAgICAgICAgICAgICAgICAgICAg ICAgICAgICAgICAgICAgICAgICAgICAgICAgICAgICAgICAgICAgICAgICAgICAgICAgICAgICAgICAg ICAgICAgICAgICAgICAgDQogICAgICAgICAgICAgICAgICAgICAgICAgICAgICAgICAgICAgICAgICAg ICAgICAgICAgICAgICAgICAgICAgICAgICAgICAgIC AgICAgICAgICAgICAgICAgICAgICAgICAgDQogICAgICAgICAgICAgICAgICAgICAgICAgICAgICAgIC AgICAgICAgICAgICAgICAgICAgICAgICAgICAgICAgICAgICAgICAgICAgICAgICAgICAgICAgICAgIC AgICAgICAgDQogICAgICAgICAgICAgICAgICAgICAg ICAgICAgICAgICAgICAgICAgICAgICAgICAgICAgICAgICAgICAgICAgICAgICAgICAgICAgICAgICAg ICAgICAgICAgICAgICAgICAgDQogICAgICAgICAgICAgICAgICAgICAgICAgICAgICAgICAgICAgICAg ICAgICAgICAgICAgICAgICAgICAgICAgICAgICAgIC AgICAgICAgICAgICAgICAgICAgICAgICAgICAgDQogICAgICAgICAgICAgICAgICAgICAgICAgICAgIC AgICAgICAgICAgICAgICAgICAgICAgICAgICAgICAgICAgICAgICAgICAgICAgICAgICAgICAgICAgIC AgICAgICAgICAgDQogICAgICAgICAgICAgICAgICAg ICAgICAgICAgICAgICAgICAgICAgICAgICAgICAgICAgICAgICAgICAgICAgICAgICAgICAgICAgICAg ICAgICAgICAgICAgICAgICAgICAgDQogICAgICAgICAgICAgICAgICAgICAgICAgICAgICAgICAgICAg ICAgICAgICAgICAgICAgICAgICAgICAgICAgICAgIC AgICAgICAgICAgICAgICAgICAgICAgICAgICAgICAgDQogICAgICAgICAgICAgICAgICAgICAgICAgIC AgICAgICAgICAgICAgICAgICAgICAgICAgICAgICAgICAgICAgICAgICAgICAgICAgICAgICAgICAgIC SmHHJsEWOsUFAlBMAnPTx0U4czXBWnXCIhDP9qBDn5 Jz8+THeBNkLoLXH2pmLhvX2HKA9gu9GwTDpeDQLvb7OoNNs9RG7CTJJtWPzyKN3EGZknhj1JVQKmKPDg pIYBq5siHwGzUPI0FFCwZhovFI2KZHVxO0cmcvHoHGItENVYKHsgYOMUYSosREORPD5QTbJbY3YwbZ85 IDMNCj4+SFttckLeHymEFmPtXTEbx0EmLAm1SD4XTF ZlXwivm3NuTySiELBQAXmqQM8EBAW4JVJhCALsFr1QMQXrH848nqTwCB2PNj3ETsBsFR2ivq2CAjVlHW ZeQukHJsj9BCnrKR5TmSQhZPqEyBUgNQVxieDrQn66TXUjsUFPFIPnoiZMWDCgdSDyriqdCCLwTJRyZw 9jCL6bGLFkKMZoEjHfEKWUTF2WUGOsXIGfsDTaHMHq BDLNYV0LPVkcHVV8WESbcoQjrHYeBPujLI0WMEValxGxPbJbXONTIVf+Sr9HFJ0pv7UkCVdeRrBuLD6s xk8NAHuRElXaR4D8xBHhQ2U9IQmgUi2EIUCtTFCpKIcfPUXNMIviUH8TRZ7duaE0VY0YtUQrMIEbWGEe kWGpSWm0D72suNShFKqlQQ5CBHX+Muriel+Nb9PWWObPA UiJRIxXyLlUCYLTiGtO5XrU9WCo8LyY9SbIJ57vKxjswAoRBlwAN3KTY4lMVEiICWPCJ0SoSXriD9zty PoNXWyDHNNEsWvX47fhGKcVRGaFURqVXWjIv1TJREpO3LthiLooIbidpBiLWZjVVWZUG1NDEloiqOduX LxnSrcDB89zSsyIV7LAm8AMzJvXE3suf8OcHUbNi1B BJYdHS7YZHYmUWVaISGnIBC4CCVzOeYxBXdbHZHeXEObLUS2HXUnXGSfIJ8CGiRwPSOcCJT6NrBxRBCs FXYuuv2UETBnQOYxUYZ3YRPaBQSnUAAxTRscVOOtRNVwQZL4BSZvVSFvJC5KVtZyXOLqAJImTjmvDFFy YUSmbx2GILXhKFNxVjE5JqYfDIHkPMHoIGiySECgCG P1UCuzPVKgTRZeET1MJvBaGDTiIHzcURxeKSTpSIEqba1DUXHsYRFtDNS2TLQnIEAxRDQkIYqgFWCwJY T8Vgm4IKViYJHdFW3SDySqHJMbVDp2UhhgWXJfSGNrpp5QEWUgGWJcKTsyQLRmPEOwVVAgALgoKVHaUT ThBUZ7SQDzTTAtIL2FBxCmJPUhFQCeCrjmXHUoXYMq ix0LKGJfYUMfLRS9KHAiOHJgZDBxYFefFBJuMTEmCSI2ZIInFRTvPB9LYjLxXOSoKGH9HilrFZDgCSYv rj8QYQYxNIGiKuFfCXYxEVQcGLReAIuhMCRuITZqUHV0GBQlIUWkJV2KIbTwSSZdQFCaSmNqVVYvDCYt rx1SQQPtNXNeQCB5AOHqTTNcZJZeYXdmBIFpFEO6Jk GqZWGbPSLfZJ3HKkRfONEiQTX3LMGqHBHlZEYjjb8MjINyvOnitv3RZNjGEs8PiAcuSVI2NOyxQt3sqN DpFwGtPXMZIy8PtxRbOAEzRHFBEWptLQIiELLxGonzWQgfOFimGcCpOHQiLCK2UyWtJHYtCIIlMTUdYc O8XTXgYQRkMLY9KLYqFAU6IEJ9EewvXqDnPOTxC5Qy ZGE+IA1aWPt+Re8Jw1LgcpR7mcSsKEqbERL2ZA3XMVQGF1BOHj== ID Date Data Source [id number] 08/12/2020 11:57:43 AM EST [facility] Name Value Range Interpretation Code Description Data Sheba rce(s) Supporting Document(s) Discharge Summary [facility] JZHOWr0yMlLZSxVk52/IQJicROXhi2MjMDfiNZr5DBymVCMpJ9KwOTN3sA8zEGB3XNzOVzGcQdVuUiRb lbm [file] BfE1b40V8QsiVGt7OJTU8XzEgSJOCXUDoksHgpt8pbBe+Sm3/2eq5M7gB1wMvWnNrbLROOIv2Tfr/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 [file] AgICAgICAgICAgICAgICAgICAgICAgICAgICAgICAg XYPfHITiHBLiBWPoHJBcFWJrWEGcNMBrDBGgNFKxBFIoLSEdWXKvVMZoHOQmBPYnVRKjXKVbZIOlLN8V ICAgICAgICAgICAgICAgICAgICAgICAgICAgICAgICAgICAgICAgICAgICAgICAgICAgICAgICAgICAg ICAgICAgICAgICAgICAgICAgICAgICAgICAgICAgIC TmPDCkHBMmJP3WNKVsXVOtVNSdJDVnDTMiDPSyHSMpNSNkKYUcFDReGTKkSYTlZUFvJTXuEYMvARWbEH HyRWBlWJCzIKGjEPEdGPSnNYHeWLGyHNBfCUObKNKcJGThNSAnAKChQVFkEAYqJVHqMT7OCTWeAGQaBK AgICAgICAgICAgICAgICAgICAgICAgICAgICAgICAg ICAgICAgICAgICAgICAgICAgICAgICAgICAgICAgICAgICAgICAgICAgICAgICAgICAgICAgICAgICAg ST4IGEAwBJNvNYZzYVLeMCYjPSFxQOYjBSMaBWCjERBzHNZyLZUsENZjDEBpEKOnXPXeKQJtFDYlTZNc ICAgICAgICAgICAgICAgICAgICAgICAgICAgICAgIC MuJMInADShPMMuLO5HRXPlTOXqPLBcFATyOYLwZLZmUJFlVDYaJGNlMOGyJIMtKNLwSEEeEQSvQOTlJZ BeAVYhNPIsMLOlJFFvEEXvMFWiCSOuJWHqFUQjFPZeLFWfKPZhVFBrWXXsWVNbXOFrNVPySF7IXTIdRK AgICAgICAgICAgICAgICAgICAgICAgICAgICAgICAg ICAgICAgICAgICAgICAgICAgICAgICAgICAgICAgICAgICAgICAgICAgICAgICAgICAgICAgICAgICAg SWKrQD8QZRIgBFGkOPItSXRvAJDqFERsAKAyFRLaRYKqQGAeLNVsCOIzMUFkLZYxZXYxAIWgCQZlPGPe ICAgICAgICAgICAgICAgICAgICAgICAgICAgICAgIC RlIUYnSXFwYFOpBQDlVS7YCVEaDTQxPUTsPSJvSQJvAIVuXEKmEDPuLFUnIRWxBGYyXVApKGQgQYSpDP YzXPLnMAFtHIDbJRWjPAWuPRDjUZAfJVCrTYVcVQDyIZFmVWMvOBYvLSOuTDIeZAIxPBSsYOSxSA2QLF 96zYShg0P8NSCqEL9ohdt/Iv3GAJrlqoAkuTZlBZ0E BmEnOW5pit1LQqKdHA3qyx2RRVwDIdXoY0X7bLFjAUTzVAZGCyNlA77hDIyrOo24LWxzMFOyRdOaFVv5 Vg6WEzFfW0gfBRVoPxW5QLGfRxN3YAIzMpK0WBYcNcMcGUDjCMViCX8KGZOfS220chLaMW6OYu4GXpSg ZG9hle3TRfrnFRPySuwPCwn2HOwyCU5RoOQdwFDhMG AcYHESMjBwM6uxn7XlJlcrNLRMFXxrNE7Bs2BxvCFxMLm+Nw5TWH5rz6GyVXtbSNCzWY8rwx1YISvFPp JgK1BrcFphYVCkw9HeSKUrQQXCsU9xTQF1FFV4HJTxXlWjT4VaJlZZcnL1lHNyKUMULSRmbSNvZlL5Zb HjZaTwGMZ8ZJSvQP7hMCmcXW5WLZE9VBlmHHYjCUXt J7gYCaKuEQBtJgOnrUqzZE6ZWtRlL9CpmbZnqJXiDXEoPCLBBh0+LYnbusYqNttLVbCnVDGib4SmWCp6 PT2HIOQrMQwuHE1WQZXzaF4pYMstTM1UMtZkQqYtYVVWMqRbN41jcRLvJKw3J3PkLtPjPTLxTomhLDGe PDwvTmFtZXMgWyBdDQogID4+ID4+THamSA2NPLhqjf PeXNMaHi5YRWYvSBIhLH0fYYTlZRWuZ8N2zYigZXOUVeIkV3exnjwhCY3vMICfE750qWtcljEgIVP4CA UcVz5CYVHnIMI1UYQusIMnTfbpUWCAVBwiSW8NdNRyVVQ3rT7cCJuzRXSbKOSjB4hTTeNyxNdlAI23gX wgbnVsbCBdDQo+Mn2OEW5ts8IgGEd8yiInGMqjXXQi PSuhVJOsYLIaNKBiFNR6ENM9MSLNViJkEIRlHIIgBSaoXAHlYQNuiq6QVGFwUSPxVGA0GSTlQJLmLCUz PAhyNUMiJCTnVdR8BDNmDOUcHF1BWiHvHCXoANKcCUfgKPUxEMYjve9HEQOoEEKxEzc1BqRwZMYwFIDl IMtoCUNdSFJkSQy8RDXmKCFcKZ7KJmRbZKVlODCxEG rdNDWiUTOvwi1PHYDrHPNvGpP8ZtGjMVIkQFPkYMjkJKPgJUK9NkNkXABnSQIrKF9NSrHiTYSoYOk0Ad bdBFVqBNJnsw0JJJLcRQGfHMM0UXKvDKTcOREyULyiBLDmGCL3VvAnYGDaKSHkFL6UMcJgRNLwXZF0Ff MyXOKuTTEjzk4VPRCzXDXfIWkvWBPtZLVzKUHkXCzr LAUxPRPuUDTnQNEjRSWcNQ1QJuExRPNjAOV5RgGlHBHxRSFjra5PBHJmZBTaSzH5LrAdYOJtLVTbIRta ABNtOFYyBjWjCHMvTROhPO9RMnYpBZRaHAGwBHPdBEMxGGUtqq8OTGXtZFWuCzNmDrIbBDEsQCCwNLtq FQJkIFGrSxxfORQzJGJfDB9TAxKgPNMyAQp1IPIfZR UuFSTivm4FTIExPVBhOQf7TbInVQYhQWNeMGyuTZEfKJE4XFu0AJHbVAJxKL1AJoRgZPMaLWwfQKKcNP QrRZXpng3DVOHnZREgZYQ5YuHtANZxYHHgINuoFXYfPJH1ZLi2DQNaIPThCY2JBaIbOBRlVgAyLbFoXH QoADHjha1DAEYtCVFoZHBuUjTyOEEkWQNdYLxeGZWc IFBfDKGkFKEtUZZzRH9YFuBxRZwrUVIMLtr9SGgvT9z8THItJA5ON6Onr3XiNpSaJGWYYKhnPH9impKm WORmEf7KS5jZAbpvFwT3LAM1RPOnPBinWkSrCLFwScOeU8McA7PoBzd1KM9iNRG0MWKeGQo1BIIiV2Fc SHGoQRR5JAY0HOEqZ7LiLDJjNnPtSX6ESx0QEqT8SJW1zTCvSg4GBdD0IHLMWtInWH9UPQa= ID Date Data Source [id number] 08/11/2020 10:59:17 AM [facility] XR SHOULDER 1 VIEW [id number] RESULTInte rpreted by:Chace Faria, one view, portable [...] rce(s) Supporting Document(s) ID Date Data Source [id number] 08/11/2020 10:48:33 AM [facility] Name Value Range Interpretation Code Description Data Sheba rce(s) Supporting Document(s) Glucose [Mass/volume] in Capillary blood by Glucometer 95 mg/dL 70- 140 [facility] ID Date Data Source [id number] 08/14/2020 01:03:00 PM [facility] Surgical Pathology ReportName: Talisha VELAZQUEZ MICHELAEMRN: [id number] Number: [id number] Date: 08/11/2020 10:03Received Date: 08/11/2020 13:03Physician(s): SIMI ORTIZ KEVIN JCopy To:SIMI ORTIZ JSpecimen(s) ReceivedA: Right humeral headClinical HistoryChronic right shoulder pain.DiagnosisBONE, RIGHT HUMERUS, ARTHROPLASTY: DEGENERATIVE JOINT DISEASE (GROSSONLY)./Mansoor Randolph M.D.;Resident PathologistElectronically Signed By Lelia Arreaga M.D., Attending Pathologist08/14/2020 13:03:41Processed at [facility] Pathology Laboratory at [facility], [address] [place] [address]. The attending pathologist named aboveattests that he/she has personally reviewed the relevant preparation(s)for the specimen, performed microscopic examination when indicated, andrendered the final diagnosis. Unless 'gross-only' is specified, the finaldiagnosis is based on a microscopic examination of automobile rental representative sectionsof tissue.Gross DescriptionThe specimen is received [...] developed and their performance characteristics determined by [facility] Pathology department. They have not been cleared or approved by the USFood and Drug Administration. The FDA has determined that such clearanceor approval is not necessary. Name Value Range Interpretation Code Description Data Sheba rce(s) Supporting Document(s) ID Date Data Source [id number] 08/11/2020 08:38:06 AM [facility] Name Value Range Interpretation Code Description Data [facility] Supporting Document(s) History and Physical [facility] XULCIs8hAtIXNeLr22/CKFnbNPFik2QeXKarACe7GJrpPGWaH1AzTFN1nP7bBMI5JUoZHlBaWeWoIzM8 [facility] [file] sales and operations trainee+4EmLxiVf877ByI2JXdI43LEmyQvkFHNKXVJzkzsV35zHTXkZif8uo5Tum7U4cnH4n/j9yzBZZ0zW [file] ICAgICAgICAgICAgICAgICAgICAgICAgICAgICAgICAgICAgICAgICAgICAgICAgICAgICAgICAgICAg ICAgICAgICANCiAgICAgICAgICAgICAgICAgICAgIC AgICAgICAgICAgICAgICAgICAgICAgICAgICAgICAgICAgICAgICAgICAgICAgICAgICAgICAgICAgIC AgICAgICAgICAgICAgICAgICANCiAgICAgICAgICAgICAgICAgICAgICAgICAgICAgICAgICAgICAgIC AgICAgICAgICAgICAgICAgICAgICAgICAgICAgICAg ICAgICAgICAgICAgICAgICAgICAgICAgICAgICANCiAgICAgICAgICAgICAgICAgICAgICAgICAgICAg ICAgICAgICAgICAgICAgICAgICAgICAgICAgICAgICAgICAgICAgICAgICAgICAgICAgICAgICAgICAg ICAgICAgICAgICANCiAgICAgICAgICAgICAgICAgIC AgICAgICAgICAgICAgICAgICAgICAgICAgICAgICAgICAgICAgICAgICAgICAgICAgICAgICAgICAgIC AgICAgICAgICAgICAgICAgICAgICANCiAgICAgICAgICAgICAgICAgICAgICAgICAgICAgICAgICAgIC AgICAgICAgICAgICAgICAgICAgICAgICAgICAgICAg ICAgICAgICAgICAgICAgICAgICAgICAgICAgICAgICANCiAgICAgICAgICAgICAgICAgICAgICAgICAg ICAgICAgICAgICAgICAgICAgICAgICAgICAgICAgICAgICAgICAgICAgICAgICAgICAgICAgICAgICAg ICAgICAgICAgICAgICANCiAgICAgICAgICAgICAgIC AgICAgICAgICAgICAgICAgICAgICAgICAgICAgICAgICAgICAgICAgICAgICAgICAgICAgICAgICAgIC AgICAgICAgICAgICAgICAgICAgICAgICANCiAgICAgICAgICAgICAgICAgICAgICAgICAgICAgICAgIC AgICAgICAgICAgICAgICAgICAgICAgICAgICAgICAg ICAgICAgICAgICAgICAgICAgICAgICAgICAgICAgICAgICANCiAgICAgICAgICAgICAgICAgICAgICAg ICAgICAgICAgICAgICAgICAgICAgICAgICAgICAgICAgICAgICAgICAgICAgICAgICAgICAgICAgICAg ICAgICAgICAgICAgICAgICANCjw/eZRgG0xpcZAdeo R9Q6jqYv4SVz0KKM5kl2UaDLSrKPfbboNcLtuBHwGbUJTsHprXZhz5UZtpLV5CwTGnW5QnR5LpYYbwVX 6UWCLeYRPvlLVrWOOkHZNrNwY5RHWwFWdfPY7XbTUoKEeqNAHmULOdTfDoBSOzKXAcAKMdHNBxUIJLCL OzQEWrWyLaYWqiDB9Rh9IqhCI6ZOv+Yb8QSE8ke1Yi FFdxWQLlRY3sze5FKVuPZzUpR0UaweW4GGLgNLMqNz0AUQFtHLPnbACaEMKuJIJWMcNlH3UaqT71CVTV Cj4+TPglnhIyGsaGGgPqBLTln4AzYGc3ZF8XLALgOXp1mLOoSTWYQWO8PDtjdcoaQEdqU5G5vPWvDMHN LEDpvGHoPaN0XwAlQsNjSJy9YrggOU5fELneRL6NUF E2RLbhHHJtNLJsM9jUHnQgXIUxYwFcuEauHW9XJhHxR7NhvfNmuMCdRSCoKXJKXp6+DQplbmRvYmoNCj KePVLvq3IxQZx3MM4IYBNcBTxnFJ7HLFSphR4wCFzvAN7WFnRiNEYfZVZKVjLxL14guJEfMDu9C8JfKh VkZGVkRmlsZXMgPDwvTmFtZXMgWyBdDQogID4+ID4+ UEruMF3PLVbrehOmKYBaHb5COHGsOXMsDS7qRZMrKVDfS5B1fYmiOAYUPpVeH4pcypsnYS6rJVDxR281 aNpyncLaGPWmELZiOf1CQSAoKOI9YSCczTPpKylnRVCSBInsQA2TiRZmHCN5nG6eDVryAXOfMLDkX0hR NaCvtUvbAU93nUutcrIxdCNnCYj+Ef6WBB8ew6FnXN e8qjEqZHvaWHSqROsdDHViEPGqCXKtABQ7LAQ7NZNSZlHmVESbDYIlPQtfYRUmWOAysy8JUEEgUDW1Jj M5LmAqNYOyWPZmWEsvYECiESZ7CrH5SZNtJTBeLT0KPiOhQTLmZQMeLBelAMUoNJWzvp7UFPRgTMUqBl PxCfNqTJClYOSvEScyXMJgPYTfISK6ZCLfXZNsNI1U HoVlDHJbTBD0DkfcOXPkZNIdmq1TAXGlGLLgDMs9OwBeABFnPAQbZBvjZRIzQEG3ZAM9AWLiIQDrXR2Y MtFkOWEqBXqaAKyzCQZoJSPxuw6IIDNaBFKcJHW6UcWwYSNxNBFwWFstUUZsZIGsKtx3EXCcKIZsOZ6E FtLtPJQaYGA0YNJjSCOpBHAutk9FZHJeZXOgBsw5Au ZyDOWrDJVdLQqqZXOnHGReENX9SRCfIJFaYN4ESwVgVUMwVOImRDMyDTRqXQVqvy6EGUBgDCOeWJA7Rq NeCIOmJZZhTKppRXZkTXA3YqD2KAOcJZNjOT3VVtIxNSTsYOK0BLshJDJuMRLzuu4QPTXvYNQuGKLqBS ZvIMPaPXClDSqxLDMkDGSxUyOkSHBbCLFkUJ1UDqYb EGFcAZXaQoHqTIIoNGCxim4QPUStCHN0IQX0KwUyDBZcZSDuKKkpVTGcGHRpIIZ7TMPeSQFaWY1OAdCk DAKaMZWoSgZqTLLsDDGtix5ENSDmIDE9XbSjVIYcAGVmZTLhFIzoSBFnGIXwXaocAYOkOKFvGY8FCqTy MVZiQIJ9TvXyPWBoMRSwoj7ZKQKiNPD1Rve5GXRkJB WuZHNmKQgoWZCiOAO1BPTbHTVaAPAcOB6GJwOwWONwCWV2ZsBaJQOsGPLhjh1TZAHrYCG1QXL2KEJsGN YnVJAhTJz5onWfpMRtASq9VP6QI7OaqtOwStRTKl3Pg016BTCeFHHuIm8KT1nwPo2zBCZkPGVGVw3NJM x4EQZcVLW6YRQeByF7EQFzOAQiINOsTdOcXIPgZXH9 MTc+AZidRCQ3DRycSlSpLJl8IQO0AeC5BHHbKNGhMoP3RhqiUm4bOSKWWz4+DQpzdGFydHhyZWYNCjQ1 CQK2CDcqYAGHWh3E ID Date Data Source [id number] 08/11/2020 07:30:51 AM EST [facility] Name Value Range Interpretation Code Description Data Sheba rce(s) Supporting Document(s) Glucose [Mass/volume] in Capillary blood by Glucometer 74 mg/dL 70- 140 [facility] ID Date Data Source [id number] 08/08/2020 12:00:00 AM EST [facility] Name Value Range Interpretation Code Description Data Sheba rce(s) Supporting Document(s) SARS coronavirus 2 RNA [Presence] in Res piratory specimen by DAVE with probe detection NEGATIVE [facility] This lab was ordered by Broderick Brooks and reported by [facility]. ID Date Data Source [id number] 08/01/2020 08:37:13 AM EST [facility] Name Value Range Interpretation Code Description Data Sheba rce(s) Supporting Document(s) Progress Note [facility] YJUZPw0fPqXZByUk71/SWYzhLEBkt5AcNLltLSe4YImzSPBfQ2PrZSY6uN3bPEH9TGzNFyLwAwPuTyM3 lbm [file] AgICAgICAgICAgICAgICAgICAgICAgICAgICAgICAgICAgICAgICAgICAgICAgICAgICAgICAgICAgIC AgICAgICAgICAgICAgICAgICAgICAgICAgICAgICAg DI0QDJPbQHQpXHHcPJIpHZXqCDIbYGFrZYKkMNGnCEOjQNFxYKRsAHNdFCTfKSXsAGOrAVKyHOEmSXXr XBVaFVUmLDUiUUTpPMZuSFVeLQKgWYJaZMLgCOJmRUQeJFZeDQUbJEWnVD1TJIUhEOFuIDHfJLKeMPZe ICAgICAgICAgICAgICAgICAgICAgICAgICAgICAgIC RwGMRoJOWlSJRtVXYjGVHqBNPvGBCzWAPnVMEqIPWeNDFyFHXlPCVgEBXyQMSbXDJlLZRqXL3KCUSfPE AgICAgICAgICAgICAgICAgICAgICAgICAgICAgICAgICAgICAgICAgICAgICAgICAgICAgICAgICAgIC AgICAgICAgICAgICAgICAgICAgICAgICAgICAgICAg IEAtBK7LLVMhCUEuGBJeXHNvUNRzWLAcKNDaOLBbOUBpVHHvZCIwWREvZKBoGXPuWINnJFJbLSUxZYQp KOEqRHErHADnCHQmESOfLVEhVAQfZLXdBVYxJWCoVUNxPFJkQWYfZLXxTIInMM0GZSWgLSCvAHJfLQTv ICAgICAgICAgICAgICAgICAgICAgICAgICAgICAgIC HgQNPqFJHqQOWnBMLfWRVqVOInPQVsGUUiWBHtEOGwBXBjFCDaIIRxPRLeWJQtKAEsIYCwRHVlKO6HTF AgICAgICAgICAgICAgICAgICAgICAgICAgICAgICAgICAgICAgICAgICAgICAgICAgICAgICAgICAgIC AgICAgICAgICAgICAgICAgICAgICAgICAgICAgICAg CJVfTSDhKH2TQAHlVJCoIWNpZHOtGODnFWTfXDMnGMUgHSNbIBOjGUIuLGSxCRKnOMLtKUDcWRAtJFGc LSTyXOGcLURdJRWhIATuWJIyVXXiLAGpEUPhGUFbYFAmBCUyDWReECWzPENyBGTgFV0MDCFyDBOkYENm ICAgICAgICAgICAgICAgICAgICAgICAgICAgICAgIC AgICAgICAgICAgICAgICAgICAgICAgICAgICAgICAgICAgICAgICAgICAgICAgICAgICAgICAgICAgIA 0KICAgICAgICAgICAgICAgICAgICAgICAgICAgICAgICAgICAgICAgICAgICAgICAgICAgICAgICAgIC AgICAgICAgICAgICAgICAgICAgICAgICAgICAgICAg WDZwYUIrNLItZQ4WYG16eWScn6U0FBTvQD4qzbn/Ru0TDKeezcAuaWVpXJ1UZqUvBD6exa6NAyJuLF7s ol9QBGhQEjWuL9K9mJYmOYJyTYNNYgKeG55lGIzxNu46DOcfKWUeWwXsQNq0Ka4VBsJdH4tlMPHbSdJ5 BJJyVvA8UAKyTeEgNEquLZ6Pp5LdiRXkSAp+Pg0KZW 7qz6MwNKgkFcQvHA4hes4CBAaNFwPtL7GayyY9AMI2IBXrXn2OBRFpLHMgbQFqUCVgQQCOMbJwV0AohQ 51YXLHWm8+EHvhhrTaXbjLBsV2DBWfp0YmBGd3LY1NNUFhGGt2wKAeNNPaH1Fko5PtCv97RVQeLsncHU frwKMsxKECOYFrwvmiWLpwmv2EZZV6OFQwKD0hYVRn OAZ3BlSsYWEDIJ7YZFXyUPYwzNNvHBYxIZUNWG9PSUdsPLK7QFIvigVmfCFbCGiwVN1GBWUxkyZuUfZp MCBSDQo+Jc1LNK5yv7XrWQdjGEJcED8ufm7YGUnWMkKfG6N8jBGkG3H2NCfsTo2AMDSfMMBeDyIzKSZQ GJcrJZ2THP7mgyM5IU2RsXFgXVMyWYCnxEZqEJz1H9 5irSEwOFlvCP4YCCO+Muriel+Fs9HZTQnLJZaKESwLyXdPCUGZtIeT5DeL2FCw8GvF8SgGG30nVbjhqGvVU nhFY5PJW2pMUMvZCMHTU0SgPSaaV0hdzWlUdIjFMINHhChC03fvQEdSLPzPVTfDEQfMf9OOGOfF3Ciev YrjZsyjqOqWXXaOXZDYQ2EAZjrxoDptBCboVwnJZ35 qZpzZZ6AIi2GNcFpTF4vmf5UxYKsBw5GYQXrTq3DZCShUVUwDWIcKEQ8RMGaUzFxHFskDUPrACSrTII3 QVKrMOJvXN6YMbNcHZEeOmOeHaamSFVjWLBztr4UYEYuRSIwYoQaZDVbLMFsFZLoIAwqAGMfLANgNOO2 WAFmIGVaVA7RCuReYLUcXUPqBtUtQHOaNQMfff3TJM GlIAAvLeYzMZEcGMPeDDFhDGmwVQLbFLF9WsL4SOUgDQKiCA4NCiVzDTJtHOU4ZZEsKQYuLFIczm3NJX TaHPCpVRxnZYOaJOGvKZKsINkmCQObWNG6IRc6CABvDBElHZ7APlDoCIQiNEOmEnldPDTcZYNwmn6KNG YxZVRtVeSxOoSbUQVeENEqXRraAFAnOOT9RDI2BQSz TLFcOW7FXgXvVNWkXDd9CtXaOXAaMTZulm7EHZUlMBHbILT0NyHiHEMuPLIjOBkoNFEjBKA9JgmdHSMz FNDdXT0KQwOnUFTnXCh0CBLfEBXaOFIcbn0GRZOsIILnYMh7NWLzQNCrQBZnUMsbDOEtZEX4MSh8YRTl IVWlMY4GZgReTYFvKoA4RrhyLDZrMWRegu0KVWJwAV XyGIDqLUBgWLCcHDVzBJolMGOdFKFaZthhAYGcTZPkPF4IDuIrTPYcJvWxDqJtTFZfXFXhvx8DTQCnIX McIkMbOiKsYRClCZGcHXrrXUVdVEKtHFa5SDHqQJQhTO8BFjGdOJIbXrH5QnUwQGLfDGVmli4KMTMiMG NbOtypAyHkMGDcVKEbTFbbNDWaVUMwBFE1RJJbDQLb RA4MJkQvIPTxXpY1LBQzJIAjEBLvyf8JTJItYKXvABYpKZReAIOlHQUhZNnwGSGxGVP7CbI1IJBaBLTx ZY2DVbZbXMVxQwZ7YMCaLAStOSPtcp8ULQCqJNFzApWyUNMeOGRrFXWhOKkpIKPaIMH8GWo1IGRjRHCk WO3TNgOmTBDcSxvyNRwxZLAxYEDvsi4YdJImiUdhxj 5FZGnJZh3JbZztLDE9PIdmCu3ktVUsMDMsHTFIQi2WkvIoUKOkFEHRPBhxNUAzVBjhDWipO1MtWgQ2KT OpVWExIOH5YyIsSaB0M3IiQUMsIxL8FtB0ABP4F5ZlYnaoHrEgGAA3Nqs5CuO2NBbtKaF0YuH+IF0gDQ o+Fa9Hl2RczrF6qoMsYJosLxH1OO2YCCNPF6GNFw== ID Date Data Source [id number] 07/31/2020 01:57:00 PM EST [facility] ([facility]) Name Value Range Interpretation Code Description Data Sheba rce(s) Supporting Document(s) Urea nitrogen [Mass/volume] in Serum or Plasma 15 mg/dL 7-18 [facility] ([facility]) Glucose [Mass/volume] in Serum or Plasma 89 mg/dL 74-99 [facility] ([facility]) 100-125 mg/dL PRE-DIABETES/FASTING >126 mg/dL DIABETES/FASTING Creatinine 1.0 mg/dL 0.6-1.3 [facility] Potassium [Moles/volume] in Serum or Plasma 3.8 meq/L 3.5-5.1 [facility] ([facility]) Sodium [Moles/volume] in Serum or Plasma 143 meq/L 136-145 [facility] ([facility]) Carbon dioxide, total [Moles/volume] in Serum or Plasma 32 meq/L 21 -32 [facility] Chloride [Moles/volume] in Serum or Plasma 104 meq/L 98-107 [facility] Glomerular filtration rate/1.73 sq M pre dicted among blacks [Volume Rate/Area] in Serum or Plasma by Creatinine-based formula (MDRD) Laboratory test result [facility] ([facility]) <content>CHRONIC KIDNEY DISEASE STAGING PER NKF</content>
<content></content>
<content>STAGE I & II GFR >= 60 NORMAL TO MILDLY DECREASED</content>
<content>STAGE III GFR 30-59 MODERATELY DECREASED</content>
<content>STAGE IV GFR 15-29 SEVERELY DECREASED</content>
<content>STAGE V GFR <15 VERY LITTLE GFR LEFT</content>
<content>ESRD GFR <15 ON ROTOR WINDER</content>
<content></content> Glomerular filtration rate/1.73 sq M pre dicted among non-blacks [Volume Rate/Area] in Serum or Plasma by Creatinine-based formula (MDRD) 59 mL/min [facility] ([facility]) Calcium [Mass/volume] in Serum or Plasma 9.0 mg/dL 8.5-10.1 [facility] ([facility]) ID Date Data Source [id number] 07/04/2020 11:41:00 AM EST [facility] ([facility]) Name Value Range Interpretation Code Description Data Sheba rce(s) Supporting Document(s) Hemoglobin A1c/Hemoglobin.total in Blood 5.6 % [facility] ([facility]) Lab Result Notes: Pre-Diabetes 5.7 - 6.4 % Diabetes = or > 6.5% Glucose mean value [Mass/volume] in Blood Estimated fr om glycated hemoglobin 114 mg/dL 60-110 [facility] ([facility] ) ID Date Data Source [id number] 07/04/2020 11:41:00 AM EST [facility]) Name Value Range Interpretation Code Description Data Sheba rce(s) Supporting Document(s) Hemoglobin A1c/Hemoglobin.total in Blood Laboratory test result [facility] ([facility]) Procedure Social History Code Duration Value Status Description Data Source(s ) Alcohol intake 03/13/2021 12:00:00 AM EDT Current drinker of al cohol (finding) completed Current drinker of alcohol (finding) [facility] Tobacco use and exposure 03/13/2021 12:00:00 AM EDT Never used co mpleted Never used [facility] Smoking 03/13/2021 12:00:00 AM EDT Former smoker completed Former smoker [facility] Alcohol intake 03/06/2021 12:00:00 AM EDT Current drinker of al cohol (finding) completed Current drinker of alcohol (finding) [facility] Smoking 02/14/2021 12:00:00 AM EDT Never Smoker completed Never S moker eCW1 ([facility]) Smoking 02/14/2021 12:00:00 AM EDT Never Smoker completed Never S moker eCW1 ([facility]) Smoking 01/01/2021 12:00:00 AM EDT Never Smoker completed Never S moker eCW1 ([facility]) Smoking 01/01/2021 12:00:00 AM EDT Never Smoker completed Never S moker eCW1 ([facility]) Smoking 01/01/2021 12:00:00 AM EDT Never Smoker completed Never S moker eCW1 ([facility]) Smoking 01/01/2021 12:00:00 AM EDT Never Smoker completed Never S moker eCW1 ([facility]) Smoking 01/01/2021 12:00:00 AM EDT Never Smoker completed Never S moker eCW1 ([facility]) Smoking 01/01/2021 12:00:00 AM EDT Never Smoker completed Never S moker eCW1 ([facility]) Smoking 11/21/2020 12:00:00 AM EDT Never Smoker completed Never S moker eCW1 ([facility]) Smoking 11/21/2020 12:00:00 AM EDT Never Smoker completed Never S moker eCW1 ([facility]) Smoking 11/21/2020 12:00:00 AM EDT Never Smoker completed Never S moker eCW1 ([facility]) Smoking 11/21/2020 12:00:00 AM EDT Never Smoker completed Never S moker eCW1 ([facility]) Smoking 10/26/2020 12:00:00 AM EDT Never Smoker completed Never S moker eCW1 ([facility]) Smoking 10/26/2020 12:00:00 AM EDT Never Smoker completed Never S moker eCW1 ([facility]) Smoking 10/26/2020 12:00:00 AM EDT Never Smoker completed Never S moker eCW1 ([facility]) Smoking 10/26/2020 12:00:00 AM EDT Never Smoker completed Never S moker eCW1 ([facility]) Smoking 10/26/2020 12:00:00 AM EDT Never Smoker completed Never S moker eCW1 ([facility]) Alcohol intake 10/12/2020 12:00:00 AM EDT Current drinker of al cohol (finding) completed Current drinker of alcohol (finding) [facility] Alcohol intake 08/24/2020 12:00:00 AM EST Current drinker of al cohol (finding) completed Current drinker of alcohol (finding) [facility] Alcohol intake 08/16/2020 12:00:00 AM EST Current drinker of al cohol (finding) completed Current drinker of alcohol (finding) [facility] Alcohol intake 08/11/2020 12:00:00 AM EST Current drinker of al cohol (finding) completed Current drinker of alcohol (finding) [facility] Smoking 04/23/2020 12:00:00 AM EDT Patient is a former smoker completed Patient is a former smoker MED[facility] ([facility]) Vital Signs ID Date Data Source UNK Name Value Range Interpretation Code Description Data Source(s) Body weight 153.8 [lb_av] 153.8 [lb_av] eCW1 ([facility]) Body weight 69.76 kg 69.76 kg eCW1 ([facility]) Body height 68 [in_i] 68 [in_i] eCW1 ([facility]) Body mass index (BMI) [Ratio] 23.38 kg/m2 23.38 kg/m2 eCW1 ([facility]) Heart rate 70 /min 70 /min eCW1 ([facility]) Respiratory rate 18 /min 18 /min eCW1 ([facility]) Body temperature 97.9 [degF] 97.9 [degF] eCW1 ( [facility]) Systolic blood pressure 107 mm[Hg] 107 mm[Hg] e CW1 ([facility]) Diastolic blood pressure 52 mm[Hg] 52 mm[Hg] eCW1 ([facility]) Systolic blood pressure 106 mm[Hg] 106 mm[Hg] M EDENT ([facility]) Diastolic blood pressure 72 mm[Hg] 72 mm[Hg] MEDENT ([facility]) Heart rate 72 /min 72 /min [facility] ([facility]) Body height 68.75 [in_i] 68.75 [in_i] [facility] ([facility]) 5'8.75" Body weight 155.00 [lb_av] 155.00 [lb_av] MEDEN T ([facility]) Oxygen saturation in Arterial blood by Pulse oximetry 98 % 98 % MED[facility] ([facility]) Body mass index (BMI) [Ratio] 23.1 kg/m2 23.1 k g/m2 MED[facility] ([facility]) Body weight 158.6 [lb_av] 158.6 [lb_av] eCW1 ([facility]) Body height 68 [in_i] 68 [in_i] eCW1 ([facility]) Body mass index (BMI) [Ratio] 24.11 kg/m2 24.11 kg/m2 eCW1 ([facility]) Heart rate 73 /min 73 /min eCW1 ([facility]) Respiratory rate 18 /min 18 /min eCW1 ([facility]) Body temperature 99.3 [degF] 99.3 [degF] eCW1 ( [facility]) Systolic blood pressure 130 mm[Hg] 130 mm[Hg] e CW1 ([facility]) Diastolic blood pressure 74 mm[Hg] 74 mm[Hg] eCW1 ([facility]) Body weight 158.6 [lb_av] 158.6 [lb_av] eCW1 ([facility]) Body height 68 [in_i] 68 [in_i] eCW1 ([facility]) Body mass index (BMI) [Ratio] 24.11 kg/m2 24.11 kg/m2 eCW1 ([facility]) Heart rate 67 /min 67 /min eCW1 ([facility]) Respiratory rate 18 /min 18 /min eCW1 ([facility]) Body temperature 97.6 [degF] 97.6 [degF] eCW1 ( [facility]) Systolic blood pressure 111 mm[Hg] 111 mm[Hg] e CW1 ([facility]) Diastolic blood pressure 61 mm[Hg] 61 mm[Hg] eCW1 ([facility]) Oxygen saturation in Arterial blood by Pulse oximetry 97 % 97 % MEDENT ([facility]) Body mass index (BMI) [Ratio] 22.8 kg/m2 22.8 k g/m2 [facility] ([facility]) Body weight 153.00 [lb_av] 153.00 [lb_av] MEDEN T ([facility]) Systolic blood pressure 110 mm[Hg] 110 mm[Hg] M EDENT ([facility]) Diastolic blood pressure 74 mm[Hg] 74 mm[Hg] [facility] ([facility]) Heart rate 75 /min 75 /min [facility] ([facility]) Body height 68.75 [in_i] 68.75 [in_i] MED[facility] ([facility]) 5'8.75" Heart rate 76 /min 76 /min MED[facility] ([facility]) Diastolic blood pressure 72 mm[Hg] 72 mm[Hg] MED[facility] ([facility]) Body weight 155.00 [lb_av] 155.00 [lb_av] MEDEN T ([facility]) Systolic blood pressure 122 mm[Hg] 122 mm[Hg] M EDENT ([facility]) Systolic blood pressure 120 mm[Hg] 120 mm[Hg] M EDENT ([facility]) Diastolic blood pressure 78 mm[Hg] 78 mm[Hg] MED[facility] ([facility]) Heart rate 72 /min 72 /min [facility] ([facility]) Body height 68.75 [in_i] 68.75 [in_i] MEDENT ([facility]) 5'8.75" Body weight 155.00 [lb_av] 155.00 [lb_av] MEDEN T ([facility]) Oxygen saturation in Arterial blood by Pulse oximetry 96 % 96 % [facility] ([facility]) Body mass index (BMI) [Ratio] 23.1 kg/m2 23.1 k g/m2 [facility] ([facility]) Systolic blood pressure 126 mm[Hg] 126 mm[Hg] [facility] ([facility], [facility]) Diastolic blood pressure 80 mm[Hg] 80 mm[Hg] [facility] ([facility], [facility]) Heart rate 78 /min 78 /min [facility] ([facility], [facility]) Respiratory rate 16 /min 16 /min [facility] ( [facility], [facility]) Oxygen saturation in Arterial blood by Pulse oximetry 99 % 99 % [facility] ([facility], [facility]) Body temperature 98.7 [degF] 98.7 [degF] [facility] ([facility], [facility]) Body weight 150.00 [lb_av] 150.00 [lb_av] [facility] ([facility], [facility]) Body height 70 [in_i] 70 [in_i] [facility] ([facility], [facility]) 5'10" Body mass index (BMI) [Ratio] 21.5 kg/m2 21.5 k g/m2 [facility] ([facility], [facility]) Heart rate 80 /min 80 /min [facility] ([facility]) Systolic blood pressure 126 mm[Hg] 126 mm[Hg] M [facility] ([facility]) Diastolic blood pressure 66 mm[Hg] 66 mm[Hg] [facility] ([facility]) Body height 68.75 [in_i] 68.75 [in_i] [facility] ([facility]) 5'8.75" Body weight 153.00 [lb_av] 153.00 [lb_av] [facility] ([facility]) Oxygen saturation in Arterial blood by Pulse oximetry 99 % 99 % [facility] ([facility]) Body mass index (BMI) [Ratio] 22.8 kg/m2 22.8 k g/m2 [facility] ([facility]) Systolic blood pressure 122 mm[Hg] 122 mm[Hg] [facility] ([facility]) Diastolic blood pressure 80 mm[Hg] 80 mm[Hg] [facility] ([facility]) Heart rate 84 /min 84 /min [facility] ([facility]) Oxygen saturation in Arterial blood by Pulse oximetry 98 % 98 % [facility] ([facility]) Body height 68.75 [in_i] 68.75 [in_i] [facility] ([facility]) 5'8.75" Body mass index (BMI) [Ratio] 21.7 kg/m2 21.7 k g/m2 [facility] ([facility]) Body weight 146.00 [lb_av] 146.00 [lb_av] [facility] ([facility]) Diastolic blood pressure 80 mm[Hg] 80 mm[Hg] [facility] ([facility]) Systolic blood pressure 110 mm[Hg] 110 mm[Hg] [facility] ([facility]) Heart rate 72 /min 72 /min [facility] ([facility]) Body height 68.75 [in_i] 68.75 [in_i] [facility] ([facility]) 5'8.75" Body weight 136.00 [lb_av] 136.00 [lb_av] [facility] ([facility]) Oxygen saturation in Arterial blood by Pulse oximetry 98 % 98 % [facility] ([facility]) Body mass index (BMI) [Ratio] 20.2 kg/m2 20.2 k g/m2 [facility] ([facility]) Systolic blood pressure 116 mm[Hg] 116 mm[Hg] M [facility] ([facility], [facility]) Diastolic blood pressure 69 mm[Hg] 69 mm[Hg] [facility] ([facility]) Heart rate 72 /min 72 /min [facility] ([facility]) Oxygen saturation in Arterial blood by Pulse oximetry 98 % 98 % [facility] ([facility]) Body temperature 97.9 [degF] 97.9 [degF] [facility] ([facility]) Body weight 120.00 [lb_av] 120.00 [lb_av] [facility] ([facility]) Respiratory rate 16 /min 16 /min [facility] ( [facility]) ID Date Data Source [id number] 08/14/2020 01:04:16 PM [facility] Name Value Range Interpretation Code Description Data Source(s) WEIGHT RECORDED 147.9 lb 147.9 lb [facility] ID Date Data Source [id number] 07/13/2020 04:18:57 PM [facility] Name Value Range Interpretation Code Description Data Source(s) WEIGHT RECORDED 107 lb 107 lb [facility] Body height Measured 70 in 70 in [facility] Patient Treatment Plan of Care Planned Activity Planned Date Details Description Data Source (s) Fluoxetine 20 MG Oral Capsule 03/10/2021 12:00:[address] [facility] pregabalin 100 MG Oral Capsule 03/09/2021 12:00:[address] [facility] Methocarbamol 500 MG Oral Tablet 03/09/2021 12:00:[address] [facility] tizanidine 4 MG Oral Tablet 03/06/2021 12:00:[address] [facility] pregabalin 100 MG Oral Capsule 02/15/2021 12:00:[address] [facility] Acetaminophen 325 MG / Hydrocodone Bitartrate 5 MG Ora l Tablet 02/14/2021 12:00:00 AM [facility] Acetaminophen 325 MG / Hydrocodone Bitartrate 7.5 MG O ral Tablet 02/14/2021 12:00:[address]) pregabalin 100 MG Oral Capsule [Lyrica] 02/14/2021 12:00:00 AM EDT eCW1 ([facility]) Acetaminophen 325 MG / Hydrocodone Bitartrate 7.5 MG O ral Tablet 02/14/2021 12:00:00 AM EDT eCW1 ([facility]) pregabalin 100 MG Oral Capsule [Lyrica] 02/14/2021 12:00:00 AM EDT eCW1 ([facility]) Acetaminophen 325 MG / Hydrocodone Bitartrate 7.5 MG O ral Tablet 02/01/2021 12:00:00 AM EDT eCW1 ([facility]) Acetaminophen 325 MG / Hydrocodone Bitartrate 7.5 MG O ral Tablet 02/01/2021 12:00:00 AM EDT eCW1 ([facility]) Acetaminophen 325 MG / Hydrocodone Bitartrate 7.5 MG O ral Tablet 02/01/2021 12:00:00 AM EDT eCW1 ([facility]) Acetaminophen 325 MG / Hydrocodone Bitartrate 7.5 MG O ral Tablet 02/01/2021 12:00:00 AM EDT eCW1 ([facility]) Acetaminophen 325 MG / Hydrocodone Bitartrate 5 MG Ora l Tablet 01/03/2021 12:00:00 AM EDT eCW1 ([facility]) Acetaminophen 325 MG / Hydrocodone Bitartrate 5 MG Ora l Tablet 12/07/2020 12:00:00 AM EDT eCW1 ([facility]) Acetaminophen 325 MG / Hydrocodone Bitartrate 5 MG Ora l Tablet 12/07/2020 12:00:00 AM EDT eCW1 ([facility]) Acetaminophen 325 MG / Hydrocodone Bitartrate 5 MG Ora l Tablet 12/07/2020 12:00:00 AM EDT eCW1 ([facility]) Acetaminophen 325 MG / Hydrocodone Bitartrate 5 MG Ora l Tablet 11/15/2020 12:00:00 AM EDT eCW1 ([facility]) Acetaminophen 325 MG / Hydrocodone Bitartrate 5 MG Ora l Tablet 11/15/2020 12:00:00 AM EDT eCW1 ([facility]) pregabalin 75 MG Oral Capsule [Lyrica] 10/23/2020 12:00:00 AM EDT eCW1 ([facility]) pregabalin 75 MG Oral Capsule [Lyrica] 10/23/2020 12:00:00 AM EDT eCW1 ([facility]) pregabalin 75 MG Oral Capsule [Lyrica] 10/23/2020 12:00:00 AM EDT eCW1 ([facility]) pregabalin 75 MG Oral Capsule [Lyrica] 10/23/2020 12:00:00 AM EDT eCW1 ([facility]) gabapentin 100 MG Oral Capsule 10/12/2020 12:00:[address] [facility] buspirone hydrochloride 10 MG Oral Tablet 10/06/2020 12:00:00 AM [facility] gabapentin 100 MG Oral Capsule 10/03/2020 12:00:[address] [facility] Oxycodone Hydrochloride 5 MG Oral Tablet 10/03/2020 12:00:[address] [facility] Oxycodone Hydrochloride 5 MG Oral Tablet 09/26/2020 12:00:[address] [facility] 24 HR Propranolol Hydrochloride 60 MG Extended Release Oral Capsule 09/21/2020 12:00:00 AM [facility] Acetaminophen 325 MG / Oxycodone Hydrochloride 5 MG Or al Tablet 09/20/2020 12:00:00 AM [facility] Acetaminophen 325 MG / Oxycodone Hydrochloride 5 MG Or al Tablet 09/08/2020 12:00:00 AM [facility] Acetaminophen 325 MG / Oxycodone Hydrochloride 5 MG Or al Tablet 09/04/2020 12:00:00 AM [facility] Acetaminophen 325 MG / Oxycodone Hydrochloride 5 MG Or al Tablet 08/24/2020 12:00:00 AM [facility] Oxycodone Hydrochloride 5 MG Oral Tablet 08/18/2020 12:00:00 AM [facility] fentaNYL (SUBLIMAZE) (PF) injection 25 mcg 08/11/2020 10:14:56 AM E [facility] ondansetron (ZOFRAN) injection 4 mg 08/11/2020 10:14:56 AM [facility] Aspirin 81 MG Delayed Release Oral Tablet 08/11/2020 12:00:00 AM [facility] Cephalexin 500 MG Oral Capsule 08/11/2020 12:00:00 AM [facility] Docusate Sodium 100 MG Oral Capsule 08/11/2020 12:00:00 AM [facility] Oxycodone Hydrochloride 5 MG Oral Tablet 08/11/2020 12:00:00 AM [facility] Ondansetron 4 MG Disintegrating Oral Tablet 08/11/2020 12:00:00 AM [facility] Ozempic (0.25 or 0.5 MG/DOSE) 2 MG/1.5ML Subcutaneous Solution Pen-injector 07/29/2020 12:00:00 AM [facility] rizatriptan 10 MG Oral Tablet 07/22/2020 12:00:00 AM [facility] Ibuprofen 800 MG Oral Tablet 07/08/2020 12:00:00 AM [facility] Rosuvastatin calcium 20 MG Oral Tablet 07/08/2020 12:00:00 AM [facility] Ibuprofen 200 MG Oral Tablet [facility]
[2021-05-27] MEDS ORDERED: METH-1164 PO (10:27)
[2021-05-27] MEDS ORDERED: LIDO5DIS41 TOP (10:28)
[2021-05-27] MEDS ORDERED: PERCOCET 5MG/325MG TAB PO ONE (11:15)
[2021-05-27 11:41] VITALS: BP 116/67
[2021-05-27] MEDS ORDERED: **NOTE PATIENT COMMENT** MISC XX SCH (21:00)
== END 2021-05-27 11:43 | disposition home or self-care (01) ==
LOC: M ED 09:32
DX: M54.50 Low back pain, unspecified (principal); E78.5 Hyperlipidemia, unspecified; K21.9 Gastro-esophageal reflux disease without esophagitis; Z91.040 Latex allergy status; Z79.899 Other long term (current) drug therapy
CPT/HCPCS: 96372; 99283; J1885

== ENCOUNTER → 2021-05-29 | Outpatient (CLI) | payer OTHER ==
[~2021-05-29] MED LIST changes: +LIDO5DIS41 TOP; +METH-1164 PO; +TRAM50TA2 PO
== END ==
LOC: M RAD 07:34
PROVIDERS: ATTEND Orthopaedic Surgery
DX: M25.511 Pain in right shoulder (principal)

== ENCOUNTER → 2021-06-13 | Outpatient (REF) | payer OTHER ==
[2021-06-13 14:46] LABS: PERCENT SATURATION 52.4 % (13.2-45.0)
[2021-06-13 15:06] LABS: FOLATE 12.8 NG/ML
== END ==
LOC: M LAB REF 14:23
PROVIDERS: ATTEND Internal Medicine
DX: D64.9 Anemia, unspecified (principal); D72.819 Decreased white blood cell count, unspecified

== ENCOUNTER → 2022-04-17 | Outpatient (REF) | payer OTHER ==
[~2022-04-17] MED LIST changes: +TIZA10TA PO; -TIZA4TAB4 PO
[2022-04-17 19:37] LABS: ESTRADIOL < 19.0 PG/ML; FOLLICLE STIMULATING HORMONE 62.7 mIU/mL; LUTEINIZING HORMONE 20.2 mIU/mL; PROLACTIN 7.9 NG/ML
== END ==
LOC: M LAB REF 16:09
PROVIDERS: ATTEND Nurse Practitioner Family
DX: F52.0 Hypoactive sexual desire disorder (principal)

== ENCOUNTER → 2022-12-03 | Outpatient (REF) | payer OTHER ==
[~2022-12-03] MED LIST changes: -FLUO10TA2 PO; +FLUO1TAB PO
[2022-12-03 17:32] LABS: BASO # 0.1 10^3/uL (0.0-0.2); BASO % 0.6 % (0.0-1.0); EOS # 0.2 10^3/uL (0.0-0.5); EOS % 2.5 % (0.0-3.0); HEMATOCRIT 37.9 % (36.0-47.0); HEMOGLOBIN 12.4 g/dl (12.0-15.5); LYMPH # 1.5 10^3/uL (1.5-5.0); MEAN CORPUSCULAR HEMOGLOBIN 30.5 pg (27.0-33.0); MEAN CORPUSCULAR HGB CONC 32.7 g/dl (32.0-36.5); MEAN CORPUSCULAR VOLUME 93.3 fl (80.0-96.0); MONO # 0.5 10^3/uL (0.0-0.8); MONO % 6.8 % (2.0-8.0); NEUTROPHILS # 5.4 10^3/uL (1.5-8.5); NEUTROPHILS % 69.8 % (36.0-66.0); PLATELET COUNT, AUTOMATED 291 10^3/uL (150-450); RED BLOOD COUNT 4.06 10^6/uL (4.00-5.40); WHITE BLOOD COUNT 7.7 10^3/uL (4.0-10.0)
[2022-12-03 17:58] LABS: MAGNESIUM LEVEL 2.3 MG/DL (1.8-2.4)
[2022-12-03 18:02] LABS: THYROID STIMULATING HORMONE 1.255 uIU/ML (0.55-4.78)
[2022-12-03 18:16] LABS: HEMOGLOBIN A1c 5.3 % (4.0-6.0)
== END ==
LOC: M LAB REF 16:45
PROVIDERS: ATTEND Nurse Practitioner Family
DX: G43.909 Migraine, unspecified, not intractable, without status migrainosus (principal); E11.9 Type 2 diabetes mellitus without complications

== ENCOUNTER → 2022-12-13 | Outpatient (REF) | payer OTHER ==
[~2022-12-13] MED LIST changes: -ROSU20TA5 PO; +ROSU20TA61 PO
[2022-12-13 13:09] LABS: BLOOD UREA NITROGEN 16 MG/DL (9-23); CALCIUM LEVEL 8.5 MG/DL (8.5-10.1); CARBON DIOXIDE LEVEL 24 MMOL/L (20-31); CHLORIDE LEVEL 106 MMOL/L (98-107); CREATININE FOR GFR 0.91 MG/DL (0.55-1.30); GLOMERULAR FILTRATION RATE > 60.0 (>51); GLUCOSE, FASTING 87 MG/DL (60-100); POTASSIUM SERUM 5.6 MMOL/L (3.5-5.1); SODIUM LEVEL 137 MMOL/L (136-145)
== END ==
LOC: M LAB REF 11:59
PROVIDERS: ATTEND Nurse Practitioner Family
DX: E11.9 Type 2 diabetes mellitus without complications (principal)

== ENCOUNTER → 2023-01-07 | Outpatient (CLI) | payer OTHER ==
[~2023-01-07] MED LIST changes: +PROHANCE 279.3MG/ML 15ML VIAL As Ordered ONE
== END ==
LOC: M RAD 15:25
PROVIDERS: ATTEND Nurse Practitioner Family
DX: G43.909 Migraine, unspecified, not intractable, without status migrainosus (principal); Z82.49 Family history of ischemic heart disease and other diseases of the circulatory system
CPT/HCPCS: 70544; 70553; A9576

== ENCOUNTER → 2023-07-02 | Outpatient (REF) | payer OTHER ==
[~2023-07-02] MED LIST changes: -PROHANCE 279.3MG/ML 15ML VIAL As Ordered ONE
[2023-07-02 16:59] LABS: HEMATOCRIT 34.7 % (36.0-47.0); HEMOGLOBIN 11.6 g/dl (12.0-15.5); MEAN CORPUSCULAR HEMOGLOBIN 30.5 pg (27.0-33.0); MEAN CORPUSCULAR HGB CONC 33.4 g/dl (32.0-36.5); MEAN CORPUSCULAR VOLUME 91.3 fl (80.0-96.0); PLATELET COUNT, AUTOMATED 271 10^3/uL (150-450); WHITE BLOOD COUNT 6.1 10^3/uL (4.0-10.0)
[2023-07-02 17:12] LABS: ALBUMIN 3.9 G/DL (3.2-5.2); ALKALINE PHOSPHATASE 46 U/L (46-116); ALT/SGPT 22 U/L (7.0-40); AST/SGOT 20 U/L (<34); BILIRUBIN,TOTAL 0.3 MG/DL (0.3-1.2); BLOOD UREA NITROGEN 14 MG/DL (9-23); CALCIUM LEVEL 9.4 MG/DL (8.5-10.1); CARBON DIOXIDE LEVEL 30 MMOL/L (20-31); CHLORIDE LEVEL 105 MMOL/L (98-107); CHOLESTEROL LEVEL 113 MG/DL (<200); CHOLESTEROL RISK RATIO 2.56 (<5); CREATININE FOR GFR 0.73 MG/DL (0.55-1.30); GLOMERULAR FILTRATION RATE > 60.0 (>51); GLUCOSE, FASTING 63 MG/DL (60-100); POTASSIUM SERUM 4.8 MMOL/L (3.5-5.1); SODIUM LEVEL 140 MMOL/L (136-145); TOTAL PROTEIN 6.8 G/DL (5.7-8.2); TRIGLYCERIDES LEVEL 160 MG/DL (<150)
[2023-07-02 17:13] LABS: THYROID STIMULATING HORMONE 1.028 uIU/ML (0.55-4.78)
== END ==
LOC: M LAB REF 16:11
PROVIDERS: ATTEND Nurse Practitioner Family
DX: E78.5 Hyperlipidemia, unspecified (principal); G43.909 Migraine, unspecified, not intractable, without status migrainosus

== ENCOUNTER → 2024-01-05 | Outpatient (REF) | payer OTHER ==
[~2024-01-05] MED LIST changes: +BUPR-597 PO; -BUPR300T92 PO
[2024-01-05 18:09] LABS: CREATININE, URINE 181.4 MG/DL; MAU/CREAT RATIO 9.9 MCG/MG (0.0-30.0)
== END ==
LOC: M LAB REF 17:25
PROVIDERS: ATTEND Nurse Practitioner Family
DX: E11.9 Type 2 diabetes mellitus without complications (principal)